=== PATIENT | female | born 1950 | race Caucasian/White ===

== ENCOUNTER 2016-05-15 10:47 | Emergency (ER) | payer BC ==
[~2016-05-15] VITALS: Ht 160 cm; Wt 50.6 kg
[~2016-05-15 10:47] MED LIST: ASCA500 PO; ASPI81TA28 PO; ATOR-26 PO; ATV/1 PO; LEVO112T4 PO; MIDRIN PO; PROP10TA7 PO; PYRI100T4 PO; RIZA10TA19 PO; SUMA100T16 PO; SUMA20SP
[2016-05-15 10:58] VITALS: TEMP 36.8; Ht 160 cm; Wt 50.6 kg
--- NOTE | 2016-05-15 11:31 | DIAGNOSTIC IMAGING REPORT ---
RIGHT WRIST 5 VIEWS CLINICAL HISTORY: Fall with right wrist injury. FINDINGS: 5 views of the right wrist are obtained. No prior studies are available for comparison at the time of dictation. The skeletal structures are osteopenic. There is an impacted and comminuted fracture of the distal radial metaphysis with intra-articular extension. There are posteriorly distracted fragments, with minimal apex volar angulation. Overlying soft tissue edema is noted. No additional fracture is seen. Mild degenerative narrowing is seen at the radiocarpal joint. IMPRESSION: There is an impacted and comminuted fracture of the distal right metaphysis as above with overlying soft tissue edema. Electronically signed by: Jose Khan M.D. 05/15/2016 11:29 AM Dictated Date/Time: 05/15/2016 11:28 AM
[2016-05-15] MEDS ORDERED: INSPMPNVLG (11:49)
[2016-05-15] MEDS ORDERED: HYDR-5688 PO (11:55)
--- NOTE | 2016-05-15 11:56 | EMERGENCY ROOM VISIT NOTE ---
ED Visit Note First contact with patient: 11:00 CHIEF COMPLAINT: Wrist injury HISTORY OF PRESENT ILLNESS: This 65-year-old female patient presents to the emergency department ambulatory complaining of pain in the right wrist after a fall which occurred this morning. The patient states that she slipped on ice and fell, landing on her back. She attempted to catch herself with her right wrist and reports pain in the right wrist at this time. The patient is able to move their wrist, but is very painful to do so. The patient states the pain is throbbing and 8/10. No laceration, no weakness. No numbness or tingling. The patient denies any other injury. The patient is able to move their fingers and elbow without difficulty. The patient has not had a previous fracture to this wrist. The patient has taken no medication for the pain. REVIEW OF SYSTEMS: A 6 system review of systems was performed with positives and pertinent negatives in the HPI. ALLERGIES: Cephalosporins, Bactrim MEDICATIONS: See med list PMH: Diabetes, hypertension SOCIAL HISTORY: The patient lives locally. Nonsmoker, occasional alcohol use. PHYSICAL EXAM: Vital Signs: Reviewed Nurse's notes, vital signs stable. GENERAL : This is a 65-year-old female, in no acute distress, but appears to be in pain , well-developed, nourished. NEURO: Alert and oriented to person place and time. Normal sensation to light and sharp touch. MUSCULOSKELETAL: There is no deformity of the right wrist. There is tenderness and edema over the dorsal aspect of the right wrist. There is no snuff box tenderness. Range of motion is slightly decreased due to patient discomfort. There is no tenderness of the elbow, hand or fingers. Production Administrative Assistant strength 5/5. Radial pulse 2+. SKIN: Normal and intact. The hand is warm and well perfused with capillary refill less than 2 seconds. RADIOGRAPHIC FINDINGS: RIGHT WRIST 5 VIEWS CLINICAL HISTORY: Fall with right wrist injury. FINDINGS: 5 views of the right wrist are obtained. No prior studies are available for comparison at the time of dictation. The skeletal structures are osteopenic. There is an impacted and comminuted fracture of the distal radial metaphysis with intra-articular extension. There are posteriorly distracted fragments, with minimal apex volar angulation. Overlying soft tissue edema is noted. No additional fracture is seen. Mild degenerative narrowing is seen at the radiocarpal joint. IMPRESSION: There is an impacted and comminuted fracture of the distal right metaphysis as above with overlying soft tissue edema. EMERGENCY DEPARTMENT COURSE: I examined the patient. An X-ray of the right wrist was reviewed by myself and radiology and showed the above fracture. An Ortho-Glass volar wrist splint was placed under my direction and the position was satisfactory. Neurovascular status rechecked and intact. The patient was given a prescription for Winkelman. The [place] prescription drug monitoring program was queried and no red flags were identified. She was given information for orthopedic follow-up. She verbalized understanding of my assessment and treatment plan. The patient was discharged home in good condition. DIAGNOSIS: Right distal radius fracture Problem List Medical Problems: (1) Bronchitis Status: Resolved (2) Diabetes Status: Chronic (3) Hypertension Status: Chronic Current/Historical Medications Scheduled Aspirin (Aspirin Ec), 81 MG PO DAILY Atorvastatin (Lipitor), 80 MG PO HS Insulin Aspart (novoLOG INSULIN PUMP ), 30 UNITS N/A DAILY Levothyroxine Sodium (Levothyroxine Sodium), 1 TAB PO DAILY Lorazepam (Ativan), 1 MG PO HS Propranolol Hcl (Inderal), 10 MG PO TID Pyridoxine (Vitamin B6), 100 MG PO DAILY Scheduled PRN Hydrocodone/Acetaminophen 5MG/325MG (Winkelman 5MG/325MG), 1-2 TABLET PO Q4H PRN for Pain Rizatriptan Benzoate (Maxalt-Senior Engineer), 10 MG PO DIRECTED PRN for Migraine Sumatriptan Succinate (Imitrex), 100 MG PO DIRECTED PRN for Migraine [Midrin], 1 TAB PO Q4H PRN for Headache Allergies Coded Allergies: Sulfamethoxazole w/Trimethoprim (Verified Allergy, Severe, "ALMOST ", 08/06/15) Cefaclor (Verified Allergy, Unknown, UNKNOWN, 08/06/15) Cephalexin (Verified Allergy, Unknown, UNKNOWN, 08/06/15) Cephalosporins (Verified Allergy, Unknown, ALLERGY TO CEFTIN & CECLOR, 08/05) Vital Signs Date Time Temp Pulse Resp B/P Pulse Ox O2 Delivery O2 Flow Rate FiO2 05/15/16 12:03 76 14 118/72 100 05/15/16 10:58 36.8 85 18 121/74 95 Room Air Departure Information Impression Primary Impression: Fracture of right distal radius Dispostion Home / Self-Care Condition GOOD Prescriptions Hydrocodone/Acetaminophen 5MG/325MG (Winkelman 5MG/325MG) Tab 1-2 TABLET PO Q4H Y for Pain, #20 TAB For Initial Treatment Prov: Bess Paul PA-C 05/15/16 Referrals Shad Moya M.D. (PCP) Richy Mendez M.D. Patient Instructions My [facility] Additional Instructions You have been treated in the Emergency Department for Wrist Pain. You have been prescribed Winkelman to be used for pain control. This is a narcotic medication. You cannot drive or consume alcohol while on this medicine. This medicine should only be used for pain that cannot be controlled with over-the- counter pain medicines. For pain control, you can use the following [id number]-ufphaib medicines (if >12 yo): - Regular strength (325mg/tab) Tylenol (acetaminophen) 2 tabs every 4-6 hours as needed. Do not exceed 12 tablets in a 24 hour period. Avoid taking more than 4 grams (4000 mg) of Tylenol per day. This includes any other sources of acetaminophen you may take on a regular basis. - Regular strength (200 mg/tab) Advil (ibuprofen) 1-2 tabs every 4-6 hours as needed. Do not exceed a dose of 3200 mg per day. If this is a recent injury (<24 hrs), ice can be applied to the area of pain for the first 3 days to help decrease pain and inflammation. You have been provided the number for an Orthopaedic Surgeon. You should call this number as soon as possible to establish a follow-up visit from today's Emergency Department visit. Keep the brace in place until evaluated by Orthopedics. Return to the Emergency Department if your current symptoms worsen despite treatment course outlined above, or if you develop any of the following symptoms : intractable pain despite aforementioned treatment course or new onset of numbness or tingling of the fingers. Problem Qualifiers Primary Impression: Fracture of right distal radius Encounter type: initial encounter Fracture type: closed Fracture morphology : unspecified fracture morphology Qualified Codes: S52.501A - Unspecified fracture of the lower end of right radius, initial encounter for closed fracture
[2016-05-15 12:03] VITALS: BP 118/72; PULSE 76; O2SAT 100
== END 2016-05-15 12:04 | disposition home or self-care (01) ==
LOC: C.EDB 10:48 → C.EDD 12:04
DX: S52.501A Unspecified fracture of the lower end of right radius, initial encounter for closed fracture (principal); W00.0XXA Fall on same level due to ice and snow, initial encounter; I10 Essential (primary) hypertension; E11.9 Type 2 diabetes mellitus without complications

== ENCOUNTER → 2016-05-24 | Outpatient (CLI) | payer BC ==
[~2016-05-24] MED LIST changes: -ASCA500 PO; +HYDR-5688 PO; +INSPMPNVLG; -SUMA20SP
== END | disposition home or self-care (01) ==
LOC: C.CPL 09:56
DX: Z01.810 Encounter for preprocedural cardiovascular examination (principal)

== ENCOUNTER → 2016-07-07 | Outpatient (CLI) | payer BC ==
--- NOTE | 2016-07-07 11:51 | DIAGNOSTIC IMAGING REPORT ---
RIGHT KNEE 1 OR 2 VIEWS ROUTINE, KNEES, AP STANDING, LEFT KNEE 1 OR 2 VIEWS ROUTINE CLINICAL HISTORY: OSTEOARTHRITIS OF BOTH KNEES,E55.9,R89.4 Right COMPARISON STUDY: None. FINDINGS: No fracture or dislocation within the right or left knee. Cartilage spaces are maintained for age. Soft tissues are unremarkable. No knee effusions. IMPRESSION: No significant abnormality within the bilateral knees. Electronically signed by: Adin Felipe M.D. 07/07/2016 11:50 AM Dictated Date/Time: 07/07/2016 11:47 AM
[2016-07-08 13:52] LABS: MICROSOMAL AB 804 IU/ML (<9)
== END | disposition home or self-care (01) ==
LOC: C.RAD 10:38
PROVIDERS: ATTEND Internal Medicine
DX: R89.4 Abnormal immunological findings in specimens from other organs, systems and tissues (principal); E55.9 Vitamin D deficiency, unspecified; M17.0 Bilateral primary osteoarthritis of knee

== ENCOUNTER → 2016-07-12 | Outpatient (CLI) | payer BC | END | disposition home or self-care (01) | LOC: C.MAMM 13:09 | PROVIDERS: ATTEND Internal Medicine | DX: E55.9 Vitamin D deficiency, unspecified (principal); Z78.9 Other specified health status; M81.0 Age-related osteoporosis without current pathological fracture ==

== ENCOUNTER → 2016-11-29 | Outpatient (CLI) | payer BC, OTHER ==
[~2016-11-29] MED LIST changes: -HYDR-5688 PO
--- NOTE | 2016-11-29 13:49 | MAMMOGRAPHY REPORT ---
BILATERAL DIGITAL SCREENING MAMMOGRAM WITH CAD: 11/29/2016 CLINICAL HISTORY: Routine screening examination. TECHNIQUE: Bilateral CC and MLO views were obtained. Current study was also evaluated with a Compute r Aided Detection (CAD) system. COMPARISON: Comparison is made to exams dated: 11/27/2015 mammogram, 02/18/2012 mammogram, 09/10/2010 m ammogram - [facility], 12/08/2006, and 09/23/2004 mammogram - [facility]. BREAST COMPOSITION: The tissue of both breasts is extremely dense, which lowers the sensitivity of m ammography. FINDINGS: The parenchymal pattern is unchanged. No developing mass, architectural distortion or clus ter of suspicious microcalcifications is seen in either breast. IMPRESSION: ACR BI-RADS CATEGORY 2: BENIGN There is no mammographic evidence of malignancy. A 1 year screening mammogram is recommended. The pa tient will receive written notification of the results. Approximately 10% of breast cancers are not detected with mammography. A negative mammographic report should not delay biopsy if a clinically suggestive mass is present. Eunice Rizvi M.D. ay/:11/29/2016 13:38:12 Wallet Assembler: Cathy CHAUHAN(R)(Jonah), [facility] letter sent: Normal 1/2 BI-RADS Code: ACR BI-RADS Category 2: Benign
== END | disposition home or self-care (01) ==
LOC: C.MAMM 09:19
PROVIDERS: ATTEND Internal Medicine
DX: Z12.31 Encounter for screening mammogram for malignant neoplasm of breast (principal)

== ENCOUNTER → 2016-12-25 | Outpatient (CLI) | payer BC ==
[2016-12-25 11:17] LABS: BASO % 0.3 %; BASO ABS # 0.02 K/uL (0-0.2); COMPLETE YES; EOS % 3.7 %; HEMATOCRIT 42.5 % (37-47); IG% 0.2 %; LYMPH % 28.1 %; LYMPH ABS # 1.74 K/uL (1.2-3.4); MEAN CELL VOLUME 93.8 fL (80-100); MEAN CORPUSCULAR HEMOGLOBIN 30.5 pg (25-34); MEAN CORPUSCULAR HGB CONC 32.5 g/dl (32-36); MEAN PLATELET VOLUME 10.3 fL (7.4-10.4); MONO % 7.1 %; NEUT % 60.6 %; PLATELET COUNT 311 K/uL (130-400); RED BLOOD COUNT 4.53 M/uL (4.2-5.4)
[2016-12-25 11:30] LABS: ESTIMATED AVERAGE GLUCOSE 266 mg/dl; HA1C FLAG Normal (Normal)
[2016-12-25 11:37] LABS: ALT/SGPT 35 U/L (12-78); BLOOD UREA NITROGEN 14 mg/dl (7-18); BUN/CREATININE RATIO 17.3 (10-20); CALCIUM 9.3 mg/dl (8.5-10.1); CARBON DIOXIDE 30 mmol/L (21-32); CHLORIDE 101 mmol/L (98-107); CHOLESTEROL 218 mg/dl (0-200); CREATININE 0.79 mg/dl (0.60-1.20); GLUCOSE 261 mg/dl (70-99); SODIUM 138 mmol/L (136-145)
[2016-12-25 11:41] LABS: ALB/GLOB RATIO 0.8 (0.9-2); ALKALINE PHOSPHATASE 119 U/L (45-117); AST/SGOT 32 U/L (15-37); CHOLESTEROL/HDL RATIO 2.2; HDL CHOLESTEROL 101 mg/dl; TRIGLYCERIDES 71 mg/dl (0-150); VERY LOW DENSITY LIPOPROT CALC 14 mg/dl
== END | disposition home or self-care (01) ==
LOC: C.LAB 09:58
PROVIDERS: ATTEND Internal Medicine Endocrinology, Diabetes & Metabolism
DX: E03.9 Hypothyroidism, unspecified (principal); I10 Essential (primary) hypertension; E78.5 Hyperlipidemia, unspecified; E06.3 Autoimmune thyroiditis; E55.9 Vitamin D deficiency, unspecified; E10.9 Type 1 diabetes mellitus without complications

== ENCOUNTER → 2017-04-01 | Outpatient (CLI) | payer BC ==
[2017-04-01 16:42] LABS: BLOOD UREA NITROGEN 16 mg/dl (7-18); CALCIUM 8.8 mg/dl (8.5-10.1); CARBON DIOXIDE 30 mmol/L (21-32); CREATININE 0.86 mg/dl (0.60-1.20); GLUCOSE 235 mg/dl (70-99); POTASSIUM 3.9 mmol/L (3.5-5.1); SODIUM 137 mmol/L (136-145)
== END | disposition home or self-care (01) ==
LOC: C.LAB 14:51
PROVIDERS: ATTEND Internal Medicine
DX: M81.0 Age-related osteoporosis without current pathological fracture (principal)

== ENCOUNTER → 2017-04-18 | Outpatient (CLI) | payer BC ==
[2017-04-18 13:38] LABS: HEMOGLOBIN A1C 11.1 % (4.5-5.6)
== END | disposition home or self-care (01) ==
LOC: C.LAB 12:28
PROVIDERS: ATTEND Internal Medicine Endocrinology, Diabetes & Metabolism
DX: E03.9 Hypothyroidism, unspecified (principal); I10 Essential (primary) hypertension; E78.5 Hyperlipidemia, unspecified; E06.3 Autoimmune thyroiditis; E55.9 Vitamin D deficiency, unspecified; E10.65 Type 1 diabetes mellitus with hyperglycemia

== ENCOUNTER → 2017-05-03 | Outpatient (CLI) | payer BC | END | disposition home or self-care (01) | LOC: C.PAPS 11:32 | PROVIDERS: ATTEND Obstetrics & Gynecology | DX: Z01.419 Encounter for gynecological examination (general) (routine) without abnormal findings (principal) ==

== ENCOUNTER → 2017-08-09 | Outpatient (CLI) | payer BC ==
[2017-08-09 13:58] LABS: HEMOGLOBIN A1C 10.5 % (4.5-5.6)
== END | disposition home or self-care (01) ==
LOC: C.LAB 12:36
PROVIDERS: ATTEND Nurse Practitioner Adult Health
DX: E03.9 Hypothyroidism, unspecified (principal); I10 Essential (primary) hypertension; E78.5 Hyperlipidemia, unspecified; E55.9 Vitamin D deficiency, unspecified; E10.65 Type 1 diabetes mellitus with hyperglycemia; Z79.4 Long term (current) use of insulin

== ENCOUNTER 2024-07-12 09:13 | Inpatient (IN) ==
[2024-07-12] MEDS ORDERED: DEXTROSE 50% 50 ML SYRINGE IV PRN (09:34)
[2024-07-12] MEDS ORDERED: GLUCOSE 10 TAB/TUBE PO PRN (09:34)
[2024-07-12] MEDS ORDERED: GLUCOSE 40% GEL 15 GM TUBE PO PRN (09:34)
[2024-07-12] MEDS ORDERED: CARBOHYDRATES FOR HYPOGLYCEMIA PO PRN (09:34)
[2024-07-12] MEDS ORDERED: GLUCAGON FOR INJ 1 MG VIAL SQ PRN (09:34)
[2024-07-12] MEDS: SODIUM CHLORIDE 0.9% 1,000 ML IV ONE ×3 (09:40→12:30)
--- NOTE | 2024-07-12 09:40 | Emergency Department Note ---
Impression & Plan AMS (altered mental status), Acute dehydration, Elevated lactic acid level, Elevated troponin, DKA (diabetic ketoacidosis), Acute hypernatremia, Hypothermia ED Provider Note Provider: Juan Manuel Joaquin MD CHIEF COMPLAINT: Altered found on floor HISTORY OF PRESENT ILLNESS: Patient is a 74-year-old female history of type 1 diabetes, hypertension, hypothyroidism presenting here today via ambulance from home. Evidently is been having GI symptoms over the past 5 to 7 days. Son talked to her last night around 7 PM. Found this morning by son on the floor in her bathroom. Unclear how she got there how long she was down for. Altered not talking or following commands or answering questions. EMS was called and noted her blood sugar to be undetectably high. She is intermittently moving but again not interactive. No vomiting or bleeding reported by them at the scene. Patient is also no provide additional history. Son reports he has been ill over the last week or so and she told him she thought she might have norovirus. Evidently ran out of insulin yesterday and he went to the pharmacy to get her new insulin but it was pens not the insulin for her problems. Her blood sugar has been reading high for a while by his report. He states she looked somewhat weak and may be dehydrated last night but refused multiple encouragement to come to the ER. Found her on the floor this morning naked with a heat lamp on in the room. Talk to her/texted to around 10 PM last night. PAST MEDICAL HISTORY: As noted above MEDICATIONS: Reviewed home medications SOCIAL HISTORY: Lives by herself PHYSICAL EXAM: GENERAL: Does open eyes to loud verbal stimuli but does not follow commands. Nonverbal. Intermittently fidgeting moving extremities. Head: normocephalic and atraumatic EYES: No injection, discharge or icterus. PERRL NECK: Trachea midline. ENT: Mucous membranes noncyanotic with little bit of dried brown on them without blood and dry LUNGS: Airway patent. No retractions. Breath sounds clear but tachypneic HEART: Regular rate and rhythm. No chest wall tenderness ABDOMEN: Soft and non-tender, without guarding or rebound. SKIN: Acyanotic, warm, dry, without rashes or ulcerations EXTREMITIES: Without obvious tenderness or deformities a little bit of redness at the base of the left toe. No large wounds or lacerations noted. No significant contusions or swelling or compartment tenderness appreciated. NEUROLOGICAL: Moving all extremities withdrawing to pain. EKG: Difficult to get an EKG due to the patient's movement and continuous removal of leads. Do not want to sedate the patient related to her underlying acidosis. CONTINUOUS CARDIAC MONITORING: was ordered and showed a heart rate of 60s to 100s normal sinus rhythm/sinus tachycardia GCS 15. Patient's laboratory studies and imaging reviewed. Differential includes Infection, dehydration, metabolic abnormality, hypo/hyperglycemia, electrolyte disturbance, anemia, hypoxia, cardiac sources, intracerebral event/neurologic, traumatic, as well as other pathologies. IMPRESSION/MEDICAL DECISION MAKING: Patient noted be hypothermic and altered upon arrival with a high glucose. Concern type I diabetic for DKA. [id number] testing confirms this. Evidence of JASMINE. IV fluid bolus ordered as well as insulin drip. Cultures obtained as well as laboratory studies VBG and Buenrostro. Adolfo verduzcoer for warming as she is hypothermic. It is unclear exactly how she had on the floor is altered will obtain a CT of the head as well as CT of the cervical finding chest abdomen pelvis Noncon given her acute renal dysfunction. Will look for any traumatic injury or other infectious etiology. Lactate elevated at 4. Leukocytosis of 23 with a hemoglobin 10.9. Glucose returns 1175. Sodium 133 and given the severe glucose elevation question hypernatremia. Again receiving IV fluids. Troponin mildly elevated 49 likely more demand and CK mildly elevated. Again difficulty obtaining EKG due to the patient's intermittent movement and pulling off leads but doubt ACS/STEMI. Repeat troponin is flat. She is again receiving IV fluids. UA without findings of infection. JASMINE/dehydration noted with elevated creatinine. CT scans per radiology without significant traumatic finding. A little bit of esophageal inflammation noted. Given a IV dose of PPI. Procalcitonin is elevated 3.9 discussed with pharmacy given her allergy profile empirically cover with ertapenem for broad-spectrum coverage at this point. Blood cultures are pending. Continued warming with the bear hugger for hypothermia. VBG pH of 7.0. Insulin drip has been ordered. Sodium 132 but correcting for the sodium should be in the 150s. Total of 4 L of IV fluid ordered for hydration. Son is updated at bedside. Discussed with the hospitalist for further care here. ICU aware of patient. DIAGNOSIS: DKA/HHS, altered mental status, elevated lactate, hyponatremia, hypothermia DISPOSITION: Hospitalist will evaluate Luan updated at bedside. Critical Care I have personally spent 46 minutes of critical care time in the direct management of this patient. This includes bedside care, interpretation of diagnostic studies, and testing, discussion with consultants, patient, and family members, and other required patient management activities. These 46 minutes is in excess of all separately billable procedures. 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, with long-term current use of insulin Medical History Generalized anxiety disorder with panic attacks Seasonal allergies uses symbicort rarely Osteoarthritis Migraine Hypertension Surgical History Hx of right cataract extraction Hx of bilateral cataract extraction History of open reduction and internal fixation (ORIF) procedure right wrist---with a carpal tunnel repair at same time---hardware in place History of open reduction and internal fixation (ORIF) procedure left wrist--hardware in place History of bronchoscopy NELLIE lung infection History of bilateral tubal ligation History of tooth extraction History of wisdom tooth extraction History of tonsillectomy and adenoidectomy Family History Grandfather (Maternal) Family hx of colon cancer Colorectal cancer Grandmother (Maternal) Myocardial infarction, Onset Age: 50 lived until 99 years old. Mother Myocardial infarction Coded during angioplasty, CABG x3. COPD (chronic obstructive pulmonary disease) Other No family history of adverse response to anesthesia Denies family history of Ovarian cancer Prostate cancer Diabetes Breast cancer Lung cancer Stroke Social History Smoking Status: Unknown if ever smoked Second Hand Exposure: Yes (PARENTS SMOKED); Do You Dip or Chew Tobacco: No; Hx Alcohol Use: Yes Alcohol type: wine and hard liquor Alcohol type Comment: 1 glass with dinner Alcohol Intake Frequency: 4 or More x per/Week Alcohol Intake Frequency Comment: 1 glass of wine each night Hx Substance Use: No Preferred Language: Monegasque Communication Ability: Effective Visual Impairment: Limited Hearing Ability: Normal Assessment Technician Required: No Beliefs That Will Affect Care: None marital status: / Current Living Situation: Alone current occupational status: retired 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 How many Children do You have: 6 Feels Safe at Home: Yes Childhood Exposure to Second-Hand Smoke: Yes Diet: DASH, diabetic and low salt caffeine: Yes Dental Care, Regularly: Yes Physical Activity Frequency: 3-4 Times per Week Seatbelt Use: always Sunscreen Use: Yes Assistive Devices: Glasses Allergies Allergies Allergy/AdvReac Type Severity Reaction Status Date / Time Bactrim Allergy Severe "ALMOST Verified 08/06/15 11:18 " sulfamethoxazole Allergy Severe "ALMOST Verified 05/23/24 13:33 " trimethoprim Allergy Severe "ALMOST Verified 05/23/24 13:33 " cefaclor Allergy Mild Rash Verified 05/23/24 13:33 cefuroxime [From Ceftin] Allergy Mild Rash Verified 05/23/24 13:33 cephalexin Allergy Mild Rash Verified 05/23/24 13:33 Cephalosporins Allergy Mild ALLERGY TO Verified 05/23/24 13:33 CEFTIN & CECLOR lisinopril AdvReac Mild Nausea Verified 05/23/24 13:33 Home Meds Home Medications Medication Instructions Recorded Confirmed aspirin 81 mg tablet,delayed 81 mg PO UD 11/24/18 07/12/24 release ibuprofen 200 mg tablet (Motrin IB) 400 mg PO BID PRN Pain 11/24/18 07/12/24 rizatriptan 10 mg tablet 10 mg PO UD PRN Migraine Headache 11/24/18 07/12/24 blood sugar diagnostic (FreeStyle #10 ea 09/05/20 05/23/24 Lite Strips) cholecalciferol (vitamin D3) 25 75 mcg PO DAILY 01/06/23 07/12/24 mcg (1,000 unit) capsule cbd caps 1 tab PO DAILY PRN Other 02/18/23 07/12/24 levocetirizine 5 mg tablet (Xyzal) 2.5 mg PO DAILY PRN Other 02/18/23 07/12/24 denosumab 60 mg/mL subcutaneous 60 mg subcut UD 04/13/24 07/12/24 syringe (Prolia) levothyroxine 100 mcg tablet 100 mcg PO DAILY 04/30/24 07/12/24 atorvastatin 80 mg tablet 80 mg PO UD 07/12/24 07/12/24 ezetimibe 10 mg tablet 10 mg PO UD 07/12/24 07/12/24 insulin aspart U-100 100 unit/mL 70 unit continuous subcutaneous 07/12/24 07/12/24 subcutaneous solution (Novolog infusion UD U-100 Insulin aspart) losartan 25 mg tablet 12.5 mg PO UD 07/12/24 07/12/24 mupirocin 2 % topical ointment 1 applic topical UD 07/12/24 07/12/24 sertraline 25 mg tablet 25 mg PO UD 07/12/24 07/12/24 Previous Rx's Medication Instructions Recorded insulin pump cartridge,automated #1 ea 05/27/23 dose,BT with controller subcutaneous (Omnipod 5 G6 Intro Kit (Gen 5) subcutaneous cartridge with controller) buspirone 10 mg tablet 5 - 10 mg (0.5 - 1 x 10 mg) PO BID 08/24/23 PRN anxiety #60 tabs Lantus Solostar U-100 Insulin 100 14 unit (0.14 mL) subcut DAILY #15 12/19/23 unit/mL (3 mL) subcutaneous pen mL (insulin glargine) pen needle, diabetic 32 gauge x #400 ea 12/19/23" (BD Kitty 2nd Gen Pen Needle) acetone (urine) test (Ketostix #25 ea 12/26/23 strips) glucagon (human recombinant) 1 mg 1 mg .Route Q20M PRN hypoglycemia 12/26/23 solution for injection #1 ea blood-glucose sensor (Dexcom G7 #3 ea 04/03/24 Sensor device) insulin aspart U-100 100 unit/mL 15 unit (0.15 mL) subcut DAILY #15 05/22/24 (3 mL) subcutaneous pen (Novolog mL FlexPen U-100 Insulin aspart) hydralazine 10 mg tablet 10 mg PO PRN #60 tabs 05/25/24 lorazepam 1 mg tablet 1 mg PO DAILY PRN panic attack(s) 06/28/24 #30 tabs Omnipod 5 G6-G7 Pods (Gen 5) #10 ea 06/29/24 (insulin pump cart,auto,BT,G6/7) Results & Data (ED) Vital Signs Vital Signs - 24 hr 07/12/24 09:04 07/12/24 09:04 07/12/24 09:04 Temperature 31.1 C L 31.1 C L Temperature Source Rectal Rectal Pulse Rate 76 Pulse Rate [Apical] Pulse Rhythm [Apical] Pulse Strength [Apical] Respiratory Rate 32 H Respiratory Effort / Characteristics Pursed Lip Respiratory Depth Deep Respiratory Pattern Blood Pressure 75/55 L Blood Pressure [Right Arm] Blood Pressure Mean 61 Blood Pressure Mean [Right Arm] Blood Pressure Position [Right Arm] Pulse Oximetry 90 Oxygen Delivery Method Nasal Cannula Nasal Cannula Oxygen Flow Rate 5 4 Sepsis Recent Fever Within 48 Hours No Sepsis New/Unexplained Change in Mental Status N/A Sepsis Action Taken by Nursing Physician Notified 07/12/24 09:23 07/12/24 09:39 07/12/24 10:34 Temperature 31.3 C L 31.7 C L Temperature Source Buenrostro Cath ( Temp Sensing) Buenrostro Cath ( Temp Sensing) Pulse Rate 79 Pulse Rate [Apical] 104 H 76 Pulse Rhythm [Apical] Pulse Strength [Apical] Respiratory Rate 24 25 H Respiratory Effort / Characteristics Pursed Lip Respiratory Depth Respiratory Pattern Blood Pressure Blood Pressure [Right Arm] 127/77 93/65 L Blood Pressure Mean Blood Pressure Mean [Right Arm] 93 74 Blood Pressure Position [Right Arm] Pulse Oximetry 97 Oxygen Delivery Method Nasal Cannula Nasal Cannula Oxygen Flow Rate 4 5 Sepsis Recent Fever Within 48 Hours Sepsis New/Unexplained Change in Mental Status Sepsis Action Taken by Nursing 07/12/24 11:48 Temperature Temperature Source Pulse Rate Pulse Rate [Apical] 83 Pulse Rhythm [Apical] Regular Pulse Strength [Apical] Normal Respiratory Rate 21 Respiratory Effort / Characteristics Non-Labored Spontaneous Respiratory Depth Normal Respiratory Pattern Regular Blood Pressure Blood Pressure [Right Arm] 113/68 Blood Pressure Mean Blood Pressure Mean [Right Arm] 83 Blood Pressure Position [Right Arm] Lying Pulse Oximetry 93 Oxygen Delivery Method Nasal Cannula Oxygen Flow Rate 5 Sepsis Recent Fever Within 48 Hours Sepsis New/Unexplained Change in Mental Status Sepsis Action Taken by Nursing Laboratory Data 07/12/24 09:25 07/12/24 11:08 Lab Results 04/10/25 04/10/25 04/10/25 Range/Units 09:25 09:32 10:22 WBC 23.08 H (4.8-10.8) K/ul RBC 3.55 L (4.20-5.40) M/uL Hgb 10.5 L (12.0-16.0) g/dl POC Hgb 11.9 L (12.0-16.0) g/dl Hct 33.5 L (37.0-47.0) % POC Hct 35 L (37-47) % MCV 94.4 (80.0-100.0) fL MCH 29.6 (25.0-34.0) pg MCHC 31.3 L (32.0-36.0) g/dL RDW Std Deviation 42.1 (36.4-46.3) fL RDW Coeff of Xavi 12.2 (11.5-14.5) % Plt Count 446 H (130-400) K/uL MPV 10.3 (9.4-12.4) fL Immature Gran % (Auto) 4.5 % Neut % (Auto) 77.7 % Lymph % (Auto) 13.0 % [place] % (Auto) 4.4 % Eos % (Auto) 0.2 % Baso % (Auto) 0.2 % Neut # (Auto) 17.94 H (1.40-6.50) K/uL Lymph # (Auto) 3.01 (1.20-3.40) K/uL [place] # (Auto) 1.01 H (0.11-0.59) K/uL Eos # (Auto) 0.04 (0.00-0.50) K/uL Baso # (Auto) 0.05 (0.00-0.20) K/uL Immature Gran # (Auto) 1.03 H (0.01-0.20) K/uL PT 15.0 H (9.0-12.0) Seconds INR 1.4 H (0.9-1.1) VBG pH (7.36-7.41) VBG pCO2 (38-50) mmHg VBG pO2 mmHg VBG HCO3 mmol/L VBG O2 Saturation % VBG Base Excess mEq/L POC Sodium 132 L (135-144) mmol/L Sodium 133 L (136-145) mmol/L POC Potassium 5.1 H (3.3-5.0) mmol/L Potassium 5.3 H (3.5-5.1) mmol/L POC Chloride 99 L (101-112) mmol/L Chloride 90 L (98-107) mmol/L Carbon Dioxide 10 L (21-32) mmol/L POC Total CO2 11 L (24-31) mmol/L Anion Gap 33 H (3-11) POC Anion Gap 28.0 H (16-25) mmol/L POC BUN 44 H (7-18) mg/dl BUN 56 H (6-23) mg/dl Creatinine 2.27 H (0.6-1.2) mg/dl POC Creatinine 2.1 H (0.6-1.3) mg/dl Est Cr Clr Drug Dosing 18.0 ml/min eGFR 22.10 BUN/Creatinine Ratio 24.7 H (10-20) Glucose 1175 H* (70-99(Fasting)) mg/dl POC Glucose (70-99) mg/dl POC Glucose (other) > 700 H* (70-99) mg/dl Lactate 4.0 H* (0.4-2.0) mmol/L Calcium 8.4 L (8.6-10.3) mg/dl POC Ioniz Calcium [place]che 1.07 L (1.12-1.32) mmol/l Phosphorus 8.6 H (2.5-4.9) mg/dl Magnesium 2.4 (1.7-2.4) mg/dl Total Bilirubin 1.1 H (0.2-1.0) mg/dl AST 28 (13-39) U/L ALT 13 (7-52) U/L Alkaline Phosphatase 75 (34-104) U/L Total Creatine Kinase 401 H (26-192) U/L Troponin I High Sens 49.3 H (0-14) pg/ml Total Protein 6.6 (6.0-8.3) gm/dl Albumin 3.4 (3.4-5.0) gm/dl Globulin 3.2 (2.5-4.0) gm/dl Albumin/Globulin Ratio 1.1 (0.9-2) Procalcitonin 3.91 H (0-0.5) ng/ml TSH 4.144 (0.300-4.500) uIu/ml Urine Color Yellow Urine Appearance Clear (Clear) Urine pH 5.0 (4.5-7.5) Ur Specific [place] 1.025 (1.000-1.030) Urine Protein Trace H (Negative) Urine Glucose (UA) 3+ H (Negative) Urine Ketones 2+ H (Negative) Urine Blood 2+ H (Negative) Urine Nitrite Negative (Negative) Urine Bilirubin Negative (Negative) Urine Urobilinogen Negative (Negative) Ur Leukocyte Esterase Negative (Negative) Urine WBC (Auto) 0-5 (0-5) /hpf Urine RBC (Auto) 0-2 (0-2) /hpf U Hyaline Cast (Auto) 0-2 (0-2) /lpf U Epithel Cells (Auto) 0-2 (0-2) /hpf Urine Bacteria (Auto) None Seen (None Seen) Urine Mucus Present A (None Prsent) 07/12/24 07/12/24 07/12/24 Range/Units 11:01 11:08 12:06 WBC (4.8-10.8) K/ul RBC (4.20-5.40) M/uL Hgb (12.0-16.0) g/dl POC Hgb (12.0-16.0) g/dl Hct (37.0-47.0) % POC Hct (37-47) % MCV (80.0-100.0) fL MCH (25.0-34.0) pg MCHC (32.0-36.0) g/dL RDW Std Deviation (36.4-46.3) fL RDW Coeff of Xavi (11.5-14.5) % Plt Count (130-400) K/uL MPV (9.4-12.4) fL Immature Gran % (Auto) % Neut % (Auto) % Lymph % (Auto) % [place] % (Auto) % Eos % (Auto) % Baso % (Auto) % Neut # (Auto) (1.40-6.50) K/uL Lymph # (Auto) (1.20-3.40) K/uL [place] # (Auto) (0.11-0.59) K/uL Eos # (Auto) (0.00-0.50) K/uL Baso # (Auto) (0.00-0.20) K/uL Immature Gran # (Auto) (0.01-0.20) K/uL PT (9.0-12.0) Seconds INR (0.9-1.1) VBG pH 7.00 L (7.36-7.41) VBG pCO2 28 L (38-50) mmHg VBG pO2 35 mmHg VBG HCO3 7 mmol/L VBG O2 Saturation < 60.0 % VBG Base Excess -23.1 mEq/L POC Sodium (135-144) mmol/L Sodium (136-145) mmol/L POC Potassium (3.3-5.0) mmol/L Potassium (3.5-5.1) mmol/L POC Chloride (101-112) mmol/L Chloride (98-107) mmol/L Carbon Dioxide (21-32) mmol/L POC Total CO2 (24-31) mmol/L Anion Gap (3-11) POC Anion Gap (16-25) mmol/L POC BUN (7-18) mg/dl BUN (6-23) mg/dl Creatinine (0.6-1.2) mg/dl POC Creatinine (0.6-1.3) mg/dl Est Cr Clr Drug Dosing ml/min eGFR BUN/Creatinine Ratio (10-20) Glucose 1085 H* (70-99(Fasting)) mg/dl POC Glucose > 600 H* > 600 H* (70-99) mg/dl POC Glucose (other) (70-99) mg/dl Lactate (0.4-2.0) mmol/L Calcium (8.6-10.3) mg/dl POC Ioniz Calcium [place] (1.12-1.32) mmol/l Phosphorus (2.5-4.9) mg/dl Magnesium (1.7-2.4) mg/dl Total Bilirubin (0.2-1.0) mg/dl AST (13-39) U/L ALT (7-52) U/L Alkaline Phosphatase (34-104) U/L Total Creatine Kinase (26-192) U/L Troponin I High Sens 48.8 H (0-14) pg/ml Total Protein (6.0-8.3) gm/dl Albumin (3.4-5.0) gm/dl Globulin (2.5-4.0) gm/dl Albumin/Globulin Ratio (0.9-2) Procalcitonin (0-0.5) ng/ml TSH (0.300-4.500) uIu/ml Urine Color Urine Appearance (Clear) Urine pH (4.5-7.5) Ur Specific [place] (1.000-1.030) Urine Protein (Negative) Urine Glucose (UA) (Negative) Urine Ketones (Negative) Urine Blood (Negative) Urine Nitrite (Negative) Urine Bilirubin (Negative) Urine Urobilinogen (Negative) Ur Leukocyte Esterase (Negative) Urine WBC (Auto) (0-5) /hpf Urine RBC (Auto) (0-2) /hpf U Hyaline Cast (Auto) (0-2) /lpf U Epithel Cells (Auto) (0-2) /hpf Urine Bacteria (Auto) (None Seen) Urine Mucus (None Prsent) Administered Medications Insulin Human Regular 250 (units/ Sodium Chloride) 250 mls @ 5 mls/hr IV .Q24H [facility]; Protocol Stop: 08/11/24 09:44 Last Titration: 07/12/24 12:10 Dose: 6 units/hr, 6 mls/hr Documented By: BHARGAVI Co-signed By: BRUNILDA Titration: 07/12/24 11:02 Dose: 5 units/hr, 5 mls/hr Documented By: ERIN Co-signed By: BHARGAVI Admin: 07/12/24 10:11 Dose: 5 units/hr, 5 mls/hr Documented By: ERIN Co-signed By: JUAN Sodium Chloride (Nss) 1,000 mls @ 999 mls/hr IV .Q1H1M ONE Stop: 07/12/24 11:57 Last Admin: 07/12/24 11:23 Dose: 999 mls/hr Documented By: BHARGAVI Insulin Aspart (Insulin Aspart Per Unit Charge) 0 units SC ACHS [facility] Stop: 08/11/24 11:29 Last Admin: 07/12/24 12:01 Dose: Not Given Documented By: BHARGAVI Co-signed By: BRUNILDA Discontinued Medications Sodium Chloride (Nss) 1,000 mls @ 999 mls/hr IV .Q1H1M ONE Stop: 07/12/24 10:19 Last Infusion: 07/12/24 11:20 Dose: Infused Documented By: Admin: 07/12/24 09:40 Dose: 999 mls/hr Documented By: ERIN Parenteral Electrolytes (Plasma-Lyte A Ph 7.4) 1,000 mls @ 999 mls/hr IV .Q1H1M ONE Stop: 07/12/24 10:34 Last Admin: 07/12/24 11:18 Dose: 999 mls/hr Documented By: BHARGAVI Ertapenem (Invanz 1000mg) 1,000 mg in 10 mls @ 2 mls/min IV NOW STA Stop: 07/12/24 10:09 Last Admin: 07/12/24 10:51 Dose: 2 mls/min Documented By: ERIN Pantoprazole Sodium 80 mg/ (Dextrose) 120 mls @ 480 mls/hr IV ONE STA Stop: 07/12/24 10:56 Last Infusion: 07/12/24 12:03 Dose: Infused Documented By: Admin: 07/12/24 11:45 Dose: 480 mls/hr Documented By: BHARGAVI Pantoprazole Sodium (Protonix) 40 mg in 10 mls @ 5 mls/min IV NOW ONE Stop: 07/12/24 11:18 Last Admin: 07/12/24 11:30 Dose: 5 mls/min Documented By: BHARGAVI Blanchard (Stat Iv Infusion Titration Per Protocol) 1 each N/A NOW STA Stop: 07/12/24 09:35 Last Admin: 07/12/24 10:19 Dose: Not Given Documented By: ERIN Blanchard (Dka Goal Range 150-250 Mg/Dl) 1 each N/A ONE ONE Stop: 07/12/24 09:35 Last Admin: 07/12/24 10:18 Dose: Not Given Documented By: ERIN Blanchard (Bsg Goal Range Change - Pending Order) 1 each N/A NOW ONE Stop: 07/12/24 11:01 Last Admin: 07/12/24 11:24 Dose: 1 each Documented By: BHARGAVI Imaging Data Radiologist's Impression: Cervical Spine CT 07/12/24 09:17 CT cervical spine wo con CT DOSE: 1944.79 mGy.cm CLINICAL HISTORY: on floor, ams. COMPARISON: None TECHNIQUE: Multiple axial CT images of the cervical spine were obtained without contrast. A dose lowering technique was utilized adhering to the principles of ALARA. FINDINGS: There is moderate diffuse degenerative disc disease. No fracture or subluxation. IMPRESSION: No cervical spine fracture seen. ACT 112: Negative or not required by law. The above report was generated using voice recognition software. It may contain grammatical, syntax or spelling errors. Electronically signed by: Bc Suarez M.D. 07/12/2024 10:20 AM Chest X-Ray 07/12/24 09:18 XR chest 1V portable CLINICAL HISTORY: ams, ?fall COMPARISON STUDY: 08/06/2015 FINDINGS: Single view supine portable chest is limited by motion degradation. There is no acute process identified. There is no definite airspace opacity or pleural effusion. There is no pneumothorax. The heart and pulmonary vascularity are unremarkable for technique. IMPRESSION: No acute process identified. ACT 112: Negative or not required by law. Electronically signed by: Debra Dutton M.D. 07/12/2024 9:[address] 07/12/24 09:18 CT SCAN OF THE BRAIN WITHOUT IV CONTRAST CLINICAL HISTORY: Altered mental status. Possible fall. COMPARISON STUDY: None. TECHNIQUE: Unenhanced axial CT scan of the brain was performed from the vertex to the skull base. A dose lowering technique was utilized adhering to the principles of ALARA. FINDINGS: Brain parenchyma: Mild motion artifact. No acute intracranial hemorrhage, midline shift or mass effect is present. Gomez-white matter differentiation is preserved. There are no extra-axial fluid collections. There are no findings to suggest acute dural sinus thrombosis or acute territorial infarct. Ventricles, sulci, cisterns: There is no hydrocephalus. The basal cisterns are patent. Calvarium: No calvarial fractures. Sinuses and mastoids: The visualized paranasal sinuses are clear. The mastoid air cells are well pneumatized. Orbits: The bony orbits are grossly intact. IMPRESSION: 1. No acute intracranial findings. 2. No calvarial fractures. ACT 112: Negative or not required by law. Electronically signed by: Ag Griffiths M.D. 07/12/2024 10:24 AM Abdomen/Pelvis CT 07/12/24 09:[address] WITHOUT CONTRAST CT DOSE: 1945 HISTORY: ams, on floor, DKA TECHNIQUE: Multiaxial CT images of the abdomen and pelvis were performed without contrast. A dose lowering technique was utilized adhering to the principles of ALARA. COMPARISON STUDY: None FINDINGS: ABDOMEN: There is motion artifact. Liver, gallbladder, spleen, pancreas, and adrenal glands have an unremarkable non-IV contrast appearance. There is a small nonobstructing calculus at the left kidney. There is no hydronephrosis bilaterally. No abdominal aortic aneurysm. There is mild distention of the stomach with gas and fluid and the distal esophagus is mildly distended with fluid. Pelvis: Uterus and adnexal regions are grossly unremarkable. Buenrostro catheter is present. Urinary bladder is nondistended. No bowel inflammation or obstruction seen. No free fluid, free air, or abscess. No enlarged adenopathy. Osseous structures: There is mild chronic-appearing height loss at the L1 vertebral body. No acute osseous finding seen. IMPRESSION: 1. No acute findings seen. 2. Mild distention of the stomach with gas and fluid and mild fluid distention of the distal esophagus. ACT 112: Negative or not required by law. The above report was generated using voice recognition software. It may contain grammatical, syntax or spelling errors. Electronically signed by: Bc Suarez M.D. 07/12/2024 10:[address] 07/12/24 09:33 CT chest diagnostic wo con CT DOSE: 1944.79mGy*cm CLINICAL HISTORY: Altered mental status; found on the floor TECHNIQUE: Multiaxial CT images of the chest were performed without contrast. Sagittal and coronal reconstructions were done. A dose lowering technique was utilized adhering to the principles of ALARA. COMPARISON STUDY: None FINDINGS: There is no definite chest wall injury identified. Spurious defect in the sternum is felt to be misregistration due to motion. There is patchy discoid atelectasis in both lung bases. There is no air space opacity suggestive of a pneumonia or contusion. There is no pneumothorax. The upper airway is unremarkable. There is mild prominence of the superior mediastinal lymph nodes and supraclavicular lymph nodes with no evidence of matting or necrosis. There is mild ectasia of the ascending aorta. There is no pericardial effusion. There is mild coronary artery calcification. There is a thickening of the freeman of the distal esophagus. The upper abdominal images are noncontributory. The thoracic spine shows no evidence of acute compression fracture or malalignment. IMPRESSION: No definite evidence of acute traumatic thoracic injury. Mild ectasia of the ascending aorta. Relative low attenuation of the lumen raises the possibility of anemia. Nonspecific and discoid atelectasis at the lung bases. Esophageal wall thickening. Consider correlation with esophagram Mild prominence of the superior mediastinal and supraclavicular lymph nodes are nonspecific. ACT 112: Negative or not required by law. Electronically signed by: Debra Dutton M.D. 07/12/2024 10:25 AM Discharge Plan Visit Data Chief Complaint: Hyperglycemia ED Provider: Juan Manuel Joaquin Discharge Problem: AMS (altered mental status), Acute dehydration, Elevated lactic acid level, Elevated troponin, DKA (diabetic ketoacidosis), Acute hypernatremia, Hypothermia Patient Disposition: Being Evaluated by Hospitalist Forms Stand Alone Forms: On License Of [facility] Prescriptions Prescriptions: No Action (DME) Omnipod 5 G6 Intro Kit (Gen 5) Cartridge See Rx Instructions .Route Qty: 1 0RF Rx Instructions: Use as directed with Omnipod (DME) Dexcom G7 Sensor Device See Rx Instructions .Route Qty: 3 11RF Rx Instructions: Change sensor every 10 days. insulin aspart U-100 [Novolog FlexPen U-100 Insulin] 100 unit/mL (3 mL) insulin pen 15 unit subcut DAILY Qty: 15 1RF Rx Instructions: Inject with meals in case of pump failure; TDD 15 units hydralazine 10 mg tablet 10 mg PO PRN Qty: 60 2RF Rx Instructions: Take 1 tablet for SBP >140 mmHg lorazepam 1 mg tablet 1 mg PO DAILY PRN (Reason: panic attack(s)) Qty: 30 0RF (DME) Omnipod 5 G6-G7 Pods (Gen 5) Cartridge See Rx Instructions .Route Qty: 10 5RF Rx Instructions: change pod Q3D (DME) FreeStyle Lite Strips Strip See Rx Instructions .ROUTE .MEDSUPPLY Qty: 10 Rx Instructions: As directed cbd caps capsule 1 tab PO DAILY PRN (Reason: Other) Rx Instructions: Unable to verify cholecalciferol (vitamin D3) 25 mcg (1,000 unit) capsule 75 mcg PO DAILY Rx Instructions: otc unable to verify levocetirizine [Xyzal] 5 mg tablet 2.5 mg PO DAILY PRN (Reason: Other) Rx Instructions: otc unable to verify (DME) pen needle, diabetic [BD Kitty 2nd Gen Pen Needle] 32 gauge x 5/32" needle See Rx Instructions miscellaneous .MEDSUPPLY Qty: 400 0RF Rx Instructions: To use with a new pen needle up to 4x a day insulin glargine [Lantus Solostar U-100 Insulin] 100 unit/mL (3 mL) insulin pen 14 unit subcut DAILY Qty: 15 1RF Rx Instructions: To be used for pump failure Prolia 60 mg/mL syringe 60 mg subcut UD Patient Comments: First injection in March 2024. Rx Instructions: last filled 03/02/24 180 day supply buspirone 10 mg tablet 5 - 10 mg PO BID PRN (Reason: anxiety) Qty: 60 1RF Rx Instructions: last filled 08/24/23 30 day supply levothyroxine 100 mcg tablet 100 mcg PO DAILY Rx Instructions: Take 1 tablet 6 days/week (DME) Ketostix Strip See Rx Instructions miscellaneous .MEDSUPPLY Qty: 25 5RF Rx Instructions: Check for sick days if blood sugars are greater than 250 for 4 hours glucagon (human recombinant) 1 mg recon soln 1 mg .Route Q20M PRN (Reason: hypoglycemia) Qty: 1 5RF Rx Instructions: To treat for a severe hypoglycemia. last filled 12/25/33 ibuprofen [Motrin IB] 200 mg Tablet 400 mg PO BID PRN (Reason: Pain) Rx Instructions: otc unable to verify rizatriptan 10 mg Tablet 10 mg PO UD PRN (Reason: Migraine Headache) Rx Instructions: No fill history unable to verify aspirin 81 mg Tablet,Delayed Release (Dr/Ec) 81 mg PO UD Hold Instructions: Epistaxis Rx Instructions: 81 mg po hs. otc unable to verify atorvastatin 80 mg tablet 80 mg PO UD Rx Instructions: 80 mg po hs. last filled 04/02/24 90 day supply insulin aspart U-100 [Novolog U-100 Insulin aspart] 100 unit/mL solution 70 unit continuous subcutaneous infusion UD Rx Instructions: USE IN INSULIN PUMP FOR A TOTAL DAILY DOSE OF 70 UNITS losartan 25 mg tablet 12.5 mg PO UD Rx Instructions: 12.5mg po daily. last filled 12/13/23 40 day supply sertraline 25 mg tablet 25 mg PO UD Rx Instructions: 25 mg po daily. No fill history unable to verify mupirocin 2 % ointment 1 applic topical UD Rx Instructions: 1 elsy topical bid. last filled 01/25/24 10 day supply ezetimibe 10 mg tablet 10 mg PO UD Rx Instructions: 10mg po hs. last filled 5/8/24 100 day supply Referrals Referrals: Berenice Balderas MD [Primary Care Provider] - Discharge Problem: AMS (altered mental status) Qualifiers: Altered mental status type: disorientation Qualified Code(s): R41.0 - Disorientation, unspecified
[2024-07-12 09:42] LABS: Basophils # (auto) 0.05 K/uL (0.00-0.20); Basophils % (auto) 0.2 %; Eosinophils # (auto) 0.04 K/uL (0.00-0.50); Eosinophils % (auto) 0.2 %; Immature Granulocytes # (auto) 1.03 K/uL (0.01-0.20); Immature Granulocytes % (auto) 4.5 %; Lymphocytes # (auto) 3.01 K/uL (1.20-3.40); Mean Platelet Volume 10.3 fL (9.4-12.4); Monocytes # (auto) 1.01 K/uL (0.11-0.59); Monocytes % (auto) 4.4 %; Neutrophils # (auto) 17.94 K/uL (1.40-6.50); Neutrophils % (auto) 77.7 %; Platelet Count 446 K/uL (130-400); White Blood Count 23.08 K/ul (4.8-10.8)
--- NOTE | 2024-07-12 10:01 | XRay Report ---
XR chest 1V portable CLINICAL HISTORY: ams, ?fall COMPARISON STUDY: 08/06/2015 FINDINGS: Single view supine portable chest is limited by motion degradation. There is no acute proce ss identified. There is no definite airspace opacity or pleural effusion. There is no pneumothorax. T he heart and pulmonary vascularity are unremarkable for technique. IMPRESSION: No acute process identified. ACT 112: Negative or not required by law. Electronically signed by: Debra Dutton M.D. 07/12/2024 9:58 AM
[2024-07-12 10:09] LABS: INR 1.4 (0.9-1.1)
[2024-07-12] MEDS: INSULIN REGULAR 250 UNITS in SODIUM CHLORIDE 0.9% 247.5 ML IV SCH (10:11)
[2024-07-12] MEDS: DKA GOAL RANGE 150-250 mg/dl ONE (10:18)
[2024-07-12] MEDS: STAT IV Infusion **Titration per Protocol STA (10:19)
[2024-07-12 10:21] LABS: Albumin Globulin Ratio 1.1 (0.9-2); Albumin Level 3.4 gm/dl (3.4-5.0); BUN Creatinine Ratio 24.7 (10-20); Bilirubin,Total 1.1 mg/dl (0.2-1.0); Calcium 8.4 mg/dl (8.6-10.3); Globulin 3.2 gm/dl (2.5-4.0); Magnesium 2.4 mg/dl (1.7-2.4); Potassium 5.3 mmol/L (3.5-5.1); Thyroid Stimulating Hormone 4.144 uIu/ml (0.300-4.500); Total Protein 6.6 gm/dl (6.0-8.3); Troponin I High Sensitivity 49.3 pg/ml (0-14)
--- NOTE | 2024-07-12 10:21 | CT Scan Report ---
CT cervical spine wo con CT DOSE: 1944.79 mGy.cm CLINICAL HISTORY: on floor, ams. COMPARISON: None TECHNIQUE: Multiple axial CT images of the cervical spine were obtained without contrast. A dose low ering technique was utilized adhering to the principles of ALARA. FINDINGS: There is moderate diffuse degenerative disc disease. No fracture or subluxation. IMPRESSION: No cervical spine fracture seen. ACT 112: Negative or not required by law. The above report was generated using voice recognition software. It may contain grammatical, syntax o r spelling errors. Electronically signed by: Bc Suarez M.D. 07/12/2024 10:20 AM
--- NOTE | 2024-07-12 10:25 | CT Scan Report ---
CT SCAN OF THE BRAIN WITHOUT IV CONTRAST CLINICAL HISTORY: Altered mental status. Possible fall. COMPARISON STUDY: None. TECHNIQUE: Unenhanced axial CT scan of the brain was performed from the vertex to the skull base. A dose lowering technique was utilized adhering to the principles of ALARA. FINDINGS: Brain parenchyma: Mild motion artifact. No acute intracranial hemorrhage, midline shift or mass effec t is present. Gomez-white matter differentiation is preserved. There are no extra-axial fluid collecti ons. There are no findings to suggest acute dural sinus thrombosis or acute territorial infarct. Ventricles, sulci, cisterns: There is no hydrocephalus. The basal cisterns are patent. Calvarium: No calvarial fractures. Sinuses and mastoids: The visualized paranasal sinuses are clear. The mastoid air cells are well pneu matized. Orbits: The bony orbits are grossly intact. IMPRESSION: 1. No acute intracranial findings. 2. No calvarial fractures. ACT 112: Negative or not required by law. Electronically signed by: Ag Griffiths M.D. 07/12/2024 10:24 AM
--- NOTE | 2024-07-12 10:25 | CT Scan Report ---
ABDOMEN AND PELVIS CT WITHOUT CONTRAST CT DOSE: 1944 HISTORY: ams, on floor, DKA TECHNIQUE: Multiaxial CT images of the abdomen and pelvis were performed without contrast. A dose lo wering technique was utilized adhering to the principles of ALARA. COMPARISON STUDY: None FINDINGS: ABDOMEN: There is motion artifact. Liver, gallbladder, spleen, pancreas, and adrenal glands have an u nremarkable non-IV contrast appearance. There is a small nonobstructing calculus at the left kidney. There is no hydronephrosis bilaterally. No abdominal aortic aneurysm. There is mild distention of the stomach with gas and fluid and the distal esophagus is mildly distended with fluid. Pelvis: Uterus and adnexal regions are grossly unremarkable. Buenrostro catheter is present. Urinary bladd er is nondistended. No bowel inflammation or obstruction seen. No free fluid, free air, or abscess. N o enlarged adenopathy. Osseous structures: There is mild chronic-appearing height loss at the L1 vertebral body. No acute os seous finding seen. IMPRESSION: 1. No acute findings seen. 2. Mild distention of the stomach with gas and fluid and mild fluid distention of the distal esophagu s. ACT 112: Negative or not required by law. The above report was generated using voice recognition software. It may contain grammatical, syntax o r spelling errors. Electronically signed by: Bc Suarez M.D. 07/12/2024 10:24 AM
--- NOTE | 2024-07-12 10:27 | CT Scan Report ---
CT chest diagnostic wo con CT DOSE: 1944.79mGy*cm CLINICAL HISTORY: Altered mental status; found on the floor TECHNIQUE: Multiaxial CT images of the chest were performed without contrast. Sagittal and coronal r econstructions were done. A dose lowering technique was utilized adhering to the principles of ALARA. COMPARISON STUDY: None FINDINGS: There is no definite chest wall injury identified. Spurious defect in the sternum is felt t o be misregistration due to motion. There is patchy discoid atelectasis in both lung bases. There is no air space opacity suggestive of a pneumonia or contusion. There is no pneumothorax. The upper airway is unremarkable. There is mild prominence of the superior mediastinal lymph nodes an d supraclavicular lymph nodes with no evidence of matting or necrosis. There is mild ectasia of the ascending aorta. There is no pericardial effusion. There is mild coronar y artery calcification. There is a thickening of the freeman of the distal esophagus. The upper abdominal images are noncontrib utory. The thoracic spine shows no evidence of acute compression fracture or malalignment. IMPRESSION: No definite evidence of acute traumatic thoracic injury. Mild ectasia of the ascending aorta. Relative low attenuation of the lumen raises the possibility of anemia. Nonspecific and discoid atelectasis at the lung bases. Esophageal wall thickening. Consider correlation with esophagram Mild prominence of the superior mediastinal and supraclavicular lymph nodes are nonspecific. ACT 112: Negative or not required by law. Electronically signed by: Debra Dutton M.D. 07/12/2024 10:25 AM
[2024-07-12 10:28] LABS: iSTAT Blood Urea Nitrogen 44 mg/dl (7-18); iSTAT Carbon Dioxide 11 mmol/L (24-31); iSTAT Chloride 99 mmol/L (101-112); iSTAT Creatinine 2.1 mg/dl (0.6-1.3); iSTAT Glucose > 700 mg/dl (70-99); iSTAT Hematocrit 35 % (37-47); iSTAT Hemoglobin 11.9 g/dl (12.0-16.0); iSTAT Ionized Calcium 1.07 mmol/l (1.12-1.32); iSTAT Potassium 5.1 mmol/L (3.3-5.0); iSTAT Sodium 132 mmol/L (135-144)
[2024-07-12 10:46] LABS: Phosphorus 8.6 mg/dl (2.5-4.9)
[2024-07-12] MEDS: ERTAPENEM 1000MG 1,000 MG/10 ML SYR IV STA (10:51)
[2024-07-12 10:54] LABS: Appearance Urine Clear (Clear); Bacteria Urine Automated None Seen (None Seen); Bilirubin Urine Negative (Negative); Blood Urine 2+ (Negative); Color Urine Yellow; Epithelial Cell Urine Auto 0-2 /hpf (0-2); Glucose Urine UA 3+ (Negative); Ketones Urine 2+ (Negative); Leukocyte Esterase Urine Negative (Negative); Mucus Urine Present (None Prsent); Nitrite Urine Negative (Negative); Protein Urine Trace (Negative); RBC Urine Automated 0-2 /hpf (0-2); Specific Gravity Urine 1.025 (1.000-1.030); Urobilinogen Urine Negative (Negative); WBC Urine Automated 0-5 /hpf (0-5)
[2024-07-12 10:55] LABS: Cast Urine Automated 0-2 /lpf (0-2)
[2024-07-12 10:56] LABS: Hematocrit (blood only) 33.5 % (37.0-47.0); Hemoglobin 10.5 g/dl (12.0-16.0); Mean Corpuscular Hemoglobin 29.6 pg (25.0-34.0); Mean Corpuscular Hgb Conc 31.3 g/dL (32.0-36.0); Mean Corpuscular Volume 94.4 fL (80.0-100.0); RDW Coefficient of Variation 12.2 % (11.5-14.5); RDW Standard Deviation 42.1 fL (36.4-46.3); Red Blood Count 3.55 M/uL (4.20-5.40)
[2024-07-12] MEDS: PLASMA-LYTE A 1,000 ML IV ONE (11:18)
--- NOTE | 2024-07-12 11:20 | History & Physical Report ---
Date of Service July 12, 2024 Assessment & Plan (1) DKA (diabetic ketoacidosis): (2) Uncontrolled type 1 diabetes mellitus with hyperglycemia: (3) Lactic acidosis: (4) Severe sepsis: (5) Fall: (6) Esophagitis: (7) Hypotension: (8) Acute metabolic encephalopathy: (9) Hypothermia: (10) Acute dehydration: (11) Hypothyroidism: (12) Hyperlipidemia: (13) Generalized anxiety disorder with panic attacks: (14) Migraine: (15) Orthostatic hypotension: (16) Elevated INR: Plan 74yo female with history of long-standing T1DM, poorly-controlled with most a1c's >10% in the record and [place] by [facility] - on insulin pump with CGM; hypothyroidism; anxiety; hyperlipidemia; and migraines who presents from home after her son found her on the floor in the bathroom this am. She was unresponsive when he found her. Upon ER presentation she was hypothermic, had evidence of severe DKA, was hypotensive, and was severely altered. #DKA - * suspect 2nd to noncompliance with insulin therapy; cannot rule out infectious process given her leukocytosis, elevated procal, etc. * has been given multiple saline boluses in the ER (3 liters) and will start NS at 150ml/hr thereafter * insulin infusion has been started in the ER and will continue per protocol * q1h BSGs with serum glucose levels as needed until able to follow with bedside glucometer * add KCL to IVF once potassium is <5 * serial BMPs, pH, mag, phos q4h until gap is closed * may need to switch to hypotonic fluid later today as her corrected Na is nearly 159 * pharmacy glycemic consult to help with transitioning from insulin drip to SC basal-bolus regimen (or her pump depending on how she is doing later in the stay) #uncontrolled, long-standing T1DM on insulin pump therapy - * a1c 10.6% * nearly all a1c's going back to 2017 have been >10% * follows with [facility] * will ask the hematology nurse educator to meet with her later in the stay * pharmacy glycemic consult as above #suspected severe sepsis - * meets severe sepsis criteria with elevated lactate level, JASMINE, altered MS, leukocytosis, hypothermia, etc. * blood cx's dispatched * given ertapenem IV for empiric coverage (multiple abx allergies) * no obvious source of infection, however, on mills-CTs #lactic acidosis - * serial lactates * fluid resuscitation as above * lactic acidosis 2nd to severely volume contacted state and/or severe sepsis #JASMINE - * 2nd to DKA * 2nd to volume contraction * possibly sepsis-related * IVF, serial BMPs * no evidence of obstruction on CT a/p #Esophagitis - * as seen on CT * start daily PPI IV * could have gastroparesis as well leading to the gastric/esophageal abnormalities as detected on the CTs #acute metabolic encephalopathy - * 2nd to DKA, lactic acidosis, etc * CT head negative * can't rule out altered MS from sepsis * mental status should improve with resolution of DKA & lactic acidosis and other metabolic derangements #hypothyroidism - * TSH 4.1 * resume PO synthroid when more awake/alert #elevated INR - * etiology uncertain * no h/o liver disease * could be vitamin K deficient * simply recheck INR in am #fall - * presumed 2nd to severe DKA +/- weakness from metabolic derangements +/- sepsis +/- hypotension, etc * echo 04/2024 was wnl * will ultimately need PT/OT evals #hypothermia - * cont warming blanket * should improve with fluid resuscitation and resolution of DKA/lactic acidosis/etc * IV abx to cover for sepsis #DVT proph - * heparin 5000 BID pt's son Juan Manuel updated several times during the admission process patient to be admitted to ICU and critical care team to be consulted --- appreciate their assistance History of Present Illness Chief Complaint: found on floor, altered mental status Primary Care Provider: Berenice Balderas MD 74yo female with history of long-standing T1DM, poorly-controlled with most a1c's >10% in the record and [place] [facility] - on insulin pump with CGM who presents from home after her son found her on the floor in her home this am. She was unresponsive when he found her. Her son Juan Manuel was at bedside during the visit and provided all historical information as the patient could not provide any history due to severely altered mental status. Per her son he saw her last night about 7pm at her home. He reports she was tired and a little groggy but able to carry a conversation. She told him her "sugars were high" but she did not report the specific glucose values. He encouraged her to seek medical attention in the ER last night but she declined such. About 10pm last night he called her on the phone and she was still mentating and talking normally at that time. Last night she did not have any specific complaints of infectious symptoms or pain in any location. This am he went to her home and found her on the bathroom floor essentially unresponsive. EMS was summoned and her BSG was too high to read on the glucometer. Records indicate she had a GI illness about 7-10 days ago. Her son is concerned that her insulin pump ran out of insulin but it is unclear when that occurred. When she presented to the hospital today the insulin pump was not on her. Upon ER presentation she has severely altered with hypothermia and low BP. Multiple saline boluses were given, warming blanket was applied, and labs were drawn showing severe anion-gap metabolic acidosis with evidence of DKA & lactic acidosis. Regular insulin infusion was started and was running at 5 units/hr during my assessment. Her son told me multiple times during the visit that he has been concerned that she is "not taking good care of herself" and has significant concerns about compliance with insulin therapy. Allergies Allergy/AdvReac Type Severity Reaction Status Date / Time Bactrim Allergy Severe "ALMOST Verified 08/06/15 11:18 " sulfamethoxazole Allergy Severe "ALMOST Verified 05/23/24 13:33 " trimethoprim Allergy Severe "ALMOST Verified 05/23/24 13:33 " cefaclor Allergy Mild Rash Verified 05/23/24 13:33 cefuroxime [From Ceftin] Allergy Mild Rash Verified 05/23/24 13:33 cephalexin Allergy Mild Rash Verified 05/23/24 13:33 Cephalosporins Allergy Mild ALLERGY TO Verified 05/23/24 13:33 CEFTIN & CECLOR lisinopril AdvReac Mild Nausea Verified 05/23/24 13:33 Home Medications Medication Instructions Recorded Confirmed Type aspirin 81 mg tablet,delayed 81 mg PO UD 11/24/18 07/12/24 History release ibuprofen 200 mg tablet (Motrin IB) 400 mg PO BID PRN Pain 11/24/18 07/12/24 History rizatriptan 10 mg tablet 10 mg PO UD PRN Migraine Headache 11/24/18 07/12/24 History blood sugar diagnostic (Susanneyle #10 ea 09/05/20 05/23/24 History Lite Strips) cholecalciferol (vitamin D3) 25 75 mcg PO DAILY 01/06/23 07/12/24 History mcg (1,000 unit) capsule cbd caps 1 tab PO DAILY PRN Other 02/18/23 07/12/24 History levocetirizine 5 mg tablet (Xyzal) 2.5 mg PO DAILY PRN Other 02/18/23 07/12/24 History insulin pump cartridge,automated #1 ea 05/27/23 05/23/24 Rx dose,BT with controller subcutaneous (Omnipod 5 G6 Intro Kit (Gen 5) subcutaneous cartridge with controller) buspirone 10 mg tablet 5 - 10 mg (0.5 - 1 x 10 mg) PO BID 08/24/23 07/12/24 Rx PRN anxiety #60 tabs Lantus Solostar U-100 Insulin 100 14 unit (0.14 mL) subcut DAILY #15 12/19/23 07/12/24 Rx unit/mL (3 mL) subcutaneous pen mL (insulin glargine) pen needle, diabetic 32 gauge x #400 ea 12/19/23 05/23/24 Rx 5/32" (BD Kitty 2nd Gen Pen Needle) acetone (urine) test (Ketostix #25 ea 12/26/23 05/23/24 Rx strips) glucagon (human recombinant) 1 mg 1 mg .Route Q20M PRN hypoglycemia 12/26/23 07/12/24 Rx solution for injection #1 ea blood-glucose sensor (Dexcom G7 #3 ea 04/03/24 05/23/24 Rx Sensor device) denosumab 60 mg/mL subcutaneous 60 mg subcut UD 04/13/24 07/12/24 History syringe (Prolia) levothyroxine 100 mcg tablet 100 mcg PO DAILY 04/30/24 07/12/24 History insulin aspart U-100 100 unit/mL 15 unit (0.15 mL) subcut DAILY #15 05/22/24 07/12/24 Rx (3 mL) subcutaneous pen (Novolog mL FlexPen U-100 Insulin aspart) hydralazine 10 mg tablet 10 mg PO PRN #60 tabs 05/25/24 07/12/24 Rx lorazepam 1 mg tablet 1 mg PO DAILY PRN panic attack(s) 06/28/24 07/12/24 Rx #30 tabs Omnipod 5 G6-G7 Pods (Gen 5) #10 ea 06/29/24 Rx (insulin pump cart,auto,BT,G6/7) atorvastatin 80 mg tablet 80 mg PO UD 07/12/24 07/12/24 History ezetimibe 10 mg tablet 10 mg PO UD 07/12/24 07/12/24 History insulin aspart U-100 100 unit/mL 70 unit continuous subcutaneous 07/12/24 07/12/24 History subcutaneous solution (Novolog infusion UD U-100 Insulin aspart) losartan 25 mg tablet 12.5 mg PO UD 07/12/24 07/12/24 History mupirocin 2 % topical ointment 1 applic topical UD 07/12/24 07/12/24 History sertraline 25 mg tablet 25 mg PO UD 07/12/24 07/12/24 History Past Med/Surg History Problem List Hyperkalemia Acute renal failure Rhabdomyolysis Anemia Hyperosmolar coma due to type 1 diabetes mellitus Elevated INR Esophagitis Fall Severe sepsis Acute metabolic encephalopathy Hypotension Lactic acidosis Hypothermia (Acute) Acute hypernatremia (Acute) DKA (diabetic ketoacidosis) (Acute) Elevated troponin (Acute) Elevated lactic acid level (Acute) Acute dehydration (Acute) AMS (altered mental status) (Acute) Dizziness Insomnia Diabetic macular edema Uncontrolled type 1 diabetes mellitus with retinopathy, with long-term current use of insulin Medical History Uncontrolled type 1 diabetes mellitus with hyperglycemia Orthostatic hypotension Lichen sclerosus et atrophicus of the vulva Osteoporosis Vitamin D deficiency Diabetic retinopathy Hypothyroidism Hyperlipidemia Hypertension Generalized anxiety disorder with panic attacks Seasonal allergies uses symbicort rarely Osteoarthritis Migraine Hypertension Surgical History Hx of right cataract extraction Hx of bilateral cataract extraction History of open reduction and internal fixation (ORIF) procedure right wrist---with a carpal tunnel repair at same time---hardware in place History of open reduction and internal fixation (ORIF) procedure left wrist--hardware in place History of bronchoscopy NELLIE lung infection History of bilateral tubal ligation History of tooth extraction History of wisdom tooth extraction History of tonsillectomy and adenoidectomy Family History Grandfather (Maternal) Family hx of colon cancer Colorectal cancer Grandmother (Maternal) Myocardial infarction, Onset Age: 50 lived until 99 years old. Mother Myocardial infarction Coded during angioplasty, CABG x3. COPD (chronic obstructive pulmonary disease) Other No family history of adverse response to anesthesia Denies family history of Ovarian cancer Prostate cancer Diabetes Breast cancer Lung cancer Stroke Social History Smoking Status: Never smoker Second Hand Exposure: No; Do You Dip or Chew Tobacco: No; Tobacco Cessation Education Requested by Patient: No Hx Alcohol Use: Yes Alcohol type: wine Alcohol type Comment: 1 glass with dinner Alcohol Intake Frequency: 4 or More x per/Week Alcohol Intake Frequency Comment: 1 glass of wine each night Hx Substance Use: No Preferred Language: Turkmen Communication Ability: Effective Visual Impairment: Limited Hearing Ability: Normal Camp Assistant Required: No Beliefs That Will Affect Care: None marital status: / Current Living Situation: Alone current occupational status: retired 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 How many Children do You have: 6 Other Information That Helps Us Care for You: No Feels Safe at Home: Yes Safety Concerns: Feels Safe At This Time Childhood Exposure to Second-Hand Smoke: Yes Diet: DASH, diabetic and low salt caffeine: Yes Dental Care, Regularly: Yes Physical Activity Frequency: 3-4 Times per Week Seatbelt Use: always Sunscreen Use: Yes Assistive Devices: None Review of Systems Review of Systems: Unobtainable due to cognitive status and Unobtainable due to reduced consciousness Physical Exam Physical Exam: gen - looks very ill, leaning to her left on the bed, tachypneic, uncomfortable, altered/lethargic eyes - PERRL, anicteric sclera mouth - severely dry MM, no obvious thrush ears - R TM difficult to see; L ear not examined neck - no JVD heart - RRR, s1 s2 , no murmur lungs - CTA b/l but tachypneic, no retractions abd - soft, no obvious tenderness, BS+, no HSM, no mass, ND ext - cool to touch, pulses 1+ b/l feet, cap refill prolonged (3 seconds); no peripheral edema skin - no rash; bruise present R shoulder and R lateral hip musculo - no obvious deformity of any limb; moving all 4 limbs neuro - no obvious facial droop, symmetric movements of arms/legs Results & Data Results & Data Vital Signs (Past 12 Hours) Vital Signs Temp Pulse Pulse Resp BP BP Pulse Ox 07/12/24 10:34 31.7 C L 76 25 H 93/65 L 97 07/12/24 09:39 31.3 C L 104 H 24 127/77 07/12/24 09:23 79 07/12/24 09:04 31.1 C L 07/12/24 09:04 07/12/24 09:04 31.1 C L 76 32 H 75/55 L 90 O2 Del Method O2 Flow Rate 07/12/24 10:34 Nasal Cannula 5 07/12/24 09:39 Nasal Cannula 4 07/12/24 09:23 07/12/24 09:04 07/12/24 09:04 Nasal Cannula 4 07/12/24 09:04 Nasal Cannula 5 Laboratory Results Laboratory Results - last 24 hr 07/12/24 07/12/24 07/12/24 09:25 09:32 10:22 WBC 23.08 H RBC 3.55 L Hgb 10.5 L POC Hgb 11.9 L Hct 33.5 L POC Hct 35 L MCV 94.4 MCH 29.6 MCHC 31.3 L RDW Std Deviation 42.1 RDW Coeff of Xavi 12.2 Plt Count 446 H MPV 10.3 Immature Gran % (Auto) 4.5 Neut % (Auto) 77.7 Lymph % (Auto) 13.0 Cache % (Auto) 4.4 Eos % (Auto) 0.2 Baso % (Auto) 0.2 Neut # (Auto) 17.94 H Lymph # (Auto) 3.01 Cache # (Auto) 1.01 H Eos # (Auto) 0.04 Baso # (Auto) 0.05 Immature Gran # (Auto) 1.03 H PT 15.0 H INR 1.4 H VBG pH VBG pCO2 VBG pO2 VBG HCO3 VBG O2 Saturation VBG Base Excess POC Sodium 132 L Sodium 133 L POC Potassium 5.1 H Potassium 5.3 H POC Chloride 99 L Chloride 90 L Carbon Dioxide 10 L POC Total CO2 11 L Anion Gap 33 H POC Anion Gap 28.0 H POC BUN 44 H BUN 56 H Creatinine 2.27 H POC Creatinine 2.1 H Est Cr Clr Drug Dosing 18.0 eGFR 22.10 BUN/Creatinine Ratio 24.7 H Glucose 1175 H* POC Glucose POC Glucose (other) > 700 H* Estimat Average Glucose Pending Hemoglobin A1c Pending Lactate 4.0 H* Calcium 8.4 L POC Ioniz Calcium Uche 1.07 L Phosphorus 8.6 H Magnesium 2.4 Total Bilirubin 1.1 H AST 28 ALT 13 Alkaline Phosphatase 75 Total Creatine Kinase 401 H Troponin I High Sens 49.3 H Total Protein 6.6 Albumin 3.4 Globulin 3.2 Albumin/Globulin Ratio 1.1 Procalcitonin 3.91 H TSH 4.144 Urine Color Yellow Urine Appearance Clear Urine pH 5.0 Ur Specific [place] 1.025 Urine Protein Trace H Urine Glucose (UA) 3+ H Urine Ketones 2+ H Urine Blood 2+ H Urine Nitrite Negative Urine Bilirubin Negative Urine Urobilinogen Negative Ur Leukocyte Esterase Negative Urine WBC (Auto) 0-5 Urine RBC (Auto) 0-2 U Hyaline Cast (Auto) 0-2 U Epithel Cells (Auto) 0-2 Urine Bacteria (Auto) None Seen Urine Mucus Present A SARS-CoV-2 (PCR) Influenza Type A (PCR) Influenza Type B (PCR) RSV (RT-PCR) 07/12/24 07/12/24 07/12/24 11:01 11:08 11:49 WBC RBC Hgb POC Hgb Hct POC Hct MCV MCH MCHC RDW Std Deviation RDW Coeff of Xavi Plt Count MPV Immature Gran % (Auto) Neut % (Auto) Lymph % (Auto) Cache % (Auto) Eos % (Auto) Baso % (Auto) Neut # (Auto) Lymph # (Auto) Cache # (Auto) Eos # (Auto) Baso # (Auto) Immature Gran # (Auto) PT INR VBG pH 7.00 L VBG pCO2 28 L VBG pO2 35 VBG HCO3 7 VBG O2 Saturation < 60.0 VBG Base Excess -23.1 POC Sodium Sodium POC Potassium Potassium POC Chloride Chloride Carbon Dioxide POC Total CO2 Anion Gap POC Anion Gap POC BUN BUN Creatinine POC Creatinine Est Cr Clr Drug Dosing eGFR BUN/Creatinine Ratio Glucose 1085 H* POC Glucose > 600 H* POC Glucose (other) Estimat Average Glucose Hemoglobin A1c Lactate Calcium POC Ioniz Calcium Uche Phosphorus Magnesium Total Bilirubin AST ALT Alkaline Phosphatase Total Creatine Kinase Troponin I High Sens 48.8 H Total Protein Albumin Globulin Albumin/Globulin Ratio Procalcitonin TSH Urine Color Urine Appearance Urine pH Ur Specific [place] Urine Protein Urine Glucose (UA) Urine Ketones Urine Blood Urine Nitrite Urine Bilirubin Urine Urobilinogen Ur Leukocyte Esterase Urine WBC (Auto) Urine RBC (Auto) U Hyaline Cast (Auto) U Epithel Cells (Auto) Urine Bacteria (Auto) Urine Mucus SARS-CoV-2 (PCR) Pending Influenza Type A (PCR) Pending Influenza Type B (PCR) Pending RSV (RT-PCR) Pending 07/12/24 12:06 WBC RBC Hgb POC Hgb Hct POC Hct MCV MCH MCHC RDW Std Deviation RDW Coeff of Xavi Plt Count MPV Immature Gran % (Auto) Neut % (Auto) Lymph % (Auto) Cache % (Auto) Eos % (Auto) Baso % (Auto) Neut # (Auto) Lymph # (Auto) Cache # (Auto) Eos # (Auto) Baso # (Auto) Immature Gran # (Auto) PT INR VBG pH VBG pCO2 VBG pO2 VBG HCO3 VBG O2 Saturation VBG Base Excess POC Sodium Sodium POC Potassium Potassium POC Chloride Chloride Carbon Dioxide POC Total CO2 Anion Gap POC Anion Gap POC BUN BUN Creatinine POC Creatinine Est Cr Clr Drug Dosing eGFR BUN/Creatinine Ratio Glucose POC Glucose > 600 H* POC Glucose (other) Estimat Average Glucose Hemoglobin A1c Lactate Calcium POC Ioniz Calcium Uche Phosphorus Magnesium Total Bilirubin AST ALT Alkaline Phosphatase Total Creatine Kinase Troponin I High Sens Total Protein Albumin Globulin Albumin/Globulin Ratio Procalcitonin TSH Urine Color Urine Appearance Urine pH Ur Specific [place] Urine Protein Urine Glucose (UA) Urine Ketones Urine Blood Urine Nitrite Urine Bilirubin Urine Urobilinogen Ur Leukocyte Esterase Urine WBC (Auto) Urine RBC (Auto) U Hyaline Cast (Auto) U Epithel Cells (Auto) Urine Bacteria (Auto) Urine Mucus SARS-CoV-2 (PCR) Influenza Type A (PCR) Influenza Type B (PCR) RSV (RT-PCR) Diagnostic Findings Cervical Spine CT 07/12/24 09:17 CT cervical spine wo con CT DOSE: 1944.79 mGy.cm CLINICAL HISTORY: on floor, ams. COMPARISON: None TECHNIQUE: Multiple axial CT images of the cervical spine were obtained without contrast. A dose lowering technique was utilized adhering to the principles of ALARA. FINDINGS: There is moderate diffuse degenerative disc disease. No fracture or subluxation. IMPRESSION: No cervical spine fracture seen. ACT 112: Negative or not required by law. The above report was generated using voice recognition software. It may contain grammatical, syntax or spelling errors. Electronically signed by: Bc Suarez M.D. 07/12/2024 10:20 AM Chest X-Ray 07/12/24 09:18 XR chest 1V portable CLINICAL HISTORY: ams, ?fall COMPARISON STUDY: 08/06/2015 FINDINGS: Single view supine portable chest is limited by motion degradation. There is no acute process identified. There is no definite airspace opacity or pleural effusion. There is no pneumothorax. The heart and pulmonary vascularity are unremarkable for technique. IMPRESSION: No acute process identified. ACT 112: Negative or not required by law. Electronically signed by: Debra Dutton M.D. 07/12/2024 9:[address] 07/12/24 09:18 CT SCAN OF THE BRAIN WITHOUT IV CONTRAST CLINICAL HISTORY: Altered mental status. Possible fall. COMPARISON STUDY: None. TECHNIQUE: Unenhanced axial CT scan of the brain was performed from the vertex to the skull base. A dose lowering technique was utilized adhering to the principles of ALARA. FINDINGS: Brain parenchyma: Mild motion artifact. No acute intracranial hemorrhage, midline shift or mass effect is present. Gomez-white matter differentiation is preserved. There are no extra-axial fluid collections. There are no findings to suggest acute dural sinus thrombosis or acute territorial infarct. Ventricles, sulci, cisterns: There is no hydrocephalus. The basal cisterns are patent. Calvarium: No calvarial fractures. Sinuses and mastoids: The visualized paranasal sinuses are clear. The mastoid air cells are well pneumatized. Orbits: The bony orbits are grossly intact. IMPRESSION: 1. No acute intracranial findings. 2. No calvarial fractures. ACT 112: Negative or not required by law. Electronically signed by: Ag Griffiths M.D. 07/12/2024 10:24 AM Abdomen/Pelvis CT 07/12/24 09:[address] WITHOUT CONTRAST CT DOSE: 1945 HISTORY: ams, on floor, DKA TECHNIQUE: Multiaxial CT images of the abdomen and pelvis were performed without contrast. A dose lowering technique was utilized adhering to the principles of ALARA. COMPARISON STUDY: None FINDINGS: ABDOMEN: There is motion artifact. Liver, gallbladder, spleen, pancreas, and adrenal glands have an unremarkable non-IV contrast appearance. There is a small nonobstructing calculus at the left kidney. There is no hydronephrosis bilaterally. No abdominal aortic aneurysm. There is mild distention of the stomach with gas and fluid and the distal esophagus is mildly distended with fluid. Pelvis: Uterus and adnexal regions are grossly unremarkable. Buenrostro catheter is present. Urinary bladder is nondistended. No bowel inflammation or obstruction seen. No free fluid, free air, or abscess. No enlarged adenopathy. Osseous structures: There is mild chronic-appearing height loss at the L1 vertebral body. No acute osseous finding seen. IMPRESSION: 1. No acute findings seen. 2. Mild distention of the stomach with gas and fluid and mild fluid distention of the distal esophagus. ACT 112: Negative or not required by law. The above report was generated using voice recognition software. It may contain grammatical, syntax or spelling errors. Electronically signed by: Bc Suarez M.D. 07/12/2024 10:[address] 07/12/24 09:33 CT chest diagnostic wo con CT DOSE: 1944.79mGy*cm CLINICAL HISTORY: Altered mental status; found on the floor TECHNIQUE: Multiaxial CT images of the chest were performed without contrast. Sagittal and coronal reconstructions were done. A dose lowering technique was utilized adhering to the principles of ALARA. COMPARISON STUDY: None FINDINGS: There is no definite chest wall injury identified. Spurious defect in the sternum is felt to be misregistration due to motion. There is patchy discoid atelectasis in both lung bases. There is no air space opacity suggestive of a pneumonia or contusion. There is no pneumothorax. The upper airway is unremarkable. There is mild prominence of the superior mediastinal lymph nodes and supraclavicular lymph nodes with no evidence of matting or necrosis. There is mild ectasia of the ascending aorta. There is no pericardial effusion. There is mild coronary artery calcification. There is a thickening of the freeman of the distal esophagus. The upper abdominal images are noncontributory. The thoracic spine shows no evidence of acute compression fracture or malalignment. IMPRESSION: No definite evidence of acute traumatic thoracic injury. Mild ectasia of the ascending aorta. Relative low attenuation of the lumen raises the possibility of anemia. Nonspecific and discoid atelectasis at the lung bases. Esophageal wall thickening. Consider correlation with esophagram Mild prominence of the superior mediastinal and supraclavicular lymph nodes are nonspecific. ACT 112: Negative or not required by law. Electronically signed by: Debra Dutton M.D. 07/12/2024 10:25 AM Code Status & VTE Plan Code Status full code per son PG Care Time/CCT Total # of Minutes Spent Total Time Spent with Patient: Total time spent is greater than 50% in coordination of care (as documented) at patient's floor/unit and/or counseling patient: Coding Level of Care Code 30288 INT INP/OBS CARE 3/75MIN Diagnoses DKA (diabetic ketoacidosis) E11.10 Uncontrolled type 1 diabetes mellitus with hyperglycemia E10.65 Lactic acidosis E87.20 Severe sepsis A41.9; R65.20 Fall W19.XXXA Esophagitis K20.90 Hypotension I95.9 Acute metabolic encephalopathy G93.41 Hypothermia T68.XXXA Acute dehydration E86.0 Hypothyroidism E03.9 Hyperlipidemia E78.5 Generalized anxiety disorder with panic attacks F41.1; F41.0 Migraine G43.909 Orthostatic hypotension I95.1 Elevated INR R79.1
[2024-07-12 11:29] LABS: Base Excess VBG -23.1 mEq/L; HCO3 VBG 7 mmol/L; Oxygen Saturation VBG < 60.0 %; PCO2 VBG 28 mmHg (38-50); PO2 VBG 35 mmHg
[2024-07-12] MEDS: PANTOprazole 40 MG/10 ML SYR IV ONE (11:30)
[2024-07-12] MEDS: PANTOprazole 80 MG in DEXTROSE 5% 100 ML IV STA (11:45)
[2024-07-12 11:54] LABS: Troponin I High Sensitivity 48.8 pg/ml (0-14)
[2024-07-12] MEDS: INSULIN ASPART PER UNIT CHARGE SC SCH ×2 (12:01→16:54)
[2024-07-12 12:35] LABS: Influenza A virus by PCR Negative (Neg); Influenza B virus by PCR Negative (Neg); RSV by PCR Negative (Neg); SARS CoV2 RNA(COVID-19) Ceph NEGATIVE (Negative)
[2024-07-12 12:42] LABS: Estimated Average Glucose 258 mg/dl; Hemoglobin A1C 10.6 % (4.5-5.6)
[2024-07-12] MEDS ORDERED: STAT IV Infusion **Titration per Protocol STA (13:57)
[2024-07-12] MEDS ORDERED: INSULIN REGULAR 250 UNITS in SODIUM CHLORIDE 0.9% 247.5 ML IV SCH (13:57)
[2024-07-12] MEDS ORDERED: DKA GOAL RANGE 150-250 mg/dl ONE (13:57)
[2024-07-12] MEDS ORDERED: ACETAMINOPHEN 1,000 MG/100 ML VIAL IV PRN (13:57)
[2024-07-12] MEDS ORDERED: PHARMACY GLYCEMIC MGMT CONSULT PRN (13:57)
[2024-07-12 14:23] LABS: BUN Creatinine Ratio 25.7 (10-20); Calcium 7.3 mg/dl (8.6-10.3); Creatinine Clr Calc Pharmacy 22.3 ml/min; Phosphorus 4.8 mg/dl (2.5-4.9)
--- NOTE | 2024-07-12 14:38 | Critical Care Consultation ---
Date of Consultation July 12, 2024 Assessment & Plan (1) DKA (diabetic ketoacidosis): (2) Hyperosmolar coma due to type 1 diabetes mellitus: (3) Anemia: (4) Acute metabolic encephalopathy: (5) Lactic acidosis: (6) Rhabdomyolysis: (7) Acute renal failure: (8) Hyperkalemia: Plan Impression: 74-year-old female with diabetes admitted with severe DKA/HH K with associated lactic acidosis, hyperkalemia, and acute renal failure as well as leukocytosis and mild rhabdomyolysis. Recommendations: 1. Neurologic: Metabolic encephalopathy. Suspect this will improve over time with correction of her underlying metabolic issues. The patient reports using benzodiazepines at home on a chronic basis. Will need to follow and consider judicious use of benzodiazepines to prevent withdrawal if needed. Holding medications such as sertraline and rizatriptan for now 2. Cardiovascular: Lactic acidosis likely secondary to hypovolemic hypoperfusion. She has received 5 L of crystalloid. Lactate is trending down. Tachycardia has resolved and the patient is normotensive currently. She has a history of hypertension managed with hydralazine in the outpatient setting. This will be held for now. Will also hold losartan. 3. Pulmonary: No current issues. Anticipate will be able to wean oxygen relatively quickly. 4. Endocrine: Severe DKA. The patient is completing her fifth liter of IV fluid currently. Will follow and if she remains tachycardic or with borderline blood pressures will administer additional crystalloid. Insulin drip has been initiated. Will continue until gap closes. Will transition fluids to potassium containing fluid once potassium drops below 4. Will provide glucose and IV fluids once blood sugar drops below 250 until were able to get insulin off and transition to sliding scale insulin. Appreciate pharmacy assistance. Continue Synthroid. 5. Renal: Acute renal insufficiency likely secondary to ATN/prerenal state. Will follow electrolytes closely per DKA protocol. 6. ID: The patient received ertapenem in the emergency room however I do not see a clear source of infection. Procalcitonin and leukocytosis may be secondary to severe stress responses. Discontinue antibiotics and follow clinically at this point in time. 7. Heme-onc: Leukocytosis likely reactive. Anemia of unclear etiology. She was not anemic on labs that were performed only a week ago so suspect some component of dilution. No evidence of active ongoing bleeding and no indication for transfusion currently. 8. GI: N.p.o. for now. She can have noncaloric clears while on the insulin drip if needed. Once insulin drip is transition to subcutaneous, can advance diet as tolerated. She reports diarrheal illness but has not made any stool since arriving to the hospital. If stool output becomes an issue, would have a low threshold for testing for norovirus as well as other potential enteric pathogens. Protonix PPI Patient is critically ill at this point in time with significant possibility of clinical decline. A total of of 42 minutes in critical care time was spent in evaluation management coordination of care for this patient. 2 sons were updated at bedside History of Present Illness Attending Physician: Davy Lewis MD History of Present Illness Asked by hospitalist to assist in evaluation management of this patient admitted with HH case/DKA. History is obtained from discussion with the ER staff as well as review of the electronic medical record. The patient is a 74-year-old female with a history of diabetes who was found altered at home. She has had some gastrointestinal issues for the last 5 to 7 days. EMS was called evaluate the patient and found to have a glucose too high to assess on their glucometer. She was brought to the emergency room. Per ER staff report, the patient reportedly ran out of her insulin at home. In the emergency room she received crystalloid infusion and was initiated on an insulin drip. Lactate was elevated. She had a reactive leukocytosis. Procalcitonin was elevated and she received ertapenem empirically. She was mildly hypothermic and acidotic. Reportedly there is a history of medication noncompliance at home. Allergies Allergy/AdvReac Type Severity Reaction Status Date / Time Bactrim Allergy Severe "ALMOST Verified 08/06/15 11:18 " sulfamethoxazole Allergy Severe "ALMOST Verified 05/23/24 13:33 " trimethoprim Allergy Severe "ALMOST Verified 05/23/24 13:33 " cefaclor Allergy Mild Rash Verified 05/23/24 13:33 cefuroxime [From Ceftin] Allergy Mild Rash Verified 05/23/24 13:33 cephalexin Allergy Mild Rash Verified 05/23/24 13:33 Cephalosporins Allergy Mild ALLERGY TO Verified 05/23/24 13:33 CEFTIN & CECLOR lisinopril AdvReac Mild Nausea Verified 05/23/24 13:33 Home Medications Medication Instructions Recorded Confirmed Type aspirin 81 mg tablet,delayed 81 mg PO UD 11/24/18 07/12/24 History release ibuprofen 200 mg tablet (Motrin IB) 400 mg PO BID PRN Pain 11/24/18 07/12/24 History rizatriptan 10 mg tablet 10 mg PO UD PRN Migraine Headache 11/24/18 07/12/24 History blood sugar diagnostic (FreeStyle #10 ea 09/05/20 05/23/24 History Lite Strips) cholecalciferol (vitamin D3) 25 75 mcg PO DAILY 01/06/23 07/12/24 History mcg (1,000 unit) capsule cbd caps 1 tab PO DAILY PRN Other 02/18/23 07/12/24 History levocetirizine 5 mg tablet (Xyzal) 2.5 mg PO DAILY PRN Other 02/18/23 07/12/24 History insulin pump cartridge,automated #1 ea 05/27/23 05/23/24 Rx dose,BT with controller subcutaneous (Omnipod 5 G6 Intro Kit (Gen 5) subcutaneous cartridge with controller) buspirone 10 mg tablet 5 - 10 mg (0.5 - 1 x 10 mg) PO BID 08/24/23 07/12/24 Rx PRN anxiety #60 tabs Lantus Solostar U-100 Insulin 100 14 unit (0.14 mL) subcut DAILY #15 12/19/23 07/12/24 Rx unit/mL (3 mL) subcutaneous pen mL (insulin glargine) pen needle, diabetic 32 gauge x #400 ea 12/19/23 05/23/24 Rx 5/32" (BD Kitty 2nd Gen Pen Needle) acetone (urine) test (Ketostix #25 ea 12/26/23 05/23/24 Rx strips) glucagon (human recombinant) 1 mg 1 mg .Route Q20M PRN hypoglycemia 12/26/23 07/12/24 Rx solution for injection #1 ea blood-glucose sensor (Dexcom G7 #3 ea 04/03/24 05/23/24 Rx Sensor device) denosumab 60 mg/mL subcutaneous 60 mg subcut UD 04/13/24 07/12/24 History syringe (Prolia) levothyroxine 100 mcg tablet 100 mcg PO DAILY 04/30/24 07/12/24 History insulin aspart U-100 100 unit/mL 15 unit (0.15 mL) subcut DAILY #15 05/22/24 07/12/24 Rx (3 mL) subcutaneous pen (Novolog mL FlexPen U-100 Insulin aspart) hydralazine 10 mg tablet 10 mg PO PRN #60 tabs 05/25/24 07/12/24 Rx lorazepam 1 mg tablet 1 mg PO DAILY PRN panic attack(s) 06/28/24 07/12/24 Rx #30 tabs Omnipod 5 G6-G7 Pods (Gen 5) #10 ea 06/29/24 Rx (insulin pump cart,auto,BT,G6/7) atorvastatin 80 mg tablet 80 mg PO UD 07/12/24 07/12/24 History ezetimibe 10 mg tablet 10 mg PO UD 07/12/24 07/12/24 History insulin aspart U-100 100 unit/mL 70 unit continuous subcutaneous 07/12/24 07/12/24 History subcutaneous solution (Novolog infusion UD U-100 Insulin aspart) losartan 25 mg tablet 12.5 mg PO UD 07/12/24 07/12/24 History mupirocin 2 % topical ointment 1 applic topical UD 07/12/24 07/12/24 History sertraline 25 mg tablet 25 mg PO UD 07/12/24 07/12/24 History Patient History Medical History (Updated 07/12/24 @ 14:59 by Sivakumar Marinelli MD) Uncontrolled type 1 diabetes mellitus with hyperglycemia Orthostatic hypotension Lichen sclerosus et atrophicus of the vulva Osteoporosis Vitamin D deficiency Diabetic retinopathy Hypothyroidism Hyperlipidemia Hypertension Generalized anxiety disorder with panic attacks Seasonal allergies uses symbicort rarely Osteoarthritis Migraine Hypertension Surgical History Hx of right cataract extraction Hx of bilateral cataract extraction History of open reduction and internal fixation (ORIF) procedure right wrist---with a carpal tunnel repair at same time---hardware in place History of open reduction and internal fixation (ORIF) procedure left wrist--hardware in place History of bronchoscopy NELLIE lung infection History of bilateral tubal ligation History of tooth extraction History of wisdom tooth extraction History of tonsillectomy and adenoidectomy Family History Grandfather (Maternal) Family hx of colon cancer Colorectal cancer Grandmother (Maternal) Myocardial infarction, Onset Age: 50 lived until 99 years old. Mother Myocardial infarction Coded during angioplasty, CABG x3. COPD (chronic obstructive pulmonary disease) Other No family history of adverse response to anesthesia Denies family history of Ovarian cancer Prostate cancer Diabetes Breast cancer Lung cancer Stroke Social History Smoking Status: Never smoker Second Hand Exposure: No; Do You Dip or Chew Tobacco: No; Tobacco Cessation Education Requested by Patient: No Hx Alcohol Use: Yes Alcohol type: wine Alcohol type Comment: 1 glass with dinner Alcohol Intake Frequency: 4 or More x per/Week Alcohol Intake Frequency Comment: 1 glass of wine each night Hx Substance Use: No Preferred Language: Italian Communication Ability: Effective Visual Impairment: Limited Hearing Ability: Normal Second Miller Required: No Beliefs That Will Affect Care: None marital status: / Current Living Situation: Alone current occupational status: retired 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 How many Children do You have: 6 Other Information That Helps Us Care for You: No Feels Safe at Home: Yes Safety Concerns: Feels Safe At This Time Childhood Exposure to Second-Hand Smoke: Yes Diet: DASH, diabetic and low salt caffeine: Yes Dental Care, Regularly: Yes Physical Activity Frequency: 3-4 Times per Week Seatbelt Use: always Sunscreen Use: Yes Assistive Devices: None Review of Systems Review of Systems: Unobtainable due to reduced consciousness Physical Exam Constitutional: + ill appearing, + thin and + disheveled Neck: trachea midline, no thyromegaly Respiratory: normal respiratory effort, lungs clear to auscultation Cardiovascular: RRR, no murmur, no edema Gastrointestinal (Abdomen): normal bowel sounds, soft, nontender, no hepatosplenomegaly Musculoskeletal: Extremities: extremities normal to inspection Skin: no rashes, warm and dry Neurologic: Altered Lymphatic: no cervical lymphadenopathy Results & Data Results & Data Vital Signs (Past 12 Hours) Vital Signs Temp Pulse Pulse Resp BP BP Pulse Ox 07/12/24 14:10 33.5 C L 84 16 119/57 L 100 07/12/24 13:00 33.0 C L 85 22 133/73 100 07/12/24 12:28 83 23 106/68 92 07/12/24 11:48 83 21 113/68 93 07/12/24 10:34 31.7 C L 76 25 H 93/65 L 97 07/12/24 09:39 31.3 C L 104 H 24 127/77 07/12/24 09:23 79 07/12/24 09:04 31.1 C L 07/12/24 09:04 07/12/24 09:04 31.1 C L 76 32 H 75/55 L 90 O2 Del Method O2 Flow Rate 07/12/24 14:10 Nasal Cannula 2 07/12/24 13:00 Nasal Cannula 4 07/12/24 12:28 Nasal Cannula 5 07/12/24 11:48 Nasal Cannula 5 07/12/24 10:34 Nasal Cannula 5 07/12/24 09:39 Nasal Cannula 4 07/12/24 09:23 07/12/24 09:04 07/12/24 09:04 Nasal Cannula 4 07/12/24 09:04 Nasal Cannula 5 Critical Care Results & Data Vital Signs (Past 12 Hours) Vital Signs Temp Pulse Pulse Resp BP BP Pulse Ox 07/12/24 14:10 33.5 C L 84 16 119/57 L 100 07/12/24 13:00 33.0 C L 85 22 133/73 100 07/12/24 12:28 83 23 106/68 92 07/12/24 11:48 83 21 113/68 93 07/12/24 10:34 31.7 C L 76 25 H 93/65 L 97 07/12/24 09:39 31.3 C L 104 H 24 127/77 07/12/24 09:23 79 07/12/24 09:04 31.1 C L 07/12/24 09:04 07/12/24 09:04 31.1 C L 76 32 H 75/55 L 90 O2 Del Method O2 Flow Rate 07/12/24 14:10 Nasal Cannula 2 07/12/24 13:00 Nasal Cannula 4 07/12/24 12:28 Nasal Cannula 5 07/12/24 11:48 Nasal Cannula 5 07/12/24 10:34 Nasal Cannula 5 07/12/24 09:39 Nasal Cannula 4 07/12/24 09:23 07/12/24 09:04 07/12/24 09:04 Nasal Cannula 4 07/12/24 09:04 Nasal Cannula 5 Lab & Micro Results (Past 24 Hours) RBC 3.55 M/uL (4.20-5.40) L 07/12/24 WBC 23.08 K/ul (4.8-10.8) H 07/12/24 Hgb 10.5 g/dl (12.0-16.0) L 07/12/24 Hct 33.5 % (37.0-47.0) L 07/12/24 MCV 94.4 fL (80.0-100.0) 07/12/24 MCH 29.6 pg (25.0-34.0) 07/12/24 MCHC 31.3 g/dL (32.0-36.0) L 07/12/24 RDW Standard Deviation 42.1 fL (36.4-46.3) 07/12/24 RDW Coefficient of Variation 12.2 % (11.5-14.5) 07/12/24 Plt Count 446 K/uL (130-400) H 07/12/24 MPV 10.3 fL (9.4-12.4) 07/12/24 Neutrophils (%) (Auto) 77.7 % 07/12/24 Lymphocytes (%) (Auto) 13.0 % 07/12/24 Monocytes # (Auto) 1.01 K/uL (0.11-0.59) H 07/12/24 Eosinophils # (Auto) 0.04 K/uL (0.00-0.50) 07/12/24 Immature Granulocyte % (Auto) 4.5 % 07/12/24 Neutrophils # (Auto) 17.94 K/uL (1.40-6.50) H 07/12/24 Lymphocytes # (Auto) 3.01 K/uL (1.20-3.40) 07/12/24 Monocytes # (Auto) 1.01 K/uL (0.11-0.59) H 07/12/24 Eosinophils # (Auto) 0.04 K/uL (0.00-0.50) 07/12/24 Basophils # (Auto) 0.05 K/uL (0.00-0.20) 07/12/24 Immature Granulocyte # (Auto) 1.03 K/uL (0.01-0.20) H 07/12 Na 141 mmol/L (136-145) 07/12/24 K 4.0 mmol/L (3.5-5.1) 07/12/24 Cl 103 mmol/L (98-107) 07/12/24 CO2 10 mmol/L (21-32) L 07/12/24 Anion Gap 28 (3-11) H 07/12/24 BUN 47 mg/dl (6-23) H 07/12/24 Creatinine 1.83 mg/dl (0.6-1.2) H 07/12/24 BUN/Creatinine Ratio 25.7 (10-20) H 07/12/24 Glu 770 mg/dl (70-99(Fasting)) H* 07/12/24 Ca 7.3 mg/dl (8.6-10.3) L 07/12/24 Phosphorus Level 4.8 mg/dl (2.5-4.9) 07/12/24 Total Bilirubin 1.1 mg/dl (0.2-1.0) H 07/12/24 AST 28 U/L (13-39) 07/12/24 ALT 13 U/L (7-52) 07/12/24 Alkaline Phosphatase 75 U/L (34-104) 07/12/24 TP 6.6 gm/dl (6.0-8.3) 07/12/24 Albumin 3.4 gm/dl (3.4-5.0) 07/12/24 Globulin 3.2 gm/dl (2.5-4.0) 07/12/24 Albumin/Globulin Ratio 1.1 (0.9-2) 07/12/24 Mg 2.0 mg/dl (1.7-2.4) 07/12/24 13:14 Calcium Level 7.3 mg/dl (8.6-10.3) L 07/12/24 13:14 Prothromb Time International Ratio 1.4 (0.9-1.1) H 07/12/24 09 :25 Venous Blood pH 7.09 (7.36-7.41) L 07/12/24 14:33 Venous Blood Partial Pressure CO2 28 mmHg (38-50) L 07/12/24 11 :08 Venous Blood Partial Pressure O2 35 mmHg 07/12/24 11:08 Venous Blood HCO3 7 mmol/L 07/12/24 11:08 Venous Blood Base Excess -23.1 mEq/L 07/12/24 11:08 Venous Blood Oxygen Saturation < 60.0 % 07/12/24 11:08 Diagnostic Findings (Past 24 Hours) Cervical Spine CT 07/12/24 09:17 CT cervical spine wo con CT DOSE: 1944.79 mGy.cm CLINICAL HISTORY: on floor, ams. COMPARISON: None TECHNIQUE: Multiple axial CT images of the cervical spine were obtained without contrast. A dose lowering technique was utilized adhering to the principles of ALARA. FINDINGS: There is moderate diffuse degenerative disc disease. No fracture or subluxation. IMPRESSION: No cervical spine fracture seen. ACT 112: Negative or not required by law. The above report was generated using voice recognition software. It may contain grammatical, syntax or spelling errors. Electronically signed by: Bc Suarez M.D. 07/12/2024 10:20 AM Chest X-Ray 07/12/24 09:18 XR chest 1V portable CLINICAL HISTORY: ams, ?fall COMPARISON STUDY: 08/06/2015 FINDINGS: Single view supine portable chest is limited by motion degradation. There is no acute process identified. There is no definite airspace opacity or pleural effusion. There is no pneumothorax. The heart and pulmonary vascularity are unremarkable for technique. IMPRESSION: No acute process identified. ACT 112: Negative or not required by law. Electronically signed by: Debra Dutton M.D. 07/12/2024 9:[address] 07/12/24 09:18 CT SCAN OF THE BRAIN WITHOUT IV CONTRAST CLINICAL HISTORY: Altered mental status. Possible fall. COMPARISON STUDY: None. TECHNIQUE: Unenhanced axial CT scan of the brain was performed from the vertex to the skull base. A dose lowering technique was utilized adhering to the principles of ALARA. FINDINGS: Brain parenchyma: Mild motion artifact. No acute intracranial hemorrhage, midline shift or mass effect is present. Gomez-white matter differentiation is preserved. There are no extra-axial fluid collections. There are no findings to suggest acute dural sinus thrombosis or acute territorial infarct. Ventricles, sulci, cisterns: There is no hydrocephalus. The basal cisterns are patent. Calvarium: No calvarial fractures. Sinuses and mastoids: The visualized paranasal sinuses are clear. The mastoid air cells are well pneumatized. Orbits: The bony orbits are grossly intact. IMPRESSION: 1. No acute intracranial findings. 2. No calvarial fractures. ACT 112: Negative or not required by law. Electronically signed by: Ag Griffiths M.D. 07/12/2024 10:24 AM Abdomen/Pelvis CT 07/12/24 09:[address] WITHOUT CONTRAST CT DOSE: 1945 HISTORY: ams, on floor, DKA TECHNIQUE: Multiaxial CT images of the abdomen and pelvis were performed without contrast. A dose lowering technique was utilized adhering to the principles of ALARA. COMPARISON STUDY: None FINDINGS: ABDOMEN: There is motion artifact. Liver, gallbladder, spleen, pancreas, and adrenal glands have an unremarkable non-IV contrast appearance. There is a small nonobstructing calculus at the left kidney. There is no hydronephrosis bilaterally. No abdominal aortic aneurysm. There is mild distention of the stomach with gas and fluid and the distal esophagus is mildly distended with fluid. Pelvis: Uterus and adnexal regions are grossly unremarkable. Buenrostro catheter is present. Urinary bladder is nondistended. No bowel inflammation or obstruction seen. No free fluid, free air, or abscess. No enlarged adenopathy. Osseous structures: There is mild chronic-appearing height loss at the L1 vertebral body. No acute osseous finding seen. IMPRESSION: 1. No acute findings seen. 2. Mild distention of the stomach with gas and fluid and mild fluid distention of the distal esophagus. ACT 112: Negative or not required by law. The above report was generated using voice recognition software. It may contain grammatical, syntax or spelling errors. Electronically signed by: Bc Suarez M.D. 07/12/2024 10:[address] 07/12/24 09:33 CT chest diagnostic wo con CT DOSE: 1944.79mGy*cm CLINICAL HISTORY: Altered mental status; found on the floor TECHNIQUE: Multiaxial CT images of the chest were performed without contrast. Sagittal and coronal reconstructions were done. A dose lowering technique was utilized adhering to the principles of ALARA. COMPARISON STUDY: None FINDINGS: There is no definite chest wall injury identified. Spurious defect in the sternum is felt to be misregistration due to motion. There is patchy discoid atelectasis in both lung bases. There is no air space opacity suggestive of a pneumonia or contusion. There is no pneumothorax. The upper airway is unremarkable. There is mild prominence of the superior mediastinal lymph nodes and supraclavicular lymph nodes with no evidence of matting or necrosis. There is mild ectasia of the ascending aorta. There is no pericardial effusion. There is mild coronary artery calcification. There is a thickening of the freeman of the distal esophagus. The upper abdominal images are noncontributory. The thoracic spine shows no evidence of acute compression fracture or malalignment. IMPRESSION: No definite evidence of acute traumatic thoracic injury. Mild ectasia of the ascending aorta. Relative low attenuation of the lumen raises the possibility of anemia. Nonspecific and discoid atelectasis at the lung bases. Esophageal wall thickening. Consider correlation with esophagram Mild prominence of the superior mediastinal and supraclavicular lymph nodes are nonspecific. ACT 112: Negative or not required by law. Electronically signed by: Debra Dutton M.D. 07/12/2024 10:25 AM I & O Totals 24 Hours 07/11/24 07/12/24 07/13/24 06:59 06:59 06:59 Intake Total 4129.917 / 4129.917 Output Total 1000 / 1000 Balance 3129.917 / 3129.917 Cumulative 07/12/24 09:04 thru 07/12/24 14:10 Intake Total 4129.917 Output Total 1000 Balance 3129.917 RT Ventilator Mngmt (Last Documented) Ventilator Ordered Settings Respiratory Rate 16 07/12/24 14:10 Ventilator - PT Measurements Respiratory Rate 16 Coding Level of Care Code 26011 CRITICAL CARE 1ST 30-74M Diagnoses DKA (diabetic ketoacidosis) E11.10 Hyperosmolar coma due to type 1 diabetes mellitus E10.69; E10.65; E87.0 Anemia D64.9 Acute metabolic encephalopathy G93.41 Lactic acidosis E87.20 Rhabdomyolysis M62.82 Acute renal failure N17.9 Hyperkalemia E87.5
--- NOTE | 2024-07-12 15:06 | Pharmacy Report ---
Pharmacy Glycemic Short Note 2 - Date of Service July 12, 2024 - Glycemic Short BSG Results (Last 24 hours): 07/12/24 07/12/24 07/12/24 09:25 09:32 11:01 Glucose 1175 H* POC Glucose > 600 H* POC Glucose (other) > 700 H* 07/12/24 07/12/24 07/12/24 11:08 12:06 13:13 Glucose 1085 H* POC Glucose > 600 H* > 600 H* POC Glucose (other) 07/12/24 07/12/24 07/12/24 13:14 13:14 14:03 Glucose 770 H* Cancelled POC Glucose > 600 H* POC Glucose (other) OUTPATIENT ANTIDIABETIC REGIMEN: * Novolog insulin pump (27 units/day) * CF: 45mg/dl/unit * CR: 10gm/unit HbA1C: 10.6% ASSESSMENT: * Pt is a 74 YOF with a history of type 1 DM on insulin pump therapy at home that presents in DKA/HHS. Family concerned that pump ran out of insulin. Pharmacy consulted to assist with inpatient glycemic management. * BSGs [id number]/dL since arrival. Initial AG-33, bicarb-10, pH-7. * Initiated on an insulin infusion per DKA protocol ~ 1000 today. Continue infusion per protocol (goal BSG 250-350mg/dL) until BSG within goal, AG <12, bicarb >/=15 and pH>7.3 and mentating appropriately. Novolog ACHS with home carb coverage parameters only while insulin drip running (currently NPO). PLAN FOR INPATIENT GLYCEMIC CONTROL: * Hold outpatient oral diabetes medications * Basal insulin * insulin infusion per DKA protocol * Bolus insulin * NovoLog per scale ACHS or Q6hrs while NPO * Goal Range: Low 250 mg/dL - High 350 mg/dL * Correction Factor: - mg/dL/unit * Nutritional / Prandial insulin per carb ratio of 1 unit per 10 grams CHO consumed
[2024-07-12 15:09] LABS: Calcium 7.3 mg/dl (8.6-10.3); Magnesium 1.9 mg/dl (1.7-2.4); Potassium 3.8 mmol/L (3.5-5.1)
[2024-07-12] MEDS ORDERED: PENDING D5 1/2NS+20mEq KCL IVF SCH (15:15)
[2024-07-12 15:36] LABS: BUN Creatinine Ratio 27.3 (10-20); Creatinine Clr Calc Pharmacy 22.3 ml/min; Phosphorus 3.3 mg/dl (2.5-4.9)
[2024-07-12] MEDS: NSS + 20MEQ KCL 20 MEQ/1,000 ML BAG IV SCH (16:53)
[2024-07-12 18:36] LABS: BUN Creatinine Ratio 26.3 (10-20); Calcium 7.5 mg/dl (8.6-10.3); Creatinine Clr Calc Pharmacy 24.4 ml/min; Magnesium 1.8 mg/dl (1.7-2.4); Phosphorus 1.8 mg/dl (2.5-4.9); Potassium 3.6 mmol/L (3.5-5.1)
[2024-07-12] MEDS: SODIUM CHLORIDE 0.9% 1,000 ML IV SCH (19:14)
[2024-07-12] MEDS: HEPARIN SOD 5,000 UNIT/0.5 ML VIAL SQ SCH (20:55)
[2024-07-12] MEDS: D5W AND 1/2NSS + 20MEQ KCL 20 MEQ/1,000 ML BAG IV SCH (22:23)
[2024-07-12] MEDS ORDERED: POTASSIUM PHOS 3 MMOL/1 ML INFUSION IV STA (22:40)
[2024-07-12 23:18] LABS: BUN Creatinine Ratio 27.3 (10-20); Calcium 7.3 mg/dl (8.6-10.3); Creatinine Clr Calc Pharmacy 26.5 ml/min; Potassium 4.1 mmol/L (3.5-5.1)
[2024-07-12 23:29] LABS: Magnesium 1.7 mg/dl (1.7-2.4); Phosphorus 1.4 mg/dl (2.5-4.9)
[2024-07-12] MEDS: POTASSIUM PHOSPHATE 15 MMOL in SODIUM CHLORIDE 0.9% 250 ML IV ONE (23:39)
[2024-07-13] MEDS: MAGNESIUM SULFATE / D5W 1 GM/100 ML BAG IV SCH (00:20)
[2024-07-13 02:42] LABS: Calcium 7.3 mg/dl (8.6-10.3); Magnesium 1.9 mg/dl (1.7-2.4); Potassium 4.3 mmol/L (3.5-5.1)
[2024-07-13 02:48] LABS: BUN Creatinine Ratio 25.9 (10-20); Creatinine Clr Calc Pharmacy 27.8 ml/min; Phosphorus 2.1 mg/dl (2.5-4.9)
[2024-07-13 02:59] LABS: INR 1.2 (0.9-1.1); Prothrombin Time 12.5 Seconds (9.0-12.0)
[2024-07-13] MEDS: DEXTROSE 50% 50 ML SYRINGE IV ONE (05:56)
[2024-07-13 06:39] LABS: BUN Creatinine Ratio 27.3 (10-20); Calcium 7.2 mg/dl (8.6-10.3); Creatinine Clr Calc Pharmacy 31.9 ml/min; Magnesium 2.1 mg/dl (1.7-2.4); Phosphorus 1.8 mg/dl (2.5-4.9); Potassium 4.4 mmol/L (3.5-5.1)
[2024-07-13 07:03] LABS: White Blood Count 11.94 K/ul (4.8-10.8)
[2024-07-13 07:04] LABS: Mean Platelet Volume 9.7 fL (9.4-12.4); Platelet Count 321 K/uL (130-400)
[2024-07-13] MEDS: LANTUS PER UNIT CHARGE SC ONE (07:18)
[2024-07-13] MEDS: LEVOTHYROXINE SODIUM 100 MCG TABLET PO SCH (07:20)
[2024-07-13] MEDS: PANTOprazole 40 MG/10 ML SYR IV SCH (07:20)
[2024-07-13 07:25] LABS: Hematocrit (blood only) 29.2 % (37.0-47.0); Hemoglobin 9.9 g/dl (12.0-16.0); Mean Corpuscular Hemoglobin 29.9 pg (25.0-34.0); Mean Corpuscular Hgb Conc 33.9 g/dL (32.0-36.0); Mean Corpuscular Volume 88.2 fL (80.0-100.0); RDW Coefficient of Variation 12.7 % (11.5-14.5); RDW Standard Deviation 40.9 fL (36.4-46.3); Red Blood Count 3.31 M/uL (4.20-5.40)
[2024-07-13 07:26] LABS: Basophils # (auto) 0.01 K/uL (0.00-0.20); Basophils % (auto) 0.1 %; Eosinophils # (auto) 0.01 K/uL (0.00-0.50); Eosinophils % (auto) 0.1 %; Immature Granulocytes # (auto) 0.13 K/uL (0.01-0.20); Immature Granulocytes % (auto) 1.1 %; Lymphocytes # (auto) 1.16 K/uL (1.20-3.40); Lymphocytes % (auto) 9.7 %; Monocytes # (auto) 1.01 K/uL (0.11-0.59); Monocytes % (auto) 8.5 %; Neutrophils # (auto) 9.62 K/uL (1.40-6.50); Neutrophils % (auto) 80.5 %
--- NOTE | 2024-07-13 07:36 | Critical Care Progress Note ---
Date of Service July 13, 2024 Assessment & Plan (1) DKA (diabetic ketoacidosis): (2) Hyperosmolar coma due to type 1 diabetes mellitus: (3) Anemia: (4) Acute metabolic encephalopathy: (5) Lactic acidosis: (6) Rhabdomyolysis: (7) Acute renal failure: (8) Hyperkalemia: Plan Impression: 74-year-old female with diabetes admitted with severe DKA/HH K with associated lactic acidosis, hyperkalemia, and acute renal failure as well as leukocytosis and mild rhabdomyolysis. 24-hour events: Admitted to the ICU. Continued fluid resuscitation and insulin supplementation. Much improved this morning Recommendations: 1. Neurologic: Metabolic encephalopathy. Now resolved. Can judiciously restart outpatient rizatriptan and SSRI 2. Cardiovascular: L acidosis resolved. As blood pressure increases, may consider restarting her hypertensive regimen. 3. Pulmonary: No current issues. Oxygen as tolerated. Advair and ambulatory 4. Endocrine: Severe DKA. Secondary to medication noncompliance. Transition to subcu insulin. Will cover with carb counting and sliding scale discontinue insulin drip. 5. Renal: Acute renal insufficiency likely secondary to ATN/prerenal state. Improving. She is mildly hyponatremic which should correct as we liberalize her free water intake. Acid-base status improving. Will supplement with oral calcium phosphate, with repeat labs to be checked in the morning. 6. ID: white blood cell count decreasing. Suspect this acute episode resulted in stress leukocytosis. No indication for antimicrobials currently 7. Heme-onc: Leukocytosis likely reactive. Anemia of unclear etiology. She was not anemic on labs that were performed only a week ago so suspect some component of dilution. No evidence of bleeding. Continue to follow clinically 8. GI: Restart diet. No need for ongoing PPI. Patient's critical care issues have resolved. She can transfer to the floor. Critical care services will sign off. Feel free to contact us with questions or concerns Admission and Anticipated Discharge Date Admission Date: July 12, 2024 Subjective Patient seen and examined. EMR reviewed. The patient is much better this morning. She sitting up awake alert and conversant able to answer questions appropriately. Has been hemodynamically stable. Glucoses decreased and gap is closed. She been initiated on subcu insulin and her insulin drip is currently off. She is pending initiation of a diet. She has no other complaints this morning Review of Systems Review of Systems: All systems reviewed & are unremarkable except as noted in Subjective Physical Exam Constitutional: + thin Neck: trachea midline, no thyromegaly Respiratory: normal respiratory effort, lungs clear to auscultation Cardiovascular: RRR, no murmur, no edema Gastrointestinal (Abdomen): normal bowel sounds, soft, nontender, no hepatosplenomegaly Musculoskeletal: Extremities: extremities normal to inspection Skin: no rashes, warm and dry Lymphatic: no cervical lymphadenopathy Results & Data Results & Data Vital Signs (Past 12 Hours) Vital Signs Temp Pulse Resp BP Pulse Ox O2 Del Method 07/13/24 06:42 36.6 C 95 H 33 H 95 07/13/24 06:39 36.7 C 92 H 28 H 91 07/13/24 06:24 36.6 C 90 25 H 99 07/13/24 06:15 36.5 C 91 H 26 H 94 07/13/24 06:03 36.5 C 96 H 26 H 90 07/13/24 06:00 121/67 07/13/24 06:00 121/67 07/13/24 05:54 36.4 C L 95 H 25 H 100 07/13/24 05:51 36.5 C 96 H 30 H 96 07/13/24 05:42 36.7 C 96 H 25 H 95 07/13/24 05:21 36.7 C 96 H 32 H 100 07/13/24 05:00 36.7 C 94 H 35 H 100 07/13/24 05:00 118/62 07/13/24 05:00 118/62 07/13/24 05:00 118/62 07/13/24 04:54 36.7 C 95 H 33 H 97 07/13/24 04:33 36.7 C 96 H 27 H 99 07/13/24 04:21 36.7 C 94 H 23 98 07/13/24 04:06 36.7 C 94 H 26 H 96 07/13/24 03:51 36.5 C 93 H 26 H 89 L 07/13/24 03:39 36.5 C 92 H 24 91 07/13/24 03:21 36.6 C 93 H 25 H 90 07/13/24 03:15 36.7 C 93 H 25 H 89 L 07/13/24 03:00 119/60 07/13/24 02:57 36.7 C 94 H 26 H 94 07/13/24 02:54 36.7 C 92 H 25 H 98 07/13/24 02:21 36.8 C 95 H 33 H 88 L 07/13/24 02:03 36.8 C 97 H 26 H 87 L 07/13/24 02:00 112/59 L 07/13/24 02:00 112/59 L 07/13/24 02:00 112/59 L 07/13/24 01:57 36.7 C 94 H 30 H 91 07/13/24 01:42 36.8 C 95 H 28 H 89 L 07/13/24 01:21 36.8 C 100 H 24 89 L 07/13/24 01:18 36.8 C 100 H 24 95 07/13/24 01:00 115/75 07/13/24 01:00 115/75 07/13/24 00:42 36.8 C 99 H 28 H 93 07/13/24 00:33 36.8 C 96 H 33 H 91 07/13/24 00:30 111/53 L 07/13/24 00:21 36.8 C 96 H 34 H 98 07/13/24 00:12 36.8 C 98 H 27 H 98 07/13/24 00:00 36.7 C 96 H 31 H 98 07/13/24 00:00 103/55 L 07/13/24 00:00 103/55 L 07/12/24 23:51 36.7 C 97 H 27 H 98 07/12/24 23:30 121/62 07/12/24 23:30 121/62 07/12/24 23:30 121/62 07/12/24 23:30 36.6 C 99 H 35 H 98 07/12/24 23:06 36.5 C 96 H 25 H 99 07/12/24 22:48 36.4 C L 97 H 28 H 98 07/12/24 22:39 36.4 C L 97 H 34 H 98 07/12/24 22:30 136/66 07/12/24 22:30 136/66 07/12/24 22:30 136/66 07/12/24 22:24 36.3 C L 99 H 26 H 100 07/12/24 22:00 36.1 C L 93 H 31 H 98 04/10/25 21:48 36.0 C L 98 H 31 H 100 07/12/24 21:33 36.0 C L 93 H 33 H 100 07/12/24 21:30 125/69 07/12/24 21:30 125/69 07/12/24 21:30 125/69 07/12/24 21:24 35.8 C L 92 H 24 96 07/12/24 21:21 35.8 C L 101 H 23 97 07/12/24 21:00 35.7 C L 99 H 30 H 100 07/12/24 21:00 144/86 H 07/12/24 21:00 144/86 H 07/12/24 21:00 144/86 H 07/12/24 20:30 139/65 07/12/24 20:30 139/65 07/12/24 20:03 35.3 C L 90 29 H 100 07/12/24 20:00 139/70 07/12/24 20:00 139/70 07/12/24 20:00 139/70 07/12/24 20:00 35.3 C L 90 29 H 100 07/12/24 19:54 35.3 C L 88 23 100 07/12/24 19:45 Nasal Cannula Critical Care Results & Data Vital Signs (Past 12 Hours) Vital Signs Temp Pulse Resp BP Pulse Ox O2 Del Method 07/13/24 06:42 36.6 C 95 H 33 H 95 07/13/24 06:39 36.7 C 92 H 28 H 91 07/13/24 06:24 36.6 C 90 25 H 99 07/13/24 06:15 36.5 C 91 H 26 H 94 07/13/24 06:03 36.5 C 96 H 26 H 90 07/13/24 06:00 121/67 07/13/24 06:00 121/67 07/13/24 05:54 36.4 C L 95 H 25 H 100 07/13/24 05:51 36.5 C 96 H 30 H 96 07/13/24 05:42 36.7 C 96 H 25 H 95 07/13/24 05:21 36.7 C 96 H 32 H 100 07/13/24 05:00 36.7 C 94 H 35 H 100 07/13/24 05:00 118/62 04/11/25 05:00 118/62 07/13/24 05:00 118/62 07/13/24 04:54 36.7 C 95 H 33 H 97 07/13/24 04:33 36.7 C 96 H 27 H 99 07/13/24 04:21 36.7 C 94 H 23 98 07/13/24 04:06 36.7 C 94 H 26 H 96 07/13/24 03:51 36.5 C 93 H 26 H 89 L 07/13/24 03:39 36.5 C 92 H 24 91 07/13/24 03:21 36.6 C 93 H 25 H 90 07/13/24 03:15 36.7 C 93 H 25 H 89 L 07/13/24 03:00 119/60 07/13/24 02:57 36.7 C 94 H 26 H 94 07/13/24 02:54 36.7 C 92 H 25 H 98 07/13/24 02:21 36.8 C 95 H 33 H 88 L 07/13/24 02:03 36.8 C 97 H 26 H 87 L 07/13/24 02:00 112/59 L 07/13/24 02:00 112/59 L 07/13/24 02:00 112/59 L 07/13/24 01:57 36.7 C 94 H 30 H 91 07/13/24 01:42 36.8 C 95 H 28 H 89 L 07/13/24 01:21 36.8 C 100 H 24 89 L 07/13/24 01:18 36.8 C 100 H 24 95 07/13/24 01:00 115/75 07/13/24 01:00 115/75 07/13/24 00:42 36.8 C 99 H 28 H 93 07/13/24 00:33 36.8 C 96 H 33 H 91 07/13/24 00:30 111/53 L 07/13/24 00:21 36.8 C 96 H 34 H 98 07/13/24 00:12 36.8 C 98 H 27 H 98 07/13/24 00:00 36.7 C 96 H 31 H 98 07/13/24 00:00 103/55 L 07/13/24 00:00 103/55 L 07/12/24 23:51 36.7 C 97 H 27 H 98 07/12/24 23:30 121/62 07/12/24 23:30 121/62 07/12/24 23:30 121/62 07/12/24 23:30 36.6 C 99 H 35 H 98 07/12/24 23:06 36.5 C 96 H 25 H 99 07/12/24 22:48 36.4 C L 97 H 28 H 98 07/12/24 22:39 36.4 C L 97 H 34 H 98 07/12/24 22:30 136/66 07/12/24 22:30 136/66 07/12/24 22:30 136/66 07/12/24 22:24 36.3 C L 99 H 26 H 100 07/12/24 22:00 36.1 C L 93 H 31 H 98 07/12/24 21:48 36.0 C L 98 H 31 H 100 07/12/24 21:33 36.0 C L 93 H 33 H 100 07/12/24 21:30 125/69 07/12/24 21:30 125/69 07/12/24 21:30 125/69 07/12/24 21:24 35.8 C L 92 H 24 96 07/12/24 21:21 35.8 C L 101 H 23 97 07/12/24 21:00 35.7 C L 99 H 30 H 100 07/12/24 21:00 144/86 H 07/12/24 21:00 144/86 H 07/12/24 21:00 144/86 H 07/12/24 20:30 139/65 07/12/24 20:30 139/65 07/12/24 20:03 35.3 C L 90 29 H 100 07/12/24 20:00 139/70 07/12/24 20:00 139/70 07/12/24 20:00 139/70 07/12/24 20:00 35.3 C L 90 29 H 100 07/12/24 19:54 35.3 C L 88 23 100 07/12/24 19:45 Nasal Cannula Lab & Micro Results (Past 24 Hours) RBC 3.31 M/uL (4.20-5.40) L 07/13/24 WBC 11.94 K/ul (4.8-10.8) H 07/13/24 Hgb 9.9 g/dl (12.0-16.0) L 07/13/24 Hct 29.2 % (37.0-47.0) L 07/13/24 MCV 88.2 fL (80.0-100.0) 07/13/24 MCH 29.9 pg (25.0-34.0) 07/13/24 MCHC 33.9 g/dL (32.0-36.0) 07/13/24 RDW Standard Deviation 40.9 fL (36.4-46.3) 07/13/24 RDW Coefficient of Variation 12.7 % (11.5-14.5) 07/13/24 Plt Count 321 K/uL (130-400) 07/13/24 MPV 9.7 fL (9.4-12.4) 07/13/24 Neutrophils (%) (Auto) 80.5 % 07/13/24 Lymphocytes (%) (Auto) 9.7 % 07/13/24 Monocytes # (Auto) 1.01 K/uL (0.11-0.59) H 07/13/24 Eosinophils # (Auto) 0.01 K/uL (0.00-0.50) 07/13/24 Immature Granulocyte % (Auto) 1.1 % 07/13/24 Neutrophils # (Auto) 9.62 K/uL (1.40-6.50) H 07/13/24 Lymphocytes # (Auto) 1.16 K/uL (1.20-3.40) L 07/13/24 Monocytes # (Auto) 1.01 K/uL (0.11-0.59) H 07/13/24 Eosinophils # (Auto) 0.01 K/uL (0.00-0.50) 07/13/24 Basophils # (Auto) 0.01 K/uL (0.00-0.20) 07/13/24 Immature Granulocyte # (Auto) 0.13 K/uL (0.01-0.20) 5 Na 147 mmol/L (136-145) H 07/13/24 K 4.4 mmol/L (3.5-5.1) 07/13/24 Cl 118 mmol/L (98-107) H 07/13/24 CO2 24 mmol/L (21-32) 07/13/24 Anion Gap 5 (3-11) 07/13/24 BUN 35 mg/dl (6-23) H 07/13/24 Creatinine 1.28 mg/dl (0.6-1.2) H 07/13/24 BUN/Creatinine Ratio 27.3 (10-20) H 07/13/24 Glu 171 mg/dl (70-99(Fasting)) H 07/13/24 Ca 7.2 mg/dl (8.6-10.3) L 07/13/24 Phosphorus Level 1.8 mg/dl (2.5-4.9) L 07/13/24 Total Bilirubin 1.1 mg/dl (0.2-1.0) H 07/12/24 AST 28 U/L (13-39) 07/12/24 ALT 13 U/L (7-52) 07/12/24 Alkaline Phosphatase 75 U/L (34-104) 07/12/24 TP 6.6 gm/dl (6.0-8.3) 07/12/24 Albumin 3.4 gm/dl (3.4-5.0) 07/12/24 Globulin 3.2 gm/dl (2.5-4.0) 07/12/24 Albumin/Globulin Ratio 1.1 (0.9-2) 07/12/24 Mg 2.1 mg/dl (1.7-2.4) 07/13/24 05:46 Calcium Level 7.2 mg/dl (8.6-10.3) L 07/13/24 05:46 Prothromb Time International Ratio 1.2 (0.9-1.1) H 07/13/24 02 :13 Venous Blood pH 7.32 (7.36-7.41) L 07/13/24 06:25 Venous Blood Partial Pressure CO2 28 mmHg (38-50) L 07/12/24 11 :08 Venous Blood Partial Pressure O2 35 mmHg 07/12/24 11:08 Venous Blood HCO3 7 mmol/L 07/12/24 11:08 Venous Blood Base Excess -23.1 mEq/L 07/12/24 11:08 Venous Blood Oxygen Saturation < 60.0 % 07/12/24 11:08 Diagnostic Findings (Past 24 Hours) Cervical Spine CT 07/12/24 09:17 CT cervical spine wo con CT DOSE: 1944.79 mGy.cm CLINICAL HISTORY: on floor, ams. COMPARISON: None TECHNIQUE: Multiple axial CT images of the cervical spine were obtained without contrast. A dose lowering technique was utilized adhering to the principles of ALARA. FINDINGS: There is moderate diffuse degenerative disc disease. No fracture or subluxation. IMPRESSION: No cervical spine fracture seen. ACT 112: Negative or not required by law. The above report was generated using voice recognition software. It may contain grammatical, syntax or spelling errors. Electronically signed by: Bc Suarez M.D. 07/12/2024 10:20 AM Chest X-Ray 07/12/24 09:18 XR chest 1V portable CLINICAL HISTORY: ams, ?fall COMPARISON STUDY: 08/06/2015 FINDINGS: Single view supine portable chest is limited by motion degradation. There is no acute process identified. There is no definite airspace opacity or pleural effusion. There is no pneumothorax. The heart and pulmonary vascularity are unremarkable for technique. IMPRESSION: No acute process identified. ACT 112: Negative or not required by law. Electronically signed by: Debra Dutton M.D. 07/12/2024 9:[address] 07/12/24 09:18 CT SCAN OF THE BRAIN WITHOUT IV CONTRAST CLINICAL HISTORY: Altered mental status. Possible fall. COMPARISON STUDY: None. TECHNIQUE: Unenhanced axial CT scan of the brain was performed from the vertex to the skull base. A dose lowering technique was utilized adhering to the principles of ALARA. FINDINGS: Brain parenchyma: Mild motion artifact. No acute intracranial hemorrhage, midline shift or mass effect is present. Gomez-white matter differentiation is preserved. There are no extra-axial fluid collections. There are no findings to suggest acute dural sinus thrombosis or acute territorial infarct. Ventricles, sulci, cisterns: There is no hydrocephalus. The basal cisterns are patent. Calvarium: No calvarial fractures. Sinuses and mastoids: The visualized paranasal sinuses are clear. The mastoid air cells are well pneumatized. Orbits: The bony orbits are grossly intact. IMPRESSION: 1. No acute intracranial findings. 2. No calvarial fractures. ACT 112: Negative or not required by law. Electronically signed by: Ag Griffiths M.D. 07/12/2024 10:24 AM Abdomen/Pelvis CT 07/12/24 09:[address] WITHOUT CONTRAST CT DOSE: 1945 HISTORY: ams, on floor, DKA TECHNIQUE: Multiaxial CT images of the abdomen and pelvis were performed without contrast. A dose lowering technique was utilized adhering to the principles of ALARA. COMPARISON STUDY: None FINDINGS: ABDOMEN: There is motion artifact. Liver, gallbladder, spleen, pancreas, and adrenal glands have an unremarkable non-IV contrast appearance. There is a small nonobstructing calculus at the left kidney. There is no hydronephrosis bilaterally. No abdominal aortic aneurysm. There is mild distention of the stomach with gas and fluid and the distal esophagus is mildly distended with fluid. Pelvis: Uterus and adnexal regions are grossly unremarkable. Buenrostro catheter is present. Urinary bladder is nondistended. No bowel inflammation or obstruction seen. No free fluid, free air, or abscess. No enlarged adenopathy. Osseous structures: There is mild chronic-appearing height loss at the L1 vertebral body. No acute osseous finding seen. IMPRESSION: 1. No acute findings seen. 2. Mild distention of the stomach with gas and fluid and mild fluid distention of the distal esophagus. ACT 112: Negative or not required by law. The above report was generated using voice recognition software. It may contain grammatical, syntax or spelling errors. Electronically signed by: Bc Suarez M.D. 07/12/2024 10:[address] 07/12/24 09:33 CT chest diagnostic wo con CT DOSE: 1944.79mGy*cm CLINICAL HISTORY: Altered mental status; found on the floor TECHNIQUE: Multiaxial CT images of the chest were performed without contrast. Sagittal and coronal reconstructions were done. A dose lowering technique was utilized adhering to the principles of ALARA. COMPARISON STUDY: None FINDINGS: There is no definite chest wall injury identified. Spurious defect in the sternum is felt to be misregistration due to motion. There is patchy discoid atelectasis in both lung bases. There is no air space opacity suggestive of a pneumonia or contusion. There is no pneumothorax. The upper airway is unremarkable. There is mild prominence of the superior mediastinal lymph nodes and supraclavicular lymph nodes with no evidence of matting or necrosis. There is mild ectasia of the ascending aorta. There is no pericardial effusion. There is mild coronary artery calcification. There is a thickening of the freeman of the distal esophagus. The upper abdominal images are noncontributory. The thoracic spine shows no evidence of acute compression fracture or malalignment. IMPRESSION: No definite evidence of acute traumatic thoracic injury. Mild ectasia of the ascending aorta. Relative low attenuation of the lumen raises the possibility of anemia. Nonspecific and discoid atelectasis at the lung bases. Esophageal wall thickening. Consider correlation with esophagram Mild prominence of the superior mediastinal and supraclavicular lymph nodes are nonspecific. ACT 112: Negative or not required by law. Electronically signed by: Debra Dutton M.D. 07/12/2024 10:25 AM I & O Totals 24 Hours 07/12/24 07/13/24 07/14/24 06:59 06:59 06:59 Intake Total 6698.594 / 6698.594 2.017 / 2.017 Output Total 2084 / 2084 Balance 4613.594 / 4613.594 2.017 / 2.017 Cumulative 07/12/24 09:04 thru 07/13/24 07:08 Intake Total 6700.611 Output Total 2084 Balance 4615.611 RT Ventilator Mngmt (Last Documented) Ventilator Ordered Settings Respiratory Rate 33 07/13/24 06:42 Ventilator - PT Measurements Respiratory Rate 33 Coding Level of Care Code 29180 SUB INP/OBS CARE 3/50MIN Diagnoses DKA (diabetic ketoacidosis) E11.10 Hyperosmolar coma due to type 1 diabetes mellitus E10.69; E10.65; E87.0 Anemia D64.9 Acute metabolic encephalopathy G93.41 Lactic acidosis E87.20 Rhabdomyolysis M62.82 Acute renal failure N17.9 Hyperkalemia E87.5
[2024-07-13] MEDS ORDERED: LORazepam 1 MG TAB PO PRN (08:26)
[2024-07-13] MEDS ORDERED: busPIRone 5 MG TAB PO PRN (08:26)
[2024-07-13] MEDS: CALCIUM 600MG + VIT D 400 IU TAB PO SCH (09:16)
[2024-07-13] MEDS: SERTRALINE HCL 50 MG TABLET PO SCH (09:16)
[2024-07-13] MEDS: SODIUM CHLORIDE 0.45 % 1,000 ML IV SCH (09:17)
[2024-07-13] MEDS: ASPIRIN 81 MG ECTAB PO SCH (09:17)
[2024-07-13] MEDS: POT PHOSPHATE MONOBASIC W/ SOD TAB PO SCH (09:18)
[2024-07-13] MEDS: ERTAPENEM 1000MG 1,000 MG/10 ML SYR IV SCH (10:34)
--- NOTE | 2024-07-13 12:19 | Pharmacy Report ---
Pharmacy Glycemic Short Note 2 - Date of Service July 13, 2024 - Glycemic Short BSG Results (Last 24 hours): 07/12/24 07/12/24 07/12/24 13:13 13:14 13:14 Glucose 770 H* Cancelled POC Glucose > 600 H* 07/12/24 07/12/24 07/12/24 14:03 14:33 16:41 Glucose 679 H* POC Glucose > 600 H* 566 H* 07/12/24 07/12/24 07/12/24 16:42 17:50 18:01 Glucose 481 H* POC Glucose 550 H* 445 H* 07/12/24 07/12/24 07/12/24 19:08 19:10 20:04 Glucose POC Glucose > 600 H* 434 H* 484 H* 07/12/24 07/12/24 07/12/24 20:57 21:59 22:27 Glucose 272 H POC Glucose 413 H* 291 H 07/12/24 07/12/24 07/12/24 22:56 23:21 23:23 Glucose POC Glucose 505 H* > 600 H* 327 H* 07/12/24 07/12/24 07/13/24 23:28 23:30 00:11 Glucose POC Glucose 588 H* 279 H 245 H 07/13/24 07/13/24 07/13/24 00:13 00:57 02:00 Glucose 265 H POC Glucose 281 H > 600 H* 07/13/24 07/13/24 07/13/24 02:10 02:13 02:15 Glucose 227 H POC Glucose 204 H 238 H 07/13/24 07/13/24 07/13/24 03:01 03:59 05:01 Glucose POC Glucose 241 H 240 H 200 H 07/13/24 07/13/24 07/13/24 05:46 05:49 06:11 Glucose 171 H POC Glucose 166 H 344 H* 07/13/24 07/13/24 06:59 10:40 Glucose POC Glucose 209 H 260 H OUTPATIENT ANTIDIABETIC REGIMEN: * Novolog insulin pump (27 units/day) * CF: 45mg/dl/unit * CR: 10gm/unit HbA1C: 10.6% ASSESSMENT: 07/13: * BSGs within goal range this AM. Insulin drip ran through the night and discontinued this morning (AG 5, bicarb-24). * Dextrose containing IVF discontinued per provider, diet ordered. * Lantus 14 units (~80% home pump basal) SQ X 1 dose this AM (overlapped briefly with drip prior to pause per calc). Novolog ACHS 45/10 per pump settings. Will add overnight checks tonight. 07/12: * Pt is a 74 YOF with a history of type 1 DM on insulin pump therapy at home that presents in DKA/HHS. Family concerned that pump ran out of insulin. Pharmacy consulted to assist with inpatient glycemic management. * BSGs [id number]/dL since arrival. Initial AG-33, bicarb-10, pH-7. * Initiated on an insulin infusion per DKA protocol ~ 1000 today. Continue infusion per protocol (goal BSG 250-350mg/dL) until BSG within goal, AG <12, bicarb >/=15 and pH>7.3 and mentating appropriately. Novolog ACHS with home carb coverage parameters only while insulin drip running (currently NPO). PLAN FOR INPATIENT GLYCEMIC CONTROL: * Hold outpatient oral diabetes medications * Basal insulin * Lantus 14 units SQ qAM * Bolus insulin * NovoLog per scale ACHS or Q6hrs while NPO * Goal Range: Low 110 mg/dL - High 140 mg/dL * Correction Factor: 45 mg/dL/unit * Nutritional / Prandial insulin per carb ratio of 1 unit per 10 grams CHO consumed
--- NOTE | 2024-07-13 13:16 | Hospitalist Progress Note ---
Date of Service July 13, 2024 Assessment & Plan (1) DKA (diabetic ketoacidosis): (2) Uncontrolled type 1 diabetes mellitus with hyperglycemia: (3) Lactic acidosis: (4) Severe sepsis: (5) Fall: (6) Esophagitis: (7) Hypotension: (8) Acute metabolic encephalopathy: (9) Hypothermia: (10) Acute dehydration: (11) Hypothyroidism: (12) Hyperlipidemia: (13) Generalized anxiety disorder with panic attacks: (14) Migraine: (15) Orthostatic hypotension: (16) Elevated INR: Plan 74yo female with history of long-standing T1DM, poorly-controlled with most a1c's >10% in the record and followed by [facility] - on insulin pump with CGM; hypothyroidism; anxiety; hyperlipidemia; migraines; vertigo - who presents from home after her son found her on the floor in the bathroom. She was unresponsive when he found her. Upon ER presentation she was hypothermic, had evidence of severe DKA, was hypotensive, and was severely altered. #DKA - * suspect 2nd to noncompliance with insulin therapy (pump ran out of insulin for at least 1-2 days, then she switched to SC injections, but unclear how much she was using); pneumonia may have contributed to DKA; lack of sleep, other major stressors probably also played a role * s/p insulin infusion and copious IV hydration since admission with closure of gap, correction of electrolyte deficiencies, etc. * insulin drip is off; transitioned to basal-bolus SC insulin * pharmacy glycemic consult much appreciated * family to bring pump & pump supplies to the hospital * perinatal educator consulted * will send [place] correspondence to Nikki Padilla NP, her DM provider #uncontrolled, long-standing T1DM on insulin pump therapy - * a1c 10.6% * nearly all a1c's going back to 2017 have been >10% * follows with [facility] * nurse educator consult as above * pharmacy glycemic consult as above * DKA resolved; back to SC injections #suspected severe sepsis - * met severe sepsis criteria with elevated lactate level, JASMINE, altered MS, leukocytosis, hypothermia, etc. * source - pneumonia as detected on today's cxr * blood cx's remain negative * resp BioFire was negative * s/p ertapenem IV for empiric coverage (multiple abx allergies) but by report has tolerated augmentin in the past * will change ertapenem to Unasyn IV #lactic acidosis - * lactic acidosis 2nd to severely volume contacted state and/or severe sepsis - resolved #JASMINE - * 2nd to DKA * 2nd to volume contraction * sepsis-related * resolving * peak Cr 2.2; now 1.2; baseline <1 * no evidence of obstruction on CT a/p * BMP am #Esophagitis - * as seen on CT * cont daily PPI; change to PO * add carafate qid * could have gastroparesis as well leading to the gastric/esophageal abnormalities as detected on the CTs but she denies chronic nausea and/or emesis #acute metabolic encephalopathy - * 2nd to DKA, lactic acidosis, sepsis, etc --> improving, but not back to baseline * CT head negative * consider MRI brain in light of migraines, vertigo, unwitnessed fall, etc. #hypothyroidism - * TSH 4.1 * resumes PO synthroid #elevated INR - * etiology uncertain * no h/o liver disease * could be vitamin K deficient * INR 1.4 at admission; INR 1.2 today * repeat in 48 hours to ensure back to normal #fall - * presumed 2nd to severe DKA +/- weakness from metabolic derangements +/- sepsis +/- hypotension, etc * echo 04/2024 was wnl * needs PT/OT * head CT neg * consider MRI brain #hypothermia - * resolved with warming blanket, Rx of DKA, etc. #vertigo - acute on chronic * start meclizine 12.5mg BID * sounds like chronic BPV * consider MRI brain * I cannot find any old ENT or neuro visits for this issue #b/l pneumonia - * as seen on today's cxr * may have precipitated her DKA * either aspiration pneumonia vs CAP * doubt gram negative etiology; MRSA swab neg * resp bioFire neg * change ertapenem to IV unasyn then ultimately augmentin * plan 7 days in total of IV/PO therapy * incentive arianna/flutter #hypophosphatemia - * agree with Kphos 1 tab QID with repeat level in 48 hours #DVT proph - * heparin 5000 BID #anxiety - * cont sertraline, consider dose increase * cont buspar prn * cont ativan prn * consult psych liason at request of family #hypernatremia - * 04/05 NS x 1 liter then saline lock * bmp am appreciate ICU assistance can downgrade to PCU multiple children updated at bedside today also updated Juan Manuel Quiñonez, son, via [place] correspondence highly complex care coordination - correspondence with endocrinology, ICU, nursing addressing multiple new issues correspondence with pharmacy updating family multiple times total time about 80 minutes today on all care activities Admission and Anticipated Discharge Date Admission Date: July 12, 2024 Subjective patient more awake/alert this am however, she has hoarse voice (new per family) and it is hard to communicate with her she is mildly confused still, at times having a hard time answering basic questions apparently prior to admission had been having issues with vertigo per family & patient this is a chronic problem dating back many years they specifically state she went to vestibular therapy for it in the past episodes are 1-2 min long head movements precipitate such she & her family are not sure about past brain MRI, ENT/neuro consults/evals, etc no tinnitus no hearing loss she admits that her insulin pump was off at least 1-2 days prior to admission she then switched to SC injections while the pump was off the family also mention the recent GI illness she had been dealing with prior to her DKA she typically does not have chronic GERD or chronic nausea Review of Systems Review of Systems: gen - weak, tired, poor appetite cv - no chest pain pulm - no dyspnea GI - no N/V vomiting Physical Exam Physical Exam: gen - more awake, alert but still fatigued, still a little confused eyes - PERRL, no obvious nystagmus mouth - no thrush, MM more moist voice - hoarse neck - mild JVD present heart - RRR, s1 s2 , no murmur lungs - b/l basilar rales, no wheeze, no increased work of breathing abd - soft, mildly tender over expected location of the stomach, ND, BS+, no HSM ext - pulses 1-2+ b/l feet, no peripheral edema neuro - no obvious facial droop Results & Data Results & Data Vital Signs (Past 12 Hours) Vital Signs Temp Pulse Resp BP Pulse Ox O2 Del Method O2 Flow Rate 07/13/24 12:00 85 24 07/13/24 11:36 97 H 26 H 07/13/24 11:00 127/68 07/13/24 11:00 86 24 100 07/13/24 10:30 146/73 H 07/13/24 10:30 90 27 H 97 07/13/24 10:25 126/73 07/13/24 10:18 95 H 26 H 97 07/13/24 10:04 128/76 07/13/24 10:03 97 H 22 95 07/13/24 09:39 87 28 H 95 07/13/24 09:00 85 26 H 98 07/13/24 08:33 88 26 H 100 07/13/24 08:09 86 26 H 99 07/13/24 08:00 87 07/13/24 07:33 36.8 C 91 H 18 100 07/13/24 07:30 Nasal Cannula 2 07/13/24 07:00 36.6 C 92 H 18 93 07/13/24 07:00 123/61 07/13/24 07:00 36.7 C 07/13/24 06:42 36.6 C 95 H 33 H 95 07/13/24 06:39 36.7 C 92 H 28 H 91 07/13/24 06:24 36.6 C 90 25 H 99 07/13/24 06:15 36.5 C 91 H 26 H 94 07/13/24 06:03 36.5 C 96 H 26 H 90 07/13/24 06:00 121/67 07/13/24 06:00 121/67 07/13/24 05:54 36.4 C L 95 H 25 H 100 07/13/24 05:51 36.5 C 96 H 30 H 96 07/13/24 05:42 36.7 C 96 H 25 H 95 07/13/24 05:21 36.7 C 96 H 32 H 100 07/13/24 05:00 36.7 C 94 H 35 H 100 07/13/24 05:00 118/62 07/13/24 05:00 118/62 07/13/24 05:00 118/62 07/13/24 04:54 36.7 C 95 H 33 H 97 07/13/24 04:33 36.7 C 96 H 27 H 99 07/13/24 04:21 36.7 C 94 H 23 98 07/13/24 04:06 36.7 C 94 H 26 H 96 07/13/24 03:51 36.5 C 93 H 26 H 89 L 07/13/24 03:39 36.5 C 92 H 24 91 07/13/24 03:21 36.6 C 93 H 25 H 90 07/13/24 03:15 36.7 C 93 H 25 H 89 L 07/13/24 03:00 119/60 07/13/24 02:57 36.7 C 94 H 26 H 94 07/13/24 02:54 36.7 C 92 H 25 H 98 07/13/24 02:21 36.8 C 95 H 33 H 88 L 07/13/24 02:03 36.8 C 97 H 26 H 87 L 07/13/24 02:00 112/59 L 07/13/24 02:00 112/59 L 07/13/24 02:00 112/59 L 07/13/24 01:57 36.7 C 94 H 30 H 91 07/13/24 01:42 36.8 C 95 H 28 H 89 L 07/13/24 01:21 36.8 C 100 H 24 89 L 07/13/24 01:18 36.8 C 100 H 24 95 Laboratory Results Laboratory Results - last 24 hr 07/13/24 07/13/24 07/13/24 05:01 05:46 05:49 WBC RBC Hgb Hct MCV MCH MCHC RDW Std Deviation RDW Coeff of Xavi Plt Count MPV Immature Gran % (Auto) Neut % (Auto) Lymph % (Auto) Kimble % (Auto) Eos % (Auto) Baso % (Auto) Neut # (Auto) Lymph # (Auto) Kimble # (Auto) Eos # (Auto) Baso # (Auto) Immature Gran # (Auto) VBG pH Sodium 147 H Potassium 4.4 Chloride 118 H Carbon Dioxide 24 Anion Gap 5 BUN 35 H Creatinine 1.28 H Est Cr Clr Drug Dosing 31.9 eGFR 43.96 BUN/Creatinine Ratio 27.3 H Glucose 171 H POC Glucose 200 H 166 H Calcium 7.2 L Phosphorus 1.8 L Magnesium 2.1 07/13/24 07/13/24 07/13/24 06:11 06:25 06:59 WBC 11.94 H D RBC 3.31 L Hgb 9.9 L Hct 29.2 L MCV 88.2 D MCH 29.9 MCHC 33.9 RDW Std Deviation 40.9 RDW Coeff of Xavi 12.7 Plt Count 321 MPV 9.7 Immature Gran % (Auto) 1.1 Neut % (Auto) 80.5 Lymph % (Auto) 9.7 Kimble % (Auto) 8.5 Eos % (Auto) 0.1 Baso % (Auto) 0.1 Neut # (Auto) 9.62 H Lymph # (Auto) 1.16 L Kimble # (Auto) 1.01 H Eos # (Auto) 0.01 Baso # (Auto) 0.01 Immature Gran # (Auto) 0.13 VBG pH 7.32 L Sodium Potassium Chloride Carbon Dioxide Anion Gap BUN Creatinine Est Cr Clr Drug Dosing eGFR BUN/Creatinine Ratio Glucose POC Glucose 344 H* 209 H Calcium Phosphorus Magnesium 07/13/24 07/13/24 07/13/24 10:40 15:44 20:18 WBC RBC Hgb Hct MCV MCH MCHC RDW Std Deviation RDW Coeff of Xavi Plt Count MPV Immature Gran % (Auto) Neut % (Auto) Lymph % (Auto) Kimble % (Auto) Eos % (Auto) Baso % (Auto) Neut # (Auto) Lymph # (Auto) Kimble # (Auto) Eos # (Auto) Baso # (Auto) Immature Gran # (Auto) VBG pH Sodium Potassium Chloride Carbon Dioxide Anion Gap BUN Creatinine Est Cr Clr Drug Dosing eGFR BUN/Creatinine Ratio Glucose POC Glucose 260 H 203 H 194 H Calcium Phosphorus Magnesium Diagnostic Findings Microbiology 07/12/24 09:46 Blood Aerobic Blood Culture - Preliminary No growth in Aerobic bottle after 24 hours. 07/12/24 09:46 Blood Anaerobic Blood Culture - Preliminary No growth in Anaerobic bottle after 24 hours. 07/12/24 09:25 Blood Aerobic Blood Culture - Preliminary No growth in Aerobic bottle after 24 hours. 07/12/24 09:25 Blood Anaerobic Blood Culture - Preliminary No growth in Anaerobic bottle after 24 hours. PG Care Time/CCT Total # of Minutes Spent Total Time Spent with Patient: Total time spent is greater than 50% in coordination of care (as documented) at patient's floor/unit and/or counseling patient: Prolonged Care Time Prolonged Care Time: Yes Total Prolonged Care Time: 80 Coding Level of Care Code 87423 SUB INP/OBS CARE 3/50MIN (25 - SIGNIFICANT, SEPARATELY IDENTIFIABLE ) Diagnoses DKA (diabetic ketoacidosis) E11.10 Uncontrolled type 1 diabetes mellitus with hyperglycemia E10.65 Lactic acidosis E87.20 Severe sepsis A41.9; R65.20 Fall W19.XXXA Esophagitis K20.90 Hypotension I95.9 Acute metabolic encephalopathy G93.41 Hypothermia T68.XXXA Acute dehydration E86.0 Hypothyroidism E03.9 Hyperlipidemia E78.5 Generalized anxiety disorder with panic attacks F41.1; F41.0 Migraine G43.909 Orthostatic hypotension I95.1 Elevated INR R79.1 Additional Codes Prolonged Care Time - Prolonged Care Time: Yes ([id number])
--- NOTE | 2024-07-13 13:46 | XRay Report ---
XR chest 1V portable CLINICAL HISTORY: recent DKA; mild basilar crackles COMPARISON STUDY: 07/12/2024 FINDINGS: Stable mild cardiomegaly without pulmonary vascular congestion. There is increased patchy c onsolidation in the lung bases with obscuration of the diaphragm. No pneumothorax. IMPRESSION: Increased lung base pneumonia. ACT 112: Negative or not required by law. Electronically signed by: Bc Suarez M.D. 07/13/2024 1:45 PM
[2024-07-13] MEDS: MECLIZINE 12.5 MG TAB PO SCH (15:41)
[2024-07-13] MEDS: SUCRALFATE 1 GM/10 ML UDC PO SCH (16:40)
[2024-07-13] MEDS: ATORVASTATIN 40 MG TAB PO SCH (20:23)
[2024-07-13] MEDS: INSULIN ASPART PER UNIT CHARGE SC SCH (23:40)
[2024-07-14 05:00] LABS: Basophils # (auto) 0.01 K/uL (0.00-0.20); Basophils % (auto) 0.1 %; Eosinophils # (auto) 0.01 K/uL (0.00-0.50); Eosinophils % (auto) 0.1 %; Hematocrit (blood only) 27.4 % (37.0-47.0); Hemoglobin 9.3 g/dl (12.0-16.0); Immature Granulocytes # (auto) 0.05 K/uL (0.01-0.20); Immature Granulocytes % (auto) 0.6 %; Lymphocytes # (auto) 1.43 K/uL (1.20-3.40); Lymphocytes % (auto) 17.9 %; Mean Corpuscular Hemoglobin 29.7 pg (25.0-34.0); Mean Corpuscular Hgb Conc 33.9 g/dL (32.0-36.0); Mean Corpuscular Volume 87.5 fL (80.0-100.0); Mean Platelet Volume 9.7 fL (9.4-12.4); Monocytes # (auto) 0.36 K/uL (0.11-0.59); Monocytes % (auto) 4.5 %; Neutrophils # (auto) 6.14 K/uL (1.40-6.50); Neutrophils % (auto) 76.8 %; Platelet Count 296 K/uL (130-400); RDW Coefficient of Variation 13.2 % (11.5-14.5); RDW Standard Deviation 41.9 fL (36.4-46.3); Red Blood Count 3.13 M/uL (4.20-5.40)
[2024-07-14] MEDS: AMPICILLIN/SULBACTAM SOD 3,000 MG/100 ML BAG IV SCH (07:47)
[2024-07-14] MEDS: LANTUS PER UNIT CHARGE SC SCH (08:18)
[2024-07-14] MEDS: PANTOprazole 40 MG TAB PO SCH (10:11)
--- NOTE | 2024-07-14 11:08 | Hospitalist Progress Note ---
Date of Service July 14, 2024 Assessment & Plan (1) DKA (diabetic ketoacidosis): (2) Uncontrolled type 1 diabetes mellitus with hyperglycemia: (3) Lactic acidosis: (4) Severe sepsis: (5) Fall: (6) Esophagitis: (7) Hypotension: (8) Acute metabolic encephalopathy: (9) Hypothermia: (10) Acute dehydration: (11) Hypothyroidism: (12) Hyperlipidemia: (13) Generalized anxiety disorder with panic attacks: (14) Migraine: (15) Orthostatic hypotension: (16) Elevated INR: (17) Hypocalcemia: Plan 74yo female with history of long-standing T1DM, poorly-controlled with most a1c's >10% in the record and followed by [facility] End[facility]/DM clinic - on insulin pump; hypothyroidism; anxiety; hyperlipidemia; migraines; vertigo - who presents from home after her son found her on the floor in the bathroom. She was unresponsive when he found her. Upon ER presentation she was hypothermic, had evidence of severe DKA, was hypotensive, and was severely altered. #DKA - * suspect 2nd to noncompliance with insulin therapy (pump ran out of insulin for at least 1-2 days, then she switched to SC injections, but unclear how much she was using); pneumonia may have contributed to DKA; lack of sleep, other major stressors probably also played a role * s/p insulin infusion and copious IV hydration since admission with closure of gap, correction of electrolyte deficiencies, etc. * insulin drip off 4/11 AM; transitioned to basal-bolus SC insulin at that time * pharmacy glycemic consult much appreciated * family to bring pump & pump supplies to the hospital * inclusion special educator consulted * sent [place] correspondence to Nikki Padilla NP, her DM provider; Ms Padilla did correspond back, advises to transition to pump at time of discharge if at all possible; will need f/u with DM clinic within a week of discharge * had hypoglycemia overnight - consider lowering lantus dose by 10-20%; although she did receive 2 units of novolog at HS last night which could have contributed as well; consider stopping HS novolog correction #uncontrolled, long-standing T1DM on insulin pump therapy - * a1c 10.6% * nearly all a1c's going back to 2017 have been >10% * follows with [facility] Endo/DM clinic * unit educator consult as above * pharmacy glycemic consult * DKA resolved; back to SC injections #suspected severe sepsis - * met severe sepsis criteria with elevated lactate level, JASMINE, altered MS, leukocytosis, hypothermia, etc. * source - pneumonia as detected on cxr 07/13/24 * blood cx's remain negative * resp BioFire was negative * s/p ertapenem IV for empiric coverage (multiple abx allergies) but by report has tolerated augmentin in the past * changed ertapenem to Unasyn IV on 07/13/24; plan 7 days in total of IV/PO abx #lactic acidosis - * lactic acidosis 2nd to severely volume contacted state and/or severe sepsis - resolved #JASMINE - * 2nd to DKA * 2nd to volume contraction * sepsis-related * resolved * peak Cr 2.2; now 0.9; baseline <1 * no evidence of obstruction on CT a/p * BMP am once again #Esophagitis - * as seen on CT * cont daily PPI * carafate qid for 7-10 days * could have gastroparesis as well leading to the gastric/esophageal abnormalities as detected on the CTs but she denies chronic nausea and/or emesis #acute metabolic encephalopathy - * 2nd to DKA, lactic acidosis, sepsis, etc --> improving * more oriented today * CT head negative * consider MRI brain in light of migraines, vertigo, unwitnessed fall, etc. #hypothyroidism - * TSH 4.1 * cont synthroid #elevated INR - * etiology uncertain * no h/o liver disease * could be vitamin K deficient * INR 1.4 at admission; INR 1.2 thereafter * repeat INR in am * if still high then give short course of vit K by mouth #fall - * presumed 2nd to severe DKA +/- weakness from metabolic derangements +/- sepsis +/- hypotension, etc * echo 04/2024 was wnl * PT/OT * head CT neg * consider MRI brain #hypothermia - * resolved with warming blanket, Rx of DKA, etc. #vertigo - acute on chronic * cont meclizine 12.5mg BID * sounds like chronic BPV * consider MRI brain * I cannot find any old ENT or neuro visits for this issue #b/l pneumonia - * basilar pneumonia on 07/13/24 cxr * may have precipitated her DKA * either aspiration pneumonia vs CAP * doubt gram negative etiology; MRSA swab neg * resp bioFire neg * changed ertapenem to IV unasyn then ultimately augmentin * plan 7 days in total of IV/PO therapy * incentive arianna/flutter #hypophosphatemia - * agree with Kphos 1 tab QID with repeat level tomorrow #DVT proph - * heparin 5000 BID #anxiety - * cont sertraline, consider dose increase * cont buspar prn * cont ativan prn * consult psych liason at request of family #hypernatremia - * essentially resolved; level 146 today #hypocalcemia - * check albumin level in am * calcium gluconate 1gm x 1 * repeat BMP w/ calcium in am #?pulmonary edema - * lasix trial - 20mg po x 1 * reassess tomorrow updated Juan Manuel Quiñonez, son, via [place] correspondence once again today Admission and Anticipated Discharge Date Admission Date: July 12, 2024 Subjective tele overnight wnl patient again more awake/alert today oriented x 3 she c/o cough only mild sputum denies dyspnea still not much appetite denies abd pain today no vomiting she stated to me "I want to go home" and asked "when can I go home?" denies vertigo today Review of Systems Review of Systems: gen - remains weak cv - no chest pain pulm - no dyspnea at rest; during the visit O2 was off and she was satting about 88% in RA GI - no n/v Physical Exam Physical Exam: gen - more awake, more alert, oriented x 3 today mouth - no thrush, MMM voice - hoarseness remains neck - mild JVD present, about 1/[address] up neck heart - RRR, s1 s2 , no murmur lungs - b/l basilar rales, no wheeze, no increased work of breathing abd - soft, NT, ND, BS+, no HSM ext - pulses 2+ b/l feet, no peripheral edema psych - restricted affect Results & Data Results & Data Vital Signs (Past 12 Hours) Vital Signs Temp Pulse Pulse Resp BP BP Pulse Ox 07/14/24 09:56 93 07/14/24 08:00 07/14/24 08:00 36.8 C 92 H 24 163/77 H 90 07/14/24 05:51 91 H 23 07/14/24 05:45 91 H 23 07/14/24 05:21 89 22 04/12/25 05:12 89 21 07/14/24 05:00 90 23 07/14/24 04:54 90 18 07/14/24 04:49 132/59 L 07/14/24 04:42 96 H 21 07/14/24 04:30 89 24 07/14/24 04:27 85 23 07/14/24 04:15 88 23 07/14/24 03:54 88 22 07/14/24 03:42 83 22 07/14/24 03:36 87 21 07/14/24 03:28 93 07/14/24 03:12 85 23 07/14/24 02:33 85 26 H 07/14/24 02:03 85 22 07/14/24 01:57 86 23 07/14/24 01:49 36.7 C 07/14/24 01:30 86 24 07/14/24 01:21 90 22 07/14/24 01:12 87 24 07/14/24 01:03 86 23 07/14/24 00:09 95 H 23 07/13/24 23:57 90 28 H 07/13/24 23:45 102 H 29 H 07/13/24 23:35 122/61 07/13/24 23:35 122/61 07/13/24 23:35 122/61 07/13/24 23:27 94 H 28 H 07/13/24 23:21 93 H 27 H 07/13/24 23:15 93 H 24 O2 Del Method O2 Flow Rate 07/14/24 09:56 Nasal Cannula 2 07/14/24 08:00 Nasal Cannula 2 07/14/24 08:00 Room Air 07/14/24 05:51 07/14/24 05:45 07/14/24 05:21 07/14/24 05:12 07/14/24 05:00 07/14/24 04:54 07/14/24 04:49 07/14/24 04:42 07/14/24 04:30 07/14/24 04:27 07/14/24 04:15 07/14/24 03:54 07/14/24 03:42 07/14/24 03:36 07/14/24 03:28 Room Air 07/14/24 03:12 07/14/24 02:33 07/14/24 02:03 07/14/24 01:57 07/14/24 01:49 07/14/24 01:30 07/14/24 01:21 07/14/24 01:12 07/14/24 01:03 07/14/24 00:09 07/13/24 23:57 07/13/24 23:45 07/13/24 23:35 07/13/24 23:35 07/13/24 23:35 07/13/24 23:27 07/13/24 23:21 07/13/24 23:15 Laboratory Results Laboratory Results - last 24 hr 07/14/24 07/14/24 07/14/24 04:40 07:22 11:27 Sodium 146 H Potassium 4.1 Chloride 117 H Carbon Dioxide 21 Anion Gap 8 BUN 22 Creatinine 0.90 D Est Cr Clr Drug Dosing 45.4 eGFR 67.08 BUN/Creatinine Ratio 24.4 H Glucose 62 L POC Glucose 118 H 148 H Calcium 6.8 L PG Care Time/CCT Total # of Minutes Spent Total Time Spent with Patient: Total time spent is greater than 50% in coordination of care (as documented) at patient's floor/unit and/or counseling patient: Coding Level of Care Code 20611 SUB INP/OBS CARE 3/50MIN Diagnoses DKA (diabetic ketoacidosis) E11.10 Uncontrolled type 1 diabetes mellitus with hyperglycemia E10.65 Lactic acidosis E87.20 Severe sepsis A41.9; R65.20 Fall W19.XXXA Esophagitis K20.90 Hypotension I95.9 Acute metabolic encephalopathy G93.41 Hypothermia T68.XXXA Acute dehydration E86.0 Hypothyroidism E03.9 Hyperlipidemia E78.5 Generalized anxiety disorder with panic attacks F41.1; F41.0 Migraine G43.909 Orthostatic hypotension I95.1 Elevated INR R79.1 Hypocalcemia E83.51
[2024-07-14] MEDS: FUROSEMIDE 20 MG TAB PO ONE (11:36)
[2024-07-14 11:58] LABS: BUN Creatinine Ratio 24.4 (10-20); Calcium 6.8 mg/dl (8.6-10.3); Creatinine Clr Calc Pharmacy 45.4 ml/min; Potassium 4.1 mmol/L (3.5-5.1)
[2024-07-14] MEDS: guaiFENesin SUGAR FREE 100 MG/5 ML UDC PO SCH (14:05)
[2024-07-14] MEDS: CALCIUM GLUCONATE 1,000 MG/60 ML BAG IV STA (18:30)
[2024-07-15] MEDS: CARBOHYDRATES FOR HYPOGLYCEMIA PO PRN (00:30)
[2024-07-15] MEDS ORDERED: GLUCOSE 40% GEL 15 GM TUBE PO PRN (06:15)
[2024-07-15] MEDS ORDERED: GLUCOSE 10 TAB/TUBE PO PRN (06:15)
[2024-07-15] MEDS ORDERED: DEXTROSE 50% 50 ML SYRINGE IV PRN (06:15)
[2024-07-15] MEDS ORDERED: GLUCAGON FOR INJ 1 MG VIAL SQ PRN (06:15)
[2024-07-15 06:40] LABS: Albumin Level 2.6 gm/dl (3.4-5.0); BUN Creatinine Ratio 17.9 (10-20); Calcium 7.7 mg/dl (8.6-10.3); Creatinine Clr Calc Pharmacy 46.8 ml/min; Phosphorus 1.7 mg/dl (2.5-4.9); Potassium 4.5 mmol/L (3.5-5.1)
[2024-07-15 08:20] LABS: INR 1.1 (0.9-1.1); Prothrombin Time 11.6 Seconds (9.0-12.0)
[2024-07-15] MEDS: FOLIC ACID 1 MG TAB PO SCH (08:44)
[2024-07-15] MEDS: LANTUS PER UNIT CHARGE SC SCH (09:00)
[2024-07-15] MEDS: FUROSEMIDE 20 MG TAB PO ONE (09:46)
[2024-07-15] MEDS: POT PHOSPHATE MONOBASIC W/ SOD TAB PO SCH (09:46)
--- NOTE | 2024-07-15 14:05 | Pharmacy Report ---
Pharmacy Glycemic Short Note 2 - Date of Service July 15, 2024 - Glycemic Short BSG Results (Last 24 hours): 07/14/24 07/14/24 07/15/24 15:50 20:17 00:26 Glucose POC Glucose 145 H 101 H 63 L* 07/15/24 07/15/24 07/15/24 00:28 00:47 01:08 Glucose POC Glucose 59 L* 72 118 H 07/15/24 07/15/24 07/15/24 05:41 06:17 08:14 Glucose 212 H POC Glucose 225 H 208 H 07/15/24 12:05 Glucose POC Glucose 143 H OUTPATIENT ANTIDIABETIC REGIMEN: * Novolog insulin pump (27 units/day) * CF: 45mg/dl/unit * CR: 10gm/unit HbA1C: 10.6% ASSESSMENT: 07/14 * Tiera received 19 units of SC insulin yesterday (14 units basal, 5 units bolus) * Patient has experienced overnight hypoglycemia x 2 days. Lantus dose decreased ~20%. * Her post prandial BSGs trend down later in the day. Will slightly loosen Novolog parameters. If further hypoglycemia despite dose reduction may consider elimination of HS Novolog. 07/13: * BSGs within goal range this AM. Insulin drip ran through the night and discontinued this morning (AG 5, bicarb-24). * Dextrose containing IVF discontinued per provider, diet ordered. * Lantus 14 units (~80% home pump basal) SQ X 1 dose this AM (overlapped briefly with drip prior to pause per calc). Novolog ACHS 45/10 per pump settings. Will add overnight checks tonight. 07/12: * Pt is a 74 YOF with a history of type 1 DM on insulin pump therapy at home th at presents in DKA/HHS. Family concerned that pump ran out of insulin. Pharmacy consulted to assist with inpatient glycemic management. * BSGs [id number]/dL since arrival. Initial AG-33, bicarb-10, pH-7. * Initiated on an insulin infusion per DKA protocol ~ 1000 today. Continue infusion per protocol (goal BSG 250-350mg/dL) until BSG within goal, AG <12, bicarb >/=15 and pH>7.3 and mentating appropriately. Novolog ACHS with home carb coverage parameters only while insulin drip running (currently NPO). PLAN FOR INPATIENT GLYCEMIC CONTROL: * Hold outpatient oral diabetes medications * Basal insulin * Lantus 11 units SQ qAM * Bolus insulin * NovoLog per scale ACHS or Q6hrs while NPO * Goal Range: Low 110 mg/dL - High 140 mg/dL * Correction Factor: 50 mg/dL/unit * Nutritional / Prandial insulin per carb ratio of 1 unit per 11 grams CHO consumed
[2024-07-15] MEDS ORDERED: INSULIN ASPART PER UNIT CHARGE SC SCH (16:30)
--- NOTE | 2024-07-15 17:27 | Magnetic Resonance Report ---
EXAM: MR brain wo con CLINICAL HISTORY: Altered MS, recent DKA, recent fall TECHNIQUE: MRI of the brain was performed without contrast with multiplanar sequences obtained. COMPARISON: 07/12/2024 CT. FINDINGS: Brain Parenchyma: Mild involutional age-related brain changes in the form of deep sulci and mildly dilated ventricles. No evidence of acute infarction or hemorrhage. Normal delgado-white matter differentiation. No mass lesions or focal cortical abnormalities were identified. No evidence of hydrocephalus or ventriculomegaly. Posterior Fossa: The cerebellum and brainstem appear normal without evidence of mass lesions or signal abnormalities. Cranial Nerves: Normal course and appearance of cranial nerves identified. Vessels: No evidence of vascular malformations or aneurysms. Intracranial arteries and veins appear normal without evidence of stenosis or occlusion. Orbits and Skull Base: Orbits and skull base structures are normal without evidence of abnormalities. IMPRESSION: 1. No acute intracranial abnormality was identified. 2. Mild involutional age-related brain changes. Stable. Electronically signed by Ned Wu 07-15-2024 5:27 PM
--- NOTE | 2024-07-15 19:37 | Hospitalist Progress Note ---
Date of Service July 15, 2024 Assessment & Plan (1) DKA (diabetic ketoacidosis): (2) Uncontrolled type 1 diabetes mellitus with hyperglycemia: (3) Lactic acidosis: (4) Severe sepsis: (5) Fall: (6) Esophagitis: (7) Hypotension: (8) Acute metabolic encephalopathy: (9) Hypothermia: (10) Acute dehydration: (11) Hypothyroidism: (12) Hyperlipidemia: (13) Generalized anxiety disorder with panic attacks: (14) Migraine: (15) Orthostatic hypotension: (16) Elevated INR: (17) Hypocalcemia: Plan 74yo female with history of long-standing T1DM, poorly-controlled with most a1c's >10% in the record and [place] [facility] [place] - on insulin pump; hypothyroidism; anxiety; hyperlipidemia; migraines; vertigo - who presents from home after her son found her on the floor in the bathroom. She was unresponsive when he found her. Upon ER presentation she was hypothermic, had evidence of severe DKA, was hypotensive, and was severely altered. #DKA - * suspect 2nd to noncompliance with insulin therapy (pump ran out of insulin for at least 1-2 days, then she switched to SC injections, but unclear how much she was using or how often); pneumonia may have contributed to DKA; lack of sleep, other major stressors probably also played a role * s/p insulin infusion and copious IV hydration at admission with closure of gap, correction of electrolyte deficiencies, etc; required ICU level of care x 48 hours * insulin drip off 4/11 AM; transitioned to basal-bolus SC insulin at that time * pharmacy glycemic consult much appreciated * family brought pump & pump supplies to the hospital * healthcare educator consulted * sent Home correspondence to Nikki Padilla NP, her DM provider; Ms Valerie did correspond back, advises to transition to pump prior to discharge if at all possible; will need f/u with DM clinic within a week of discharge * had hypoglycemia 2 nights in a row; lower lantus dose by ~20% to 11 units qam; consider stopping HS novolog correction * I did correspond with pharmacy today re: the lower lantus dose #uncontrolled, long-standing T1DM on insulin pump therapy - * a1c 10.6% * nearly all a1c's going back to 2017 have been >10% * follows with [facility] Endo/DM clinic * agricultural extension educator consult as above * pharmacy glycemic consult * DKA resolved; back to SC injections #suspected severe sepsis - * met severe sepsis criteria with elevated lactate level, JASMINE, altered MS, leukocytosis, hypothermia, etc. * source - pneumonia as detected on cxr 07/13/24 * blood cx's negative * resp BioFire was negative * s/p ertapenem IV for empiric coverage (multiple abx allergies) but by report has tolerated augmentin in the past * changed ertapenem to Unasyn IV on 07/13/24; plan 7 days in total of IV/PO abx; today is Day #4 of abx #lactic acidosis - * lactic acidosis 2nd to severely volume contacted state and/or severe sepsis - resolved #JASMINE - * 2nd to DKA * 2nd to volume contraction * sepsis-related * resolved * peak Cr 2.2; now 0.9; baseline <1 * no evidence of obstruction on CT a/p * BMP am once again #Esophagitis - * as seen on CT * cont daily PPI * carafate qid for 7-10 days * could have gastroparesis as well leading to the gastric/esophageal abnormalities as detected on the CTs but she denies chronic nausea and/or emesis #acute metabolic encephalopathy - * 2nd to DKA, lactic acidosis, sepsis, etc --> improving * but family expresses concern about ongoing altered MS; between this and vertigo will obtain MRI brain - r/o subacute CVA * CT head negative #hypothyroidism - * TSH 4.1 * cont synthroid #elevated INR - * etiology uncertain but INR today wnl * INR 1.4 at admission * perhaps had mild vit K def #fall - * presumed 2nd to severe DKA +/- weakness from metabolic derangements +/- sepsis +/- hypotension, etc * echo 04/2024 was wnl * PT/OT * head CT neg * obtain MRI brain - r/o subacute CVA #hypothermia - * resolved with warming blanket, Rx of DKA, etc. #vertigo - acute on chronic * cont meclizine 12.5mg BID * sounds like chronic BPV * I cannot find any old ENT or neuro visits for this issue #b/l pneumonia - * basilar pneumonia on 07/13/24 cxr * may have precipitated her DKA * either aspiration pneumonia vs CAP * doubt gram negative etiology; MRSA swab neg * resp bioFire neg * changed ertapenem to IV unasyn then ultimately augmentin * plan 7 days in total of IV/PO therapy; day #4 of Rx today * incentive arianna/flutter #hypophosphatemia - * Kphos 1 tab QID #DVT proph - * heparin 5000 BID #anxiety - * cont sertraline 25mg daily (it was thought she was on such at home but actually was not so this is a new start) * cont buspar prn * cont ativan prn * consulted psych liaison #hypernatremia - * resolved #hypocalcemia - * albumin is low; when correcting for such her calcium is about normal (low- normal) * repeat BMP w/ calcium in am #?pulmonary edema - * lasix trial - 20mg po x 1 yesterday; give again today (20mg po x 1) * reassess tomorrow updated numerous children at bedside today will need rehab post-d/c Admission and Anticipated Discharge Date Admission Date: July 12, 2024 Subjective tele wnl overnight patient resting comfortably in the chair during my rounds denied any real complaints other than being tired minimal cough no real sputum admits that since her dog disappeared 4 weeks ago "things have been tough" denies pain in any location she again reiterates she "wants to go home" met with pt and her children at bedside later in the day at least 5 children were present issues discussed - hospital course, pursuing MRI brain, need for rehab post-d/c, ultimate transition back to insulin pump, depression/anxiety, poor appetite, etc. Review of Systems Review of Systems: gen - weak, fatigue HENT - hoarse voice improved CV - no cp pulm - no dyspnea GI - no N/V neuro - dizziness/vertigo improved psych - anxious, depressed Physical Exam Physical Exam: gen - awake/alert; depressed with flat affect; voice improved; tired-appearing; more oriented mouth - no thrush, MMM eyes - EOMI, no nystagmus voice - hoarseness improved neck - minimal JVD today at 90 degrees upright heart - RRR, s1 s2 , no murmur lungs - minimal b/l basilar rales, no wheeze, no increased work of breathing abd - soft, NT, ND, BS+, no HSM ext - pulses 2+ b/l feet, no peripheral edema psych - restricted/flat affect Results & Data Results & Data Vital Signs (Past 12 Hours) Vital Signs Temp Pulse Resp BP Pulse Ox O2 Del Method O2 Flow Rate 07/15/24 19:19 37 C 86 18 100/62 91 Room Air 07/15/24 19:15 Room Air 07/15/24 17:05 36.8 C 83 17 108/67 92 Room Air 07/15/24 12:25 Nasal Cannula 1 07/15/24 11:45 37.0 C 86 17 92/57 L 97 Nasal Cannula 1 07/15/24 08:23 36.6 C 94 H 18 111/66 92 Nasal Cannula 2 07/15/24 08:00 Nasal Cannula 1 Laboratory Results Laboratory Results - last 24 hr 07/14/24 07/15/24 07/15/24 20:17 00:26 00:28 PT INR Sodium Potassium Chloride Carbon Dioxide Anion Gap BUN Creatinine Est Cr Clr Drug Dosing eGFR BUN/Creatinine Ratio Glucose POC Glucose 101 H 63 L* 59 L* Calcium Phosphorus Iron TIBC Transferrin Transferrin % Sat Ferritin Albumin 07/15/24 07/15/24 07/15/24 00:47 01:08 05:41 PT INR Sodium 141 Potassium 4.5 Chloride 107 Carbon Dioxide 32 Anion Gap 2 L BUN 17 Creatinine 0.95 Est Cr Clr Drug Dosing 46.8 eGFR 62.87 BUN/Creatinine Ratio 17.9 Glucose 212 H POC Glucose 72 118 H Calcium 7.7 L Phosphorus 1.7 L Iron 36 TIBC 186 L Transferrin 133 L Transferrin % Sat 19 Ferritin 817.0 H Albumin 2.6 L 07/15/24 07/15/24 07/15/24 06:17 07:19 08:14 PT 11.6 INR 1.1 Sodium Potassium Chloride Carbon Dioxide Anion Gap BUN Creatinine Est Cr Clr Drug Dosing eGFR BUN/Creatinine Ratio Glucose POC Glucose 225 H 208 H Calcium Phosphorus Iron TIBC Transferrin Transferrin % Sat Ferritin Albumin 07/15/24 07/15/24 12:05 16:59 PT INR Sodium Potassium Chloride Carbon Dioxide Anion Gap BUN Creatinine Est Cr Clr Drug Dosing eGFR BUN/Creatinine Ratio Glucose POC Glucose 143 H 125 H Calcium Phosphorus Iron TIBC Transferrin Transferrin % Sat Ferritin Albumin PG Care Time/CCT Total # of Minutes Spent Total Time Spent with Patient: Total time spent is greater than 50% in coordination of care (as documented) at patient's floor/unit and/or counseling patient: Coding Level of Care Code 95284 SUB INP/OBS CARE 3/50MIN Diagnoses DKA (diabetic ketoacidosis) E11.10 Uncontrolled type 1 diabetes mellitus with hyperglycemia E10.65 Lactic acidosis E87.20 Severe sepsis A41.9; R65.20 Fall W19.XXXA Esophagitis K20.90 Hypotension I95.9 Acute metabolic encephalopathy G93.41 Hypothermia T68.XXXA Acute dehydration E86.0 Hypothyroidism E03.9 Hyperlipidemia E78.5 Generalized anxiety disorder with panic attacks F41.1; F41.0 Migraine G43.909 Orthostatic hypotension I95.1 Elevated INR R79.1 Hypocalcemia E83.51
[2024-07-16 07:20] LABS: BUN Creatinine Ratio 15.3 (10-20); Calcium 7.3 mg/dl (8.6-10.3); Creatinine Clr Calc Pharmacy 45.4 ml/min; Magnesium 1.1 mg/dl (1.7-2.4); Potassium 3.6 mmol/L (3.5-5.1)
[2024-07-16] MEDS: AMOXICILLIN/CLAVULANATE 875 MG TAB PO SCH (09:15)
[2024-07-16] MEDS: LANTUS PER UNIT CHARGE SC SCH (09:17)
--- NOTE | 2024-07-16 10:07 | Pharmacy Report ---
Pharmacy Glycemic Short Note 2 - Date of Service July 16, 2024 - Glycemic Short BSG Results (Last 24 hours): 07/15/24 07/15/24 07/15/24 12:05 16:59 20:12 Glucose POC Glucose 143 H 125 H 64 L* 07/15/24 07/16/24 07/16/24 20:39 02:24 02:42 Glucose POC Glucose 81 52 L* 66 L* 07/16/24 07/16/24 07/16/24 03:00 05:34 07:49 Glucose 149 H POC Glucose 106 H 149 H OUTPATIENT ANTIDIABETIC REGIMEN: * Novolog insulin pump (27 units/day) * CF: 45mg/dl/unit * CR: 10gm/unit HbA1C: 10.6% ASSESSMENT: 07/16 * Tiera received 13 units of SC insulin yesterday (11 units basal, 2 units bolus) * Patient with hypoglycemia again last evening, decrease basal again by 25%. * Increase goal range to help prevent hypoglycemia, decrease PO intake. 07/14 * Tiera received 19 units of SC insulin yesterday (14 units basal, 5 units bolus) * Patient has experienced overnight hypoglycemia x 2 days. Lantus dose decreased ~20%. * Her post prandial BSGs trend down later in the day. Will slightly loosen Novolog parameters. If further hypoglycemia despite dose reduction may consider elimination of HS Novolog. 07/13: * BSGs within goal range this AM. Insulin drip ran through the night and discontinued this morning (AG 5, bicarb-24). * Dextrose containing IVF discontinued per provider, diet ordered. * Lantus 14 units (~80% home pump basal) SQ X 1 dose this AM (overlapped briefly with drip prior to pause per calc). Novolog ACHS 45/10 per pump settings. Will add overnight checks tonight. 07/12: * Pt is a 74 YOF with a history of type 1 DM on insulin pump therapy at home that presents in DKA/HHS. Family concerned that pump ran out of insulin. Pharmacy consulted to assist with inpatient glycemic management. * BSGs [id number]/dL since arrival. Initial AG-33, bicarb-10, pH-7. * Initiated on an insulin infusion per DKA protocol ~ 1000 today. Continue infusion per protocol (goal BSG 250-350mg/dL) until BSG within goal, AG <12, bicarb >/=15 and pH>7.3 and mentating appropriately. Novolog ACHS with home carb coverage parameters only while insulin drip running (currently NPO). PLAN FOR INPATIENT GLYCEMIC CONTROL: * Hold outpatient insulin pump * Basal insulin * Lantus 8 units SQ qAM * Bolus insulin * NovoLog per scale ACHS or Q6hrs while NPO * Goal Range: Low 120 mg/dL - High 150 mg/dL * Correction Factor: 50 mg/dL/unit * Nutritional / Prandial insulin per carb ratio of 1 unit per 11 grams CHO consumed
--- NOTE | 2024-07-16 10:09 | XRay Report ---
XR chest 1V portable CLINICAL HISTORY: pneumonia, fever COMPARISON STUDY: 07/13/2024 FINDINGS: Heart size and pulmonary vasculature are normal. There is stable hazy opacity in the lung b ases with obscuration of the diaphragm consistent with lung base consolidation and possible small ple ural effusions. No pneumothorax. IMPRESSION: Stable exam. ACT 112: Negative or not required by law. Electronically signed by: Bc Suarez M.D. 07/16/2024 10:07 AM
[2024-07-16 10:45] LABS: Influenza A virus by PCR Negative (Neg); Influenza B virus by PCR Negative (Neg); RSV by PCR Negative (Neg); SARS CoV2 RNA(COVID-19) Ceph NEGATIVE (Negative)
[2024-07-16] MEDS: MAGNESIUM SULFATE / D5W 1 GM/100 ML BAG IV SCH (12:41)
[2024-07-16 18:02] LABS: Appearance Urine Clear (Clear); Bilirubin Urine Negative (Negative); Blood Urine 1+ (Negative); Color Urine Yellow; Glucose Urine UA 2+ (Negative); Ketones Urine Negative (Negative); Leukocyte Esterase Urine Negative (Negative); Nitrite Urine Negative (Negative); Protein Urine 2+ (Negative); Specific Gravity Urine >= 1.030 (1.000-1.030); Urobilinogen Urine Negative (Negative); pH Urine 5.5 (4.5-7.5)
[2024-07-16 18:23] LABS: Epithelial Cell Urine >20 /hpf (0-2); Hyaline Casts Urine Present /lpf (None Presnt)
[2024-07-16 18:24] LABS: Granular Casts Urine P /lpf (None Prsent)
[2024-07-16 18:25] LABS: Bacteria Urine 4+ (None Seen); RBC Urine 0-2 /hpf (0-2)
--- NOTE | 2024-07-16 19:26 | Hospitalist Progress Note ---
Date of Service July 16, 2024 Assessment & Plan (1) DKA (diabetic ketoacidosis): (2) Uncontrolled type 1 diabetes mellitus with hyperglycemia: (3) Lactic acidosis: (4) Severe sepsis: (5) Fall: (6) Esophagitis: (7) Hypotension: (8) Acute metabolic encephalopathy: (9) Hypothermia: (10) Acute dehydration: (11) Hypothyroidism: (12) Hyperlipidemia: (13) Generalized anxiety disorder with panic attacks: (14) Migraine: (15) Orthostatic hypotension: (16) Elevated INR: (17) Hypocalcemia: (18) Hypomagnesemia: (19) Low grade fever: Plan 74yo female with history of long-standing T1DM, poorly-controlled with most a1c's >10% in the record and [place] [facility] [place] - on insulin pump; hypothyroidism; anxiety; hyperlipidemia; migraines; vertigo - who presents from home after her son found her on the floor in the bathroom. She was unresponsive when he found her. Upon ER presentation she was hypothermic, had evidence of severe DKA, was hypotensive, and was severely altered. Also with suspected severe sepsis at admission. #DKA - * suspect 2nd to noncompliance with insulin therapy (pump ran out of insulin for at least 1-2 days, then she switched to SC injections, but unclear how much she was using or how often); pneumonia may have contributed to DKA; lack of sleep, other major life stressors probably also played a role * s/p insulin infusion and copious IV hydration at admission with closure of gap, correction of electrolyte deficiencies, etc; required ICU level of care x 48 hours * insulin drip off 4/11 AM; transitioned to basal-bolus SC insulin at that time * pharmacy glycemic consult much appreciated * family brought pump & pump supplies to the hospital * school vocational educator consulted; Gabriels met with patient today; plan is to transition back to pump in the next 1-2 days * sent [place] correspondence to Nikki Padilla NP, her DM provider last week; Ms Padilla did correspond back; will need f/u with DM clinic within a week of discharge * overall glycemic control is quite adequate #uncontrolled, long-standing T1DM on insulin pump therapy - * a1c 10.6% * nearly all a1c's going back to 2017 have been >10% * [place] [facility] [place] * simulation educator consult as above * pharmacy glycemic consult as above * DKA resolved; back to SC injections * hopefully back to pump next 1-2 days * care d/w Emiliana Benoit from diabetes education #suspected severe sepsis - * met severe sepsis criteria with elevated lactate level, JASMINE, altered MS, leukocytosis, hypothermia, etc. * source - pneumonia as detected on cxr 07/13/24 * blood cx's negative * resp BioFire was negative * s/p ertapenem IV for empiric coverage (multiple abx allergies) but by report has tolerated augmentin in the past * changed ertapenem to Unasyn IV on 07/13/24; plan 7 days in total of IV/PO abx; today is Day #5 of abx * although patient cont to clinically improve she had low-grade temps this am * repeated cxr today - basilar infiltrates are clearing * repeat covid/flu/rsv - negative * u/a and urine cx obtained - u/a possibly suggestive of UTI * follow cx * if fevers persist consider going back to IV ertapenem #lactic acidosis - * lactic acidosis 2nd to severely volume contacted state and/or severe sepsis - resolved #JASMINE - * 2nd to DKA * 2nd to volume contraction * sepsis-related * resolved * peak Cr 2.2; now 0.9; baseline <1 * no evidence of obstruction on CT a/p * BMP am once again #Esophagitis - * as seen on CT * cont daily PPI * carafate qid for 7-10 days * could have gastroparesis as well leading to the gastric/esophageal abnormalities as detected on the CTs but she denies chronic nausea and/or emesis #acute metabolic encephalopathy - * 2nd to DKA, lactic acidosis, sepsis, etc --> improving * CT head neg * MRI brain neg for stroke/ICH/tumor/etc * depression likely feeding into this as well #hypothyroidism - * TSH 4.1 * cont synthroid #elevated INR - * etiology uncertain but INR went from 1.4 to normal without intervention * perhaps had mild vit K def?? #fall - * presumed 2nd to severe DKA +/- weakness from metabolic derangements +/- sepsis +/- hypotension, etc * echo 04/2024 was wnl * PT/OT * head CT neg * MRI brain negative for subacute CVA #hypothermia - * resolved with warming blanket, Rx of DKA, etc. #vertigo - acute on chronic * cont meclizine 12.5mg BID * sounds like chronic BPV * I cannot find any old ENT or neuro visits for this issue * send to ENT post-d/c for w/u * MRI brain neg #b/l pneumonia - * basilar pneumonia on 07/13/24 cxr * may have precipitated her DKA * either aspiration pneumonia vs CAP * doubt gram negative etiology; MRSA swab neg * resp bioFire neg * changed ertapenem to IV unasyn then ultimately augmentin * plan 7 days in total of IV/PO therapy; day #5 of Rx today * incentive arianna/flutter * cxr today - clearing basilar infiltrates #hypophosphatemia - * Kphos 1 tab QID * repeat level 2-3 days #DVT proph - * heparin 5000 BID #anxiety - * cont sertraline 25mg daily (it was thought she was on such at home but actually was not so this is a new start) * cont buspar prn * cont ativan prn * consulted psych liaison #hypernatremia - * resolved #hypocalcemia - * albumin is low; when correcting for such her calcium is about normal (low- normal) #?pulmonary edema - * lasix x 2 doses given * defer on lasix today -- mag too low * consider a dose tomorrow if mag is better #low-grade fever - UTI?? see above #hypomagnesemia - replace 3 grams mag sulfate; repeat mag level AM updated numerous children at bedside 07/15 sent [place] correspondence to her son, Juan Manuel, with update today 07/16 will need rehab post-d/c - [facility] referral made Admission and Anticipated Discharge Date Admission Date: July 12, 2024 Subjective tele wnl overnight patient resting in bed comfortably during the visit cough has improved denies any dyspnea or CISNEROS she asks to sit in the chair she overall feels better than previous during rounds her orientation today was excellent - knew the name of our hospital, day of the week, month, year, and upcoming holiday () she was quite talkative today - talking about her family, stressors in her life, losing her dog, etc. denied any specific complaints for me did have low-grade temp this am Review of Systems Review of Systems: gen - fatigue, but no rigors cv - no cp, no orthopnea pulm - no dyspnea GI - no n/v; had formed brown stool this am neuro - dizziness/vertigo - controlled Physical Exam Physical Exam: gen - awake/alert - best she has looked since hospital admission; still flat affect however; hoarseness improved again mouth - no thrush, MMM eyes - EOMI, no nystagmus voice - hoarseness improved neck - no obvious JVD today heart - RRR, s1 s2 , no murmur lungs - b/l rales about 1/[address] up back; fine sounding; no wheeze, no increased work of breathing; mildly decreased BS bases abd - soft, NT, ND, BS+, no HSM ext - pulses 2+ b/l feet, no peripheral edema psych - restricted affect, a/o x 3 skin - no rash Results & Data Results & Data Vital Signs (Past 12 Hours) Vital Signs Temp Pulse Pulse Resp BP Pulse Ox O2 Del Method 07/16/24 16:10 37.0 C 77 20 111/57 L 90 Room Air 07/16/24 11:10 37.8 C H 89 20 121/10 L 92 Nasal Cannula 07/16/24 07:36 37.9 C H 84 20 122/73 90 Nasal Cannula O2 Flow Rate 07/16/24 16:10 07/16/24 11:10 2 07/16/24 07:36 2 Laboratory Results Laboratory Results - last 24 hr 07/15/24 07/15/24 07/16/24 20:12 20:39 02:24 Sodium Potassium Chloride Carbon Dioxide Anion Gap BUN Creatinine Est Cr Clr Drug Dosing eGFR BUN/Creatinine Ratio Glucose POC Glucose 64 L* 81 52 L* Calcium Magnesium Urine Color Urine Appearance Urine pH Ur Specific Jewell Urine Protein Urine Glucose (UA) Urine Ketones Urine Blood Urine Nitrite Urine Bilirubin Urine Urobilinogen Ur Leukocyte Esterase Urine RBC Urine WBC Ur Epithelial Cells Urine Bacteria Hyaline Casts Granular Casts SARS-CoV-2 (PCR) Influenza Type A (PCR) Influenza Type B (PCR) RSV (RT-PCR) 07/16/24 07/16/24 07/16/24 02:42 03:00 05:34 Sodium 141 Potassium 3.6 Chloride 104 Carbon Dioxide 32 Anion Gap 5 BUN 15 Creatinine 0.98 Est Cr Clr Drug Dosing 45.4 eGFR 60.57 BUN/Creatinine Ratio 15.3 Glucose 149 H POC Glucose 66 L* 106 H Calcium 7.3 L Magnesium 1.1 L Urine Color Urine Appearance Urine pH Ur Specific Jewell Urine Protein Urine Glucose (UA) Urine Ketones Urine Blood Urine Nitrite Urine Bilirubin Urine Urobilinogen Ur Leukocyte Esterase Urine RBC Urine WBC Ur Epithelial Cells Urine Bacteria Hyaline Casts Granular Casts SARS-CoV-2 (PCR) Influenza Type A (PCR) Influenza Type B (PCR) RSV (RT-PCR) 07/16/24 07/16/24 07/16/24 07:49 09:25 11:49 Sodium Potassium Chloride Carbon Dioxide Anion Gap BUN Creatinine Est Cr Clr Drug Dosing eGFR BUN/Creatinine Ratio Glucose POC Glucose 149 H 198 H Calcium Magnesium Urine Color Urine Appearance Urine pH Ur Specific Jewell Urine Protein Urine Glucose (UA) Urine Ketones Urine Blood Urine Nitrite Urine Bilirubin Urine Urobilinogen Ur Leukocyte Esterase Urine RBC Urine WBC Ur Epithelial Cells Urine Bacteria Hyaline Casts Granular Casts SARS-CoV-2 (PCR) NEGATIVE Influenza Type A (PCR) Negative Influenza Type B (PCR) Negative RSV (RT-PCR) Negative 07/16/24 07/16/24 17:04 17:35 Sodium Potassium Chloride Carbon Dioxide Anion Gap BUN Creatinine Est Cr Clr Drug Dosing eGFR BUN/Creatinine Ratio Glucose POC Glucose 237 H Calcium Magnesium Urine Color Yellow Urine Appearance Clear Urine pH 5.5 Ur Specific Jewell >= 1.030 Urine Protein 2+ H Urine Glucose (UA) 2+ H Urine Ketones Negative Urine Blood 1+ H Urine Nitrite Negative Urine Bilirubin Negative Urine Urobilinogen Negative Ur Leukocyte Esterase Negative Urine RBC 0-2 Urine WBC 6-10 H Ur Epithelial Cells >20 H Urine Bacteria 4+ H Hyaline Casts Present A Granular Casts P SARS-CoV-2 (PCR) Influenza Type A (PCR) Influenza Type B (PCR) RSV (RT-PCR) PG Care Time/CCT Total # of Minutes Spent Total Time Spent with Patient: Total time spent is greater than 50% in coordination of care (as documented) at patient's floor/unit and/or counseling patient: Coding Level of Care Code 15236 SUB INP/OBS CARE 3/50MIN Diagnoses DKA (diabetic ketoacidosis) E11.10 Uncontrolled type 1 diabetes mellitus with hyperglycemia E10.65 Lactic acidosis E87.20 Severe sepsis A41.9; R65.20 Fall W19.XXXA Esophagitis K20.90 Hypotension I95.9 Acute metabolic encephalopathy G93.41 Hypothermia T68.XXXA Acute dehydration E86.0 Hypothyroidism E03.9 Hyperlipidemia E78.5 Generalized anxiety disorder with panic attacks F41.1; F41.0 Migraine G43.909 Orthostatic hypotension I95.1 Elevated INR R79.1 Hypocalcemia E83.51 Hypomagnesemia E83.42 Low grade fever R50.9
[2024-07-17 06:53] LABS: Calcium 6.8 mg/dl (8.6-10.3); Magnesium 1.7 mg/dl (1.7-2.4); Potassium 3.2 mmol/L (3.5-5.1)
[2024-07-17 06:58] LABS: Hematocrit (blood only) 28.8 % (37.0-47.0); Hemoglobin 9.6 g/dl (12.0-16.0); Mean Corpuscular Hemoglobin 29.6 pg (25.0-34.0); Mean Corpuscular Hgb Conc 33.3 g/dL (32.0-36.0); Mean Corpuscular Volume 88.9 fL (80.0-100.0); Mean Platelet Volume 10.6 fL (9.4-12.4); Platelet Count 146 K/uL (130-400); RDW Coefficient of Variation 13.5 % (11.5-14.5); RDW Standard Deviation 44.3 fL (36.4-46.3); Red Blood Count 3.24 M/uL (4.20-5.40); White Blood Count 4.19 K/ul (4.8-10.8)
[2024-07-17 07:26] LABS: ALC (manual) 1.59 K/uL (1.2-3.4); ANC (manual) 2.43 K/uL (1.4-6.5); Eosinophils # (manual) 0.04 K/uL (0-0.50); Eosinophils % (manual) 1 %; Lymphocytes # (manual) 0.92 K/uL (1.2-3.4); Lymphocytes % (manual) 22 %; Monocytes # (manual) 0.13 K/uL (0.11-0.59); Monocytes % (manual) 3 %; Neutrophils # (manual) 2.43 K/uL (1.40-6.50); Neutrophils % (manual) 58 %; Polychromasia 1+; Reactive Lymphocytes # (manual) 0.67 K/uL; Reactive Lymphocytes % (manual) 16 %
[2024-07-17] MEDS: Continuous Glucose Monitor SCH (08:30)
[2024-07-17] MEDS: POTASSIUM CHLORIDE CRTAB 20 MEQ TABCR PO SCH (09:24)
[2024-07-17] MEDS: INSULIN ASPART PER UNIT CHARGE ONE (09:27)
--- NOTE | 2024-07-17 10:27 | Pharmacy Report ---
Pharmacy Glycemic Short Note 2 - Date of Service July 17, 2024 - Glycemic Short BSG Results (Last 24 hours): 07/16/24 07/16/24 07/16/24 11:49 17:04 20:20 Glucose POC Glucose 198 H 237 H 142 H 07/17/24 07/17/24 05:51 07:55 Glucose 87 POC Glucose 107 H OUTPATIENT ANTIDIABETIC REGIMEN: * Novolog insulin pump (27 units/day) * CF: 45mg/dl/unit * CR: 10gm/unit HbA1C: 10.6% ASSESSMENT: 07/17 * Patient transitioning to home insulin pump today, hold Lantus and start pump after breakfast (breakfast covered w/ SQ NovoLog) * Pharmacy glycemic consult signing off per protocol * Feel free to re-consult if patient requires SQ insulin in the future, thank you. 07/16 * Tiera received 13 units of SC insulin yesterday (11 units basal, 2 units bolus) * Patient with hypoglycemia again last evening, decrease basal again by 25%. * Increase goal range to help prevent hypoglycemia, decrease PO intake. 07/14 * Tiera received 19 units of SC insulin yesterday (14 units basal, 5 units bolus) * Patient has experienced overnight hypoglycemia x 2 days. Lantus dose decreased ~20%. * Her post prandial BSGs trend down later in the day. Will slightly loosen Novolog parameters. If further hypoglycemia despite dose reduction may consider elimination of HS Novolog. 07/13: * BSGs within goal range this AM. Insulin drip ran through the night and discontinued this morning (AG 5, bicarb-24). * Dextrose containing IVF discontinued per provider, diet ordered. * Lantus 14 units (~80% home pump basal) SQ X 1 dose this AM (overlapped briefly with drip prior to pause per calc). Novolog ACHS 45/10 per pump settings. Will add overnight checks tonight. 07/12: * Pt is a 74 YOF with a history of type 1 DM on insulin pump therapy at home that presents in DKA/HHS. Family concerned that pump ran out of insulin. Pharmacy consulted to assist with inpatient glycemic management. * BSGs [id number]/dL since arrival. Initial AG-33, bicarb-10, pH-7. * Initiated on an insulin infusion per DKA protocol ~ 1000 today. Continue infusion per protocol (goal BSG 250-350mg/dL) until BSG within goal, AG <12, bicarb >/=15 and pH>7.3 and mentating appropriately. Novolog ACHS with home carb coverage parameters only while insulin drip running (currently NPO). PLAN FOR INPATIENT GLYCEMIC CONTROL: * Resume outpatient insulin pump * DC Lantus and NovoLog SQ
[2024-07-17] MEDS: CALCIUM GLUCONATE 1,000 MG/60 ML BAG IV SCH (10:30)
[2024-07-17] MEDS: INSULIN ASPART 100 UNITS/ML VIAL SC PRN (11:18)
[2024-07-17] MEDS: INSULIN, Rapid-Acting PUMP SC SCH (11:57)
[2024-07-17] MEDS: MAGNESIUM SULFATE / D5W 1 GM/100 ML BAG IV ONE (12:05)
--- NOTE | 2024-07-17 13:19 | Hospitalist Progress Note ---
Date of Service July 17, 2024 Assessment & Plan (1) DKA (diabetic ketoacidosis): (2) Uncontrolled type 1 diabetes mellitus with hyperglycemia: (3) Lactic acidosis: (4) Severe sepsis: (5) Fall: (6) Esophagitis: (7) Hypotension: (8) Acute metabolic encephalopathy: (9) Hypothermia: (10) Acute dehydration: (11) Hypothyroidism: (12) Hyperlipidemia: (13) Generalized anxiety disorder with panic attacks: (14) Migraine: (15) Orthostatic hypotension: (16) Elevated INR: (17) Hypocalcemia: (18) Hypomagnesemia: (19) Low grade fever: (20) Hypokalemia: Plan 74yo female with history of long-standing T1DM, poorly-controlled with most a1c's >10% in the record and followed by [facility] [place]DM [place] - on insulin pump; hypothyroidism; anxiety; hyperlipidemia; migraines; vertigo - who presents from home after her son found her on the floor in the bathroom. She was unresponsive when he found her. Upon ER presentation she was hypothermic, had evidence of severe DKA, was hypotensive, and was severely altered. Also with suspected severe sepsis at admission. #DKA - * 2nd to noncompliance with insulin therapy (pump ran out of insulin for at least 1-2 days prior to admission, then she switched to SC injections, but unclear how much she was using or how often) * pneumonia likely contributed to DKA * sleep deprivation, other major life stressors probably also played a role * she drinks wine nightly - uncertain how much - but if drinking heavily this would contribute * s/p insulin infusion and copious IV hydration at admission with closure of gap, correction of electrolyte deficiencies, etc; required ICU level of care x 48 hours * insulin drip off 411 AM; transitioned to basal-bolus SC insulin at that time * pharmacy glycemic consult much appreciated * family brought pump & pump supplies to the hospital * certified diabetes educator consulted; Ms Benoit working with patient frequently * transitioning back to pump today, 07/17 * sent [place] correspondence to Nikki Padilla NP, her DM provider last week; Ms Padilla did correspond back; will need f/u with DM clinic within a week of discharge * overall glycemic control has been satisfactory since resolution of DKA #uncontrolled, long-standing T1DM on insulin pump therapy - * Hba1c 10.6% * nearly all a1c's going back to 2017 have been >10% * follows with [facility] [place]DM clinic - Nikki Valerie [place] * ems educator consult as above * pharmacy glycemic consult as above * DKA resolved as above * back to insulin pump today * care d/w Emiliana Benoit from diabetes education #severe sepsis - * met severe sepsis criteria with elevated lactate level, JASMINE, altered MS, leukocytosis, hypothermia, etc. * source - pneumonia as detected on cxr 07/13/24 * blood cx's negative * resp BioFire was negative * s/p ertapenem IV for empiric coverage (multiple abx allergies) but by report tolerated Augmentin in the past * changed ertapenem to Unasyn IV on 07/13/24, then transitioned to PO Augmentin on 07/16 * day #6 of IV/PO antibiotics today * although patient cont to clinically improve she had low-grade temps all day on 07/16 * repeat CXR 07/16 - basilar infiltrates are clearing * repeat covid/flu/rsv on 07/16 - negative * u/a and urine cx obtained - culture negative * if fevers persist consider going back to IV ertapenem * in light of fevers yesterday plan 10 days of antibiotics rather than typical 7 day course #b/l pneumonia - * basilar pneumonia on 07/13/24 cxr; repeat cxr 07/16 with clearing infiltrates * may have precipitated her DKA * either aspiration pneumonia vs CAP * doubt gram negative etiology; MRSA swab neg * resp bioFire neg * changed ertapenem to IV unasyn then augmentin * plan 10 days in total of IV/PO therapy; day #6 of Rx today (see above under sepsis) * incentive arianna/flutter * wean NC O2 as tolerated #lactic acidosis - * lactic acidosis 2nd to severely volume contacted state and/or severe sepsis - resolved #JASMINE - * 2nd to DKA * 2nd to volume contraction * sepsis-related * resolved * peak Cr 2.2; now 0.8; baseline <1 * no evidence of obstruction on CT a/p * BMP am once again #Esophagitis - * as seen on CT * cont daily PPI - will need prescription at discharge * carafate qid for 7-10 days * could have gastroparesis as well leading to the gastric/esophageal abnormalities as detected on the CTs but she denies chronic nausea and/or emesis * would send to GI post-d/c; may need EGD #acute metabolic encephalopathy - * 2nd to DKA, lactic acidosis, sepsis, etc --> improving day to day * more oriented, more engaging - but still having periods of cognitive difficulties (was having issues today with her Dexcom and her phone, difficulties calculating carb coverage, etc) * CT head neg * MRI brain neg for stroke/ICH/tumor/etc * depression could be feeding into this as well * B12 level 470 * in light of daily wine consumption check B1 level tomorrow then start empiric thiamine supplementation #hypothyroidism - * TSH 4.1 * cont synthroid #elevated INR - * resolved * etiology uncertain but INR went from 1.4 to normal without intervention #fall - * presumed 2nd to severe DKA +/- weakness from metabolic derangements +/- sepsis +/- hypotension / orthostatic hypotension, etc * echo 04/2024 was wnl * PT/OT * head CT neg * MRI brain negative for subacute CVA * fortunately no major injuries from her fall(s) * check B1 level * B12 level was wnl #hypothermia - * present on admission * resolved with warming blanket, Rx of DKA, etc. #"vertigo" - acute on chronic * several days ago patient described her chronic "vertigo" as a spinning * has had the issue for many years but it has been worse in the last few months * today she said she was having "vertigo" that lasted 15 minutes which would be unusual for inner ear based vertigo * shortly after this I asked nursing to check orthostatic BPs; she dropped 25+ points from laying to standing, with standing BP in the 60s! * make meclizine 12.5mg BID PRN * family reports seeing ENT or neuro in the past for dizziness but I cannot find any record of such * MRI brain neg #orthostatic hypotension - * gave 500cc NS bolus for her +orthos today * check daily orthostatic BPs * if it persists despite appropriate hydration consider adding midodrine or florinef * consider compression stockings * consider checking cortisol level * ultimately the orthostatic hypotension could be autonomic insufficiency from diabetic neuropathy #hypophosphatemia - * Kphos 1 tab QID * repeat level AM tomorrow #DVT proph - * heparin 5000 BID #anxiety - * cont sertraline 25mg daily (it was thought she was on such at home but actually was not --- so this is a new start) * cont buspar prn * cont ativan prn * consulted psych liaison #hypernatremia - * resolved #hypocalcemia - * albumin is low; even when correcting for such her calcium is still low * calcium gluconate 2gm x 1 today * repeat BMP/calcium/mag in am * recheck albumin AM * 25 OH Vit D level was 49 earlier this month #?pulmonary edema - * lasix x 2 doses given earlier in admission * no further lasix in light of orthostatic hypotension, electrolyte abnormalities, etc. #hypomagnesemia - * replaced, resolved * repeat mag level AM for stability #daily etoh use - * uncertain amount, but her son thinks it is likely 1 glass/night * check B1 level in am * then empiric B1 supplementation once level has been sent * no signs of etoh withdrawal updated numerous children at bedside 07/15 sent [place] correspondence to her son, Juan Manuel, with update 07/16 updated her son Juan Manuel by phone 07/17 will need rehab post-d/c - [facility] referral made Admission and Anticipated Discharge Date Admission Date: July 12, 2024 Subjective tele overnight wnl during rounds this am patient was sitting in chair she reported feeling "dizzy" for about 15 minutes after she got up from the bed to chair I had staff check orthostatics and they were indeed positive with standing systolic BP in the 60s she continues to feel tired/weak but she thinks she is improving did eat better this am for breakfast denied pain in any location Emiliana Benoit met with patient again today to begin the process of transitioning back to her pump I asked patient if she felt comfortable getting back to the pump and she responded yes Review of Systems Review of Systems: gen - no fevers or chills cv - no chest pain pulm - mild cough only; no dyspnea; no CISNEROS; remains on 1 L NC o2 GI - no N/V or pain Physical Exam Physical Exam: gen - awake/alert, sitting in chair, comfortable; doesn't look as tired today mouth - no thrush, MMM voice - hoarseness again improved neck - no obvious JVD heart - RRR, s1 s2 , no murmur lungs - b/l rales about 1/[address] up back, slightly improved today; no increased work of breathing; mildly decreased BS bases; no wheezing abd - soft, NT, ND, BS+, no HSM ext - pulses 2+ b/l feet, no peripheral edema psych - restricted affect, a/o x 3 skin - no rash Results & Data Results & Data Vital Signs (Past 12 Hours) Vital Signs Temp Pulse Pulse Resp BP Pulse Ox O2 Del Method 07/17/24 12:10 37.1 C 79 19 109/67 91 Room Air 07/17/24 07:56 37.5 C 86 18 108/54 L 90 Nasal Cannula 07/17/24 02:38 37.1 C 88 17 98/55 L 92 Nasal Cannula O2 Flow Rate 07/17/24 12:10 07/17/24 07:56 1 07/17/24 02:38 Laboratory Results Laboratory Results - last 24 hr 07/16/24 07/16/24 07/16/24 17:04 17:35 20:20 WBC RBC Hgb Hct MCV MCH MCHC RDW Std Deviation RDW Coeff of Xavi Plt Count MPV Neutrophils % (Manual) Lymphocytes % (Manual) Reactive Lymphs % (Man) Monocytes % (Manual) Eosinophils % (Manual) Neutrophils # (Manual) Total Absolute Neuts Lymphocytes # (Manual) Reactive Lymphs # Total Abs Lymphocytes Monocytes # (Manual) Eosinophils # (Manual) Polychromasia Sodium Potassium Chloride Carbon Dioxide Anion Gap BUN Creatinine Est Cr Clr Drug Dosing eGFR BUN/Creatinine Ratio Glucose POC Glucose 237 H 142 H Calcium Magnesium Urine Color Yellow Urine Appearance Clear Urine pH 5.5 Ur Specific [place] >= 1.030 Urine Protein 2+ H Urine Glucose (UA) 2+ H Urine Ketones Negative Urine Blood 1+ H Urine Nitrite Negative Urine Bilirubin Negative Urine Urobilinogen Negative Ur Leukocyte Esterase Negative Urine RBC 0-2 Urine WBC 6-10 H Ur Epithelial Cells >20 H Urine Bacteria 4+ H Hyaline Casts Present A 07/17/24 07/17/24 07/17/24 05:51 07:55 12:02 WBC 4.19 L RBC 3.24 L Hgb 9.6 L Hct 28.8 L MCV 88.9 MCH 29.6 MCHC 33.3 RDW Std Deviation 44.3 RDW Coeff of Xavi 13.5 Plt Count 146 MPV 10.6 Neutrophils % (Manual) 58 Lymphocytes % (Manual) 22 Reactive Lymphs % (Man) 16 Monocytes % (Manual) 3 Eosinophils % (Manual) 1 Neutrophils # (Manual) 2.43 Total Absolute Neuts 2.43 Lymphocytes # (Manual) 0.92 L Reactive Lymphs # 0.67 Total Abs Lymphocytes 1.59 Monocytes # (Manual) 0.13 Eosinophils # (Manual) 0.04 Polychromasia 1+ Sodium 139 Potassium 3.2 L Chloride 101 Carbon Dioxide 33 H Anion Gap 5 BUN 12 Creatinine 0.80 Est Cr Clr Drug Dosing 51.0 eGFR 77.27 BUN/Creatinine Ratio 15.0 Glucose 87 POC Glucose 107 H 148 H Calcium 6.8 L Magnesium 1.7 Urine Color Urine Appearance Urine pH Ur Specific [place] Urine Protein Urine Glucose (UA) Urine Ketones Urine Blood Urine Nitrite Urine Bilirubin Urine Urobilinogen Ur Leukocyte Esterase Urine RBC Urine WBC Ur Epithelial Cells Urine Bacteria Hyaline Casts Granular Casts PG Care Time/CCT Total # of Minutes Spent Total Time Spent with Patient: Total time spent is greater than 50% in coordination of care (as documented) at patient's floor/unit and/or counseling patient: Coding Level of Care Code 95373 SUB INP/OBS CARE 3/50MIN Diagnoses DKA (diabetic ketoacidosis) E11.10 Uncontrolled type 1 diabetes mellitus with hyperglycemia E10.65 Lactic acidosis E87.20 Severe sepsis A41.9; R65.20 Fall W19.XXXA Esophagitis K20.90 Hypotension I95.9 Acute metabolic encephalopathy G93.41 Hypothermia T68.XXXA Acute dehydration E86.0 Hypothyroidism E03.9 Hyperlipidemia E78.5 Generalized anxiety disorder with panic attacks F41.1; F41.0 Migraine G43.909 Orthostatic hypotension I95.1 Elevated INR R79.1 Hypocalcemia E83.51 Hypomagnesemia E83.42 Low grade fever R50.9 Hypokalemia E87.6
[2024-07-17] MEDS: SODIUM CHLORIDE 0.9% 500 ML IV ONE (16:28)
[2024-07-18 06:45] LABS: Hematocrit (blood only) 30.2 % (37.0-47.0); Hemoglobin 9.8 g/dl (12.0-16.0); Mean Corpuscular Hemoglobin 29.5 pg (25.0-34.0); Mean Corpuscular Hgb Conc 32.5 g/dL (32.0-36.0); Mean Platelet Volume 10.4 fL (9.4-12.4); Platelet Count 165 K/uL (130-400); RDW Coefficient of Variation 13.2 % (11.5-14.5); Red Blood Count 3.32 M/uL (4.20-5.40); White Blood Count 4.06 K/ul (4.8-10.8)
[2024-07-18 07:25] LABS: Albumin Level 2.4 gm/dl (3.4-5.0); Potassium 3.8 mmol/L (3.5-5.1)
[2024-07-18 07:31] LABS: BUN Creatinine Ratio 13.8 (10-20); Phosphorus 2.4 mg/dl (2.5-4.9)
[2024-07-18] MEDS: MECLIZINE 12.5 MG TAB PO PRN (08:23)
[2024-07-18] MEDS ORDERED: THIAMINE HCL 100 MG TAB PO SCH (09:00)
[2024-07-18] MEDS: THIAMINE HCL 100 MG in SYRINGE 9 ML IV SCH (09:37)
--- NOTE | 2024-07-18 14:35 | Hospitalist Progress Note ---
Date of Service July 18, 2024 Assessment & Plan (1) DKA (diabetic ketoacidosis): Plan: pharmacy to evaluate the patient, she's on insulin pump either related to non-compliance versus underlying infection (2) Uncontrolled type 1 diabetes mellitus with hyperglycemia: Plan: check glucose every 6 hours (3) Lactic acidosis: (4) Severe sepsis: Plan: she's been having diarrhea; plan for check for C. difficile toxin and stool PCR abdominal soft to touch; monitor for hypotension and recheck her lactate level (5) Fall: Plan: likely need STR, declined by [facility], but case management working on [place] (6) Esophagitis: (7) Hypotension: (8) Acute metabolic encephalopathy: (9) Hypothermia: (10) Acute dehydration: (11) Hypothyroidism: (12) Hyperlipidemia: (13) Generalized anxiety disorder with panic attacks: (14) Migraine: (15) Orthostatic hypotension: (16) Elevated INR: (17) Hypocalcemia: (18) Hypomagnesemia: (19) Low grade fever: (20) Hypokalemia: Plan 74yo female with history of long-standing T1DM on insulin pump , poorly- controlled with most a1c's >10% in the record and followed by [facility] Endo/DM clinic - hypothyroidism; anxiety; hyperlipidemia; migraines; vertigo - who presents from home after her son found her on the floor in the bathroom. She was unresponsive when he found her. per the patient, she was having diarrhea and abdominal pain, found to has low BP, DKA and hypothermia. treating for pneumonia and ruling out C. difficile overall plan today f/u on echo given her question of volume overload send for C. difficile toxin given her diarrhea 3-4 times today;vancomycin repeat lactic acidosis level. IV fluid 500cc NS in addition, avoid sedatives. her dc is more than 48 hours away and case management evaluating for [place] f/u on cortisol level, appreciate pharmacy about managing her insulin pump in addition. monitor for magnesium, phosphate and potassium dc more than 24 hours away given unstable BOP #DKA - * 2nd to noncompliance with insulin therapy (pump ran out of insulin for at least 1-2 days prior to admission, then she switched to SC injections, but unclear how much she was using or how often) * pneumonia likely contributed to DKA * s/p insulin infusion and copious IV hydration at admission with closure of gap, correction of electrolyte deficiencies, etc; required ICU level of care x 48 hours * insulin drip off 07/13 AM; transitioned to basal-bolus SC insulin at that time * pharmacy glycemic consult much appreciated * family brought pump & pump supplies to the hospital * life skills educator consulted; Ms Benoit working with patient frequently * transitioning back to pump today, 07/17 * sent [place] correspondence to Nikki Padilla NP, her DM provider last week; Ms Padilla did correspond back; will need f/u with DM clinic within a week of discharge * overall glycemic control has been satisfactory since resolution of DKA hypotension, c/w with IV fluid, check cortisol level #uncontrolled, long-standing T1DM on insulin pump therapy - * Hba1c 10.6% * nearly all a1c's going back to 2016 have been >10% * follows with [facility] Endo/DM clinic - Nikki HAYNES * rn diabetes educator consult as above * pharmacy glycemic consult as above * DKA resolved as above * back to insulin pump today * care d/w Emiliana Benoit from diabetes education #severe sepsis - lactae acidosis, JASMINE, Ams, hypothermia f/u stool PCR and stool toxin level. she's on augmentin and will add vancomycin till her C. difficile level return if her C. difficile is positive, she's need 14 days courses from 07/19/2024 * blood cx's negative * resp BioFire was negative * s/p ertapenem IV for empiric coverage (multiple abx allergies) but by report tolerated Augmentin in the past * changed ertapenem to Unasyn IV on 07/13/24, then transitioned to PO Augmentin on 07/16 * * #b/l pneumonia -s/p IV ertapnenem, unasybn and augmentin mucinex. respiratory culture negative #lactic acidosis - * lactic acidosis 2nd to severely volume contacted state and/or severe sepsis - resolved #JASMINE - related to DKA and volume loss, creatinine stable at 0.8 * 2 #Esophagitis - * cont daily PPI - will need prescription at discharge * carafate qid for 7-10 days * could have gastroparesis as well leading to the gastric/esophageal abnormalities as detected on the CTs but she denies chronic nausea and/or emesis * would send to GI post-d/c; may need EGD #acute metabolic encephalopathy - * 2nd to DKA, and sepsis * she is AAOx3 but still subjectively feel off. * more oriented, more engaging - but still having periods of cognitive difficulties (was having issues today with her Dexcom and her phone, difficulties calculating carb coverage, etc) * CT head neg * MRI brain neg f * depression could be feeding into this as well * B12 level 470 * in light of daily wine consumption check B1 level tomorrow then start empiric thiamine supplementation #hypothyroidism - * TSH 4.1 * cont synthroid #elevated INR - * resolved * etiology uncertain but INR went from 1.4 to normal without intervention #fall - * presumed 2nd to severe DKA +/- weakness from metabolic derangements +/- sepsis +/- hypotension / orthostatic hypotension, etc * echo 04/2024 was wnl * PT/OT * head CT neg * MRI brain negative for subacute CVA * fortunately no major injuries from her fall(s) * check B1 level * B12 level was wnl #"vertigo" - acute on chronic * several days ago patient described her chronic "vertigo" as a spinning * has had the issue for many years but it has been worse in the last few months * today she said she was having "vertigo" that lasted 15 minutes which would be unusual for inner ear based vertigo * shortly after this I asked nursing to check orthostatic BPs; she dropped 25+ points from laying to standing, with standing BP in the 60s! * make meclizine 12.5mg BID PRN * family reports seeing ENT or neuro in the past for dizziness but I cannot find any record of such * MRI brain neg #orthostatic hypotension - * gave 500cc NS bolus for her +orthos today * check daily orthostatic BPs * if it persists despite appropriate hydration consider adding midodrine or florinef * consider compression stockings * consider checking cortisol level * ultimately the orthostatic hypotension could be autonomic insufficiency from diabetic neuropathy #hypophosphatemia - * Kphos 1 tab QID * repeat level AM tomorrow #DVT proph - * heparin 5000 BID #anxiety - * cont sertraline 25mg daily (it was thought she was on such at home but actually was not --- so this is a new start) * cont buspar prn * cont ativan prn * consulted psych liaison #hypernatremia - * resolved #hypocalcemia - * albumin is low; even when correcting for such her calcium is still low * calcium gluconate 2gm x 1 today * repeat BMP/calcium/mag in am * recheck albumin AM * 25 [place] Vit D level was 49 earlier this month #?pulmonary edema - * lasix x 2 doses given earlier in admission * no further lasix in light of orthostatic hypotension, electrolyte abnormalities, etc. #hypomagnesemia - * replaced, resolved * repeat mag level AM for stability #daily etoh use - * uncertain amount, but her son thinks it is likely 1 glass/night * check B1 level in am * then empiric B1 supplementation once level has been sent * no signs of etoh withdrawal will need rehab post-d/c - [facility] referral made; insurance declined [facility] and case management evaluating for [place] Admission and Anticipated Discharge Date Admission Date: July 12, 2024 Subjective She still have hypotension, diarrhea We sent for stool C. difficile, will begin empiric vancomycin and then de- escalate Her discharge is still at least 48-hour away She still have confusion Her insurance declined referral to [facility], case management working on [place] her son works in our hospital she still has confusion, but AAox3 and able to speak in short sentence Review of Systems Review of Systems: Constitutional: No Weight Change, No Fever, No Chills, No Night Sweats, No Fatigue, No Malaise Cardiovascular: No Chest Pain, No SOB, No PND, No Dyspnea on Exertion pulmonary: denied coughing spell; denied sputum production Gastrointestinal: + for diarrhea; + for waterry stool; + for abdominal pain; denied blood infectious: denied recent travel; no outside food Musculoskeletal: No Arthralgias, No Myalgias, Neuro: confusion; no numbness; no tingling Physical Exam Physical Exam: VITALS: Reviewed. WEIGHT/BMI reviewed. GEN: ill appearing; frail -Head: NC/AT; CV: RRR, no m/r/g. LUNGS: CTAB, no w/r/c. ABD: Soft, NT/ND, NBS, no masses or organomegaly. : no CVA tenderness Results & Data Results & Data Vital Signs (Past 12 Hours) Vital Signs Temp Pulse Pulse Pulse Resp BP BP 07/18/24 11:28 36.7 C 82 19 93/57 L 07/18/24 08:12 37.3 C 93 H 19 111/60 07/18/24 08:00 85 07/18/24 07:00 85 07/18/24 02:33 37.0 C 78 18 101/55 L Pulse Ox O2 Del Method O2 Flow Rate 07/18/24 11:28 90 Nasal Cannula 2 07/18/24 08:12 90 Nasal Cannula 2 07/18/24 08:00 07/18/24 07:00 07/18/24 02:33 93 Nasal Cannula 2 Laboratory Results Abnormal Lab Results 07/17/24 07/18/24 07/18/24 16:54 06:07 08:01 WBC 4.06 L RBC 3.32 L Hgb 9.8 L Hct 30.2 L MCV 91.0 MCH 29.5 MCHC 32.5 RDW Std Deviation 44.0 RDW Coeff of Xavi 13.2 Plt Count 165 MPV 10.4 Sodium 140 Potassium 3.8 Chloride 103 Carbon Dioxide 34 H Anion Gap 3 BUN 11 Creatinine 0.80 Est Cr Clr Drug Dosing 51.0 eGFR 77.27 BUN/Creatinine Ratio 13.8 Glucose 105 H POC Glucose 204 H 94 Calcium 7.0 L Phosphorus 2.4 L Albumin 2.4 L 07/18/24 09:44 WBC RBC Hgb Hct MCV MCH MCHC RDW Std Deviation RDW Coeff of Xavi Plt Count MPV Sodium Potassium Chloride Carbon Dioxide Anion Gap BUN Creatinine Est Cr Clr Drug Dosing eGFR BUN/Creatinine Ratio Glucose POC Glucose 132 H Calcium Phosphorus Albumin Diagnostic Findings CT abdomen pelvis (07/12/2024) IMPRESSION: 1. No acute findings seen. 2. Mild distention of the stomach with gas and fluid and mild fluid distention of the distal esophagus. ACT 112: Negative or not required by law. The above report was generated using voice recognition software. It may contain grammatical, syntax or spelling errors. PG Care Time/CCT Total # of Minutes Spent Total Time Spent with Patient: Total time spent is greater than 50% in coordination of care (as documented) at patient's floor/unit and/or counseling patient: Coding Level of Care Code 95296 SUB INP/OBS CARE 2/35MIN Diagnoses DKA (diabetic ketoacidosis) E11.10 Uncontrolled type 1 diabetes mellitus with hyperglycemia E10.65 Lactic acidosis E87.20 Severe sepsis A41.9; R65.20 Fall W19.XXXA Esophagitis K20.90 Hypotension I95.9 Acute metabolic encephalopathy G93.41 Hypothermia T68.XXXA Acute dehydration E86.0 Hypothyroidism E03.9 Hyperlipidemia E78.5 Generalized anxiety disorder with panic attacks F41.1; F41.0 Migraine G43.909 Orthostatic hypotension I95.1 Elevated INR R79.1 Hypocalcemia E83.51 Hypomagnesemia E83.42 Low grade fever R50.9 Hypokalemia E87.6
[2024-07-18] MEDS: LACTATED RINGER'S 250 ML IV ONE (15:20)
[2024-07-18] MEDS: VANCOMYCIN HCL 250 MG/5 ML SOLN PO SCH (15:57)
[2024-07-18] MEDS: CHERRY SYRUP 5 ML UDP PO SCH (15:58)
[2024-07-18] MEDS ORDERED: Nursing to Pharmacy Communication SCH (17:45)
[2024-07-19 07:09] LABS: Calcium 6.5 mg/dl (8.6-10.3); Potassium 3.3 mmol/L (3.5-5.1)
[2024-07-19 07:15] LABS: BUN Creatinine Ratio 11.7 (10-20); Creatinine Clr Calc Pharmacy 57.5 ml/min
[2024-07-19] MEDS ORDERED: LACTATED RINGER S IV ONE (14:10)
[2024-07-19] MEDS ORDERED: [UNRECOGNIZED DRUG - OTHER] IV ONE (14:10)
--- NOTE | 2024-07-19 14:33 | Hospitalist Progress Note ---
Date of Service July 19, 2024 Assessment & Plan (1) DKA (diabetic ketoacidosis): Plan: pharmacy to evaluate the patient, she's on insulin pump either related to non-compliance versus underlying infection (2) Uncontrolled type 1 diabetes mellitus with hyperglycemia: Plan: check glucose every 6 hours (3) Lactic acidosis: (4) Severe sepsis: Plan: she's been having diarrhea; plan for check for C. difficile toxin and stool PCR abdominal soft to touch; monitor for hypotension and recheck her lactate level (5) Fall: Plan: likely need STR, declined by [facility], but case management working on [place] (6) Esophagitis: (7) Hypotension: (8) Acute metabolic encephalopathy: (9) Hypothermia: (10) Acute dehydration: (11) Hypothyroidism: (12) Hyperlipidemia: (13) Generalized anxiety disorder with panic attacks: (14) Migraine: (15) Orthostatic hypotension: (16) Elevated INR: (17) Hypocalcemia: (18) Hypomagnesemia: (19) Low grade fever: (20) Hypokalemia: Plan 74yo female with history of long-standing T1DM on insulin pump , poorly- controlled with most a1c's >10% in the record and followed by [facility] [place]DM [place] - hypothyroidism; anxiety; hyperlipidemia; migraines; vertigo - who presents from home after her son found her on the floor in the bathroom. She was unresponsive when he found her. per the patient, she was having diarrhea and abdominal pain, found to has low BP, DKA and hypothermia. treating for pneumonia and ruling out C. difficile on , she' again has another episode of low BP in the 70s, and dizziness spell giving her ringer lactate 500cc bolus overall plan today she has another episode of orthostatic hypotension check RUQ to r/o cholecystitis. #DKA - * 2nd to noncompliance with insulin therapy (pump ran out of insulin for at least 1-2 days prior to admission, then she switched to SC injections, but unclear how much she was using or how often) * pneumonia likely contributed to DKA * s/p insulin infusion and copious IV hydration at admission with closure of gap, correction of electrolyte deficiencies, etc; required ICU level of care x 48 hours * insulin drip off 411 AM; transitioned to basal-bolus SC insulin at that time * pharmacy glycemic consult much appreciated * family brought pump & pump supplies to the hospital * prosthodontist/educator consulted; Ms Benoit working with patient frequently * transitioning back to pump today, 07/17 * sent [place] correspondence to Nikki Padilla NP, her DM provider last week; Valerie did correspond back; will need f/u with DM clinic within a week of discharge * overall glycemic control has been satisfactory since resolution of DKA hypotension has another episode on (07/19) giving her 500cc of ringer lactate #uncontrolled, long-standing T1DM on insulin pump therapy - * Hba1c 10.6% * follows with [facility] [place]DM clinic - Nikki HAYNES * senior health educator consult as above * pharmacy glycemic consult as above * DKA resolved as above * back to insulin pump today * care d/w Emilianaher Benoit from diabetes education #severe sepsis - lactic acidosis , JASMINE, Ams, hypothermia f/u stool PCR and stool toxin level. she's on augmentin and will add vancomycin till her C. difficile level return if her C. difficile is positive, she's need 14 days courses from 07/19/2024 * blood cx's negative * resp BioFire was negative * s/p ertapenem IV for empiric coverage (multiple abx allergies) but by report tolerated Augmentin in the past * changed ertapenem to Unasyn IV on 07/13/24, then transitioned to PO Augmentin on 07/16 * * #b/l pneumonia -s/p IV ertapnenem, unasybn and augmentin mucinex. respiratory culture negative #JASMINE - related to DKA and volume loss, creatinine stable at 0.8 * 2 #Esophagitis - * cont daily PPI - will need prescription at discharge * carafate qid for 7-10 days * could have gastroparesis as well leading to the gastric/esophageal abnormalities as detected on the CTs but she denies chronic nausea and/or emesis * would send to GI post-d/c; may need EGD #acute metabolic encephalopathy related to sepsis and DKA * she is AAOx3 but still subjectively feel off. * more oriented, more engaging - but still having periods of cognitive difficulties (was having issues today with her Dexcom and her phone, difficulties calculating carb coverage, etc) * CT head and brain MRI negative * depression could be feeding into this as well * B12 level 470 * in light of daily wine consumption check B1 level tomorrow then start empiric thiamine supplementation #hypothyroidism - * TSH 4.1 * cont synthroid #elevated INR - * resolved * etiology uncertain but INR went from 1.4 to normal without intervention #fall - * presumed 2nd to severe DKA +/- weakness from metabolic derangements +/- sepsis +/- hypotension / orthostatic hypotension, etc * echo 04/2024 was wnl * PT/OT * head CT neg * MRI brain negative for subacute CVA * fortunately no major injuries from her fall(s) * check B1 level * B12 level was wnl #"vertigo" - acute on chronic * several days ago patient described her chronic "vertigo" as a spinning * has had the issue for many years but it has been worse in the last few months * today she said she was having "vertigo" that lasted 15 minutes which would be unusual for inner ear based vertigo * shortly after this I asked nursing to check orthostatic BPs; she dropped 25+ points from laying to standing, with standing BP in the 60s! * make meclizine 12.5mg BID PRN * family reports seeing ENT or neuro in the past for dizziness but I cannot find any record of such * MRI brain neg #orthostatic hypotension - * gave 500cc NS bolus for her +orthos today * check daily orthostatic BPs * if it persists despite appropriate hydration consider adding midodrine or florinef * consider compression stockings * consider checking cortisol level * ultimately the orthostatic hypotension could be autonomic insufficiency from diabetic neuropathy #hypophosphatemia - * Kphos 1 tab QID * repeat level AM tomorrow #DVT proph - * heparin 5000 BID #anxiety - * cont sertraline 25mg daily (it was thought she was on such at home but actually was not --- so this is a new start) * cont buspar prn * cont ativan prn * consulted psych liaison #hypernatremia - * resolved #hypocalcemia - * albumin is low; even when correcting for such her calcium is still low * calcium gluconate 2gm x 1 today * repeat BMP/calcium/mag in am * recheck albumin AM * 25 OH Vit D level was 49 earlier this month #?pulmonary edema - * lasix x 2 doses given earlier in admission * no further lasix in light of orthostatic hypotension, electrolyte abnormalities, etc. #hypomagnesemia - * replaced, resolved * repeat mag level AM for stability #daily etoh use - * uncertain amount, but her son thinks it is likely 1 glass/night * check B1 level in am * then empiric B1 supplementation once level has been sent * no signs of etoh withdrawal will need rehab post-d/c - [facility] referral made; insurance declined [facility] and case management evaluating for [place] Admission and Anticipated Discharge Date Admission Date: July 12, 2024 Subjective Around 1 PM today her blood pressure dropped to 78 during physical therapy We can give her 500 cc of [place] lactate Will recheck her CBC and lactate level Will follow-up on her stool PCR On evaluation she denies chest pain no coughing spell denying dysuria Review of Systems Review of Systems: Constitutional: no fever; no chill Cardiovascular: No Chest Pain, No SOB, No PND, No Dyspnea on Exertion Gastrointestinal: no abdominal pain; no diarrhea Genitourinary: no dysuria; no hematuria; no flank pain Musculoskeletal: No Arthralgias, No Myalgias, No Joint Swelling, No Joint Stiffness, No Back Pain, No Neck Pain, No Injury History Skin: No Skin Lesions, No Pruritis, No Hair Changes, No Breast/Skin Changes, No Nipple Discharge Neuro: + for dizziness during PT session; + for confusion Physical Exam Physical Exam: VITALS: Reviewed. WEIGHT/BMI reviewed. GEN: frail; on oxygen -Head: NC/AT; -Eyes: PERRL, EOMI. No discharge or redn ess; CV: RRR, no m/r/g. LUNGS: CTAB, no w/r/c. ABD: Soft, NT/ND, NBS, : no CVA tenderness MSK: EXT: No clubbing, cyanosis, or edema. NEURO: AAOx3; following command; speaking in full sentece Results & Data Results & Data Vital Signs (Past 12 Hours) Vital Signs Temp Pulse Pulse Pulse Resp BP Pulse Ox 07/19/24 11:23 36.9 C 91 H 19 109/61 90 07/19/24 10:31 07/19/24 07:49 83 07/19/24 07:41 37.2 C 97 H 19 108/62 90 07/19/24 02:48 36.7 C 93 H 16 123/65 90 O2 Del Method O2 Flow Rate 07/19/24 11:23 Nasal Cannula 3 07/19/24 10:31 Nasal Cannula 3 07/19/24 07:49 07/19/24 07:41 Nasal Cannula 3 07/19/24 02:48 Nasal Cannula 3 Laboratory Results Abnormal lab results 07/19/24 07/19/24 07/19/24 Range/Units 05:16 07:59 11:57 Potassium 3.3 L (3.5-5.1) mmol/L Carbon Dioxide 33 H (21-32) mmol/L Glucose 130 H (70-99(Fasting)) mg/dl POC Glucose 137 H 161 H (70-99) mg/dl Calcium 6.5 L (8.6-10.3) mg/dl PG Care Time/CCT Total # of Minutes Spent Total Time Spent with Patient: Total time spent is greater than 50% in coordination of care (as documented) at patient's floor/unit and/or counseling patient: Coding Level of Care Code 91401 SUB INP/OBS CARE 3/50MIN Diagnoses DKA (diabetic ketoacidosis) E11.10 Uncontrolled type 1 diabetes mellitus with hyperglycemia E10.65 Lactic acidosis E87.20 Severe sepsis A41.9; R65.20 Fall W19.XXXA Esophagitis K20.90 Hypotension I95.9 Acute metabolic encephalopathy G93.41 Hypothermia T68.XXXA Acute dehydration E86.0 Hypothyroidism E03.9 Hyperlipidemia E78.5 Generalized anxiety disorder with panic attacks F41.1; F41.0 Migraine G43.909 Orthostatic hypotension I95.1 Elevated INR R79.1 Hypocalcemia E83.51 Hypomagnesemia E83.42 Low grade fever R50.9 Hypokalemia E87.6
[2024-07-19] MEDS: LACTATED RINGER'S 500 ML IV ONE (14:56)
--- NOTE | 2024-07-19 15:01 | XCELERA ---
[id number]
[2024-07-19] MEDS: MIDODRINE HCL 2.5 MG TAB PO SCH (15:14)
[2024-07-19] MEDS: POTASSIUM CHLORIDE 20 MEQ/15 ML UDC PO STA (17:16)
[2024-07-20 06:29] LABS: Hematocrit (blood only) 28.7 % (37.0-47.0); Hemoglobin 9.3 g/dl (12.0-16.0); Mean Corpuscular Hemoglobin 28.9 pg (25.0-34.0); Mean Corpuscular Hgb Conc 32.4 g/dL (32.0-36.0); Mean Corpuscular Volume 89.1 fL (80.0-100.0); Mean Platelet Volume 10.7 fL (9.4-12.4); Platelet Count 230 K/uL (130-400); RDW Coefficient of Variation 14.2 % (11.5-14.5); RDW Standard Deviation 46.2 fL (36.4-46.3); Red Blood Count 3.22 M/uL (4.20-5.40); White Blood Count 7.34 K/ul (4.8-10.8)
[2024-07-20 06:44] LABS: BUN Creatinine Ratio 11.1 (10-20); Calcium 6.7 mg/dl (8.6-10.3); Creatinine Clr Calc Pharmacy 63.3 ml/min; Potassium 3.7 mmol/L (3.5-5.1)
[2024-07-20] MEDS: POTASSIUM CHLORIDE 20 MEQ/15 ML UDC PO STA (09:18)
--- NOTE | 2024-07-20 09:48 | XRay Report ---
XR chest 1V portable CLINICAL HISTORY: assess for volume overload and PNA COMPARISON STUDY: 07/16/2024 FINDINGS: Stable cardiomegaly with pulmonary vascular congestion. There are increased small to modera te bilateral pleural effusions with lower lobe consolidation. No pneumothorax. IMPRESSION: CHF with increased pleural effusions and lower lung consolidation. ACT 112: Negative or not required by law. Electronically signed by: Bc Suarez M.D. 07/20/2024 9:46 AM
[2024-07-20] MEDS: PANCREAZE (LIPASE 10,500U) CAP PO SCH (12:35)
--- NOTE | 2024-07-20 15:29 | Hospitalist Progress Note ---
Date of Service July 20, 2024 Assessment & Plan (1) DKA (diabetic ketoacidosis): Plan: pharmacy to evaluate the patient, she's on insulin pump either related to non-compliance versus underlying infection (2) Uncontrolled type 1 diabetes mellitus with hyperglycemia: Plan: check glucose every 6 hours (3) Lactic acidosis: (4) Severe sepsis: Plan: she's been having diarrhea; plan for check for C. difficile toxin and stool PCR abdominal soft to touch; monitor for hypotension and recheck her lactate level (5) Fall: Plan: likely need STR, declined by [facility], but case management working on [place] (6) Esophagitis: (7) Hypotension: (8) Acute metabolic encephalopathy: (9) Hypothermia: (10) Acute dehydration: (11) Hypothyroidism: (12) Hyperlipidemia: (13) Generalized anxiety disorder with panic attacks: (14) Migraine: (15) Orthostatic hypotension: (16) Elevated INR: (17) Hypocalcemia: (18) Hypomagnesemia: (19) Low grade fever: (20) Hypokalemia: Plan 74yo female with history of long-standing T1DM on insulin pump , poorly- controlled with most a1c's >10% in the record and followed by [facility] Endo/DM clinic - hypothyroidism; anxiety; hyperlipidemia; migraines; vertigo - who presents from home after her son found her on the floor in the bathroom. She was unresponsive when he found her. per the patient, she was having diarrhea and abdominal pain, found to has low BP, DKA and hypothermia. treating for pneumonia and ruling out C. difficile on 07/19/, she' again has another episode of low BP in the 70s, and dizziness spell giving her ringer lactate 500cc bolus overall plan today dc barrier, still on 5 liter today and she's avoid IV fluid, hold diuretics given her orthostatic BP yesterday (drop 20-30 point) added midodrine for orthostatic hypotension upon dishcarge need to ensure she's has enough insulin filled for her insulin pump #DKA - trigger by non-compliance and a1c of 10.6 off insulin on 07/13 on sub-Q insulin she on insulin pump at home our diabetic education is working in the patient hypotension has another episode on (07/19) giving her 500cc of ringer lactate started midodrine #uncontrolled, long-standing T1DM on insulin pump therapy - she currently using insulin pump * Hba1c 10.6% * follows with [facility] Endo/DM clinic - Nikki Valerie [place] * perioperative educator consult as above * pharmacy glycemic consult as above #severe sepsis - lactic acidosis , JASMINE, Ams, hypothermia f/u stool PCR and stool toxin level. she's on augmentin and will add vancomycin till her C. difficile level return if her C. difficile is positive, she's need 14 days courses from 07/19/2024 * blood cx's negative * resp BioFire was negative * s/p ertapenem IV for empiric coverage (multiple abx allergies) but by report tolerated Augmentin in the past * changed ertapenem to Unasyn IV on 07/13/24, then transitioned to PO Augmentin on 07/16 * diarrhea, C. difficle negative; and norovirus RNA pending. #b/l pneumonia -s/p IV ertapnenem, unasybn and augmentin mucinex. #JASMINE - resolved creatinine at 0.70 * 2 #Esophagitis - * cont daily PPI - will need prescription at discharge * carafate qid for 7-10 days * could have gastroparesis as well leading to the gastric/esophageal abnormalities as detected on the CTs but she denies chronic nausea and/or emesis * would send to GI post-d/c; may need EGD #acute metabolic encephalopathy related to sepsis and DKA * she is AAOx3 but still subjectively feel off. * more oriented, more engaging - but still having periods of cognitive difficulties (was having issues today with her Dexcom and her phone, difficulties calculating carb coverage, etc) * CT head and brain MRI negative * depression could be feeding into this as well * B12 level 470 * in light of daily wine consumption check B1 level tomorrow then start empiric thiamine supplementation #hypothyroidism - * cont synthroid 100mcg #elevated INR - * resolved * etiology uncertain but INR went from 1.4 to normal without intervention #fall, orthostatic hypotension * presumed 2nd to severe DKA +/- weakness from metabolic derangements +/- sepsis +/- hypotension / orthostatic hypotension, etc * echo 04/2024 was wnl * PT/OT * head CT neg * MRI brain negative for subacute CVA * fortunately no major injuries from her fall(s) * check B1 level * B12 level was wnl #"vertigo" - acute on chronic * several days ago patient described her chronic "vertigo" as a spinning * has had the issue for many years but it has been worse in the last few months * today she said she was having "vertigo" that lasted 15 minutes which would be unusual for inner ear based vertigo * shortly after this I asked nursing to check orthostatic BPs; she dropped 25+ points from laying to standing, with standing BP in the 60s! * make meclizine 12.5mg BID PRN * family reports seeing ENT or neuro in the past for dizziness but I cannot find any record of such * MRI brain neg #orthostatic hypotension - * gave 500cc NS bolus for her +orthos today * check daily orthostatic BPs * if it persists despite appropriate hydration consider adding midodrine or florinef * consider compression stockings * consider checking cortisol level * ultimately the orthostatic hypotension could be autonomic insufficiency from diabetic neuropathy #hypophosphatemia - * Kphos 1 tab QID * repeat level AM tomorrow #DVT proph - * heparin 5000 BID #anxiety - * cont sertraline 25mg daily (it was thought she was on such at home but actually was not --- so this is a new start) * cont buspar prn * cont ativan prn * consulted psych liaison #hypernatremia - * resolved #hypocalcemia - * albumin is low; even when correcting for such her calcium is still low * calcium gluconate 2gm x 1 today * repeat BMP/calcium/mag in am * recheck albumin AM * 25 OH Vit D level was 49 earlier this month #?pulmonary edema - * lasix x 2 doses given earlier in admission * no further lasix in light of orthostatic hypotension, electrolyte abnormalities, etc. #hypomagnesemia - * replaced, resolved * repeat mag level AM for stability #daily etoh use - * uncertain amount, but her son thinks it is likely 1 glass/night * check B1 level in am * then empiric B1 supplementation once level has been sent * no signs of etoh withdrawal will need rehab post-d/c - [facility] referral made; insurance declined [facility] and case management evaluating for [facility] Admission and Anticipated Discharge Date Admission Date: July 12, 2024 Subjective She is still on 5 L today Will have another repeat chest x-ray and rule out for any drastic volume changes She was orthostatics yesterday and we added midodrine Her abdominal pain resolved, dizziness resolved No chest pain no shortness of breath Review of Systems Review of Systems: Constitutional: No Fever, No Chills, No Night Sweats, No Fatigue, No Malaise Cardiovascular: No Chest Pain, No SOB, no shortness of breath; no wheezing Gastrointestinal: ongoing diarrhea; abdominal pain resolved. Musculoskeletal: No Arthralgias, No Myalgias, No Joint Swelling, No Joint Stiffness, No Back Pain, No Neck Pain, No Injury History Skin: No Skin Lesions, No Pruritis, No Hair Changes, No Breast/Skin Changes, No Nipple Discharge Neuro: no dizziness; no headache; no weakness Physical Exam Physical Exam: VITALS: Reviewed. WEIGHT/BMI reviewed. GEN: Healthy appearing, well-developed, NAD. on 5 liter -Head: NC/AT; -Mouth and throat: MMM. Normal gums, muc martha, palate,. Good dentition. NECK: Supple, with no masses. CV: RRR, no m/r/g. LUNGS: CTAB, no w/r/c. decreased breath sound; no wheezing. no accessory muscle use ABD: Soft, NT/ND, NBS, no masses or organomegaly. MSK: No deformities, Normal gait. EXT: No clubbing, cyanosis, or edema. NEURO: AAox3 Results & Data Results & Data Vital Signs (Past 12 Hours) Vital Signs Temp Pulse Pulse Pulse Resp BP Pulse Ox 07/20/24 11:37 07/20/24 10:50 37.0 C 90 19 124/71 90 07/20/24 08:18 36.7 C 88 19 108/61 90 07/20/24 07:21 88 O2 Del Method O2 Flow Rate 07/20/24 11:37 Nasal Cannula 5 07/20/24 10:50 Nasal Cannula 6.0 07/20/24 08:18 Nasal Cannula 6.0 07/20/24 07:21 Laboratory Results Abnormal Lab Results 07/19/24 07/19/24 07/20/24 16:55 20:01 05:34 WBC 7.34 RBC 3.22 L Hgb 9.3 L Hct 28.7 L MCV 89.1 MCH 28.9 MCHC 32.4 RDW Std Deviation 46.2 RDW Coeff of Xavi 14.2 Plt Count 230 MPV 10.7 Sodium 140 Potassium 3.7 Chloride 104 Carbon Dioxide 32 Anion Gap 4 BUN 8 Creatinine 0.72 Est Cr Clr Drug Dosing 63.3 eGFR 87.68 BUN/Creatinine Ratio 11.1 Glucose 141 H POC Glucose 90 121 H Lactate Calcium 6.7 L 07/20/24 07/20/24 07/20/24 08:01 08:10 11:27 WBC RBC Hgb Hct MCV MCH MCHC RDW Std Deviation RDW Coeff of Xavi Plt Count MPV Sodium Potassium Chloride Carbon Dioxide Anion Gap BUN Creatinine Est Cr Clr Drug Dosing eGFR BUN/Creatinine Ratio Glucose POC Glucose 157 H 166 H Lactate 0.8 Calcium Diagnostic Findings Cervical Spine CT 07/12/24 09:17 CT cervical spine wo con CT DOSE: 1944.79 mGy.cm CLINICAL HISTORY: on floor, ams. COMPARISON: None TECHNIQUE: Multiple axial CT images of the cervical spine were obtained without contrast. A dose lowering technique was utilized adhering to the principles of ALARA. FINDINGS: There is moderate diffuse degenerative disc disease. No fracture or subluxation. IMPRESSION: No cervical spine fracture seen. ACT 112: Negative or not required by law. The above report was generated using voice recognition software. It may contain grammatical, syntax or spelling errors. Electronically signed by: Bc Suarez M.D. 07/12/2024 10:20 AM Chest X-Ray 07/12/24 09:18 XR chest 1V portable CLINICAL HISTORY: ams, ?fall COMPARISON STUDY: 08/06/2015 FINDINGS: Single view supine portable chest is limited by motion degradation. There is no acute process identified. There is no definite airspace opacity or pleural effusion. There is no pneumothorax. The heart and pulmonary vascularity are unremarkable for technique. IMPRESSION: No acute process identified. ACT 112: Negative or not required by law. Electronically signed by: Debra Dutton M.D. 07/12/2024 9:[address] 07/12/24 09:18 CT SCAN OF THE BRAIN WITHOUT IV CONTRAST CLINICAL HISTORY: Altered mental status. Possible fall. COMPARISON STUDY: None. TECHNIQUE: Unenhanced axial CT scan of the brain was performed from the vertex to the skull base. A dose lowering technique was utilized adhering to the principles of ALARA. FINDINGS: Brain parenchyma: Mild motion artifact. No acute intracranial hemorrhage, midline shift or mass effect is present. Gomez-white matter differentiation is preserved. There are no extra-axial fluid collections. There are no findings to suggest acute dural sinus thrombosis or acute territorial infarct. Ventricles, sulci, cisterns: There is no hydrocephalus. The basal cisterns are patent. Calvarium: No calvarial fractures. Sinuses and mastoids: The visualized paranasal sinuses are clear. The mastoid air cells are well pneumatized. Orbits: The bony orbits are grossly intact. IMPRESSION: 1. No acute intracranial findings. 2. No calvarial fractures. ACT 112: Negative or not required by law. Electronically signed by: Ag Griffiths M.D. 07/12/2024 10:24 AM Abdomen/Pelvis CT 07/12/24 09:[address] WITHOUT CONTRAST CT DOSE: 1945 HISTORY: ams, on floor, DKA TECHNIQUE: Multiaxial CT images of the abdomen and pelvis were performed without contrast. A dose lowering technique was utilized adhering to the principles of ALARA. COMPARISON STUDY: None FINDINGS: ABDOMEN: There is motion artifact. Liver, gallbladder, spleen, pancreas, and adrenal glands have an unremarkable non-IV contrast appearance. There is a small nonobstructing calculus at the left kidney. There is no hydronephrosis bilaterally. No abdominal aortic aneurysm. There is mild distention of the stomach with gas and fluid and the distal esophagus is mildly distended with fluid. Pelvis: Uterus and adnexal regions are grossly unremarkable. Buenrostro catheter is present. Urinary bladder is nondistended. No bowel inflammation or obstruction seen. No free fluid, free air, or abscess. No enlarged adenopathy. Osseous structures: There is mild chronic-appearing height loss at the L1 vertebral body. No acute osseous finding seen. IMPRESSION: 1. No acute findings seen. 2. Mild distention of the stomach with gas and fluid and mild fluid distention of the distal esophagus. ACT 112: Negative or not required by law. The above report was generated using voice recognition software. It may contain grammatical, syntax or spelling errors. Electronically signed by: Bc Suarez M.D. 07/12/2024 10:[address] 07/12/24 09:33 CT chest diagnostic wo con CT DOSE: 1944.79mGy*cm CLINICAL HISTORY: Altered mental status; found on the floor TECHNIQUE: Multiaxial CT images of the chest were performed without contrast. Sagittal and coronal reconstructions were done. A dose lowering technique was utilized adhering to the principles of ALARA. COMPARISON STUDY: None FINDINGS: There is no definite chest wall injury identified. Spurious defect in the sternum is felt to be misregistration due to motion. There is patchy discoid atelectasis in both lung bases. There is no air space opacity suggestive of a pneumonia or contusion. There is no pneumothorax. The upper airway is unremarkable. There is mild prominence of the superior mediastinal lymph nodes and supraclavicular lymph nodes with no evidence of matting or necrosis. There is mild ectasia of the ascending aorta. There is no pericardial effusion. There is mild coronary artery calcification. There is a thickening of the freeman of the distal esophagus. The upper abdominal images are noncontributory. The thoracic spine shows no evidence of acute compression fracture or malalignment. IMPRESSION: No definite evidence of acute traumatic thoracic injury. Mild ectasia of the ascending aorta. Relative low attenuation of the lumen raises the possibility of anemia. Nonspecific and discoid atelectasis at the lung bases. Esophageal wall thickening. Consider correlation with esophagram Mild prominence of the superior mediastinal and supraclavicular lymph nodes are nonspecific. ACT 112: Negative or not required by law. Electronically signed by: Debra Dutton M.D. 07/12/2024 10:25 AM Chest X-Ray 07/13/24 13:14 XR chest 1V portable CLINICAL HISTORY: recent DKA; mild basilar crackles COMPARISON STUDY: 07/12/2024 FINDINGS: Stable mild cardiomegaly without pulmonary vascular congestion. There is increased patchy consolidation in the lung bases with obscuration of the diaphragm. No pneumothorax. IMPRESSION: Increased lung base pneumonia. ACT 112: Negative or not required by law. Electronically signed by: Bc Suarez M.D. 07/13/2024 1:45 PM Brain MRI 07/15/24 14:57 EXAM: MR brain wo con CLINICAL HISTORY: Altered MS, recent DKA, recent fall TECHNIQUE: MRI of the brain was performed without contrast with multiplanar sequences obtained. COMPARISON: 07/12/2024 CT. FINDINGS: Brain Parenchyma: Mild involutional age-related brain changes in the form of deep sulci and mildly dilated ventricles. No evidence of acute infarction or hemorrhage. Normal gomez-white matter differentiation. No mass lesions or focal cortical abnormalities were identified. No evidence of hydrocephalus or ventriculomegaly. Posterior Fossa: The cerebellum and brainstem appear normal without evidence of mass lesions or signal abnormalities. Cranial Nerves: Normal course and appearance of cranial nerves identified. Vessels: No evidence of vascular malformations or aneurysms. Intracranial arteries and veins appear normal without evidence of stenosis or occlusion. Orbits and Skull Base: Orbits and skull base structures are normal without evidence of abnormalities. IMPRESSION: 1. No acute intracranial abnormality was identified. 2. Mild involutional age-related brain changes. Stable. Electronically signed by Ned Wu 07-15-2024 5:27 PM Chest X-Ray 07/16/24 08:46 XR chest 1V portable CLINICAL HISTORY: pneumonia, fever COMPARISON STUDY: 07/13/2024 FINDINGS: Heart size and pulmonary vasculature are normal. There is stable hazy opacity in the lung bases with obscuration of the diaphragm consistent with lung base consolidation and possible small pleural effusions. No pneumothorax. IMPRESSION: Stable exam. ACT 112: Negative or not required by law. Electronically signed by: Bc Suarez M.D. 07/16/2024 10:07 AM Chest X-Ray 07/20/24 08:16 XR chest 1V portable CLINICAL HISTORY: assess for volume overload and PNA COMPARISON STUDY: 07/16/2024 FINDINGS: Stable cardiomegaly with pulmonary vascular congestion. There are increased small to moderate bilateral pleural effusions with lower lobe consolidation. No pneumothorax. IMPRESSION: CHF with increased pleural effusions and lower lung consolidation. ACT 112: Negative or not required by law. Electronically signed by: Bc Suarez M.D. 07/20/2024 9:46 AM Medications Administered Current Inpatient Medications Lipase/Protease/Amylase (Pancreaze (Lipase 10,500u) Cap) 3 cap PO ACHS [facility] Stop: 08/19/24 11:29 Last Admin: 07/20/24 12:35 Dose: 3 cap Atorvastatin Calcium (Atorvastatin 40 Mg Tab) 80 mg PO HS [facility] Stop: 08/12/24 20:59 Last Admin: 07/19/24 20:15 Dose: 80 mg Buspirone HCl (Buspirone 5 Mg Tab) 5 mg PO BID PRN PRN Reason: anxiety Stop: 08/12/24 08:25 Calcium/Vitamin D (Calcium 600mg + Vit D 400 Iu Tab) 1 tab PO BID [facility] Stop: 08/12/24 08:59 Last Admin: 07/20/24 09:17 Dose: 1 tab Caicedo Syrup (Caicedo Syrup 5 Ml Udp) 5 ml PO Q6 [facility] Stop: 07/28/24 14:59 Last Admin: 07/20/24 12:36 Dose: 5 ml Dextrose (Dextrose 50% 50 Ml Syringe) 25 - 50 ml IV UD PRN; Protocol PRN Reason: Hypoglycemia Protocol Stop: 08/14/24 06:14 Folic Acid (Folic Acid 1 Mg Tab) 1 mg PO QAM [facility] Stop: 08/14/24 08:59 Last Admin: 07/20/24 09:16 Dose: 1 mg Glucagon (Glucagon For Inj 1 Mg Vial) 1 mg SQ UD PRN; Protocol PRN Reason: Hypoglycemia Protocol Stop: 08/14/24 06:14 Glucose (Glucose 40% Gel 15 Gm Tube) 15 - 30 gm PO UD PRN; Protocol PRN Reason: Hypoglycemia Protocol Stop: 08/14/24 06:14 Glucose (Glucose 10 Tab/Tube) 4 - 8 tab PO UD PRN; Protocol PRN Reason: Hypoglycemia Protocol Stop: 08/14/24 06:14 Guaifenesin (Guaifenesin Sugar Free 100 Mg/5 Ml Udc) 100 mg PO QID [facility] Stop: 08/13/24 12:59 Last Admin: 07/20/24 12:35 Dose: 100 mg Heparin Sodium (Porcine) (Heparin Sod 5,000 Unit/0.5 Ml Vial) 5,000 units SQ Q12 [facility] Stop: 08/11/24 20:59 Last Admin: 07/20/24 09:19 Dose: 5,000 units Thiamine HCl 100 mg/ Syringe 10 mls @ 2 mls/min IV QAM [facility] Stop: 08/17/24 08:59 Last Admin: 07/20/24 09:19 Dose: 2 mls/min Insulin Aspart (Insulin, Rapid-Acting Pump) 0 each SC ACHS [facility]E; Protocol Stop: 08/16/24 08:29 Last Admin: 07/20/24 12:29 Dose: 1.2 each Insulin Aspart (Insulin Aspart 100 Units/Ml Vial) 0 units SC PRN PRN PRN Reason: Insulin (Rapid-Acting) Pump Refill Stop: 08/16/24 08:15 Last Admin: 07/17/24 11:18 Dose: 1,000 units Levothyroxine Sodium (Levothyroxine Sodium 100 Mcg Tablet) 100 mcg PO [id number] [facility] Stop: 08/12/24 08:59 Last Admin: 07/20/24 09:16 Dose: 100 mcg Lorazepam (Lorazepam 1 Mg Tab) 1 mg PO DAILY PRN PRN Reason: panic attack(s) / anxiety Stop: 08/12/24 08:25 Meclizine HCl (Meclizine 12.5 Mg Tab) 12.5 mg PO BID PRN PRN Reason: Vertigo Stop: 08/12/24 13:14 Last Admin: 07/18/24 08:23 Dose: 12.5 mg Midodrine (Midodrine Hcl 2.5 Mg Tab) 2.5 mg PO TID@0800,1200,1700 [facility] Stop: 08/18/24 15:14 Last Admin: 07/20/24 12:36 Dose: 2.5 mg Miscellaneous (Carbohydrates For Hypoglycemia ) 15 - 30 gm PO UD PRN PRN Reason: Hypoglycemia Treatment Stop: 08/14/24 06:14 Last Admin: 07/15/24 00:30 Dose: 15 gm Miscellaneous (Continuous Glucose Monitor) 0 each N/A ACHS [facility] Stop: 08/16/24 08:29 Last Admin: 07/20/24 12:23 Dose: 1 each Pantoprazole Sodium (Pantoprazole 40 Mg Tab) 40 mg PO QAM [facility] Stop: 08/13/24 08:59 Last Admin: 07/20/24 09:16 Dose: 40 mg Potassium Phosphate (Pot Phosphate Monobasic W/ Sod Tab) 1 tab PO QID [facility] Stop: 08/14/24 09:14 Last Admin: 07/20/24 12:36 Dose: 1 tab Sertraline HCl (Sertraline Hcl 50 Mg Tablet) 25 mg PO DAILY [facility] Stop: 08/12/24 08:59 Last Admin: 07/20/24 09:17 Dose: 25 mg Sucralfate (Sucralfate 1 Gm/10 Ml Udc) 1 gm PO QID [facility] Stop: 08/12/24 16:59 Last Admin: 07/20/24 12:36 Dose: 1 gm PG Care Time/CCT Total # of Minutes Spent Total Time Spent with Patient: Total time spent is greater than 50% in coordination of care (as documented) at patient's floor/unit and/or counseling patient: Coding Level of Care Code 17566 SUB INP/OBS CARE 235MIN Diagnoses DKA (diabetic ketoacidosis) E11.10 Uncontrolled type 1 diabetes mellitus with hyperglycemia E10.65 Lactic acidosis E87.20 Severe sepsis A41.9; R65.20 Fall W19.XXXA Esophagitis K20.90 Hypotension I95.9 Acute metabolic encephalopathy G93.41 Hypothermia T68.XXXA Acute dehydration E86.0 Hypothyroidism E03.9 Hyperlipidemia E78.5 Generalized anxiety disorder with panic attacks F41.1; F41.0 Migraine G43.909 Orthostatic hypotension I95.1 Elevated INR R79.1 Hypocalcemia E83.51 Hypomagnesemia E83.42 Low grade fever R50.9 Hypokalemia E87.6
[2024-07-20] MEDS: BENZONATATE 100 MG CAPSULE PO PRN (21:30)
[2024-07-21 06:08] LABS: BUN Creatinine Ratio 9.5 (10-20); Calcium 6.8 mg/dl (8.6-10.3); Creatinine Clr Calc Pharmacy 61.3 ml/min; Potassium 3.6 mmol/L (3.5-5.1)
[2024-07-21] MEDS: CALCIUM GLUCONATE 10% 11,000 MG in SODIUM CHLORIDE 0.9% 890 ML IV SCH (10:08)
--- NOTE | 2024-07-21 14:14 | Hospitalist Progress Note ---
Date of Service July 21, 2024 Assessment & Plan (1) DKA (diabetic ketoacidosis): Plan: pharmacy to evaluate the patient, she's on insulin pump either related to non-compliance versus underlying infection (2) Uncontrolled type 1 diabetes mellitus with hyperglycemia: Plan: check glucose every 6 hours she's on insulin pump (3) Lactic acidosis: (4) Severe sepsis: Plan: her C. difficile toxin is negative ?? gastroenteritis versus PNA (5) Fall: Plan: likely need STR, declined by [facility], but case management working on [place] (6) Esophagitis: (7) Hypotension: (8) Acute metabolic encephalopathy: (9) Hypothermia: (10) Acute dehydration: (11) Hypothyroidism: (12) Hyperlipidemia: (13) Generalized anxiety disorder with panic attacks: (14) Migraine: (15) Orthostatic hypotension: (16) Elevated INR: (17) Hypocalcemia: (18) Hypomagnesemia: (19) Low grade fever: (20) Hypokalemia: Plan 74yo female with history of long-standing T1DM on insulin pump , poorly- controlled with most a1c's >10% in the record and followed by [facility] Endo/DM clinic - hypothyroidism; anxiety; hyperlipidemia; migraines; vertigo - who presents from home after her son found her on the floor in the bathroom. She was unresponsive when he found her. per the patient, she was having diarrhea and abdominal pain, found to has low BP, DKA and hypothermia. treating for pneumonia and ruling out C. difficile on , she' again has another episode of low BP in the 70s, and dizziness spell giving her ringer lactate 500cc bolus overall plan today still have diarrhea 3-4 times per day; still on oxygen 3-4 liter f/u on stool PCR. monitor for electrolyte hold on diuretics given her JASMINE started on midodrine for orthostatic hypotension and will need to continue that jail alcohol use disorder, multivitamin, thiamine and b complex dc coordination need to ensure she's has enough insulin for her insulin pump kyrie pump diarrhea, f/u on stool PCR, her C. difficile is negative #DKA - trigger by non-compliance and a1c of 10.6 off insulin on 07/13 on sub-Q insulin she on insulin pump at home our diabetic education is working in the patient hypotension has another episode on (07/19) giving her 500cc of ringer lactate started midodrine and responding well volume overload still on 3-4 liter oxygen #uncontrolled, long-standing T1DM on insulin pump therapy - she currently using insulin pump * Hba1c 10.6% * follows with [facility] Endo/DM clinic - Nikki Valerie [place] * inclusion special educator consult as above * pharmacy following #severe sepsis - lactic acidosis , JASMINE, Ams, hypothermia f/u stool PCR and stool toxin level. she's on augmentin * blood cx's negative * resp BioFire was negative * s/p ertapenem IV for empiric coverage (multiple abx allergies) but by report tolerated Augmentin in the past * changed ertapenem to Unasyn IV on 07/13/24, then transitioned to PO Augmentin on 07/16 * diarrhea, C. difficle negative; and norovirus RNA pending. #b/l pneumonia -s/p IV ertapnenem, unasybn and augmentin mucinex. #JASMINE - resolved creatinine at 0.70 * 2 #Esophagitis - * cont daily PPI - will need prescription at discharge * carafate qid for 7-10 days * could have gastroparesis as well leading to the gastric/esophageal abnormalities as detected on the CTs but she denies chronic nausea and/or emesis * would send to GI post-d/c; may need EGD #acute metabolic encephalopathy related to sepsis and DKA * she is AAOx3 but still subjectively feel off. * more oriented, more engaging - but still having periods of cognitive difficulties (was having issues today with her Dexcom and her phone, difficulties calculating carb coverage, etc) * CT head and brain MRI negative * depression could be feeding into this as well * B12 level 470 * in light of daily wine consumption check B1 level tomorrow then start empiric thiamine supplementation #hypothyroidism - cont synthroid 100mcg #elevated INR - * resolved * etiology uncertain but INR went from 1.4 to normal without intervention #fall, orthostatic hypotension * presumed 2nd to severe DKA +/- weakness from metabolic derangements +/- sepsis +/- hypotension / orthostatic hypotension, etc * echo 04/2024 was wnl * PT/OT * head CT neg * MRI brain negative for subacute CVA * fortunately no major injuries from her fall(s) * check B1 level * B12 level was wnl #"vertigo" - acute on chronic * several days ago patient described her chronic "vertigo" as a spinning * has had the issue for many years but it has been worse in the last few months * today she said she was having "vertigo" that lasted 15 minutes which would be unusual for inner ear based vertigo * shortly after this I asked nursing to check orthostatic BPs; she dropped 25+ points from laying to standing, with standing BP in the 60s! * make meclizine 12.5mg BID PRN * family reports seeing ENT or neuro in the past for dizziness but I cannot find any record of such * MRI brain neg #orthostatic hypotension - * gave 500cc NS bolus for her +orthos today * check daily orthostatic BPs * if it persists despite appropriate hydration consider adding midodrine or florinef * consider compression stockings * consider checking cortisol level * ultimately the orthostatic hypotension could be autonomic insufficiency from diabetic neuropathy #hypophosphatemia - * Kphos 1 tab QID * repeat level AM tomorrow #DVT proph - * heparin 5000 BID #anxiety - * cont sertraline 25mg daily (it was thought she was on such at home but actually was not --- so this is a new start) * cont buspar prn * cont ativan prn * consulted psych liaison #hypernatremia - * resolved #hypocalcemia - * albumin is low; even when correcting for such her calcium is still low * calcium gluconate 2gm x 1 today * repeat BMP/calcium/mag in am * recheck albumin AM * 25 OH Vit D level was 49 earlier this month #?pulmonary edema - * lasix x 2 doses given earlier in admission * no further lasix in light of orthostatic hypotension, electrolyte ab normalities, etc. #hypomagnesemia - * replaced, resolved * repeat mag level AM for stability #daily etoh use - * uncertain amount, but her son thinks it is likely 1 glass/night * check B1 level in am * then empiric B1 supplementation once level has been sent * no signs of etoh withdrawal will need rehab post-d/c - [facility] referral made; insurance declined [facility] and case management evaluating for [facility] Admission and Anticipated Discharge Date Admission Date: July 12, 2024 Subjective She is still on oxygen, she still have ongoing diarrhea 3-4 times a day Will repeat stool PCR No abdominal pain, no nausea no vomiting No chest pain Review of Systems Review of Systems: Constitutional: No Weight Change, No Fever, No Chills, No Night Sweats, No Fatigue, No Malaise Cardiovascular: No Chest Pain, No SOB, No PND, No Dyspnea on Exertion, No Orthopnea, No Claudication, No Edema, No Palpitations Respiratory: No Cough, No Sputum, No Wheezing, No Smoke Exposure, No Dyspnea Gastrointestinal: + for diarrhea; no nausea, no vomiting; no abdominal pain; no bloody stool Musculoskeletal: No Arthralgias, No Myalgias, No Joint Swelling, No Joint Stiffness, No Back Pain, No Neck Pain, No Injury History Neuro: no dizziness; no headache Endocrine: No Polyuria, No Polydipsia, No Temperature Intolerance Physical Exam Physical Exam: VITALS: Reviewed. WEIGHT/BMI reviewed. GEN: chronically ill appearing; non toxic appearing -Head: NC/AT; -Eyes: PERRL, EOMI. No discharge or redn ess; -Ears: External ears are normal. Normal TMs. -Nose: Normal nares. NECK: no JVD CV: RRR, no m/r/g. LUNGS: CTAB, no w/r/c. ABD: Soft, NT/ND, NBS, no masses or organomegaly. no ascites : no CVA tenderness SKIN: Warm, well perfused. No skin rashes or abnormal lesions. MSK: No deformities, Normal gait. EXT: No clubbing, cyanosis, or edema. NEURO: AAOx3 Results & Data Results & Data Vital Signs (Past 12 Hours) Vital Signs Temp Pulse Pulse Resp BP BP Pulse Ox 07/21/24 11:29 37.1 C 88 18 95/54 L 90 07/21/24 08:31 37.0 C 88 18 112/61 90 07/21/24 03:15 36.9 C 88 18 105/65 91 O2 Del Method O2 Flow Rate 07/21/24 11:29 Nasal Cannula 3 07/21/24 08:31 Nasal Cannula 7.0 07/21/24 03:15 Nasal Cannula 7 Laboratory Results Laboratory Results - last 72 hr 07/18/24 07/19/24 07/19/24 Unknown 05:16 07:59 WBC RBC Hgb Hct MCV MCH MCHC RDW Std Deviation RDW Coeff of Xavi Plt Count MPV Sodium 140 Potassium 3.3 L Chloride 104 Carbon Dioxide 33 H Anion Gap 3 BUN 9 Creatinine 0.77 Est Cr Clr Drug Dosing 57.5 eGFR 80.90 BUN/Creatinine Ratio 11.7 Glucose 130 H POC Glucose 137 H Lactate Calcium 6.5 L Ionized Calcium Stl C. diff Tox B Gene Negative Cdiff Gene 07/19/24 07/19/24 07/19/24 11:57 16:55 20:01 WBC RBC Hgb Hct MCV MCH MCHC RDW Std Deviation RDW Coeff of Xavi Plt Count MPV Sodium Potassium Chloride Carbon Dioxide Anion Gap BUN Creatinine Est Cr Clr Drug Dosing eGFR BUN/Creatinine Ratio Glucose POC Glucose 161 H 90 121 H Lactate Calcium Ionized Calcium Stl C. diff Tox B Gene 07/20/24 07/20/24 07/20/24 05:34 08:01 08:10 WBC 7.34 RBC 3.22 L Hgb 9.3 L Hct 28.7 L MCV 89.1 MCH 28.9 MCHC 32.4 RDW Std Deviation 46.2 RDW Coeff of Xavi 14.2 Plt Count 230 MPV 10.7 Sodium 140 Potassium 3.7 Chloride 104 Carbon Dioxide 32 Anion Gap 4 BUN 8 Creatinine 0.72 Est Cr Clr Drug Dosing 63.3 eGFR 87.68 BUN/Creatinine Ratio 11.1 Glucose 141 H POC Glucose 157 H Lactate 0.8 Calcium 6.7 L Ionized Calcium Stl C. diff Tox B Gene 07/20/24 07/20/24 07/20/24 11:27 16:22 16:39 WBC RBC Hgb Hct MCV MCH MCHC RDW Std Deviation RDW Coeff of Xavi Plt Count MPV Sodium Potassium Chloride Carbon Dioxide Anion Gap BUN Creatinine Est Cr Clr Drug Dosing eGFR BUN/Creatinine Ratio Glucose POC Glucose 166 H 167 H Lactate Calcium Ionized Calcium 0.97 L Stl C. diff Tox B Gene 07/20/24 07/21/24 07/21/24 20:06 05:07 08:10 WBC RBC Hgb Hct MCV MCH MCHC RDW Std Deviation RDW Coeff of Xavi Plt Count MPV Sodium 140 Potassium 3.6 Chloride 104 Carbon Dioxide 32 Anion Gap 4 BUN 7 Creatinine 0.74 Est Cr Clr Drug Dosing 61.3 eGFR 84.85 BUN/Creatinine Ratio 9.5 L Glucose 154 H POC Glucose 132 H 122 H Lactate Calcium 6.8 L Ionized Calcium 0.98 L Stl C. diff Tox B Gene 07/21/24 12:08 WBC RBC Hgb Hct MCV MCH MCHC RDW Std Deviation RDW Coeff of Xavi Plt Count MPV Sodium Potassium Chloride Carbon Dioxide Anion Gap BUN Creatinine Est Cr Clr Drug Dosing eGFR BUN/Creatinine Ratio Glucose POC Glucose 108 H Lactate Calcium Ionized Calcium Stl C. diff Tox B Gene Diagnostic Findings Cervical Spine CT 07/12/24 09:17 CT cervical spine wo con CT DOSE: 1944.79 mGy.cm CLINICAL HISTORY: on floor, ams. COMPARISON: None TECHNIQUE: Multiple axial CT images of the cervical spine were obtained without contrast. A dose lowering technique was utilized adhering to the principles of ALARA. FINDINGS: There is moderate diffuse degenerative disc disease. No fracture or subluxation. IMPRESSION: No cervical spine fracture seen. ACT 112: Negative or not required by law. The above report was generated using voice recognition software. It may contain grammatical, syntax or spelling errors. Electronically signed by: Bc Suarez M.D. 07/12/2024 10:20 AM Chest X-Ray 07/12/24 09:18 XR chest 1V portable CLINICAL HISTORY: ams, ?fall COMPARISON STUDY: 08/06/2015 FINDINGS: Single view supine portable chest is limited by motion degradation. There is no acute process identified. There is no definite airspace opacity or pleural effusion. There is no pneumothorax. The heart and pulmonary vascularity are unremarkable for technique. IMPRESSION: No acute process identified. ACT 112: Negative or not required by law. Electronically signed by: Debra Dutton M.D. 07/12/2024 9:[address] 07/12/24 09:18 CT SCAN OF THE BRAIN WITHOUT IV CONTRAST CLINICAL HISTORY: Altered mental status. Possible fall. COMPARISON STUDY: None. TECHNIQUE: Unenhanced axial CT scan of the brain was performed from the vertex to the skull base. A dose lowering technique was utilized adhering to the principles of ALARA. FINDINGS: Brain parenchyma: Mild motion artifact. No acute intracranial hemorrhage, midline shift or mass effect is present. Gomez-white matter differentiation is preserved. There are no extra-axial fluid collections. There are no findings to suggest acute dural sinus thrombosis or acute territorial infarct. Ventricles, sulci, cisterns: There is no hydrocephalus. The basal cisterns are patent. Calvarium: No calvarial fractures. Sinuses and mastoids: The visualized paranasal sinuses are clear. The mastoid air cells are well pneumatized. Orbits: The bony orbits are grossly intact. IMPRESSION: 1. No acute intracranial findings. 2. No calvarial fractures. ACT 112: Negative or not required by law. Electronically signed by: Ag Griffiths M.D. 07/12/2024 10:24 AM Abdomen/Pelvis CT 07/12/24 09:[address] WITHOUT CONTRAST CT DOSE: 1945 HISTORY: ams, on floor, DKA TECHNIQUE: Multiaxial CT images of the abdomen and pelvis were performed without contrast. A dose lowering technique was utilized adhering to the principles of ALARA. COMPARISON STUDY: None FINDINGS: ABDOMEN: There is motion artifact. Liver, gallbladder, spleen, pancreas, and adrenal glands have an unremarkable non-IV contrast appearance. There is a small nonobstructing calculus at the left kidney. There is no hydronephrosis bilaterally. No abdominal aortic aneurysm. There is mild distention of the stomach with gas and fluid and the distal esophagus is mildly distended with fluid. Pelvis: Uterus and adnexal regions are grossly unremarkable. Buenrostro catheter is present. Urinary bladder is nondistended. No bowel inflammation or obstruction seen. No free fluid, free air, or abscess. No enlarged adenopathy. Osseous structures: There is mild chronic-appearing height loss at the L1 vertebral body. No acute osseous finding seen. IMPRESSION: 1. No acute findings seen. 2. Mild distention of the stomach with gas and fluid and mild fluid distention of the distal esophagus. ACT 112: Negative or not required by law. The above report was generated using voice recognition software. It may contain grammatical, syntax or spelling errors. Electronically signed by: Bc Suarez M.D. 07/12/2024 10:[address] 07/12/24 09:33 CT chest diagnostic wo con CT DOSE: 1944.79mGy*cm CLINICAL HISTORY: Altered mental status; found on the floor TECHNIQUE: Multiaxial CT images of the chest were performed without contrast. Sagittal and coronal reconstructions were done. A dose lowering technique was utilized adhering to the principles of ALARA. COMPARISON STUDY: None FINDINGS: There is no definite chest wall injury identified. Spurious defect in the sternum is felt to be misregistration due to motion. There is patchy discoid atelectasis in both lung bases. There is no air space opacity suggestive of a pneumonia or contusion. There is no pneumothorax. The upper airway is unremarkable. There is mild prominence of the superior mediastinal lymph nodes and supraclavicular lymph nodes with no evidence of matting or necrosis. There is mild ectasia of the ascending aorta. There is no pericardial effusion. There is mild coronary artery calcification. There is a thickening of the freeman of the distal esophagus. The upper abdominal images are noncontributory. The thoracic spine shows no evidence of acute compression fracture or malalignment. IMPRESSION: No definite evidence of acute traumatic thoracic injury. Mild ectasia of the ascending aorta. Relative low attenuation of the lumen raises the possibility of anemia. Nonspecific and discoid atelectasis at the lung bases. Esophageal wall thickening. Consider correlation with esophagram Mild prominence of the superior mediastinal and supraclavicular lymph nodes are nonspecific. ACT 112: Negative or not required by law. Electronically signed by: Debra Dutton M.D. 07/12/2024 10:25 AM Chest X-Ray 07/13/24 13:14 XR chest 1V portable CLINICAL HISTORY: recent DKA; mild basilar crackles COMPARISON STUDY: 07/12/2024 FINDINGS: Stable mild cardiomegaly without pulmonary vascular congestion. There is increased patchy consolidation in the lung bases with obscuration of the diaphragm. No pneumothorax. IMPRESSION: Increased lung base pneumonia. ACT 112: Negative or not required by law. Electronically signed by: Bc Suarez M.D. 07/13/2024 1:45 PM Brain MRI 07/15/24 14:57 EXAM: MR brain wo con CLINICAL HISTORY: Altered MS, recent DKA, recent fall TECHNIQUE: MRI of the brain was performed without contrast with multiplanar sequences obtained. COMPARISON: 07/12/2024 CT. FINDINGS: Brain Parenchyma: Mild involutional age-related brain changes in the form of deep sulci and mildly dilated ventricles. No evidence of acute infarction or hemorrhage. Normal gomez-white matter differentiation. No mass lesions or focal cortical abnormalities were identified. No evidence of hydrocephalus or ventriculomegaly. Posterior Fossa: The cerebellum and brainstem appear normal without evidence of mass lesions or signal abnormalities. Cranial Nerves: Normal course and appearance of cranial nerves identified. Vessels: No evidence of vascular malformations or aneurysms. Intracranial arteries and veins appear normal without evidence of stenosis or occlusion. Orbits and Skull Base: Orbits and skull base structures are normal without evidence of abnormalities. IMPRESSION: 1. No acute intracranial abnormality was identified. 2. Mild involutional age-related brain changes. Stable. Electronically signed by Ned Wu 07-15-2024 5:27 PM Chest X-Ray 07/16/24 08:46 XR chest 1V portable CLINICAL HISTORY: pneumonia, fever COMPARISON STUDY: 07/13/2024 FINDINGS: Heart size and pulmonary vasculature are normal. There is stable hazy opacity in the lung bases with obscuration of the diaphragm consistent with lung base consolidation and possible small pleural effusions. No pneumothorax. IMPRESSION: Stable exam. ACT 112: Negative or not required by law. Electronically signed by: Bc Suarez M.D. 07/16/2024 10:07 AM Chest X-Ray 07/20/24 08:16 XR chest 1V portable CLINICAL HISTORY: assess for volume overload and PNA COMPARISON STUDY: 07/16/2024 FINDINGS: Stable cardiomegaly with pulmonary vascular congestion. There are increased small to moderate bilateral pleural effusions with lower lobe consolidation. No pneumothorax. IMPRESSION: CHF with increased pleural effusions and lower lung consolidation. ACT 112: Negative or not required by law. Electronically signed by: Bc Suarez M.D. 07/20/2024 9:46 AM Medications Administered Current Inpatient Medications Lipase/Protease/Amylase (Pancreaze (Lipase 10,500u) Cap) 3 cap PO ACHS [facility] Stop: 08/19/24 11:29 Last Admin: 07/21/24 12:51 Dose: 3 cap Atorvastatin Calcium (Atorvastatin 40 Mg Tab) 80 mg PO HS [facility]E Stop: 08/12/24 20:59 Last Admin: 07/20/24 20:30 Dose: 80 mg Benzonatate (Benzonatate 100 Mg Capsule) 100 mg PO TID PRN PRN Reason: Cough Stop: 08/19/24 20:29 Last Admin: 07/20/24 21:30 Dose: 100 mg Buspirone HCl (Buspirone 5 Mg Tab) 5 mg PO BID PRN PRN Reason: anxiety Stop: 08/12/24 08:25 Calcium/Vitamin D (Calcium 600mg + Vit D 400 Iu Tab) 1 tab PO BID [facility] Stop: 08/12/24 08:59 Last Admin: 07/21/24 08:52 Dose: 1 tab Dextrose (Dextrose 50% 50 Ml Syringe) 25 - 50 ml IV UD PRN; Protocol PRN Reason: Hypoglycemia Protocol Stop: 08/14/24 06:14 Folic Acid (Folic Acid 1 Mg Tab) 1 mg PO QAM [facility] Stop: 08/14/24 08:59 Last Admin: 07/21/24 08:51 Dose: 1 mg Glucagon (Glucagon For Inj 1 Mg Vial) 1 mg SQ UD PRN; Protocol PRN Reason: Hypoglycemia Protocol Stop: 08/14/24 06:14 Glucose (Glucose 40% Gel 15 Gm Tube) 15 - 30 gm PO UD PRN; Protocol PRN Reason: Hypoglycemia Protocol Stop: 08/14/24 06:14 Glucose (Glucose 10 Tab/Tube) 4 - 8 tab PO UD PRN; Protocol PRN Reason: Hypoglycemia Protocol Stop: 08/14/24 06:14 Guaifenesin (Guaifenesin Sugar Free 100 Mg/5 Ml Udc) 100 mg PO QID [facility] Stop: 08/13/24 12:59 Last Admin: 07/21/24 12:51 Dose: 100 mg Heparin Sodium (Porcine) (Heparin Sod 5,000 Unit/0.5 Ml Vial) 5,000 units SQ Q12 [facility] Stop: 08/11/24 20:59 Last Admin: 07/21/24 08:57 Dose: 5,000 units Thiamine HCl 100 mg/ Syringe 10 mls @ 2 mls/min IV QAM [facility] Stop: 08/17/24 08:59 Last Admin: 07/21/24 08:50 Dose: 2 mls/min Calcium Gluconate 11,000 mg/ (Sodium Chloride) 1,000 mls @ 50 mls/hr IV .Q20H [facility] Stop: 07/22/24 04:59 Last Admin: 07/21/24 10:08 Dose: 50 mls/hr Insulin Aspart (Insulin, Rapid-Acting Pump) 0 each SC ACHS [facility]; Protocol Stop: 08/16/24 08:29 Last Admin: 07/21/24 12:49 Dose: 2.5 each Insulin Aspart (Insulin Aspart 100 Units/Ml Vial) 0 units SC PRN PRN PRN Reason: Insulin (Rapid-Acting) Pump Refill Stop: 08/16/24 08:15 Last Admin: 07/17/24 11:18 Dose: 1,000 units Levothyroxine Sodium (Levothyroxine Sodium 100 Mcg Tablet) 100 mcg PO [id number]@0900 [facility] Stop: 08/12/24 08:59 Last Admin: 07/21/24 08:52 Dose: 100 mcg Lorazepam (Lorazepam 1 Mg Tab) 1 mg PO DAILY PRN PRN Reason: panic attack(s) / anxiety Stop: 08/12/24 08:25 Meclizine HCl (Meclizine 12.5 Mg Tab) 12.5 mg PO BID PRN PRN Reason: Vertigo Stop: 08/12/24 13:14 Last Admin: 07/18/24 08:23 Dose: 12.5 mg Midodrine (Midodrine Hcl 2.5 Mg Tab) 2.5 mg PO TID@0800,1200,1700 [facility] Stop: 08/18/24 15:14 Last Admin: 07/21/24 12:51 Dose: 2.5 mg Miscellaneous (Carbohydrates For Hypoglycemia ) 15 - 30 gm PO UD PRN PRN Reason: Hypoglycemia Treatment Stop: 08/14/24 06:14 Last Admin: 07/15/24 00:30 Dose: 15 gm Miscellaneous (Continuous Glucose Monitor) 0 each N/A ACHS [facility] Stop: 08/16/24 08:29 Last Admin: 07/21/24 12:48 Dose: 1 each Pantoprazole Sodium (Pantoprazole 40 Mg Tab) 40 mg PO QAM [facility] Stop: 08/13/24 08:59 Last Admin: 07/21/24 08:51 Dose: 40 mg Potassium Phosphate (Pot Phosphate Monobasic W/ Sod Tab) 1 tab PO QID [facility] Stop: 08/14/24 09:14 Last Admin: 07/21/24 12:52 Dose: 1 tab Sertraline HCl (Sertraline Hcl 50 Mg Tablet) 25 mg PO DAILY [facility] Stop: 08/12/24 08:59 Last Admin: 07/21/24 08:51 Dose: 25 mg Sucralfate (Sucralfate 1 Gm/10 Ml Udc) 1 gm PO QID [facility] Stop: 08/12/24 16:59 Last Admin: 07/21/24 12:51 Dose: 1 gm Vitamin D (Cholecalciferol 25 Mcg (1000 Units) Tab) 50 mcg PO QAM [facility] Stop: 08/21/24 08:59 PG Care Time/CCT Total # of Minutes Spent Total Time Spent with Patient: Total time spent is greater than 50% in coordination of care (as documented) at patient's floor/unit and/or counseling patient: Coding Level of Care Code 02846 SUB INP/OBS CARE 235MIN Diagnoses DKA (diabetic ketoacidosis) E11.10 Uncontrolled type 1 diabetes mellitus with hyperglycemia E10.65 Lactic acidosis E87.20 Severe sepsis A41.9; R65.20 Fall W19.XXXA Esophagitis K20.90 Hypotension I95.9 Acute metabolic encephalopathy G93.41 Hypothermia T68.XXXA Acute dehydration E86.0 Hypothyroidism E03.9 Hyperlipidemia E78.5 Generalized anxiety disorder with panic attacks F41.1; F41.0 Migraine G43.909 Orthostatic hypotension I95.1 Elevated INR R79.1 Hypocalcemia E83.51 Hypomagnesemia E83.42 Low grade fever R50.9 Hypokalemia E87.6 Time Spent (min) 35
[2024-07-22 06:35] LABS: Hematocrit (blood only) 29.8 % (37.0-47.0); Hemoglobin 9.7 g/dl (12.0-16.0); Mean Corpuscular Hgb Conc 32.6 g/dL (32.0-36.0); Mean Platelet Volume 10.3 fL (9.4-12.4); Platelet Count 322 K/uL (130-400); RDW Coefficient of Variation 14.3 % (11.5-14.5); RDW Standard Deviation 45.8 fL (36.4-46.3); Red Blood Count 3.35 M/uL (4.20-5.40); White Blood Count 8.04 K/ul (4.8-10.8)
[2024-07-22 06:47] LABS: BUN Creatinine Ratio 8.5 (10-20); Calcium 9.3 mg/dl (8.6-10.3); Potassium 3.7 mmol/L (3.5-5.1)
[2024-07-22] MEDS: CHOLECALCIFEROL 25 MCG (1000 UNITS) TAB PO SCH (08:26)
--- NOTE | 2024-07-22 12:59 | Hospitalist Progress Note ---
Date of Service July 22, 2024 Assessment & Plan (1) DKA (diabetic ketoacidosis): Plan: pharmacy to evaluate the patient, she's on insulin pump either related to non-compliance versus underlying infection (2) Uncontrolled type 1 diabetes mellitus with hyperglycemia: Plan: check glucose every 6 hours she's on insulin pump (3) Lactic acidosis: (4) Severe sepsis: Plan: her C. difficile toxin is negative ?? gastroenteritis versus PNA (5) Fall: Plan: likely need STR, declined by [facility], but case management working on [place] (6) Esophagitis: (7) Hypotension: (8) Acute metabolic encephalopathy: (9) Hypothermia: (10) Acute dehydration: (11) Hypothyroidism: (12) Hyperlipidemia: (13) Generalized anxiety disorder with panic attacks: (14) Migraine: (15) Orthostatic hypotension: (16) Elevated INR: (17) Hypocalcemia: (18) Hypomagnesemia: (19) Low grade fever: (20) Hypokalemia: Plan 74yo female with history of long-standing T1DM on insulin pump , poorly- controlled with most a1c's >10% in the record and followed by [facility] [facility] - hypothyroidism; anxiety; hyperlipidemia; migraines; vertigo - who presents from home after her son found her on the floor in the bathroom. She was unresponsive when he found her. per the patient, she was having diarrhea and abdominal pain, found to has low BP, DKA and hypothermia. treating for pneumonia and ruling out C. difficile on 07/19/, she' again has another episode of low BP in the 70s, and dizziness spell giving her ringer lactate 500cc bolus overall plan today ongoing dizziness and diarrhea and orthostatic positive repeat stool PCR, plan for CT abdomen and pelvis with oral and IV contrast can increased her midodrine dosage. add creon empirically for pancreatic insufficiency stool ova and parasites discharge more than 48 hours away son, Juan Manuel, updated over the phone diarrhea, f/u on stool PCR, her C. difficile is negative #DKA - trigger by non-compliance and a1c of 10.6 off insulin on 07/13 on sub-Q insulin she on insulin pump at home our diabetic education is working in the patient hypotension has another episode on (07/19) giving her 500cc of ringer lactate started midodrine 2.5 TID can increased midodrine to 5 TID on day of physical therapy volume overload-still on supplemental oxygen #uncontrolled, long-standing T1DM on insulin pump therapy - she currently using insulin pump * Hba1c 10.6% * follows with [facility] [facility] - Nikki Valerie [place] * special educator consult as above * pharmacy following #severe sepsis - lactic acidosis , JASMINE, Ams, hypothermia f/u stool PCR and stool toxin level. she's on augmentin * blood cx's negative * resp BioFire was negative * s/p ertapenem IV for empiric coverage (multiple abx allergies) but by report tolerated Augmentin in the past * changed ertapenem to Unasyn IV on 07/13/24, then transitioned to PO Augmentin o n 07/16 * diarrhea, C. difficle negative; and norovirus RNA pending. #b/l pneumonia -s/p IV ertapnenem, unasybn and augmentin mucinex. #JASMINE - resolved creatinine at 0.70 * 2 #Esophagitis - * cont daily PPI - will need prescription at discharge * carafate qid for 7-10 days * could have gastroparesis as well leading to the gastric/esophageal abnormalities as detected on the CTs but she denies chronic nausea and/or emesis * would send to GI post-d/c; may need EGD #acute metabolic encephalopathy related to sepsis and DKA improving per family member, following command, speaking in full sentence, thiamine * more oriented, more engaging - but still having periods of cognitive difficulties (was having issues today with her Dexcom and her phone, difficulties calculating carb coverage, etc) * CT head and brain MRI negative * depression could be feeding into this as well * B12 level 470 * in light of daily wine consumption check B1 level tomorrow then start empiric thiamine supplementation #hypothyroidism - cont synthroid 100mcg #elevated INR - * resolved * etiology uncertain but INR went from 1.4 to normal without intervention #fall, orthostatic hypotension * presumed 2nd to severe DKA +/- weakness from metabolic derangements +/- sepsis +/- hypotension / orthostatic hypotension, etc * echo 04/2024 was wnl * PT/OT * head CT neg * MRI brain negative for subacute CVA * fortunately no major injuries from her fall(s) * check B1 level * B12 level was wnl #"vertigo" - acute on chronic * several days ago patient described her chronic "vertigo" as a spinning * has had the issue for many years but it has been worse in the last few months * today she said she was having "vertigo" that lasted 15 minutes which would be unusual for inner ear based vertigo * shortly after this I asked nursing to check orthostatic BPs; she dropped 25+ points from laying to standing, with standing BP in the 60s! * make meclizine 12.5mg BID PRN * family reports seeing ENT or neuro in the past for dizziness but I cannot find any record of such * MRI brain neg #orthostatic hypotension - * gave 500cc NS bolus for her +orthos today * check daily orthostatic BPs * if it persists despite appropriate hydration consider adding midodrine or florinef * consider compression stockings * consider checking cortisol level * ultimately the orthostatic hypotension could be autonomic insufficiency from diabetic neuropathy #hypophosphatemia - * Kphos 1 tab QID * repeat level AM tomorrow #DVT proph - * heparin 5000 BID #anxiety - * cont sertraline 25mg daily (it was thought she was on such at home but actually was not --- so this is a new start) * cont buspar prn * cont ativan prn * consulted psych liaison #hypocalcemia - * albumin is low; even when correcting for such her calcium is still low * calcium gluconate 2gm x 1 today * repeat BMP/calcium/mag in am * recheck albumin AM * 25 OH Vit D level was 49 earlier this month #?pulmonary edema - * lasix x 2 doses given earlier in admission * no further lasix in light of orthostatic hypotension, electrolyte abnormalities, etc. #hypomagnesemia - * replaced, resolved * repeat mag level AM for stability #daily etoh use - * uncertain amount, but her son thinks it is likely 1 glass/night * check B1 level in am * then empiric B1 supplementation once level has been sent * no signs of etoh withdrawal will need rehab post-d/c - [facility] referral made; insurance declined [facility] and case management evaluating for [facility] Admission and Anticipated Discharge Date Admission Date: July 12, 2024 Subjective She still have diarrhea, still have dizziness with standing Still orthostatic positive will plan on repeat CT abdomen with p.o. and IV contrast Will recheck her cortisol level tomorrow Might need increase midodrine dosage during physical therapy session Review of Systems Review of Systems: Constitutional: No Weight Change, No Fever, No Chills, Cardiovascular: No Chest Pain, No SOB, No PND, No Dyspnea on Exertion, No Orthopnea, No Claudication, No Edema, No Palpitations Respiratory: No Cough, No Sputum, No Wheezing No Dyspnea Gastrointestinal: + for diarrhea; no abdominal pain, no nausea, no vomiting; no hematochezia ; no dysuria Musculoskeletal: No Arthralgias, No Myalgias, No Joint Swelling, No Joint Stiffness, No Back Pain, No Neck Pain, No Injury History S Neuro: + for dizziness and weakness Heme/Lymph: No Bruising, No Bleeding, No Transfusions History, No Lymphadenopathy Endocrine: No Polyuria, No Polydipsia, No Temperature Intolerance Physical Exam Physical Exam: VITALS: Reviewed. WEIGHT/BMI reviewed. GEN: chroncially ill appearing; pale -Head: NC/AT; -Eyes: PERRL, EOMI. No discharge or redn ess; NECK: Supple, with no masses. CV: RRR, no m/r/g. LUNGS: CTAB, no w/r/c. still on 2 liter oxygen ABD: Soft, NT/ND, NBS, no masses or organomegaly. hyperactive bowel sound; no ascites SKIN: Warm, well perfused. No skin rashes or abnormal lesions. MSK: No deformities, Normal gait. EXT: No clubbing, cyanosis, or edema. Neuro: AAox3 Results & Data Results & Data Vital Signs (Past 12 Hours) Vital Signs Temp Pulse Pulse Pulse Resp BP Pulse Ox 07/22/24 11:47 36.9 C 93 H 17 168/78 H 07/22/24 08:21 07/22/24 08:00 36.7 C 90 19 147/69 H 91 07/22/24 07:43 86 07/22/24 03:22 36.7 C 78 18 128/76 92 07/22/24 03:07 36.7 C 78 20 128/76 91 O2 Del Method O2 Flow Rate 07/22/24 11:47 Nasal Cannula 07/22/24 08:21 Nasal Cannula 3 07/22/24 08:00 Nasal Cannula 3.0 07/22/24 07:43 07/22/24 03:22 Nasal Cannula 3 07/22/24 03:07 Nasal Cannula 3 Laboratory Results Laboratory Results WBC 8.04 K/ul (4.8-10.8) 07/22/24 05:59 RBC 3.35 M/uL (4.20-5.40) L 07/22/24 05:59 Hgb 9.7 g/dl (12.0-16.0) L 07/22/24 05:59 POC Hgb 11.9 g/dl (12.0-16.0) L 07/12/24 09:32 Hct 29.8 % (37.0-47.0) L 07/22/24 05:59 POC Hct 35 % (37-47) L 07/12/24 09:32 MCV 89.0 fL (80.0-100.0) 07/22/24 05:59 MCH 29.0 pg (25.0-34.0) 07/22/24 05:59 MCHC 32.6 g/dL (32.0-36.0) 07/22/24 05:59 RDW Std Deviation 45.8 fL (36.4-46.3) 07/22/24 05:59 RDW Coeff of Xavi 14.3 % (11.5-14.5) 07/22/24 05:59 Plt Count 322 K/uL (130-400) 07/22/24 05:59 MPV 10.3 fL (9.4-12.4) 07/22/24 05:59 Immature Gran % (Auto) 0.6 % 07/14/24 04:40 Neut % (Auto) 76.8 % 07/14/24 04:40 Lymph % (Auto) 17.9 % 07/14/24 04:40 [place] % (Auto) 4.5 % 07/14/24 04:40 Eos % (Auto) 0.1 % 07/14/24 04:40 Baso % (Auto) 0.1 % 07/14/24 04:40 Neut # (Auto) 6.14 K/uL (1.40-6.50) 07/14/24 04:40 Lymph # (Auto) 1.43 K/uL (1.20-3.40) 07/14/24 04:40 [place] # (Auto) 0.36 K/uL (0.11-0.59) 07/14/24 04:40 Eos # (Auto) 0.01 K/uL (0.00-0.50) 07/14/24 04:40 Baso # (Auto) 0.01 K/uL (0.00-0.20) 07/14/24 04:40 Immature Gran # (Auto) 0.05 K/uL (0.01-0.20) 07/14/24 04:40 Neutrophils % (Manual) 58 % 07/17/24 05:51 Lymphocytes % (Manual) 22 % 07/17/24 05:51 Reactive Lymphs % (Man) 16 % 07/17/24 05:51 Monocytes % (Manual) 3 % 07/17/24 05:51 Eosinophils % (Manual) 1 % 07/17/24 05:51 Neutrophils # (Manual) 2.43 K/uL (1.40-6.50) 07/17/24 05:51 Total Absolute Neuts 2.43 K/uL (1.4-6.5) 07/17/24 05:51 Lymphocytes # (Manual) 0.92 K/uL (1.2-3.4) L 07/17/24 05:51 Reactive Lymphs # 0.67 K/uL 07/17/24 05:51 Total Abs Lymphocytes 1.59 K/uL (1.2-3.4) 07/17/24 05:51 Monocytes # (Manual) 0.13 K/uL (0.11-0.59) 07/17/24 05:51 Eosinophils # (Manual) 0.04 K/uL (0-0.50) 07/17/24 05:51 Polychromasia 1+ 07/17/24 05:51 PT 11.6 Seconds (9.0-12.0) 07/15/24 07:19 INR 1.1 (0.9-1.1) 07/15/24 07:19 VBG pH 7.32 (7.36-7.41) L 07/13/24 06:25 VBG pCO2 28 mmHg (38-50) L 07/12/24 11:08 VBG pO2 35 mmHg 07/12/24 11:08 VBG HCO3 7 mmol/L 07/12/24 11:08 VBG O2 Saturation < 60.0 % 07/12/24 11:08 VBG Base Excess -23.1 mEq/L 07/12/24 11:08 POC Sodium 132 mmol/L (135-144) L 07/12/24 09:32 Sodium 138 mmol/L (136-145) 07/22/24 05:59 POC Potassium 5.1 mmol/L (3.3-5.0) H 07/12/24 09:32 Potassium 3.7 mmol/L (3.5-5.1) 07/22/24 05:59 POC Chloride 99 mmol/L (101-112) L 07/12/24 09:32 Chloride 102 mmol/L (98-107) 07/22/24 05:59 Carbon Dioxide 32 mmol/L (21-32) 07/22/24 05:59 POC Total CO2 11 mmol/L (24-31) L 07/12/24 09:32 Anion Gap 4 (3-11) 07/22/24 05:59 POC Anion Gap 28.0 mmol/L (16-25) H 07/12/24 09:32 POC BUN 44 mg/dl (7-18) H 07/12/24 09:32 BUN 6 mg/dl (6-23) 07/22/24 05:59 Creatinine 0.71 mg/dl (0.6-1.2) 07/22/24 05:59 POC Creatinine 2.1 mg/dl (0.6-1.3) H 07/12/24 09:32 Est Cr Clr Drug Dosing 64.0 ml/min 07/22/24 05:59 eGFR 89.17 07/22/24 05:59 BUN/Creatinine Ratio 8.5 (10-20) L 07/22/24 05:59 Glucose 145 mg/dl (70-99(Fasting)) H 07/22/24 05:59 POC Glucose 146 mg/dl (70-99) H 07/22/24 08:03 POC Glucose (other) > 700 mg/dl (70-99) H* 07/12/24 09:32 Estimat Average Glucose 258 mg/dl 07/12/24 09:25 Hemoglobin A1c 10.6 % (4.5-5.6) H 07/12/24 09:25 Lactate 0.8 mmol/L (0.4-2.0) 07/20/24 08:01 Calcium 9.3 mg/dl (8.6-10.3) D 07/22/24 05:59 POC Ioniz Calcium [place] 1.07 mmol/l (1.12-1.32) L 07/12/24 09:32 Ionized Calcium 0.98 mmol/L (1.12-1.32) L 07/21/24 05:07 Phosphorus 2.4 mg/dl (2.5-4.9) L 07/18/24 06:07 Magnesium 1.7 mg/dl (1.7-2.4) 07/17/24 05:51 Iron 36 mcg/dl (35-150) 07/15/24 05:41 TIBC 186 mcg/dl (250-450) L 07/15/24 05:41 Transferrin 133 mg/dl (200-360) L 07/15/24 05:41 Transferrin % Sat 19 % (15-50) 07/15/24 05:41 Ferritin 817.0 ng/ml (8-388) H 07/15/24 05:41 Total Bilirubin 1.1 mg/dl (0.2-1.0) H 07/12/24 09:25 AST 28 U/L (13-39) 07/12/24 09:25 ALT 13 U/L (7-52) 07/12/24 09:25 Alkaline Phosphatase 75 U/L (34-104) 07/12/24 09:25 Ammonia 35.0 umol/L (18-72) 07/12/24 13:14 Total Creatine Kinase 401 U/L (26-192) H 07/12/24 09:25 Troponin I High Sens 48.8 pg/ml (0-14) H 07/12/24 11:08 Total Protein 6.6 gm/dl (6.0-8.3) 07/12/24 09:25 Albumin 2.4 gm/dl (3.4-5.0) L 07/18/24 06:07 Globulin 3.2 gm/dl (2.5-4.0) 07/12/24 09:25 Albumin/Globulin Ratio 1.1 (0.9-2) 07/12/24 09:25 Vitamin B12 470 pg/ml (180-914) 07/14/24 04:40 Folate 7.00 ng/ml (>5.38) 07/14/24 04:40 Procalcitonin 3.91 ng/ml (0-0.5) H 07/12/24 09:25 TSH 4.144 uIu/ml (0.300-4.500) 07/12/24 09:25 Urine Color Yellow 07/16/24 17:35 Urine Appearance Clear (Clear) 07/16/24 17:35 Urine pH 5.5 (4.5-7.5) 07/16/24 17:35 Ur Specific [place] >= 1.030 (1.000-1.030) 07/16/24 17:35 Urine Protein 2+ (Negative) H 07/16/24 17:35 Urine Glucose (UA) 2+ (Negative) H 07/16/24 17:35 Urine Ketones Negative (Negative) 07/16/24: Urine Blood 1+ (Negative) H 07/16/24:35 Urine Nitrite Negative (Negative) 07/16/24 17:35 Urine Bilirubin Negative (Negative) 07/16/24 17:35 Urine Urobilinogen Negative (Negative) 07/16/24:35 Ur Leukocyte Esterase Negative (Negative) 07/16/24 17:35 Urine WBC (Auto) 0-5 /hpf (0-5) 07/12/24 10:22 Urine RBC (Auto) 0-2 /hpf (0-2) 07/12/24 10:22 U Hyaline Cast (Auto) 0-2 /lpf (0-2) 07/12/24 10:22 U Epithel Cells (Auto) 0-2 /hpf (0-2) 07/12/24 10:22 Urine Bacteria (Auto) None Seen (None Seen) 07/12/24 10:22 Urine RBC 0-2 /hpf (0-2) 07/16/24 17:35 Urine WBC 6-10 /hpf (0-5) H 07/16/24 17:35 Ur Epithelial Cells >20 /hpf (0-2) H 07/16/24 17:35 Urine Bacteria 4+ (None Seen) H 07/16/24 17:35 Hyaline Casts Present /lpf (None Presnt) A 07/16/24 17:35 Granular Casts P /lpf (None Prsent) 07/16/24 17:35 Urine Mucus Present (None Prsent) A 07/12/24 10:22 Nasal Screen MRSA (PCR) Negative (Negative) 07/12/24 Unknown Stl C. diff Tox B Gene Negative Cdiff Gene (Neg) 07/18/24 Unknown SARS-CoV-2 (PCR) NEGATIVE (Negative) 07/16/24 09:25 Influenza Type A (PCR) Negative (Neg) 07/16/24 09:25 Influenza Type B (PCR) Negative (Neg) 07/16/24 09:25 Norovirus RNA (PCR) NOT DETECTED 07/18/24 Unknown RSV (RT-PCR) Negative (Neg) 07/16/24 09:[address] 07/12/24 09:17 CT cervical spine wo con CT DOSE: 1944.79 mGy.cm CLINICAL HISTORY: on floor, ams. COMPARISON: None TECHNIQUE: Multiple axial CT images of the cervical spine were obtained without contrast. A dose lowering technique was utilized adhering to the principles of ALARA. FINDINGS: There is moderate diffuse degenerative disc disease. No fracture or subluxation. IMPRESSION: No cervical spine fracture seen. ACT 112: Negative or not required by law. The above report was generated using voice recognition software. It may contain grammatical, syntax or spelling errors. Electronically signed by: Bc Suarez M.D. 07/12/2024 10:[address] 07/12/24 09:18 CT SCAN OF THE BRAIN WITHOUT IV CONTRAST CLINICAL HISTORY: Altered mental status. Possible fall. COMPARISON STUDY: None. TECHNIQUE: Unenhanced axial CT scan of the brain was performed from the vertex to the skull base. A dose lowering technique was utilized adhering to the principles of ALARA. FINDINGS: Brain parenchyma: Mild motion artifact. No acute intracranial hemorrhage, midline shift or mass effect is present. Gomez-white matter differentiation is preserved. There are no extra-axial fluid collections. There are no findings to suggest acute dural sinus thrombosis or acute territorial infarct. Ventricles, sulci, cisterns: There is no hydrocephalus. The basal cisterns are patent. Calvarium: No calvarial fractures. Sinuses and mastoids: The visualized paranasal sinuses are clear. The mastoid air cells are well pneumatized. Orbits: The bony orbits are grossly intact. IMPRESSION: 1. No acute intracranial findings. 2. No calvarial fractures. ACT 112: Negative or not required by law. Electronically signed by: Ag Griffiths M.D. 07/12/2024 10:24 AM Abdomen/Pelvis CT 07/12/24 09:[address] WITHOUT CONTRAST CT DOSE: 1945 HISTORY: ams, on floor, DKA TECHNIQUE: Multiaxial CT images of the abdomen and pelvis were performed without contrast. A dose lowering technique was utilized adhering to the principles of ALARA. COMPARISON STUDY: None FINDINGS: ABDOMEN: There is motion artifact. Liver, gallbladder, spleen, pancreas, and adrenal glands have an unremarkable non-IV contrast appearance. There is a small nonobstructing calculus at the left kidney. There is no hydronephrosis bilaterally. No abdominal aortic aneurysm. There is mild distention of the stomach with gas and fluid and the distal esophagus is mildly distended with fluid. Pelvis: Uterus and adnexal regions are grossly unremarkable. Buenrostro catheter is present. Urinary bladder is nondistended. No bowel inflammation or obstruction seen. No free fluid, free air, or abscess. No enlarged adenopathy. Osseous structures: There is mild chronic-appearing height loss at the L1 vertebral body. No acute osseous finding seen. IMPRESSION: 1. No acute findings seen. 2. Mild distention of the stomach with gas and fluid and mild fluid distention of the distal esophagus. ACT 112: Negative or not required by law. The above report was generated using voice recognition software. It may contain grammatical, syntax or spelling errors. Electronically signed by: Bc Suarez M.D. 07/12/2024 10:[address] 07/12/24 09:33 CT chest diagnostic wo con CT DOSE: 1944.79mGy*cm CLINICAL HISTORY: Altered mental status; found on the floor TECHNIQUE: Multiaxial CT images of the chest were performed without contrast. Sagittal and coronal reconstructions were done. A dose lowering technique was utilized adhering to the principles of ALARA. COMPARISON STUDY: None FINDINGS: There is no definite chest wall injury identified. Spurious defect in the sternum is felt to be misregistration due to motion. There is patchy discoid atelectasis in both lung bases. There is no air space o pacity suggestive of a pneumonia or contusion. There is no pneumothorax. The upper airway is unremarkable. There is mild prominence of the superior mediastinal lymph nodes and supraclavicular lymph nodes with no evidence of matting or necrosis. There is mild ectasia of the ascending aorta. There is no pericardial effusion. There is mild coronary artery calcification. There is a thickening of the freeman of the distal esophagus. The upper abdominal images are noncontributory. The thoracic spine shows no evidence of acute compression fracture or malalignment. IMPRESSION: No definite evidence of acute traumatic thoracic injury. Mild ectasia of the ascending aorta. Relative low attenuation of the lumen raises the possibility of anemia. Nonspecific and discoid atelectasis at the lung bases. Esophageal wall thickening. Consider correlation with esophagram Mild prominence of the superior mediastinal and supraclavicular lymph nodes are nonspecific. ACT 112: Negative or not required by law. Electronically signed by: Debra Dutton M.D. 07/12/2024 10:25 AM Brain MRI 07/15/24 14:57 EXAM: MR brain wo con CLINICAL HISTORY: Altered MS, recent DKA, recent fall TECHNIQUE: MRI of the brain was performed without contrast with multiplanar sequences obtained. COMPARISON: 07/12/2024 CT. FINDINGS: Brain Parenchyma: Mild involutional age-related brain changes in the form of deep sulci and mildly dilated ventricles. No evidence of acute infarction or hemorrhage. Normal gomez-white matter differentiation. No mass lesions or focal cortical abnormalities were identified. No evidence of hydrocephalus or ventriculomegaly. Posterior Fossa: The cerebellum and brainstem appear normal without evidence of mass lesions or signal abnormalities. Cranial Nerves: Normal course and appearance of cranial nerves identified. Vessels: No evidence of vascular malformations or aneurysms. Intracranial arteries and veins appear normal without evidence of stenosis or occlusion. Orbits and Skull Base: Orbits and skull base structures are normal without evidence of abnormalities. IMPRESSION: 1. No acute intracranial abnormality was identified. 2. Mild involutional age-related brain changes. Stable. Electronically signed by Ned Wu 07-15-2024 5:27 PM Chest X-Ray 07/20/24 08:16 XR chest 1V portable CLINICAL HISTORY: assess for volume overload and PNA COMPARISON STUDY: 07/16/2024 FINDINGS: Stable cardiomegaly with pulmonary vascular congestion. There are increased small to moderate bilateral pleural effusions with lower lobe consolidation. No pneumothorax. IMPRESSION: CHF with increased pleural effusions and lower lung consolidation. ACT 112: Negative or not required by law. Electronically signed by: Bc Suarez M.D. 07/20/2024 9:46 AM Medications Administered Current Inpatient Medications Lipase/Protease/Amylase (Pancreaze (Lipase 10,500u) Cap) 3 cap PO ACHS [facility] Stop: 08/19/24 11:29 Last Admin: 07/22/24 12:07 Dose: 3 cap Atorvastatin Calcium (Atorvastatin 40 Mg Tab) 80 mg PO HS [facility]E Stop: 08/12/24 20:59 Last Admin: 07/21/24 20:32 Dose: 80 mg Benzonatate (Benzonatate 100 Mg Capsule) 100 mg PO TID PRN PRN Reason: Cough Stop: 08/19/24 20:29 Last Admin: 07/21/24 20:31 Dose: 100 mg Buspirone HCl (Buspirone 5 Mg Tab) 5 mg PO BID PRN PRN Reason: anxiety Stop: 08/12/24 08:25 Calcium/Vitamin D (Calcium 600mg + Vit D 400 Iu Tab) 1 tab PO BID [facility]E Stop: 08/12/24 08:59 Last Admin: 07/22/24 08:25 Dose: 1 tab Dextrose (Dextrose 50% 50 Ml Syringe) 25 - 50 ml IV UD PRN; Protocol PRN Reason: Hypoglycemia Protocol Stop: 08/14/24 06:14 Folic Acid (Folic Acid 1 Mg Tab) 1 mg PO QAM [facility] Stop: 08/14/24 08:59 Last Admin: 07/22/24 08:25 Dose: 1 mg Glucagon (Glucagon For Inj 1 Mg Vial) 1 mg SQ UD PRN; Protocol PRN Reason: Hypoglycemia Protocol Stop: 08/14/24 06:14 Glucose (Glucose 40% Gel 15 Gm Tube) 15 - 30 gm PO UD PRN; Protocol PRN Reason: Hypoglycemia Protocol Stop: 08/14/24 06:14 Glucose (Glucose 10 Tab/Tube) 4 - 8 tab PO UD PRN; Protocol PRN Reason: Hypoglycemia Protocol Stop: 08/14/24 06:14 Guaifenesin (Guaifenesin Sugar Free 100 Mg/5 Ml Udc) 100 mg PO QID [facility]E Stop: 08/13/24 12:59 Last Admin: 07/22/24 12:07 Dose: 100 mg Heparin Sodium (Porcine) (Heparin Sod 5,000 Unit/0.5 Ml Vial) 5,000 units SQ Q12 [facility] Stop: 08/11/24 20:59 Last Admin: 07/22/24 08:26 Dose: 5,000 units Thiamine HCl 100 mg/ Syringe 10 mls @ 2 mls/min IV QAM [facility] Stop: 08/17/24 08:59 Last Admin: 07/22/24 08:23 Dose: 2 mls/min Insulin Aspart (Insulin, Rapid-Acting Pump) 0 each SC [facility]; Protocol Stop: 08/16/24 08:29 Last Admin: 07/22/24 12:43 Dose: 4.65 each Insulin Aspart (Insulin Aspart 100 Units/Ml Vial) 0 units SC PRN PRN PRN Reason: Insulin (Rapid-Acting) Pump Refill Stop: 08/16/24 08:15 Last Admin: 07/17/24 11:18 Dose: 1,000 units Levothyroxine Sodium (Levothyroxine Sodium 100 Mcg Tablet) 100 mcg PO [id number]@0900 [facility] Stop: 08/12/24 08:59 Last Admin: 07/22/24 08:24 Dose: 100 mcg Lorazepam (Lorazepam 1 Mg Tab) 1 mg PO DAILY PRN PRN Reason: panic attack(s) / anxiety Stop: 08/12/24 08:25 Meclizine HCl (Meclizine 12.5 Mg Tab) 12.5 mg PO BID PRN PRN Reason: Vertigo Stop: 08/12/24 13:14 Last Admin: 07/18/24 08:23 Dose: 12.5 mg Midodrine (Midodrine Hcl 2.5 Mg Tab) 2.5 mg PO TID@0800,1200,1700 [facility] Stop: 08/18/24 15:14 Last Admin: 07/22/24 12:13 Dose: Not Given Miscellaneous (Carbohydrates For Hypoglycemia ) 15 - 30 gm PO UD PRN PRN Reason: Hypoglycemia Treatment Stop: 08/14/24 06:14 Last Admin: 07/15/24 00:30 Dose: 15 gm Miscellaneous (Continuous Glucose Monitor) 0 each N/A ACHS [facility] Stop: 08/16/24 08:29 Last Admin: 07/22/24 12:07 Dose: 1 each Pantoprazole Sodium (Pantoprazole 40 Mg Tab) 40 mg PO QAM [facility] Stop: 08/13/24 08:59 Last Admin: 07/22/24 08:24 Dose: 40 mg Potassium Phosphate (Pot Phosphate Monobasic W/ Sod Tab) 1 tab PO QID [facility] Stop: 08/14/24 09:14 Last Admin: 07/22/24 12:41 Dose: 1 tab Sertraline HCl (Sertraline Hcl 50 Mg Tablet) 25 mg PO DAILY [facility] [place] Stop: 08/12/24 08:59 Last Admin: 07/22/24 08:25 Dose: 25 mg Sucralfate (Sucralfate 1 Gm/10 Ml Udc) 1 gm PO QID [facility] [place] Stop: 08/12/24 16:59 Last Admin: 07/22/24 12:07 Dose: 1 gm Vitamin D (Cholecalciferol 25 Mcg (1000 Units) Tab) 50 mcg PO QAM [facility] Stop: 08/21/24 08:59 Last Admin: 07/22/24 08:26 Dose: 50 mcg PG Care Time/CCT Total # of Minutes Spent Total Time Spent with Patient: Total time spent is greater than 50% in coordination of care (as documented) at patient's floor/unit and/or counseling patient: Coding Level of Care Code 12099 SUB INP/OBS CARE 2/35MIN Diagnoses DKA (diabetic ketoacidosis) E11.10 Uncontrolled type 1 diabetes mellitus with hyperglycemia E10.65 Lactic acidosis E87.20 Severe sepsis A41.9; R65.20 Fall W19.XXXA Esophagitis K20.90 Hypotension I95.9 Acute metabolic encephalopathy G93.41 Hypothermia T68.XXXA Acute dehydration E86.0 Hypothyroidism E03.9 Hyperlipidemia E78.5 Generalized anxiety disorder with panic attacks F41.1; F41.0 Migraine G43.909 Orthostatic hypotension I95.1 Elevated INR R79.1 Hypocalcemia E83.51 Hypomagnesemia E83.42 Low grade fever R50.9 Hypokalemia E87.6
[2024-07-22] MEDS: OPTIRAY 320 100ml IV ONE (16:51)
--- NOTE | 2024-07-22 18:15 | CT Scan Report ---
EXAM: CT abd pelvis oral and IV con CLINICAL HISTORY: diarrhea, r/o colitis, stones, prostatitis TECHNIQUE: CT of the abdomen and pelvis was performed with contrast, with the following protocol: axial images, and reconstructed coronal and sagittal images. One of the following dose reduction techniques was utilized for this exam: Automated exposure control, adjustment of the mA and/or kV according to patient size, and use of iterative reconstruction. COMPARISON: Comparison is made with the Ct dated 07/12/2024 FINDINGS: Abdomen: Liver: Normal in size, shape, and density. A tiny calcific focus is seen at its dome, measuring about 3 mm. No focal lesions, cysts, or masses were identified. Hepatic vasculature and biliary ducts are unremarkable. Gallbladder and Biliary System: The gallbladder is inadequately distended The common bile duct is normal in caliber without dilation. Pancreas: The pancreatic head, body, and tail are visualized and appear normal in size and density. No pancreatic masses or calcifications were noted. The pancreatic duct is not dilated. Spleen: Normal in size, shape, and density. No splenic lesions or masses were identified. Appendix: Cannot be traced yet, no right iliac fossa inflammatory changes. Kidneys and Adrenal Glands: Both kidneys are normal in size, shape, and position. Cortical thickness is within normal limits. No hydronephrosis. left lower calyceal stone measuring about 3 mm and of mean CT density 700 HU Adrenal glands are unremarkable with no evidence of masses or hyperplasia. Pelvis: Urinary Bladder: Normal in contour and wall thickness. No intraluminal lesions identified. Uterus: Normal in size and contour, showing a mildly thickened endometrium measuring about 6 mm. No masses or abnormal thickening. Ovaries: Not well visualized, but no gross abnormalities noted. Peritoneal and Retroperitoneal Structures: Small aort-caval lymph nodes are seen; the largest measures about 7.5 mm at its short axis. Newly developed mild pelvic collection with a tendency to be localized at the doglus pouch Bowel: The visualized bowel loops are normal in caliber and appearance. No evidence of bowel obstruction or wall thickening. Bones and Soft Tissues: Pelvic bones and soft tissues are unremarkable. No fractures or abnormal masses were identified. L1 upper end plate schmorl nodule lower chest cuts: newly developed bilateral moderate effusion and minimal pericardial effusion diffuse subcutaneous soft tissue edema IMPRESSION: 1. Newly developed mild pelvic collection localized at the doglus pouch. 2. Lower chest cuts: newly developed bilateral large pleural effusions and minimal pericardial effusion. 3. Left lower-clayceal non-obstructing stone. (unchanged). 4. Mildly thickened endometrium (can not be compared). 5. Newly developed mild diffuse subcutaneous soft tissue edema. Electronically signed by Ned Wu 07-22-2024 6:15 PM
--- NOTE | 2024-07-22 18:19 | CT Scan Report ---
EXAM: CT chest diagnostic wo con CLINICAL HISTORY: dizziness, r/o empyema, pneumonia TECHNIQUE: Contiguous axial CT images of the chest were acquired without intravenous contrast administration. Coronal and sagittal reconstructions were obtained. One of the following dose reduction techniques was utilized for this exam: Automated exposure control, adjustment of the mA and/or kV according to patient size, and use of iterative reconstruction. COMPARISON: 07/12/2024 FINDINGS: Lungs: newly developed bilateral moderate pleural effusion more on the left side associated with relaxation collapse of almost the lower lung lobes bilaterally, with sparing the superior segment bilaterally and the anterior segment on the right newly developed minimal pericardial effusion. No pulmonary nodules or masses are identified. No evidence of interstitial lung disease or emphysema. Mediastinum: The mediastinum is normal in size and contour. No mediastinal mass or abnormal lymphadenopathy. mild cardiomegaly mild dilated ascending aorta measuring about 3.3 cm. Hilar Structures: The hilar structures appear normal without enlargement or abnormality. Trachea and Main Bronchi: The trachea and main bronchi are patent without evidence of obstruction or abnormality. Chest Wall: The chest wall is unremarkable, and there is no evidence of soft tissue or bony abnormalities. Bones: Visualized osseous structures are normal, with no evidence of fracture or lytic/sclerotic lesions. IMPRESSION: 1. Newly developed bilateral moderate pleural effusion more on the left side associated with consolidation and atelectasis of almost the lower lung lobes bilaterally, with sparing the superior segment bilaterally and the anterior segment on the right. 2. Newly developed minimal pericardial effusion. 3. Mild cardiomegaly.(unchanged) Electronically signed by Ned Wu 07-22-2024 6:19 PM
[2024-07-23 07:52] LABS: Hematocrit (blood only) 30.2 % (37.0-47.0); Hemoglobin 9.9 g/dl (12.0-16.0); Mean Corpuscular Hemoglobin 29.2 pg (25.0-34.0); Mean Corpuscular Hgb Conc 32.8 g/dL (32.0-36.0); Mean Corpuscular Volume 89.1 fL (80.0-100.0); Mean Platelet Volume 9.8 fL (9.4-12.4); Platelet Count 349 K/uL (130-400); RDW Coefficient of Variation 14.3 % (11.5-14.5); RDW Standard Deviation 46.6 fL (36.4-46.3); Red Blood Count 3.39 M/uL (4.20-5.40); White Blood Count 6.62 K/ul (4.8-10.8)
[2024-07-23 08:09] LABS: BUN Creatinine Ratio 5.6 (10-20); Calcium 7.8 mg/dl (8.6-10.3); Creatinine Clr Calc Pharmacy 63.1 ml/min; Potassium 3.4 mmol/L (3.5-5.1)
[2024-07-23] MEDS: FLUDROCORTISONE ACETATE 0.1 MG TAB PO SCH (08:24)
--- NOTE | 2024-07-23 11:58 | Fluoroscopy Report ---
FL video swallow CLINICAL HISTORY: 74 years-old Female with r/o aspiration. Dysphagia with possible aspiration TECHNIQUE: Video fluoroscopic evaluation of swallowing was performed in the AP and lateral projection s by the speech pathology staff. The patient is fed varying consistencies of barium. FLUOROSCOPY TIME: 59 seconds. 1779 images were obtained. 4.29. mGy COMPARISON STUDY: Chest CT 07/22/2024 FINDINGS: There is normal hyoid excursion and epiglottic deflection. No significant penetration or as piration identified. Swallowing function is within normal limits. IMPRESSION: 1. No aspiration identified. 2. Please see the speech pathologist report for detailed findings and recommendations. ACT 112: Negative or not required by law. Electronically signed by: Remy Carrera M.D. 07/23/2024 11:57 AM
--- NOTE | 2024-07-23 13:50 | Gastrointestinal Consultation ---
<Statement entered by Davy Muñoz MD - 07/23/24 16:37> I have reviewed the history, physical exam, lab and imaging findings as dictated by the mid-level provider, made any necessary modifications, and agree with the stated assessment and recommendations. A total of 55 minutes was spent in the chart/data review, direct observation, decision making and discussion of this case with the mid level provider, patient/family and other providers. Date of Consultation July 23, 2024 Assessment & Plan (1) Diarrhea: Improved. Now with formed stools. Likely diarrhea has been multifactorial - related to acute illness, meds/antibiotics/altered shyam, perhaps other factors (diabetic enteropathy) - as it is fairly new and now perhaps resolving Appears that O&P testing, fecal calprotectin, & fecal elastase was ordered by primary team. C diff has been negative. CT without overt lower GI abnormalities. Dr. Muñoz and I evaluated bedside--would try increasing fiber intake. Ensure a stool culture for E coli/Salmonella/Shigella/Campylobacter was performed. If diarrhea persists, could consider colonoscopy when she is medically stable from a pulm standpoint, but at present discussed conservative management with patient and son. History of Present Illness Reason for Consultation: diarrhea Attending Physician: Sangeeta Reeder DO History of Present Illness Patient is a 74 yo female hospitalized with DKA, sepsis, possible pneumonia, and concern for diarrhea x 6 weeks. At the time of our visit, the patient acknowledges that the stool has been forming, as has the hospitalist. Patient last had a colonoscopy in 2021 without acute concerns. No associated lower abdominal cramping. No GI bleeding. C diff negative. It appears pancreatic elastase was ordered along with stool calprotectin and O&P tests. CT abdomen/pelvis indicates: IMPRESSION: 1. Newly developed mild pelvic collection localized at the Mj pouch. 2. Lower chest cuts: newly developed bilateral large pleural effusions and minimal pericardial effusion. 3. Left lower-clayceal non-obstructing stone. (unchanged). 4. Mildly thickened endometrium (can not be compared). 5. Newly developed mild diffuse subcutaneous soft tissue edema. Allergies Allergy/AdvReac Type Severity Reaction Status Date / Time Bactrim Allergy Severe "ALMOST Verified 08/06/15 11:18 " sulfamethoxazole Allergy Severe "ALMOST Verified 05/23/24 13:33 " trimethoprim Allergy Severe "ALMOST Verified 05/23/24 13:33 " cefaclor Allergy Mild Rash Verified 05/23/24 13:33 cefuroxime [From Ceftin] Allergy Mild Rash Verified 05/23/24 13:33 cephalexin Allergy Mild Rash Verified 05/23/24 13:33 Cephalosporins Allergy Mild ALLERGY TO Verified 05/23/24 13:33 CEFTIN & CECLOR lisinopril AdvReac Mild Nausea Verified 05/23/24 13:33 Home Medications Medication Instructions Recorded Confirmed Type ibuprofen 200 mg tablet (Motrin IB) 400 mg PO BID PRN Pain 11/24/18 07/12/24 History rizatriptan 10 mg tablet 10 mg PO UD PRN Migraine Headache 11/24/18 07/12/24 History blood sugar diagnostic (FreeStyle #10 ea 09/05/20 05/23/24 History Lite Strips) cholecalciferol (vitamin D3) 25 75 mcg PO DAILY 01/06/23 07/12/24 History mcg (1,000 unit) capsule cbd caps 1 tab PO DAILY PRN Other 02/18/23 07/12/24 History levocetirizine 5 mg tablet (Xyzal) 2.5 mg PO DAILY PRN Other 02/18/23 07/12/24 History insulin pump cartridge,automated #1 ea 05/27/23 05/23/24 Rx dose,BT with controller subcutaneous (Omnipod 5 G6 Intro Kit (Gen 5) subcutaneous cartridge with controller) buspirone 10 mg tablet 5 - 10 mg (0.5 - 1 x 10 mg) PO BID 08/24/23 07/12/24 Rx PRN anxiety #60 tabs pen needle, diabetic 32 gauge x #400 ea 12/19/23 05/23/24 Rx 5/32" (BD Kitty 2nd Gen Pen Needle) acetone (urine) test (Ketostix #25 ea 12/26/23 05/23/24 Rx strips) glucagon (human recombinant) 1 mg 1 mg .Route Q20M PRN hypoglycemia 12/26/23 07/12/24 Rx solution for injection #1 ea blood-glucose sensor (Dexcom G7 #3 ea 04/03/24 05/23/24 Rx Sensor device) denosumab 60 mg/mL subcutaneous 60 mg subcut UD 04/13/24 07/12/24 History syringe (Prolia) levothyroxine 100 mcg tablet 100 mcg PO DAILY 04/30/24 07/12/24 History insulin aspart U-100 100 unit/mL 15 unit (0.15 mL) subcut DAILY #15 05/22/24 07/12/24 Rx (3 mL) subcutaneous pen (Novolog mL FlexPen U-100 Insulin aspart) hydralazine 10 mg tablet 10 mg PO PRN #60 tabs 05/25/24 07/12/24 Rx lorazepam 1 mg tablet 1 mg PO DAILY PRN panic attack(s) 06/28/24 07/12/24 Rx #30 tabs Omnipod 5 G6-G7 Pods (Gen 5) #10 ea 06/29/24 Rx (insulin pump cart,auto,BT,G6/7) atorvastatin 80 mg tablet 80 mg PO UD 07/12/24 07/12/24 History ezetimibe 10 mg tablet 10 mg PO UD 07/12/24 07/12/24 History insulin aspart U-100 100 unit/mL 70 unit continuous subcutaneous 07/12/24 07/12/24 History subcutaneous solution (Novolog infusion UD U-100 Insulin aspart) losartan 25 mg tablet 12.5 mg PO UD 07/12/24 07/12/24 History mupirocin 2 % topical ointment 1 applic topical UD 07/12/24 07/12/24 History sertraline 25 mg tablet 25 mg PO UD 07/12/24 07/12/24 History Lantus Solostar U-100 Insulin 100 14 unit (0.14 mL) subcut DAILY #15 07/19/24 Rx unit/mL (3 mL) subcutaneous pen mL (insulin glargine) Patient History Medical History Uncontrolled type 1 diabetes mellitus with hyperglycemia Orthostatic hypotension Lichen sclerosus et atrophicus of the vulva Osteoporosis Vitamin D deficiency Diabetic retinopathy Hypothyroidism Hyperlipidemia Hypertension Generalized anxiety disorder with panic attacks Seasonal allergies uses symbicort rarely Osteoarthritis Migraine Hypertension Surgical History Hx of right cataract extraction Hx of bilateral cataract extraction History of open reduction and internal fixation (ORIF) procedure right wrist---with a carpal tunnel repair at same time---hardware in place History of open reduction and internal fixation (ORIF) procedure left wrist--hardware in place History of bronchoscopy NELLIE lung infection History of bilateral tubal ligation History of tooth extraction History of wisdom tooth extraction History of tonsillectomy and adenoidectomy Family History Grandfather (Maternal) Family hx of colon cancer Colorectal cancer Grandmother (Maternal) Myocardial infarction, Onset Age: 50 lived until 99 years old. Mother Myocardial infarction Coded during angioplasty, CABG x3. COPD (chronic obstructive pulmonary disease) Other No family history of adverse response to anesthesia Denies family history of Ovarian cancer Prostate cancer Diabetes Breast cancer Lung cancer Stroke Social History Smoking Status: Never smoker Second Hand Exposure: No; Do You Dip or Chew Tobacco: No; Tobacco Cessation Education Requested by Patient: No Hx Alcohol Use: Yes Alcohol type: wine Alcohol type Comment: 1 glass with dinner Alcohol Intake Frequency: 4 or More x per/Week Alcohol Intake Frequency Comment: 1 glass of wine each night Hx Substance Use: No Preferred Language: Haitian Communication Ability: Impaired Visual Impairment: Limited Hearing Ability: Normal Tuberculosis Specialist Required: No Beliefs That Will Affect Care: None marital status: / Current Living Situation: Alone current occupational status: 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 How many Children do You have: 6 Other Information That Helps Us Care for You: No Feels Safe at Home: Yes Safety Concerns: Feels Safe At This Time Childhood Exposure to Second-Hand Smoke: Yes Diet: DASH, diabetic and low salt caffeine: Yes Dental Care, Regularly: Yes Physical Activity Frequency: 3-4 Times per Week Seatbelt Use: always Sunscreen Use: Yes Assistive Devices: None Review of Systems Constitutional: no fever and no chills Respiratory: + dyspnea on exertion Cardiovascular: + chest pain Gastrointestinal: + diarrhea/loose stools; no abdominal pa in and no blood in stools Physical Exam Gastrointestinal (Abdomen): normal bowel sounds, soft, nontender, no hepatosplenomegaly Results & Data Vital Signs (Past 12 Hours) Vital Signs Temp Pulse Resp BP Pulse Ox O2 Del Method O2 Flow Rate 07/23/24 12:18 36.7 C 73 20 98/55 L 91 Nasal Cannula 6 07/23/24 08:31 36.7 C 79 22 129/62 90 Nasal Cannula 6 07/23/24 04:01 36.7 C 81 18 131/68 90 Nasal Cannula 5.0 PG Care Time/CCT Total # of Minutes Spent Total Time Spent with Patient: Total time spent is greater than 50% in coordination of care (as documented) at patient's floor/unit and/or counseling patient: Coding Level of Care Code 18844 INT INP/OBS CARE 3/75MIN Diagnoses Diarrhea R19.7
--- NOTE | 2024-07-23 14:30 | Hospitalist Progress Note ---
Date of Service July 23, 2024 Assessment & Plan (1) DKA (diabetic ketoacidosis): Plan: pharmacy to evaluate the patient, she's on insulin pump either related to non-compliance versus underlying infection (2) Uncontrolled type 1 diabetes mellitus with hyperglycemia: Plan: check glucose every 6 hours she's on insulin pump (3) Lactic acidosis: (4) Severe sepsis: Plan: her C. difficile toxin is negative ?? gastroenteritis versus PNA (5) Fall: Plan: likely need STR, declined by [facility], but case management working on [place] (6) Esophagitis: (7) Hypotension: (8) Acute metabolic encephalopathy: (9) Hypothermia: (10) Acute dehydration: (11) Hypothyroidism: (12) Hyperlipidemia: (13) Generalized anxiety disorder with panic attacks: (14) Migraine: (15) Orthostatic hypotension: (16) Elevated INR: (17) Hypocalcemia: (18) Hypomagnesemia: (19) Low grade fever: (20) Hypokalemia: Plan 74yo female with history of long-standing T1DM on insulin pump , poorly- controlled with most a1c's >10% in the record and followed by [facility] Endo/DM clinic - hypothyroidism; anxiety; hyperlipidemia; migraines; vertigo - who presents from home after her son found her on the floor in the bathroom. She was unresponsive when he found her. per the patient, she was having diarrhea and abdominal pain, found to has low BP, DKA and hypothermia. treating for pneumonia and ruling out C. difficile on , she' again has another episode of low BP in the 70s, and dizziness spell giving her ringer lactate 500cc bolus overall plan today ongoing dizziness and diarrhea and orthostatic positive, can begin compression stocking. increasing midodrine dosage repeat stool PCR, plan for CT abdomen and pelvis with oral and IV contrast can increased her midodrine dosage. add creon empirically for pancreatic insufficiency stool ova and parasites discharge more than 48 hours away son, Juan Manuel, updated over the phone diarrhea started 4-6 weeks ago improving holding her potassium tablet GI consulted, noted she's has colonoscpy within past one year b/l pleural effusion, pulmonary team consulted. need both diagnostic and therapeutics thoracentesis #DKA - trigger by non-compliance and a1c of 10.6 off insulin on 07/13 on sub-Q insulin she on insulin pump at home our diabetic education is working in the patient hypotension has another episode on (07/19) giving her 500cc of ringer lactate she's again has another orthostatic hypotension on 07/23/2024 started midodrine 2.5 TID can increased midodrine to 5 TID on day of physical therapy volume overload-still on supplemental oxygen hold diuretics. #uncontrolled, long-standing T1DM on insulin pump therapy - she currently using insulin pump * Hba1c 10.6% * follows with [facility] Endo/DM clinic - Nikki Valerie [place] * community health educator consult as above * pharmacy following #severe sepsis - lactic acidosis , JASMINE, Ams, hypothermia f/u stool PCR and stool toxin level. she's on augmentin * blood cx's negative * resp BioFire was negative * s/p ertapenem IV for empiric coverage (multiple abx allergies) but by report tolerated Augmentin in the past * changed ertapenem to Unasyn IV on 07/13/24, then transitioned to PO Augmentin on 07/16 * diarrhea, C. difficle negative; and norovirus RNA pending. #b/l pneumonia -s/p IV ertapnenem, unasybn and augmentin mucinex. #JASMINE - resolved creatinine at 0.70 * 2 #Esophagitis - * cont daily PPI - will need prescription at discharge * carafate qid for 7-10 days * could have gastroparesis as well leading to the gastric/esophageal abnormalities as detected on the CTs but she denies chronic nausea and/or emesis * would send to GI post-d/c; may need EGD #acute metabolic encephalopathy related to sepsis and DKA improving per family member, following command, speaking in full sentence, thiamine improved. * more oriented, more engaging - but still having periods of cognitive difficulties (was having issues today with her Dexcom and her phone, difficulties calculating carb coverage, etc) * CT head and brain MRI negative * depression could be feeding into this as well * B12 level 470 * in light of daily wine consumption check B1 level tomorrow then start empiric thiamine supplementation #hypothyroidism - cont synthroid 100mcg #fall, orthostatic hypotension placement to short term rehab CT negative #"vertigo" - acute on chronic * several days ago patient described her chronic "vertigo" as a spinning * has had the issue for many years but it has been worse in the last few months * today she said she was having "vertigo" that lasted 15 minutes which would be unusual for inner ear based vertigo * shortly after this I asked nursing to check orthostatic BPs; she dropped 25+ points from laying to standing, with standing BP in the 60s! * make meclizine 12.5mg BID PRN * family reports seeing ENT or neuro in the past for dizziness but I cannot find any record of such * MRI brain neg #hypophosphatemia - * Kphos 1 tab QID * repeat level AM tomorrow #DVT proph - * heparin 5000 BID #anxiety - * cont sertraline 25mg daily (it was thought she was on such at home but actually was not --- so this is a new start) * cont buspar prn * cont ativan prn * consulted psych liaison #hypocalcemia - * albumin is low; even when correcting for such her calcium is still low * calcium gluconate 2gm x 1 today * repeat BMP/calcium/mag in am * recheck albumin AM * 25 OH Vit D level was 49 earlier this month #?pulmonary edema - * lasix x 2 doses given earlier in admission * no further lasix in light of orthostatic hypotension, electrolyte abnormalities, etc. #hypomagnesemia - * replaced, resolved * repeat mag level AM for stability #daily etoh use - * uncertain amount, but her son thinks it is likely 1 glass/night * check B1 level in am * then empiric B1 supplementation once level has been sent * no signs of etoh withdrawal will need rehab post-d/c - [facility] referral made; insurance declined [facility] and case management evaluating for [facility] Admission and Anticipated Discharge Date Admission Date: July 12, [address] chest from pleural effusion CT abdomen found pelvic fluid around the Mj pouch She continued to have diarrhea, GI consulted will DC her potassium Will replace of hypokalemia with IV severe orthostatic her son from [place] updated Review of Systems Review of Systems: Constitutional: no fever; no chill ENT/Mouth: No Hearing Changes, No Ear Pain, No Nasal Congestion, No Sinus Pain, No Hoarseness, No sore throat, No Rhinorrhea, No Swallowing Difficulty Eyes: No Eye Pain, No Swelling, No Redness, No Foreign Body, No Discharge, No Vision Changes Cardiovascular: no chest pain, no palpitation lung: no shortness of breath Gastrointestinal: diarrhea for 6 weeks. abdominal pain resolved; no blood Genitourinary: No Dysmenorrhea, No DUB, No Dyspareunia, No Dysuria, No Urinary Frequency, No Hematuria, No Urinary Incontinence, No Urgency, No Flank Pain, No Urinary Flow Changes, No Hesitancy Skin: No Skin Lesions, No Pruritis, No Hair Changes, No Breast/Skin Changes, No Nipple Discharge Neuro: + for dizziness upon standing. no headache; confusion resolved Results & Data Results & Data Vital Signs (Past 12 Hours) Vital Signs Temp Pulse Resp BP Pulse Ox O2 Del Method O2 Flow Rate 07/23/24 12:18 36.7 C 73 20 98/55 L 91 Nasal Cannula 6 07/23/24 08:31 36.7 C 79 22 129/62 90 Nasal Cannula 6 07/23/24 04:01 36.7 C 81 18 131/68 90 Nasal Cannula 5.0 Laboratory Results 07/23/24 07/23/24 07/23/24 07:36 07:33 07:28 WBC 6.62 RBC 3.39 L Hgb 9.9 L Hct 30.2 L MCV 89.1 MCH 29.2 MCHC 32.8 RDW Std Deviation 46.6 H RDW Coeff of Xavi 14.3 Plt Count 349 MPV 9.8 Sodium 140 Potassium 3.4 L Chloride 101 Carbon Dioxide 35 H Anion Gap 4 BUN 4 L Creatinine 0.72 Est Cr Clr Drug Dosing 63.1 eGFR 87.68 BUN/Creatinine Ratio 5.6 L Glucose 150 H POC Glucose 175 H Calcium 7.8 L Cortisol AM Sample 16.18 07/22/24 21:04 WBC RBC Hgb Hct MCV MCH MCHC RDW Std Deviation RDW Coeff of Xavi Plt Count MPV Sodium Potassium Chloride Carbon Dioxide Anion Gap BUN Creatinine Est Cr Clr Drug Dosing eGFR BUN/Creatinine Ratio Glucose POC Glucose 103 H Calcium Cortisol AM Sample Medications Administered Current Inpatient Medications Lipase/Protease/Amylase (Pancreaze (Lipase 10,500u) Cap) 3 cap PO ACHS MAR[facility]E Stop: 08/19/24 11:29 Last Admin: 07/23/24 11:36 Dose: 3 cap Atorvastatin Calcium (Atorvastatin 40 Mg Tab) 80 mg PO HS MARILEE Stop: 08/12/24 20:59 Last Admin: 07/22/24 20:54 Dose: 80 mg Benzonatate (Benzonatate 100 Mg Capsule) 100 mg PO TID PRN PRN Reason: Cough Stop: 08/19/24 20:29 Last Admin: 07/23/24 08:23 Dose: 100 mg Buspirone HCl (Buspirone 5 Mg Tab) 5 mg PO BID PRN PRN Reason: anxiety Stop: 08/12/24 08:25 Calcium/Vitamin D (Calcium 600mg + Vit D 400 Iu Tab) 1 tab PO BID MAR[facility]E Stop: 08/12/24 08:59 Last Admin: 07/23/24 08:16 Dose: 1 tab Dextrose (Dextrose 50% 50 Ml Syringe) 25 - 50 ml IV UD PRN; Protocol PRN Reason: Hypoglycemia Protocol Stop: 08/14/24 06:14 Fludrocortisone Acetate (Fludrocortisone Acetate 0.1 Mg Tab) 0.1 mg PO BID [facility]E Stop: 08/22/24 08:59 Last Admin: 07/23/24 08:24 Dose: 0.1 mg Folic Acid (Folic Acid 1 Mg Tab) 1 mg PO QAM [facility] Stop: 08/14/24 08:59 Last Admin: 07/23/24 08:19 Dose: 1 mg Glucagon (Glucagon For Inj 1 Mg Vial) 1 mg SQ UD PRN; Protocol PRN Reason: Hypoglycemia Protocol Stop: 08/14/24 06:14 Glucose (Glucose 40% Gel 15 Gm Tube) 15 - 30 gm PO UD PRN; Protocol PRN Reason: Hypoglycemia Protocol Stop: 08/14/24 06:14 Glucose (Glucose 10 Tab/Tube) 4 - 8 tab PO UD PRN; Protocol PRN Reason: Hypoglycemia Protocol Stop: 08/14/24 06:14 Guaifenesin (Guaifenesin Sugar Free 100 Mg/5 Ml Udc) 100 mg PO QID [facility] Stop: 08/13/24 12:59 Last Admin: 07/23/24 08:23 Dose: 100 mg Heparin Sodium (Porcine) (Heparin Sod 5,000 Unit/0.5 Ml Vial) 5,000 units SQ Q12 [facility] Stop: 08/11/24 20:59 Last Admin: 07/23/24 08:23 Dose: 5,000 units Potassium Chloride (K Kalin / Wtr) 10 meq in 100 mls @ 100 mls/hr IV Q1H [facility] Stop: 07/23/24 16:29 Insulin Aspart (Insulin, Rapid-Acting Pump) 0 each SC ACHS [facility]; Protocol Stop: 08/16/24 08:29 Last Admin: 07/23/24 11:28 Dose: 1.2 each Insulin Aspart (Insulin Aspart 100 Units/Ml Vial) 0 units SC PRN PRN PRN Reason: Insulin (Rapid-Acting) Pump Refill Stop: 08/16/24 08:15 Last Admin: 07/17/24 11:18 Dose: 1,000 units Levothyroxine Sodium (Levothyroxine Sodium 100 Mcg Tablet) 100 mcg PO [id number] rSa@0900 [facility] Stop: 08/12/24 08:59 Last Admin: 07/23/24 08:19 Dose: 100 mcg Lorazepam (Lorazepam 1 Mg Tab) 1 mg PO DAILY PRN PRN Reason: panic attack(s) / anxiety Stop: 08/12/24 08:25 Meclizine HCl (Meclizine 12.5 Mg Tab) 12.5 mg PO BID PRN PRN Reason: Vertigo Stop: 08/12/24 13:14 Last Admin: 07/18/24 08:23 Dose: 12.5 mg Midodrine (Midodrine Hcl 2.5 Mg Tab) 2.5 mg PO TID@0800,1200,1700 [facility] Stop: 08/18/24 15:14 Last Admin: 07/23/24 11:37 Dose: 2.5 mg Miscellaneous (Carbohydrates For Hypoglycemia ) 15 - 30 gm PO UD PRN PRN Reason: Hypoglycemia Treatment Stop: 08/14/24 06:14 Last Admin: 07/15/24 00:30 Dose: 15 gm Miscellaneous (Continuous Glucose Monitor) 0 each N/A ACHS [facility] Stop: 08/16/24 08:29 Last Admin: 07/23/24 11:33 Dose: 1 each Pantoprazole Sodium (Pantoprazole 40 Mg Tab) 40 mg PO QAM [facility] Stop: 08/13/24 08:59 Last Admin: 07/23/24 08:15 Dose: 40 mg Sertraline HCl (Sertraline Hcl 50 Mg Tablet) 25 mg PO DAILY [facility] Stop: 08/12/24 08:59 Last Admin: 07/23/24 08:15 Dose: 25 mg Sucralfate (Sucralfate 1 Gm/10 Ml Udc) 1 gm PO QID [facility] Stop: 08/12/24 16:59 Last Admin: 07/23/24 11:36 Dose: 1 gm Thiamine HCl (Thiamine Hcl 100 Mg Tab) 100 mg PO DAILY [facility] Stop: 08/23/24 08:59 Vitamin D (Cholecalciferol 25 Mcg (1000 Units) Tab) 50 mcg PO QAM [facility] Stop: 08/21/24 08:59 Last Admin: 07/23/24 08:19 Dose: 50 mcg PG Care Time/CCT Total # of Minutes Spent Total Time Spent with Patient: Total time spent is greater than 50% in coordination of care (as documented) at patient's floor/unit and/or counseling patient: Coding Level of Care Code 79371 SUB INP/OBS CARE 04/28MIN Diagnoses DKA (diabetic ketoacidosis) E11.10 Uncontrolled type 1 diabetes mellitus with hyperglycemia E10.65 Lactic acidosis E87.20 Severe sepsis A41.9; R65.20 Fall W19.XXXA Esophagitis K20.90 Hypotension I95.9 Acute metabolic encephalopathy G93.41 Hypothermia T68.XXXA Acute dehydration E86.0 Hypothyroidism E03.9 Hyperlipidemia E78.5 Generalized anxiety disorder with panic attacks F41.1; F41.0 Migraine G43.909 Orthostatic hypotension I95.1 Elevated INR R79.1 Hypocalcemia E83.51 Hypomagnesemia E83.42 Low grade fever R50.9 Hypokalemia E87.6 Time Spent (min) 23
[2024-07-23] MEDS: POTASSIUM CHLORIDE / WTR 10 MEQ/100 ML PLCT IV SCH (16:40)
[2024-07-24] MEDS: FUROSEMIDE 40 MG/4 ML VIAL IV ONE (04:02)
--- NOTE | 2024-07-24 04:19 | Communication Note ---
Date of Service: July 24, 2024 Notified by nursing that patient's O2 saturation was dropping to 84 on 7L NC. Rest of vital signs wnl, no tachycardia. Physical exam lungs clear to auscult ation. POCUS at bedside performed- Many B lines on bilateral lungs, no pericardial effusion, normal left ventricular function. Chest Xray consistent with pulmonary edema IV 40 mg Lasix given Patient placed on CPAP Potassium replaced Will continue to monitor Broke Handler attestation (Dr Davy Tinoco): I personally saw and examined the patient. I independently reviewed the labs, imaging, problem list, medication list and was present for POCUS. I verified all nicholas points and agree with resident physician Dr Eliezer Wong MD with the following exceptions and/or additions: None
--- NOTE | 2024-07-24 04:30 | XRay Report ---
EXAM: XR chest 1V portable CLINICAL HISTORY: hypoxia TECHNIQUE: Radiograph of chest was acquired. COMPARISON: 07/20/2024 FINDINGS: sub optimal study due to under exposure. Bilateral mild to moderate pleural effusion - mild interval decrease. Mild interval increase in ill defined haziness in bilateral mid and lower zones - likely collapse/consolidation of bilateral lower zones There are prominent peripheral bronchovascular markings in bilateral lung box. Unfolding of aortic knuckle. Mild cardiomegaly - stable. Rest of the cardiomediastinal silhouette is within normal limits. No acute osseous abnormality. IMPRESSION: 1. Bilateral mild to moderate pleural effusion - mild interval decrease. 2. Mild interval increase in ill defined haziness in bilateral mid and lower zones - likely collapse/consolidation of bilateral lower zones 3. Prominent peripheral bronchovascular markings in bilateral lung box. 4. Mild cardiomegaly - stable. Electronically signed by Stewart Arenas 07-24-2024 04:30 AM
[2024-07-24] MEDS ORDERED: Nursing to Pharmacy Communication SCH (04:45)
[2024-07-24] MEDS: POTASSIUM CHLORIDE CRTAB 20 MEQ TABCR PO STA (05:31)
[2024-07-24 06:28] LABS: Hematocrit (blood only) 28.3 % (37.0-47.0); Hemoglobin 9.2 g/dl (12.0-16.0); Mean Corpuscular Hemoglobin 28.8 pg (25.0-34.0); Mean Corpuscular Hgb Conc 32.5 g/dL (32.0-36.0); Mean Corpuscular Volume 88.4 fL (80.0-100.0); Mean Platelet Volume 10.2 fL (9.4-12.4); Platelet Count 401 K/uL (130-400); RDW Coefficient of Variation 14.3 % (11.5-14.5); RDW Standard Deviation 46.2 fL (36.4-46.3); White Blood Count 6.04 K/ul (4.8-10.8)
[2024-07-24 06:35] LABS: BUN Creatinine Ratio 5.1 (10-20); Calcium 7.6 mg/dl (8.6-10.3); Potassium 2.8 mmol/L (3.5-5.1)
[2024-07-24] MEDS: POTASSIUM CHLORIDE CRTAB 20 MEQ TABCR PO ONE (08:09)
[2024-07-24] MEDS: THIAMINE HCL 100 MG TAB PO SCH (08:13)
[2024-07-24] MEDS: POTASSIUM CHLORIDE / WTR 10 MEQ/100 ML PLCT IV SCH ×2 (08:24→17:57)
--- NOTE | 2024-07-24 08:38 | XRay Report ---
EXAM: XR chest 1V portable CLINICAL HISTORY: Assess for stabiity of pulmonary edema TECHNIQUE: An X-ray image of the chest is obtained in AP projection. COMPARISON: 07/24/2024 02:42:00 SURGICAL RN Same date. FINDINGS: Pulmonary Parenchyma: Bilateral moderate pleural effusion was noted, almost unchanged. Interval demonstration of right and left CVL with tips in the distal SVC/right atrium. Stable bilateral lower lung zone haziness with GGO, which may be due to subsegmental lung collapse/consolidation or collapse. Heart and Mediastinum: Heart size is limited on this projection. No mediastinal widening or masses. No hilar or mediastinal lymphadenopathy. Bony Thorax: Bony thorax appears intact without fractures or deformities. Soft Tissues: Soft tissues overlying the chest wall are unremarkable. IMPRESSION: 1. Interval demonstration of right and left CVL with tips in the distal SVC/right atrium. 2. The rest of the findings are unchanged in comparison with 07/24/2024 02:42:00 SURGICAL RN. Electronically signed by Ned Wu 07-24-2024 08:38 AM
--- NOTE | 2024-07-24 09:32 | XRay Report ---
XR chest 1V not portable CLINICAL HISTORY: s/p left thora COMPARISON STUDY: 07/24/2024 FINDINGS: There is no pneumothorax. There is residual stranding opacity at the left lower lung, impro ruiz. Stable small right pleural effusion and consolidation at the right lung base. IMPRESSION: No pneumothorax seen. ACT 112: Negative or not required by law. Electronically signed by: Bc Suarez M.D. 07/24/2024 9:31 AM
[2024-07-24 10:14] LABS: Glucose Pleural Fluid 129 mg/dl; LDH Pleural Fluid 639 U/L; Total Protein Pleural Fluid < 3.0 gm/dl
--- NOTE | 2024-07-24 15:32 | Ultrasound Report ---
ULTRASOUND-GUIDED LEFT THORACENTESIS CLINICAL HISTORY: Left pleural effusion PROCEDURE: Procedure and risks were explained. Informed consent was obtained. A final timeout was com pleted. The left posterior thorax was prepped and draped in sterile fashion. 1% lidocaine was utilize d for skin anesthesia. Utilizing ultrasound guidance, a 5 Romanian safety centesis catheter was advanced into the left pleural effusion. Ultrasound images were obtained. A total of 875 mL of pleural fluid was removed and sent t o the lab. The catheter was removed and Band-Aid applied. The patient tolerated the procedure well. A chest x-ray will be obtained post procedure. Vital signs will be monitored on the floor. IMPRESSION: Ultrasound-guided left thoracentesis as above. Performed, dictated, and signed by Allen Ely PA-C; to be co-signed by Dr. Bc Suarez. Electronically signed by: Bc Suarez M.D. 07/24/2024 4:04 PM
[2024-07-24 16:22] LABS: Calcium 7.3 mg/dl (8.6-10.3); Magnesium 1.2 mg/dl (1.7-2.4); Potassium 3.3 mmol/L (3.5-5.1)
[2024-07-24 16:28] LABS: BUN Creatinine Ratio 6.2 (10-20); Creatinine Clr Calc Pharmacy 55.6 ml/min
[2024-07-24] MEDS ORDERED: MAG SULFATE 50% 1GM/2ML VIAL IV SCH (17:30)
[2024-07-24] MEDS: MAGNESIUM SULFATE / D5W 1 GM/100 ML BAG IV SCH (17:57)
--- NOTE | 2024-07-24 18:09 | Hospitalist Progress Note ---
Date of Service July 24, 2024 Assessment & Plan (1) DKA (diabetic ketoacidosis): Plan: pharmacy to evaluate the patient, she's on insulin pump either related to non-compliance versus underlying infection (2) Uncontrolled type 1 diabetes mellitus with hyperglycemia: Plan: check glucose every 6 hours she's on insulin pump (3) Lactic acidosis: (4) Severe sepsis: Plan: her C. difficile toxin is negative ?? gastroenteritis versus PNA (5) Fall: Plan: likely need STR, declined by [facility], but [facility] (6) Esophagitis: (7) Hypotension: (8) Acute metabolic encephalopathy: (9) Hypothermia: (10) Acute dehydration: (11) Hypothyroidism: (12) Hyperlipidemia: (13) Generalized anxiety disorder with panic attacks: (14) Migraine: (15) Orthostatic hypotension: (16) Elevated INR: (17) Hypocalcemia: (18) Hypomagnesemia: (19) Low grade fever: (20) Hypokalemia: Plan 74yo female with history of long-standing T1DM on insulin pump , poorly- controlled with most a1c's >10% in the record and followed by [facility] Endo/DM clinic - hypothyroidism; anxiety; hyperlipidemia; migraines; vertigo - who presents from home after her son found her on the floor in the bathroom. She was unresponsive when he found her. per the patient, she was having diarrhea and abdominal pain, found to has low BP, DKA and hypothermia. treating for pneumonia and ruling out C. difficile on , she' again has another episode of low BP in the 70s, and dizziness spell giving her ringer lactate 500cc bolus overall plan today worsening oxygen requirement overnight to 6 liter s/p thoracentesis by IR on 07/24 (left side) holding off additional diuretics given borderline hypotension ongoing orthostatic hypotension, family can bring in compression stocking from home c/w midodrine, fludrocortisone can begin compression stocking. increasing midodrine dosage diarrhea, avoiding oral potassium correcting her hypokalemia with IV supplement giving her IV magnesium toay discharge more than 48 hours away given hypoxic, volume overload acute hypoxic respiratory failure,b/l pleural effusion volume overload, hypotension need 6 liter overnight, s/p IV lasix she's has thoracentesis on the left side 07/24/2024 by IR she may neeed another thoracentesis of the right side orthostatic hypotension on midodrine, fludrocortisone hypokalemia, giving Kcl IV replacement, avoiding oral potassium given diarrhea side effect diarrhea started 4-6 weeks ago improving off oral potassium, b/l pleural effusion she has more fluid on the left side s/p left side thoracentesis on 07/24/2024 #DKA - trigger by non-compliance and a1c of 10.6 off insulin on 07/13 on sub-Q insulin she on insulin pump at home our diabetic education is working in the patient #uncontrolled, long-standing T1DM on insulin pump therapy - she currently using insulin pump * Hba1c 10.6% * follows with [facility] Endo/DM clinic - Nikki Valerie [place] * community health educator consult as above * pharmacy following #severe sepsis - lactic acidosis , JASMINE, Ams, hypothermia f/u stool PCR and stool toxin level. she's on augmentin * blood cx's negative * resp BioFire was negative * s/p ertapenem IV for empiric coverage (multiple abx allergies) but by report tolerated Augmentin in the past * changed ertapenem to Unasyn IV on 07/13/24, then transitioned to PO Augmentin on 07/16 * #b/l pneumonia -s/p IV ertapnenem, unasybn and augmentin mucinex. #JASMINE - resolved creatinine at 0.70 * 2 #Esophagitis - * cont daily PPI - will need prescription at discharge * carafate qid for 7-10 days * could have gastroparesis as well leading to the gastric/esophageal abnormalities as detected on the CTs but she denies chronic nausea and/or emesis * would send to GI post-d/c; may need EGD #acute metabolic encephalopathy related to sepsis and DKA improving per family member, following command, speaking in full sentence, thiamine improved. * CT head and brain MRI negative * depression could be feeding into this as well * B12 level 470 * in light of daily wine consumption check B1 level tomorrow then start empiric thiamine supplementation #hypothyroidism - cont synthroid 100mcg #fall, orthostatic hypotension placement to short term rehab CT negative #"vertigo" - acute on chronic * several days ago patient described her chronic "vertigo" as a spinning * has had the issue for many years but it has been worse in the last few months * today she said she was having "vertigo" that lasted 15 minutes which would be unusual for inner ear based vertigo * shortly after this I asked nursing to check orthostatic BPs; she dropped 25+ points from laying to standing, with standing BP in the 60s! * make meclizine 12.5mg BID PRN * family reports seeing ENT or neuro in the past for dizziness but I cannot find any record of such * MRI brain neg #hypophosphatemia - * Kphos 1 tab QID * repeat level AM tomorrow #DVT proph - * heparin 5000 BID #anxiety - * cont sertraline 25mg daily (it was thought she was on such at home but actually was not --- so this is a new start) * cont buspar prn * cont ativan prn * consulted psych liaison #hypocalcemia - * albumin is low; even when correcting for such her calcium is still low * calcium gluconate 2gm x 1 today * repeat BMP/calcium/mag in am * recheck albumin AM * 25 OH Vit D level was 49 earlier this month #daily etoh use - * uncertain amount, but her son thinks it is likely 1 glass/night * check B1 level in am * then empiric B1 supplementation once level has been sent * no signs of etoh withdrawal will need rehab post-d/c - [facility] referral made; insurance declined [facility] and [facility] Admission and Anticipated Discharge Date Admission Date: July 12, 2024 Subjective Overnight she have hypoxia status post IV Lasix She is status post thoracentesis of the left side Her diarrhea resolved after we stopped her p.o. potassium With switching to IV Her discharge is more than 48-hour away given her high oxygen status on 5 to 6 L And her ongoing orthostatic hypotension Review of Systems Review of Systems: Constitutional: No Weight Change, No Fever, No Chills, No Night Sweats, No Fatigue, No Malaise ENT/Mouth: No Hearing Changes, No Ear Pain, No Nasal Congestion, No Sinus Pain, No Hoarseness, No sore throat, No Rhinorrhea, No Swallowing Difficulty Eyes: No Eye Pain, No Swelling, No Redness, No Foreign Body, No Discharge, No Vision Changes Cardiovascular: + for shortness of breath; congestion; no chest pain; Gastrointestinal: diarrhea resolved; abdominal pain resolved Musculoskeletal: No Arthralgias, No Myalgias, No Joint Swelling, No Joint Stiffness, No Back Pain, No Neck Pain, No Injury History Skin: No Skin Lesions, No Pruritis, No Hair Changes, No Breast/Skin Changes, No Nipple Discharge Neuro: ongoing dizziness with standing Psych: No Anxiety/Panic, No Depression, No Insomnia, No Personality Changes, No Delusions, No Rumination, No SI/HI/AH/VH, No Social Issues, No Memory Changes, No Violence/Abuse Hx., No Eating Concerns Heme/Lymph: No Bruising, No Bleeding, No Transfusions History, No Lymphadenopathy Endocrine: No Polyuria, No Polydipsia, No Temperature Intolerance Physical Exam Physical Exam: VITALS: Reviewed. WEIGHT/BMI reviewed. GEN: frail; chronically ill appearing -Head: NC/AT; -Mouth and throat: MMM. Normal gums, muc martha, palate,. Good dentition. NECK: Supple, with no masses. CV: RRR, no m/r/g. LUNGS: on 5-6 liter oxygen; decrease breath sound; no wheezing ABD: Soft, NT/ND, NBS, no masses or organomegaly. non-tender to palpation : N/A MSK: No deformities, Normal gait. EXT: No clubbing, cyanosis, or edema. NEURO: AAOx3 Results & Data Results & Data Vital Signs (Past 12 Hours) Vital Signs Temp Pulse Pulse Resp BP Pulse Ox O2 Del Method 07/24/24 15:22 37 C 83 24 123/71 94 Nasal Cannula 07/24/24 15:10 83 07/24/24 12:21 High Flow Nasal Cannula 07/24/24 11:30 36.8 C 75 20 98/61 L 95 Nasal Cannula 07/24/24 09:30 73 07/24/24 07:43 36.8 C 79 21 122/68 95 Nasal Cannula O2 Flow Rate 07/24/24 15:22 10 07/24/24 15:10 07/24/24 12:21 10 07/24/24 11:30 10 07/24/24 09:30 07/24/24 07:43 10 Laboratory Results Abnormal lab results 07/24/24 07/24/24 07/24/24 Range/Units 05:42 07:51 15:46 RBC 3.20 L (4.20-5.40) M/uL Hgb 9.2 L (12.0-16.0) g/dl Hct 28.3 L (37.0-47.0) % Plt Count 401 H (130-400) K/uL Potassium 2.8 L 3.3 L (3.5-5.1) mmol/L Carbon Dioxide 37 H 37 H (21-32) mmol/L Anion Gap 2 L (3-11) BUN 4 L 5 L (6-23) mg/dl BUN/Creatinine Ratio 5.1 L 6.2 L (10-20) Glucose 165 H 160 H (70-99(Fasting)) mg/dl POC Glucose 178 H (70-99) mg/dl Calcium 7.6 L 7.3 L (8.6-10.3) mg/dl Magnesium 1.2 L (1.7-2.4) mg/dl Pleural pH (7.3-7.4) 07/24/24 Range/Units Unknown RBC (4.20-5.40) M/uL Hgb (12.0-16.0) g/dl Hct (37.0-47.0) % Plt Count (130-400) K/uL Potassium (3.5-5.1) mmol/L Carbon Dioxide (21-32) mmol/L Anion Gap (3-11) BUN (6-23) mg/dl BUN/Creatinine Ratio (10-20) Glucose (70-99(Fasting)) mg/dl POC Glucose (70-99) mg/dl Calcium (8.6-10.3) mg/dl Magnesium (1.7-2.4) mg/dl Pleural pH 7.49 H (7.3-7.4) Diagnostic Findings Chest CT 07/22/24 12:49 EXAM: CT chest diagnostic wo con CLINICAL HISTORY: dizziness, r/o empyema, pneumonia TECHNIQUE: Contiguous axial CT images of the chest were acquired without intravenous contrast administration. Coronal and sagittal reconstructions were obtained. One of the following dose reduction techniques was utilized for this exam: Automated exposure control, adjustment of the mA and/or kV according to patient size, and use of iterative reconstruction. COMPARISON: 07/12/2024 FINDINGS: Lungs: newly developed bilateral moderate pleural effusion more on the left side associated with relaxation collapse of almost the lower lung lobes bilaterally, with sparing the superior segment bilaterally and the anterior segment on the right newly developed minimal pericardial effusion. No pulmonary nodules or masses are identified. No evidence of interstitial lung disease or emphysema. Mediastinum: The mediastinum is normal in size and contour. No mediastinal mass or abnormal lymphadenopathy. mild cardiomegaly mild dilated ascending aorta measuring about 3.3 cm. Hilar Structures: The hilar structures appear normal without enlargement or abnormality. Trachea and Main Bronchi: The trachea and main bronchi are patent without evidence of obstruction or abnormality. Chest Wall: The chest wall is unremarkable, and there is no evidence of soft tissue or bony abnormalities. Bones: Visualized osseous structures are normal, with no evidence of fracture or lytic/sclerotic lesions. IMPRESSION: 1. Newly developed bilateral moderate pleural effusion more on the left side associated with consolidation and atelectasis of almost the lower lung lobes bilaterally, with sparing the superior segment bilaterally and the anterior segment on the right. 2. Newly developed minimal pericardial effusion. 3. Mild cardiomegaly.(unchanged) Electronically signed by Ned Wu 07-22-2024 6:19 PM Abdomen/Pelvis CT 07/22/24 12:50 EXAM: CT abd pelvis oral and IV con CLINICAL HISTORY: diarrhea, r/o colitis, stones, prostatitis TECHNIQUE: CT of the abdomen and pelvis was performed with contrast, with the following protocol: axial images, and reconstructed coronal and sagittal images. One of the following dose reduction techniques was utilized for this exam: Automated exposure control, adjustment of the mA and/or kV according to patient size, and use of iterative reconstruction. COMPARISON: Comparison is made with the Ct dated 07/12/2024 FINDINGS: Abdomen: Liver: Normal in size, shape, and density. A tiny calcific focus is seen at its dome, measuring about 3 mm. No focal lesions, cysts, or masses were identified. Hepatic vasculature and biliary ducts are unremarkable. Gallbladder and Biliary System: The gallbladder is inadequately distended The common bile duct is normal in caliber without dilation. Pancreas: The pancreatic head, body, and tail are visualized and appear normal in size and density. No pancreatic masses or calcifications were noted. The pancreatic duct is not dilated. Spleen: Normal in size, shape, and density. No splenic lesions or masses were identified. Appendix: Cannot be traced yet, no right iliac fossa inflammatory changes. Kidneys and Adrenal Glands: Both kidneys are normal in size, shape, and position. Cortical thickness is within normal limits. No hydronephrosis. left lower calyceal stone measuring about 3 mm and of mean CT density 700 HU Adrenal glands are unremarkable with no evidence of masses or hyperplasia. Pelvis: Urinary Bladder: Normal in contour and wall thickness. No intraluminal lesions identified. Uterus: Normal in size and contour, showing a mildly thickened endometrium measuring about 6 mm. No masses or abnormal thickening. Ovaries: Not well visualized, but no gross abnormalities noted. Peritoneal and Retroperitoneal Structures: Small aort-caval lymph nodes are seen; the largest measures about 7.5 mm at its short axis. Newly developed mild pelvic collection with a tendency to be localized at the doglus pouch Bowel: The visualized bowel loops are normal in caliber and appearance. No evidence of bowel obstruction or wall thickening. Bones and Soft Tissues: Pelvic bones and soft tissues are unremarkable. No fractures or abnormal masses were identified. L1 upper end plate schmorl nodule lower chest cuts: newly developed bilateral moderate effusion and minimal pericardial effusion diffuse subcutaneous soft tissue edema IMPRESSION: 1. Newly developed mild pelvic collection localized at the doglus pouch. 2. Lower chest cuts: newly developed bilateral large pleural effusions and minimal pericardial effusion. 3. Left lower-clayceal non-obstructing stone. (unchanged). 4. Mildly thickened endometrium (can not be compared). 5. Newly developed mild diffuse subcutaneous soft tissue edema. Electronically signed by Ned Wu 07-22-2024 6:15 PM Videofluoroscopic Swallow 07/23/24 10:30 FL video swallow CLINICAL HISTORY: 74 years-old Female with r/o aspiration. Dysphagia with possible aspiration TECHNIQUE: Video fluoroscopic evaluation of swallowing was performed in the AP and lateral projections by the speech pathology staff. The patient is fed varying consistencies of barium. FLUOROSCOPY TIME: 59 seconds. 1779 images were obtained. 4.29. mGy COMPARISON STUDY: Chest CT 07/22/2024 FINDINGS: There is normal hyoid excursion and epiglottic deflection. No significant penetration or aspiration identified. Swallowing function is within normal limits. IMPRESSION: 1. No aspiration identified. 2. Please see the speech pathologist report for detailed findings and recommendations. ACT 112: Negative or not required by law. Electronically signed by: Remy Carrera M.D. 07/23/2024 11:57 AM Chest X-Ray 07/24/24 03:38 EXAM: XR chest 1V portable CLINICAL HISTORY: hypoxia TECHNIQUE: Radiograph of chest was acquired. COMPARISON: 07/20/2024 FINDINGS: sub optimal study due to under exposure. Bilateral mild to moderate pleural effusion - mild interval decrease. Mild interval increase in ill defined haziness in bilateral mid and lower zones - likely collapse/consolidation of bilateral lower zones There are prominent peripheral bronchovascular markings in bilateral lung box. Unfolding of aortic knuckle. Mild cardiomegaly - stable. Rest of the cardiomediastinal silhouette is within normal limits. No acute osseous abnormality. IMPRESSION: 1. Bilateral mild to moderate pleural effusion - mild interval decrease. 2. Mild interval increase in ill defined haziness in bilateral mid and lower zones - likely collapse/consolidation of bilateral lower zones 3. Prominent peripheral bronchovascular markings in bilateral lung box. 4. Mild cardiomegaly - stable. Electronically signed by Stewart Arenas 07-24-2024 04:30 AM Chest X-Ray 07/24/24 07:15 EXAM: XR chest 1V portable CLINICAL HISTORY: Assess for stabiity of pulmonary edema TECHNIQUE: An X-ray image of the chest is obtained in AP projection. COMPARISON: 07/24/2024 02:42:00 [employer] DOUGH ROLLER Same date. FINDINGS: Pulmonary Parenchyma: Bilateral moderate pleural effusion was noted, almost unchanged. Interval demonstration of right and left CVL with tips in the distal SVC/right atrium. Stable bilateral lower lung zone haziness with GGO, which may be due to subsegmental lung collapse/consolidation or collapse. Heart and Mediastinum: Heart size is limited on this projection. No mediastinal widening or masses. No hilar or mediastinal lymphadenopathy. Bony Thorax: Bony thorax appears intact without fractures or deformities. Soft Tissues: Soft tissues overlying the chest wall are unremarkable. IMPRESSION: 1. Interval demonstration of right and left CVL with tips in the distal SVC/right atrium. 2. The rest of the findings are unchanged in comparison with 07/24/2024 02:42:00 [employer] D[employer]. Electronically signed by Ned Wu 07-24-2024 08:38 AM Chest X-Ray 07/24/24 09:13 XR chest 1V not portable CLINICAL HISTORY: s/p left thora COMPARISON STUDY: 07/24/2024 FINDINGS: There is no pneumothorax. There is residual stranding opacity at the left lower lung, improved. Stable small right pleural effusion and consolidation at the right lung base. IMPRESSION: No pneumothorax seen. ACT 112: Negative or not required by law. Electronically signed by: Bc Suarez M.D. 07/24/2024 9:31 AM Thoracentesis/Paracentesis US 07/24/24 14:15 ULTRASOUND-GUIDED LEFT THORACENTESIS CLINICAL HISTORY: Left pleural effusion PROCEDURE: Procedure and risks were explained. Informed consent was obtained. A final timeout was completed. The left posterior thorax was prepped and draped in sterile fashion. 1% lidocaine was utilized for skin anesthesia. Utilizing ultrasound guidance, a 5 Turkmen safety centesis catheter was advanced into the left pleural effusion. Ultrasound images were obtained. A total of 875 mL of pleural fluid was removed and sent to the lab. The catheter was removed and Band-Aid applied. The patient tolerated the procedure well. A chest x-ray will be obtained post procedure. Vital signs will be monitored on the floor. IMPRESSION: Ultrasound-guided left thoracentesis as above. Performed, dictated, and signed by Allen Ely PA-C; to be co-signed by Dr. Bc Suarez. Electronically signed by: Bc Suarez M.D. 07/24/2024 4:04 PM Medications Administered Current Inpatient Medications Lipase/Protease/Amylase (Pancreaze (Lipase 10,500u) Cap) 3 cap PO ACHS MARILEE Stop: 08/19/24 11:29 Last Admin: 07/24/24 16:22 Dose: 3 cap Atorvastatin Calcium (Atorvastatin 40 Mg Tab) 80 mg PO HS MARILEE Stop: 08/12/24 20:59 Last Admin: 07/23/24 20:15 Dose: 80 mg Benzonatate (Benzonatate 100 Mg Capsule) 100 mg PO TID PRN PRN Reason: Cough Stop: 08/19/24 20:29 Last Admin: 07/23/24 16:40 Dose: 100 mg Buspirone HCl (Buspirone 5 Mg Tab) 5 mg PO BID PRN PRN Reason: anxiety Stop: 08/12/24 08:25 Calcium/Vitamin D (Calcium 600mg + Vit D 400 Iu Tab) 1 tab PO BID MARILEE Stop: 08/12/24 08:59 Last Admin: 07/24/24 08:13 Dose: 1 tab Dextrose (Dextrose 50% 50 Ml Syringe) 25 - 50 ml IV UD PRN; Protocol PRN Reason: Hypoglycemia Protocol Stop: 08/14/24 06:14 Fludrocortisone Acetate (Fludrocortisone Acetate 0.1 Mg Tab) 0.1 mg PO BID MARILEE Stop: 08/22/24 08:59 Last Admin: 07/23/24 20:18 Dose: 0.1 mg Folic Acid (Folic Acid 1 Mg Tab) 1 mg PO QAM MARILEE Stop: 08/14/24 08:59 Last Admin: 07/24/24 08:13 Dose: 1 mg Glucagon (Glucagon For Inj 1 Mg Vial) 1 mg SQ UD PRN; Protocol PRN Reason: Hypoglycemia Protocol Stop: 08/14/24 06:14 Glucose (Glucose 40% Gel 15 Gm Tube) 15 - 30 gm PO UD PRN; Protocol PRN Reason: Hypoglycemia Protocol Stop: 08/14/24 06:14 Glucose (Glucose 10 Tab/Tube) 4 - 8 tab PO UD PRN; Protocol PRN Reason: Hypoglycemia Protocol Stop: 08/14/24 06:14 Guaifenesin (Guaifenesin Sugar Free 100 Mg/5 Ml Udc) 100 mg PO QID MARILEE Stop: 08/13/24 12:59 Last Admin: 07/24/24 16:25 Dose: 100 mg Heparin Sodium (Porcine) (Heparin Sod 5,000 Unit/0.5 Ml Vial) 5,000 units SQ Q12 MARILEE Stop: 08/11/24 20:59 Last Admin: 07/23/24 08:23 Dose: 5,000 units Potassium Chloride (K Kalin / Wtr) 10 meq in 100 mls @ 100 mls/hr IV Q1H MARILEE Stop: 07/24/24 19:29 Last Admin: 07/24/24 17:57 Dose: 100 mls/hr Magnesium Sulfate/Dextrose (Magnesium Sulfate / D5w) 1 gm in 100 mls @ 50 mls/hr IV Q2H [facility] Stop: 07/24/24 21:44 Last Admin: 07/24/24 17:57 Dose: 50 mls/hr Insulin Aspart (Insulin, Rapid-Acting Pump) 0 each SC ACHS [facility]; Protocol Stop: 08/16/24 08:29 Last Admin: 07/24/24 17:29 Dose: 4.15 each Insulin Aspart (Insulin Aspart 100 Units/Ml Vial) 0 units SC PRN PRN PRN Reason: Insulin (Rapid-Acting) Pump Refill Stop: 08/16/24 08:15 Last Admin: 07/17/24 11:18 Dose: 1,000 units Levothyroxine Sodium (Levothyroxine Sodium 100 Mcg Tablet) 100 mcg PO [id number] [facility] Stop: 08/12/24 08:59 Last Admin: 07/24/24 08:13 Dose: 100 mcg Lorazepam (Lorazepam 1 Mg Tab) 1 mg PO DAILY PRN PRN Reason: panic attack(s) / anxiety Stop: 08/12/24 08:25 Meclizine HCl (Meclizine 12.5 Mg Tab) 12.5 mg PO BID PRN PRN Reason: Vertigo Stop: 08/12/24 13:14 Last Admin: 07/18/24 08:23 Dose: 12.5 mg Midodrine (Midodrine Hcl 2.5 Mg Tab) 2.5 mg PO TID@0800,1200,1700 [facility] Stop: 08/18/24 15:14 Last Admin: 07/24/24 16:22 Dose: 2.5 mg Miscellaneous (Carbohydrates For Hypoglycemia ) 15 - 30 gm PO UD PRN PRN Reason: Hypoglycemia Treatment Stop: 08/14/24 06:14 Last Admin: 07/15/24 00:30 Dose: 15 gm Miscellaneous (Continuous Glucose Monitor) 0 each N/A ACHS [facility] Stop: 08/16/24 08:29 Last Admin: 07/24/24 17:28 Dose: 4.15 each Pantoprazole Sodium (Pantoprazole 40 Mg Tab) 40 mg PO QAM [facility] Stop: 08/13/24 08:59 Last Admin: 07/24/24 08:13 Dose: 40 mg Sertraline HCl (Sertraline Hcl 50 Mg Tablet) 25 mg PO DAILY MARILEE Stop: 08/12/24 08:59 Last Admin: 07/24/24 08:13 Dose: 25 mg Sucralfate (Sucralfate 1 Gm/10 Ml Udc) 1 gm PO QID AMRILEE Stop: 08/12/24 16:59 Last Admin: 07/24/24 16:22 Dose: 1 gm Thiamine HCl (Thiamine Hcl 100 Mg Tab) 100 mg PO DAILY [facility] Stop: 08/23/24 08:59 Last Admin: 07/24/24 08:13 Dose: 100 mg Vitamin D (Cholecalciferol 25 Mcg (1000 Units) Tab) 50 mcg PO QAM [facility] Stop: 08/21/24 08:59 Last Admin: 07/24/24 08:13 Dose: 50 mcg PG Care Time/CCT Total # of Minutes Spent Total Time Spent with Patient: Total time spent is greater than 50% in coordination of care (as documented) at patient's floor/unit and/or counseling patient: Coding Level of Care Code 23580 SUB INP/OBS CARE 2/35MIN Diagnoses DKA (diabetic ketoacidosis) E11.10 Uncontrolled type 1 diabetes mellitus with hyperglycemia E10.65 Lactic acidosis E87.20 Severe sepsis A41.9; R65.20 Fall W19.XXXA Esophagitis K20.90 Hypotension I95.9 Acute metabolic encephalopathy G93.41 Hypothermia T68.XXXA Acute dehydration E86.0 Hypothyroidism E03.9 Hyperlipidemia E78.5 Generalized anxiety disorder with panic attacks F41.1; F41.0 Migraine G43.909 Orthostatic hypotension I95.1 Elevated INR R79.1 Hypocalcemia E83.51 Hypomagnesemia E83.42 Low grade fever R50.9 Hypokalemia E87.6 Time Spent (min) 35
[2024-07-25 06:19] LABS: Hematocrit (blood only) 28.9 % (37.0-47.0); Hemoglobin 9.3 g/dl (12.0-16.0); Mean Corpuscular Hgb Conc 32.2 g/dL (32.0-36.0); Mean Platelet Volume 9.7 fL (9.4-12.4); Platelet Count 404 K/uL (130-400); RDW Coefficient of Variation 14.3 % (11.5-14.5); RDW Standard Deviation 47.1 fL (36.4-46.3); Red Blood Count 3.21 M/uL (4.20-5.40); White Blood Count 7.13 K/ul (4.8-10.8)
[2024-07-25 06:45] LABS: BUN Creatinine Ratio 5.3 (10-20); Calcium 7.6 mg/dl (8.6-10.3); Magnesium 1.5 mg/dl (1.7-2.4); Potassium 3.6 mmol/L (3.5-5.1)
[2024-07-25] MEDS: MAGNESIUM SULFATE / D5W 1 GM/100 ML BAG IV SCH (10:11)
[2024-07-25 10:17] LABS: Total Protein 5.6 gm/dl (6.0-8.3)
[2024-07-25] MEDS ORDERED: SODIUM CHLORIDE 0.65% NA SOLN 45 ML (OCEAN) PRN (11:28)
--- NOTE | 2024-07-25 11:47 | XRay Report ---
XR chest 1V portable CLINICAL HISTORY: b/l effusions, s/p thora on L 07/24 COMPARISON STUDY: 07/24/2024 FINDINGS: There are small bilateral pleural effusions with associated lower lung consolidation, stabl e on the right and mildly increased on the left. No pneumothorax seen. Stable cardiomegaly with mild pulmonary vascular congestion. IMPRESSION: Bilateral pleural effusions. ACT 112: Negative or not required by law. Electronically signed by: Bc Suarez M.D. 07/25/2024 11:46 AM
[2024-07-25] MEDS: FUROSEMIDE INJ 20 MG/2 ML VIAL IV ONE (12:04)
--- NOTE | 2024-07-25 13:10 | XRay Report ---
XR chest 1V not portable CLINICAL HISTORY: s/p right thoracentesis. COMPARISON STUDY: Chest CT July 22, 2024 and chest radiograph July 24, 2024. FINDINGS: There is no pneumothorax following right thoracentesis. The right pleural effusion has sign ificantly decreased in size since prior exam. Small residual right pleural effusion is noted. Pleural opacity within the lateral right hemithorax likely reflects a small amount of residual pleural fluid . A small left pleural effusion is noted. Left basilar opacity is again noted. There is probably vasc ular congestion with suspected mild pulmonary edema. IMPRESSION: No pneumothorax following right thoracentesis. ACT 112: Negative or not required by law. Electronically signed by: Ag Griffiths M.D. 07/25/2024 1:08 PM
--- NOTE | 2024-07-25 13:20 | Ultrasound Report ---
ULTRASOUND-GUIDED RIGHT THORACENTESIS CLINICAL HISTORY: Right pleural effusion PROCEDURE: Procedure and risks were explained. Informed consent was obtained. A final timeout was com pleted. The right posterior thorax was prepped and draped in sterile fashion. 1% lidocaine was utiliz ed for skin anesthesia. Utilizing ultrasound guidance, a 5 Faroese safety centesis catheter was advanced into the right pleura l effusion. Ultrasound images were obtained. A total of 750 mL of pleural fluid was removed and disca rded. The catheter was removed and Band-Aid applied. The patient tolerated the procedure well. A ches t x-ray will be obtained post procedure. Vital signs will be monitored on the floor. IMPRESSION: Ultrasound-guided right thoracentesis as above. Performed, dictated, and signed by Allen Ely PA-C; to be co-signed by Dr. Remy Carrera. Electronically signed by: Remy Carrera M.D. 07/25/2024 1:39 PM
[2024-07-25] MEDS: MUPIROCIN 2% OINT 22 GM TUBE EXT SCH (13:32)
[2024-07-25 14:36] LABS: Glucose Pleural Fluid 203 mg/dl; LDH Pleural Fluid 365 U/L; Total Protein Pleural Fluid < 3.0 gm/dl
[2024-07-25 14:51] LABS: Appearance Pleural Fluid Hazy; Basophils, Fluid 2 %; Color Pleural Fluid Yellow; Lymphocytes, Fluid 41 %; Mono,Macrophage,Mesothelial 35 %; Neutrophils, Fluid 22 %; RBC Pleural Fluid Auto < 2000 /uL; Source Pleural Fluid Right Lung; WBC Pleural Fluid Auto 1767 /uL
--- NOTE | 2024-07-25 14:55 | Pulmonary Consultation ---
Date of Consultation July 25, 2024 Assessment & Plan (1) Bilateral pleural effusion: (2) Hypoxemia: Plan Impression: 74-year-old female admitted with severe DKA and acute renal failure. She is improved but during course of her resuscitation she received a large volume of crystalloid and has resulted in bilateral pleural effusions. She is over 12 L positive. She is undergone thoracentesis both diagnostic and therapeutic on the right and the left. Fluid likely represents low-grade exudate most consistent with fluid resuscitation. Gram stain and culture were negative. These are not consistent with empyema or parapneumonic effusions. Recommendations: 1. Bilateral pleural effusions: Suspect related to the patient's volume resuscitation. Would recommend continued diuresis and sodium restriction as well as fluid restriction to prevent these from reaccumulating. If orthostatic hypotension is an issue, that should be managed independently of her volume status. If they recur and are symptomatic, repeat thoracentesis can be considered by interventional radiology. 2. Hypoxemia: Appears significantly improved. Again I turned the patient down from 10 L to 5 L during the course of our evaluation and her oxygen saturations maintained at or above 99%. Suspect this can continue to be decreased. Recommend she be assessed for supplemental oxygen prior to discharge. No additional pulmonary workup or evaluation is required at this point in time. Pulmonary will sign off. Feel free to contact us with questions or concerns History of Present Illness Attending Physician: Davy Lewis MD History of Present Illness Asked by hospitalist to assist in evaluation management this patient with bilateral pleural effusions. History is obtained from review electronic medical record as well as discussion with the patient. The patient is a 74-year-old female who is known to me from earlier this hospitalization when I performed a critical care consult on her 07/12/24. She was admitted with severe DKA lactic acidosis hyperkalemia and acute renal failure. She improved and was transferred out of the ICU within 24 hours and has been on the floor. She has had a persistent oxygen requirement and chest x- ray revealed large bilateral pleural effusions. She has undergone thoracentesis by interventional radiology yesterday and today. On the the 875 cc was removed from the left. Today, 750 cc was removed from the right. The patient states that she is improved. There was concern about potential infectious etiology of the effusions given the characteristics which prompted a pulmonary consultation. The patient is seen after her thoracentesis. She states she is feeling better. She still on 10 L. During the course of our interview and exam I turned her down to 5 L and she maintained oxygen saturations of 99%. She does not report any significant chest pain or palpitations. She has a minimal cough with some scant sputum production. She is asking about when she can go home. There have been some issues with diuresis due to orthostatic hypotension. Allergies Allergy/AdvReac Type Severity Reaction Status Date / Time Bactrim Allergy Severe "ALMOST Verified 08/06/15 11:18 " sulfamethoxazole Allergy Severe "ALMOST Verified 05/23/24 13:33 " trimethoprim Allergy Severe "ALMOST Verified 05/23/24 13:33 " cefaclor Allergy Mild Rash Verified 05/23/24 13:33 cefuroxime [From Ceftin] Allergy Mild Rash Verified 05/23/24 13:33 cephalexin Allergy Mild Rash Verified 05/23/24 13:33 Cephalosporins Allergy Mild ALLERGY TO Verified 05/23/24 13:33 CEFTIN & CECLOR lisinopril AdvReac Mild Nausea Verified 05/23/24 13:33 Home Medications Medication Instructions Recorded Confirmed Type ibuprofen 200 mg tablet (Motrin IB) 400 mg PO BID PRN Pain 11/24/18 07/12/24 History rizatriptan 10 mg tablet 10 mg PO UD PRN Migraine Headache 11/24/18 07/12/24 History blood sugar diagnostic (FreeStyle #10 ea 09/05/20 05/23/24 History Lite Strips) cholecalciferol (vitamin D3) 25 75 mcg PO DAILY 01/06/23 07/12/24 History mcg (1,000 unit) capsule cbd caps 1 tab PO DAILY PRN Other 02/18/23 07/12/24 History levocetirizine 5 mg tablet (Xyzal) 2.5 mg PO DAILY PRN Other 02/18/23 07/12/24 History insulin pump cartridge,automated #1 ea 05/27/23 05/23/24 Rx dose,BT with controller subcutaneous (Omnipod 5 G6 Intro Kit (Gen 5) subcutaneous cartridge with controller) buspirone 10 mg tablet 5 - 10 mg (0.5 - 1 x 10 mg) PO BID 08/24/23 07/12/24 Rx PRN anxiety #60 tabs pen needle, diabetic 32 gauge x #400 ea 12/19/23 05/23/24 Rx 5/32" (BD Kitty 2nd Gen Pen Needle) acetone (urine) test (Ketostix #25 ea 12/26/23 05/23/24 Rx strips) glucagon (human recombinant) 1 mg 1 mg .Route Q20M PRN hypoglycemia 12/26/23 07/12/24 Rx solution for injection #1 ea blood-glucose sensor (Dexcom G7 #3 ea 04/03/24 05/23/24 Rx Sensor device) denosumab 60 mg/mL subcutaneous 60 mg subcut UD 04/13/24 07/12/24 History syringe (Prolia) levothyroxine 100 mcg tablet 100 mcg PO DAILY 04/30/24 07/12/24 History insulin aspart U-100 100 unit/mL 15 unit (0.15 mL) subcut DAILY #15 05/22/24 07/12/24 Rx (3 mL) subcutaneous pen (Novolog mL FlexPen U-100 Insulin aspart) hydralazine 10 mg tablet 10 mg PO PRN #60 tabs 05/25/24 07/12/24 Rx lorazepam 1 mg tablet 1 mg PO DAILY PRN panic attack(s) 06/28/24 07/12/24 Rx #30 tabs Omnipod 5 G6-G7 Pods (Gen 5) #10 ea 06/29/24 Rx (insulin pump cart,auto,BT,G6/7) atorvastatin 80 mg tablet 80 mg PO UD 07/12/24 07/12/24 History ezetimibe 10 mg tablet 10 mg PO UD 07/12/24 07/12/24 History insulin aspart U-100 100 unit/mL 70 unit continuous subcutaneous 07/12/24 07/12/24 History subcutaneous solution (Novolog infusion UD U-100 Insulin aspart) losartan 25 mg tablet 12.5 mg PO UD 07/12/24 07/12/24 History mupirocin 2 % topical ointment 1 applic topical UD 07/12/24 07/12/24 History sertraline 25 mg tablet 25 mg PO UD 07/12/24 07/12/24 History Lantus Solostar U-100 Insulin 100 14 unit (0.14 mL) subcut DAILY #15 07/19/24 Rx unit/mL (3 mL) subcutaneous pen mL (insulin glargine) Patient History Medical History Uncontrolled type 1 diabetes mellitus with hyperglycemia Orthostatic hypotension Lichen sclerosus et atrophicus of the vulva Osteoporosis Vitamin D deficiency Diabetic retinopathy Hypothyroidism Hyperlipidemia Hypertension Generalized anxiety disorder with panic attacks Seasonal allergies uses symbicort rarely Osteoarthritis Migraine Hypertension Surgical History Hx of right cataract extraction Hx of bilateral cataract extraction History of open reduction and internal fixation (ORIF) procedure right wrist---with a carpal tunnel repair at same time---hardware in place History of open reduction and internal fixation (ORIF) procedure left wrist--hardware in place History of bronchoscopy NELLIE lung infection History of bilateral tubal ligation History of tooth extraction History of wisdom tooth extraction History of tonsillectomy and adenoidectomy Family History Grandfather (Maternal) Family hx of colon cancer Colorectal cancer Grandmother (Maternal) Myocardial infarction, Onset Age: 50 lived until 99 years old. Mother Myocardial infarction Coded during angioplasty, CABG x3. COPD (chronic obstructive pulmonary disease) Other No family history of adverse response to anesthesia Denies family history of Ovarian cancer Prostate cancer Diabetes Breast cancer Lung cancer Stroke Social History Smoking Status: Never smoker Second Hand Exposure: No; Do You Dip or Chew Tobacco: No; Tobacco Cessation Education Requested by Patient: No Hx Alcohol Use: Yes Alcohol type: wine Alcohol type Comment: 1 glass with dinner Alcohol Intake Frequency: 4 or More x per/Week Alcohol Intake Frequency Comment: 1 glass of wine each night Hx Substance Use: No Preferred Language: Georgian Communication Ability: Impaired Visual Impairment: Limited Hearing Ability: Normal Chief Nurse Executive Required: No Beliefs That Will Affect Care: None marital status: / Current Living Situation: Alone current occupational status: retired 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 How many Children do You have: 6 Other Information That Helps Us Care for You: No Feels Safe at Home: Yes Safety Concerns: Feels Safe At This Time Childhood Exposure to Second-Hand Smoke: Yes Diet: DASH, diabetic and low salt caffeine: Yes Dental Care, Regularly: Yes Physical Activity Frequency: 3-4 Times per Week Seatbelt Use: always Sunscreen Use: Yes Assistive Devices: None Review of Systems Review of Systems: Please refer to hospitalist notes. No additions or deletions Physical Exam Constitutional: WD/WN, vitals as above Neck: trachea midline, no thyromegaly Respiratory: normal respiratory effort, lungs clear to auscultation Cardiovascular: RRR, no murmur, no edema Gastrointestinal (Abdomen): normal bowel sounds, soft, nontender, no hepatosplenomegaly Musculoskeletal: Extremities: extremities normal to inspection Skin: no rashes, warm and dry Neurologic: Nonfocal exam Lymphatic: no cervical lymphadenopathy Results & Data Results & Data Vital Signs (Past 12 Hours) Vital Signs Temp Pulse Pulse Pulse Resp BP Pulse Ox 07/25/24 13:07 36.7 C 69 18 116/67 98 07/25/24 11:58 36.9 C 78 20 116/61 97 07/25/24 08:33 37.1 C 76 22 137/72 93 07/25/24 07:44 07/25/24 07:44 74 07/25/24 02:57 36.9 C 84 20 131/71 91 O2 Del Method O2 Flow Rate 07/25/24 13:07 High Flow Nasal Cannula 10 07/25/24 11:58 High Flow Nasal Cannula 10 07/25/24 08:33 High Flow Nasal Cannula 10 07/25/24 07:44 High Flow Nasal Cannula 10 07/25/24 07:44 07/25/24 02:57 Nasal Cannula 10 Laboratory Results Pleural fluid studies from 07/25/2024 on the right: pH 7.5 Total protein less than 3 LDH 365 Glucose 203 Differential pending Cell counts on the left from 07/24/2024 showed pH 7.49 with a total protein of less than 3 and LDH of 639 with a glucose of 129. Many PMNs were identified on the Gram stain but no organisms. Cultures are pending. Critical Care Results & Data Vital Signs (Past 12 Hours) Vital Signs Temp Pulse Pulse Pulse Resp BP Pulse Ox 07/25/24 13:07 36.7 C 69 18 116/67 98 07/25/24 11:58 36.9 C 78 20 116/61 97 07/25/24 08:33 37.1 C 76 22 137/72 93 07/25/24 07:44 07/25/24 07:44 74 07/25/24 02:57 36.9 C 84 20 131/71 91 O2 Del Method O2 Flow Rate 07/25/24 13:07 High Flow Nasal Cannula 10 07/25/24 11:58 High Flow Nasal Cannula 10 07/25/24 08:33 High Flow Nasal Cannula 10 07/25/24 07:44 High Flow Nasal Cannula 10 07/25/24 07:44 07/25/24 02:57 Nasal Cannula 10 Lab & Micro Results (Past 24 Hours) RBC 3.21 M/uL (4.20-5.40) L 07/25/24 WBC 7.13 K/ul (4.8-10.8) 07/25/24 Hgb 9.3 g/dl (12.0-16.0) L 07/25/24 Hct 28.9 % (37.0-47.0) L 07/25/24 MCV 90.0 fL (80.0-100.0) 07/25/24 MCH 29.0 pg (25.0-34.0) 07/25/24 MCHC 32.2 g/dL (32.0-36.0) 07/25/24 RDW Standard Deviation 47.1 fL (36.4-46.3) H 07/25/24 RDW Coefficient of Variation 14.3 % (11.5-14.5) 07/25/24 Plt Count 404 K/uL (130-400) H 07/25/24 MPV 9.7 fL (9.4-12.4) 07/25/24 Na 142 mmol/L (136-145) 07/25/24 K 3.6 mmol/L (3.5-5.1) 07/25/24 Cl 102 mmol/L (98-107) 07/25/24 CO2 36 mmol/L (21-32) H 07/25/24 Anion Gap 4 (3-11) 07/25/24 BUN 4 mg/dl (6-23) L 07/25/24 Creatinine 0.75 mg/dl (0.6-1.2) 07/25/24 BUN/Creatinine Ratio 5.3 (10-20) L 07/25/24 Glu 138 mg/dl (70-99(Fasting)) H 07/25/24 Ca 7.6 mg/dl (8.6-10.3) L 07/25/24 TP 5.6 gm/dl (6.0-8.3) L 07/25/24 Lactate Dehydrogenase 299 U/L (86-244) H 07/25/24 Mg 1.5 mg/dl (1.7-2.4) L 07/25/24 05:33 Calcium Level 7.6 mg/dl (8.6-10.3) L 07/25/24 05:33 Microbiology 07/24/24 Unknown Gram Stain - Final Pleural Fluid,Left Diagnostic Findings (Past 24 Hours) Thoracentesis/Paracentesis US 07/24/24 14:15 ULTRASOUND-GUIDED LEFT THORACENTESIS CLINICAL HISTORY: Left pleural effusion PROCEDURE: Procedure and risks were explained. Informed consent was obtained. A final timeout was completed. The left posterior thorax was prepped and draped in sterile fashion. 1% lidocaine was utilized for skin anesthesia. Utilizing ultrasound guidance, a 5 Wallisian safety centesis catheter was advanced into the left pleural effusion. Ultrasound images were obtained. A total of 875 mL of pleural fluid was removed and sent to the lab. The catheter was removed and Band-Aid applied. The patient tolerated the procedure well. A chest x-ray will be obtained post procedure. Vital signs will be monitored on the floor. IMPRESSION: Ultrasound-guided left thoracentesis as above. Performed, dictated, and signed by Allen Ely PA-C; to be co-signed by Dr. Bc Suarez. Electronically signed by: Bc Suarez M.D. 07/24/2024 4:04 PM Chest X-Ray 07/25/24 11:28 XR chest 1V portable CLINICAL HISTORY: b/l effusions, s/p thora on L 07/24 COMPARISON STUDY: 07/24/2024 FINDINGS: There are small bilateral pleural effusions with associated lower lung consolidation, stable on the right and mildly increased on the left. No pneumothorax seen. Stable cardiomegaly with mild pulmonary vascular congestion. IMPRESSION: Bilateral pleural effusions. ACT 112: Negative or not required by law. Electronically signed by: Bc Suarez M.D. 07/25/2024 11:46 AM Thoracentesis/Paracentesis US 07/25/24 11:54 ULTRASOUND-GUIDED RIGHT THORACENTESIS CLINICAL HISTORY: Right pleural effusion PROCEDURE: Procedure and risks were explained. Informed consent was obtained. A final timeout was completed. The right posterior thorax was prepped and draped in sterile fashion. 1% lidocaine was utilized for skin anesthesia. Utilizing ultrasound guidance, a 5 Wallisian safety centesis catheter was advanced into the right pleural effusion. Ultrasound images were obtained. A total of 750 mL of pleural fluid was removed and discarded. The catheter was removed and Band-Aid applied. The patient tolerated the procedure well. A chest x-ray will be obtained post procedure. Vital signs will be monitored on the floor. IMPRESSION: Ultrasound-guided right thoracentesis as above. Performed, dictated, and signed by Allen Ely PA-C; to be co-signed by Dr. Remy Carrera. Electronically signed by: Remy Carrera M.D. 07/25/2024 1:39 PM Chest X-Ray 07/25/24 12:22 XR chest 1V not portable CLINICAL HISTORY: s/p right thoracentesis. COMPARISON STUDY: Chest CT July 22, 2024 and chest radiograph July 24, 2024. FINDINGS: There is no pneumothorax following right thoracentesis. The right pleural effusion has significantly decreased in size since prior exam. Small residual right pleural effusion is noted. Pleural opacity within the lateral right hemithorax likely reflects a small amount of residual pleural fluid. A small left pleural effusion is noted. Left basilar opacity is again noted. There is probably vascular congestion with suspected mild pulmonary edema. IMPRESSION: No pneumothorax following right thoracentesis. ACT 112: Negative or not required by law. Electronically signed by: Ag Griffiths M.D. 07/25/2024 1:08 PM I & O Totals 24 Hours 07/24/24 07/25/24 07/26/24 06:59 06:59 06:59 Intake Total 320 / 320 793.333 / 793.333 194.167 / 194.167 Output Total 1900 / 1900 1501 / 1501 800 / 800 Balance -1580 / -1580 -707.667 / -707.667 -605.833 / -605.833 Cumulative 07/12/24 09:04 thru 07/25/24 14:10 Intake Total 91484.778 Output Total 8529 Balance 9875.778 RT Ventilator Mngmt (Last Documented) Ventilator Ordered Settings Respiratory Rate 18 07/25/24 13:07 Fraction of Inspired Oxygen 60 07/24/24 04:58 Ventilator - PT Measurements Respiratory Rate 18 PG Care Time/CCT Total # of Minutes Spent Total Time Spent with Patient: Total time spent is greater than 50% in coordination of care (as documented) at patient's floor/unit and/or counseling patient: Coding Level of Care Code 59864 INT INP/OBS CARE 2/55MIN Diagnoses Bilateral pleural effusion J90 Hypoxemia R09.02
--- NOTE | 2024-07-25 18:31 | Hospitalist Progress Note ---
Date of Service July 25, 2024 Assessment & Plan (1) DKA (diabetic ketoacidosis): (2) Uncontrolled type 1 diabetes mellitus with hyperglycemia: (3) Lactic acidosis: (4) Severe sepsis: (5) Fall: (6) Esophagitis: (7) Hypotension: (8) Acute metabolic encephalopathy: (9) Hypothermia: (10) Acute dehydration: (11) Hypothyroidism: (12) Hyperlipidemia: (13) Generalized anxiety disorder with panic attacks: (14) Migraine: (15) Orthostatic hypotension: (16) Elevated INR: (17) Hypocalcemia: (18) Hypomagnesemia: (19) Hypokalemia: (20) Acute diastolic CHF (congestive heart failure): (21) Bilateral pleural effusion: (22) Acute hypoxic respiratory failure: (23) Thiamine deficiency: Plan 74yo female with history of long-standing T1DM, poorly-controlled with most a1c's >10% in the record and followed by [facility] [place] Endo/DM clinic - on insulin pump; hypothyroidism; anxiety; hyperlipidemia; migraines; vertigo - who presents from home after her son found her on the floor in the bathroom. She was unresponsive when he found her. Upon ER presentation she was hypothermic, had evidence of severe DKA, was hypotensive, and was severely altered. Also with suspected severe sepsis at admission. #DKA - * 2nd to noncompliance with insulin therapy (pump ran out of insulin for at least 1-2 days prior to admission, then she switched to SC injections, but unclear how much she was using or how often) * pneumonia likely contributed to DKA * sleep deprivation, other major life stressors probably also played a role * she drinks wine nightly - uncertain how much - but if drinking heavily this would contribute * s/p insulin infusion and copious IV hydration at admission with resolution of DKA; required ICU level of care x 48 hours * insulin drip off 411 AM; transitioned to basal-bolus SC insulin at that time * transitioned back to pump 07/17 * overall glycemic control has been quite satisfactory since resolution of DKA #uncontrolled, long-standing T1DM on insulin pump therapy - * Hba1c 10.6% * nearly all a1c's going back to 2017 have been >10% * follows with [facility] [place] Endo/DM clinic - Nikki Valerie [place] * clinical document improvement educator and pharmacy glycemic consults appreciated * cont insulin pump #acute hypoxic respiratory failure - * 2nd to b/l basilar pneumonia (s/p complete course of IV abx therapy) * 2nd to acute diastolic CHF * 2nd to pleural effusions * improving * pulmonary consult appreciated; they advise ongoing diuresis; effusions, although mildly exudative, are still likely from volume overload; parapneumonic effusions / empyema not suspected #acute diastolic CHF - * grade 2 diastolic dysfunction on echo this admission * acute diastolic CHF 2nd to copious IV fluids in the setting of low albumin and critical illness * s/p L sided thoracentesis 07/24 * s/p R sided thoracentesis 07/25 * lasix 20mg IV daily until euvolemic #severe sepsis - * met severe sepsis criteria with elevated lactate level, JASMINE, altered MS, leukocytosis, hypothermia, etc. * source - pneumonia as detected on cxr 07/13/24 * blood cx's negative * resp BioFire was negative * sepsis resolved #b/l pneumonia - * basilar pneumonia on 07/13/24 cxr * may have precipitated her DKA * either aspiration pneumonia vs CAP * doubt gram negative etiology; MRSA swab neg * resp bioFire neg * s/p full 10 days of IV/PO abx therapy #lactic acidosis - * present on admission * lactic acidosis 2nd to severely volume contacted state and/or severe sepsis - resolved #JASMINE - * 2nd to DKA * 2nd to volume contraction * sepsis-related * resolved * peak Cr 2.2 * no evidence of obstruction on CT a/p * BMP am once again in face of diuresis, etc. #Esophagitis - * as seen on CT * cont daily PPI - will need prescription at discharge * carafate qid for 7-10 days * could have gastroparesis as well leading to the gastric/esophageal abnormalities as detected on the CTs but she denies chronic nausea and/or emesis * would send to GI post-d/c; may need EGD #acute metabolic encephalopathy - resolved * 2nd to DKA, lactic acidosis, sepsis, etc * CT head neg * MRI brain neg for stroke/ICH/tumor/etc * depression could be feeding into this as well * B12 level 470 * B1 level returned low - cont thiamine 200mg BID x 1 month #hypothyroidism - * TSH 4.1 * cont synthroid #elevated INR - * resolved * etiology uncertain but INR went from 1.4 to normal without intervention #fall - * presumed 2nd to severe DKA +/- weakness from metabolic derangements +/- sepsis +/- hypotension / orthostatic hypotension, etc * echo 04/2024 was wnl * PT/OT * head CT neg * MRI brain negative for subacute CVA * fortunately no major injuries from her fall(s) * B1 def - see below; replace * B12 level was wnl #hypothermia - * present on admission * resolved with warming blanket, Rx of DKA, etc. #orthostatic hypotension - * cortisol 16 * midodrine started earlier in the admission * still with dizziness -- increase midodrine to 5mg TID * suspect that her orthostatic hypotension could be autonomic insufficiency from diabetic neuropathy; this can be challenging to treat * avoid florinef for now given her volume overloaded state #hypophosphatemia - * replaced/resolved #DVT proph - * heparin 5000 BID #anxiety - * cont sertraline 25mg daily (it was thought she was on such at home but actually was not --- so this is a new start) * cont buspar prn * cont ativan prn * consulted psych liaison #hypernatremia - * resolved #hypocalcemia - * cont calcium/vit D supplement * levels improving * 25 [place] Vit D level was 49 earlier this month #hypomagnesemia - * ongoing, due to diarrhea, due to diuresis * replace IV again * mag level am #daily etoh use - * uncertain amount, but her son thinks it is likely 1 glass/night * B1 deficient - replace * had no etoh withdrawal while here #B1 def - * thiamine 200mg BID x 30 days #deconditioning - * cont PT/OT * rehab needed post-d/c attempted to call pt's daughter at # listed in chart; rang and rang, unable to leave message sent [place] message to pt's son Juan Manuel 07/25 Admission and Anticipated Discharge Date Admission Date: July 12, 2024 Subjective patient continues with high O2 requirement - 10 liters s/p L sided thoracentesis yesterday by IR - she feels "a little better" breathing-warren since the procedure appetite has improved denies any pleuritic chest pain on left no fevers minimal cough ongoing CISNEROS Review of Systems Review of Systems: gen - no fevers or chills cv - no chest pain GI - diarrhea, about 1x/day Physical Exam Physical Exam: gen - awake/alert, laying in bed comfortably without any respiratory distress; looks better actually than when I last saw her 1 week ago mouth - no thrush, MMM voice - hoarseness resolved neck - mild JVD present heart - RRR, s1 s2 , no murmur lungs - decreased BS R base, about 1/[address] up back; mild rales L base; no wheeze; no increased work of breathing abd - soft, NT, ND, BS+, no HSM ext - pulses 2+ b/l feet, no peripheral edema psych - affect full today; a/o x 3 Results & Data Results & Data Vital Signs (Past 12 Hours) Vital Signs Temp Pulse Pulse Resp BP Pulse Ox O2 Del Method 07/25/24 16:11 98 Nasal Cannula 07/25/24 16:01 36.9 C 70 18 96/58 L 100 Nasal Cannula 07/25/24 15:57 72 07/25/24 13:07 36.7 C 69 18 116/67 98 High Flow Nasal Cannula 07/25/24 11:58 36.9 C 78 20 116/61 97 High Flow Nasal Cannula 07/25/24 08:33 37.1 C 76 22 137/72 93 High Flow Nasal Cannula 07/25/24 07:44 High Flow Nasal Cannula 07/25/24 07:44 74 O2 Flow Rate 07/25/24 16:11 3 07/25/24 16:01 5 07/25/24 15:57 07/25/24 13:07 10 07/25/24 11:58 10 07/25/24 08:33 10 07/25/24 07:44 10 07/25/24 07:44 Laboratory Results Laboratory Results - last 24 hr 07/24/24 07/25/24 07/25/24 Unknown 05:33 08:00 WBC 7.13 RBC 3.21 L Hgb 9.3 L Hct 28.9 L MCV 90.0 MCH 29.0 MCHC 32.2 RDW Std Deviation 47.1 H RDW Coeff of Axvi 14.3 Plt Count 404 H MPV 9.7 Sodium 142 Potassium 3.6 Chloride 102 Carbon Dioxide 36 H Anion Gap 4 BUN 4 L Creatinine 0.75 Est Cr Clr Drug Dosing 60.0 eGFR 83.49 BUN/Creatinine Ratio 5.3 L Glucose 138 H POC Glucose 150 H Calcium 7.6 L Magnesium 1.5 L Lactate Dehydrogenase 299 H Total Protein 5.6 L Fluid Neutrophils % Fluid Lymphocytes % Fluid Basophils % Fluid Meso/Macro/[place] % Fluid Comment Pleural Fluid Source Pleural Color Pleural Appearance Pleural pH Pleural Spec [place] 1.021 Pleural WBC (Auto) Pleural RBC (Auto) Pleural Total Protein Pleural LDH Pleural Glucose 07/25/24 07/25/24 07/25/24 11:24 13:00 16:53 WBC RBC Hgb Hct MCV MCH MCHC RDW Std Deviation RDW Coeff of Xavi Plt Count MPV Sodium Potassium Chloride Carbon Dioxide Anion Gap BUN Creatinine Est Cr Clr Drug Dosing eGFR BUN/Creatinine Ratio Glucose POC Glucose 251 H 107 H Calcium Magnesium Lactate Dehydrogenase Total Protein Fluid Neutrophils % 22 Fluid Lymphocytes % 41 Fluid Basophils % 2 Fluid Meso/Macro/[place] % 35 Fluid Comment Pleural Fluid Source Right Lung Pleural Color Yellow Pleural Appearance Hazy Pleural pH 7.55 H Pleural Spec [place] Pleural WBC (Auto) 1767 Pleural RBC (Auto) < 2000 Pleural Total Protein < 3.0 Pleural LDH 365 Pleural Glucose 203 PG Care Time/CCT Total # of Minutes Spent Total Time Spent with Patient: Total time spent is greater than 50% in coordination of care (as documented) at patient's floor/unit and/or counseling patient: Coding Level of Care Code 62544 SUB INP/OBS CARE 3/50MIN Diagnoses DKA (diabetic ketoacidosis) E11.10 Uncontrolled type 1 diabetes mellitus with hyperglycemia E10.65 Lactic acidosis E87.20 Severe sepsis A41.9; R65.20 Fall W19.XXXA Esophagitis K20.90 Hypotension I95.9 Acute metabolic encephalopathy G93.41 Hypothermia T68.XXXA Acute dehydration E86.0 Hypothyroidism E03.9 Hyperlipidemia E78.5 Generalized anxiety disorder with panic attacks F41.1; F41.0 Migraine G43.909 Orthostatic hypotension I95.1 Elevated INR R79.1 Hypocalcemia E83.51 Hypomagnesemia E83.42 Hypokalemia E87.6 Acute diastolic CHF (congestive heart failure) I50.31 Bilateral pleural effusion J90 Acute hypoxic respiratory failure J96.01 Thiamine deficiency E51.9
[2024-07-25] MEDS: MAGNESIUM SULFATE / D5W 1 GM/100 ML BAG IV ONE (19:12)
[2024-07-26 06:37] LABS: BUN Creatinine Ratio 6.6 (10-20); Calcium 7.5 mg/dl (8.6-10.3); Creatinine Clr Calc Pharmacy 53.7 ml/min; Potassium 3.7 mmol/L (3.5-5.1)
[2024-07-26] MEDS: FUROSEMIDE INJ 20 MG/2 ML VIAL IV ONE (07:44)
[2024-07-26] MEDS: MIDODRINE HCL 2.5 MG TAB PO SCH (07:52)
[2024-07-26] MEDS: THIAMINE HCL 100 MG TAB PO SCH (09:42)
[2024-07-26] MEDS: POTASSIUM CHLORIDE CRTAB 20 MEQ TABCR PO SCH (09:50)
[2024-07-26] MEDS: MAGNESIUM OXIDE 400 MG TAB PO SCH (10:33)
--- NOTE | 2024-07-26 15:45 | Hospitalist Progress Note ---
Date of Service July 26, 2024 Assessment & Plan (1) DKA (diabetic ketoacidosis): (2) Uncontrolled type 1 diabetes mellitus with hyperglycemia: (3) Lactic acidosis: (4) Severe sepsis: (5) Fall: (6) Esophagitis: (7) Hypotension: (8) Acute metabolic encephalopathy: (9) Hypothermia: (10) Acute dehydration: (11) Hypothyroidism: (12) Hyperlipidemia: (13) Generalized anxiety disorder with panic attacks: (14) Migraine: (15) Orthostatic hypotension: (16) Elevated INR: (17) Hypocalcemia: (18) Hypomagnesemia: (19) Hypokalemia: (20) Acute diastolic CHF (congestive heart failure): (21) Bilateral pleural effusion: (22) Acute hypoxic respiratory failure: (23) Thiamine deficiency: Plan 74yo female with history of long-standing T1DM, poorly-controlled with most a1c's >10% in the record and followed by [facility] [place] Endo/DM clinic - on insulin pump; hypothyroidism; anxiety; hyperlipidemia; migraines; vertigo - who presents from home after her son found her on the floor in the bathroom. She was unresponsive when he found her. Upon ER presentation she was hypothermic, had evidence of severe DKA, was hypotensive, and was severely altered. Also with suspected severe sepsis at admission. #DKA - * 2nd to noncompliance with insulin therapy (pump ran out of insulin for at least 1-2 days prior to admission, then she switched to SC injections, but unclear how much she was using or how often) * pneumonia likely contributed to DKA * sleep deprivation, other major life stressors probably also played a role * she drinks wine nightly - uncertain how much - but if drinking heavily this would have contributed as well * s/p insulin infusion and copious IV hydration at admission with resolution of DKA; required ICU level of care x 48 hours * insulin drip off 411 AM; transitioned to basal-bolus SC insulin at that time * transitioned back to pump 07/17 * overall glycemic control has been very good since resolution of DKA #uncontrolled, long-standing T1DM on insulin pump therapy - * Hba1c 10.6% * nearly all a1c's going back to 2017 have been >10% * follows with [facility] Endo/DM clinic - Nikki Valerie [place] * clinical informatics educator and pharmacy glycemic consults appreciated * cont insulin pump * suspect she has diabetic autonomic neuropathy from long-standing uncontrolled DM #acute hypoxic respiratory failure - * 2nd to b/l basilar pneumonia (s/p complete course of IV abx therapy) * 2nd to acute diastolic CHF * 2nd to pleural effusions * improving * O2 requirement significantly down * pulmonary consult appreciated; they advise ongoing diuresis; effusions, although mildly exudative, are still likely from volume overload; parapneumonic effusions / empyema not suspected #acute diastolic CHF - * grade 2 diastolic dysfunction on echo this admission * acute diastolic CHF 2nd to copious IV fluids in the setting of low albumin and critical illness * s/p L sided thoracentesis 07/24 * s/p R sided thoracentesis 07/25 * lasix 20mg IV daily until euvolemic * continues to improve every day #severe sepsis - * met severe sepsis criteria with elevated lactate level, JASMINE, altered MS, leukocytosis, hypothermia, etc. * source - pneumonia as detected on cxr 07/13/24 * blood cx's negative * resp BioFire was negative * sepsis resolved #b/l pneumonia - * basilar pneumonia on 07/13/24 cxr * may have precipitated her DKA * either aspiration pneumonia vs CAP * doubt gram negative etiology; MRSA swab neg * resp bioFire neg * s/p full 10 days of IV/PO abx therapy #lactic acidosis - * present on admission * lactic acidosis 2nd to severely volume contacted state and/or severe sepsis - resolved #JASMINE - * 2nd to DKA * 2nd to volume contraction * sepsis-related * resolved * peak Cr 2.2 * no evidence of obstruction on CT a/p * BMP am once again in face of diuresis, etc. #Esophagitis - * as seen on CT * cont daily PPI - will need prescription at discharge * carafate qid for 7-10 days * could have gastroparesis as well leading to the gastric/esophageal abnormalities as detected on the CTs but she denies chronic nausea and/or emesis * would send to GI post-d/c; may need EGD #acute metabolic encephalopathy - resolved * 2nd to DKA, lactic acidosis, sepsis, etc * CT head neg * MRI brain neg for stroke/ICH/tumor/etc * depression could be feeding into this as well * B12 level 470 * B1 level returned low - cont thiamine 200mg BID x 1 month #hypothyroidism - * TSH 4.1 * cont synthroid #elevated INR - * resolved * etiology uncertain but INR went from 1.4 to normal without intervention #fall - * presumed 2nd to severe DKA +/- weakness from metabolic derangements +/- sepsis + hypotension / orthostatic hypotension * echo 04/2024 was wnl * PT/OT * head CT neg * MRI brain negative for subacute CVA * fortunately no major injuries from her fall(s) * B1 def - see below; replace * B12 level was wnl #hypothermia - * present on admission * resolved with warming blanket, Rx of DKA, etc. #orthostatic hypotension - * cortisol 16 * midodrine started earlier in the admission * still with dizziness and documented orthostatic hypotension -- increase midodrine to 5mg TID; may need 10mg TID and even additional agents * suspect that her orthostatic hypotension is autonomic insufficiency from diabetic neuropathy; this can be challenging to treat * avoid florinef for now given her volume overloaded state #hypophosphatemia - * replaced/resolved #DVT proph - * heparin 5000 BID #anxiety - * cont sertraline 25mg daily * consider increase to 50mg at discharge * cont buspar prn * cont ativan prn * replace low B1 #hypernatremia - * resolved #hypocalcemia - * cont calcium/vit D supplement * levels improving * 25 [place] Vit D level was 49 earlier this month #hypomagnesemia - * ongoing, due to diarrhea, due to diuresis * check mag level am #daily etoh use - * uncertain amount, but her son thinks it is likely 1 glass/night * B1 deficient - replace * had no etoh withdrawal while here #B1 def - * thiamine 200mg BID x 30 days #deconditioning - * cont PT/OT * rehab needed post-d/c * plan is [facility]ah[facility] Mckeon at d/c spoke with Ellie, pt' daughter who is a PA at [employer] in [place] her phone # is [phone] reviewed current issues, current care plan, and potential d/c date for rehab (early next week is my hope) discussed orthostasis in detail questions answered sent [place] message to pt's son Juan Manuel 07/25/24 as well Admission and Anticipated Discharge Date Admission Date: July 12, 2024 Subjective tele wnl overnight feeling overall pretty good dyspnea much improved NC O2 requirement down to 2 Liters copious diuresis today with lasix still with dizziness & orthostasis with standing unfortunately which is limiting her activity eating well she c/o frequent stools - mildly loose/formed; not liquid slight dyspepsia but no nausea or abd pain no vomiting no blood in stool Review of Systems Review of Systems: CV - no chest pain pulm - no dyspnea at rest GI - see subjective portion of note - no LUTS Physical Exam Physical Exam: gen - watching baseball on her phone, NAD, looks good today mouth - no thrush, MMM neck - JVD improved heart - RRR, s1 s2 , no murmur lungs - mild b/l basilar rales; no wheeze; no increased work of breathing abd - soft, NT, ND, BS+, no HSM ext - pulses 2+ b/l feet, no peripheral edema psych - a/o x 3 Results & Data Results & Data Vital Signs (Past 12 Hours) Vital Signs Temp Pulse Pulse Resp BP Pulse Ox O2 Del Method 07/26/24 15:35 81 07/26/24 13:00 Nasal Cannula 07/26/24 08:04 37.1 C 84 18 109/64 98 Nasal Cannula 07/26/24 05:37 74 O2 Flow Rate 07/26/24 15:35 07/26/24 13:00 3 07/26/24 08:04 3 07/26/24 05:37 Laboratory Results Laboratory Results 07/26/24 07/26/24 05:20 07:17 Sodium 141 Potassium 3.7 Chloride 102 Carbon Dioxide 36 H Anion Gap 3 BUN 5 L Creatinine 0.76 Est Cr Clr Drug Dosing 53.7 eGFR 82.17 BUN/Creatinine Ratio 6.6 L Glucose 164 H POC Glucose 164 H Calcium 7.5 L Magnesium 2.0 PG Care Time/CCT Total # of Minutes Spent Total Time Spent with Patient: Total time spent is greater than 50% in coordination of care (as documented) at patient's floor/unit and/or counseling patient: Coding Level of Care Code 05695 SUB INP/OBS CARE 3/50MIN Diagnoses DKA (diabetic ketoacidosis) E11.10 Uncontrolled type 1 diabetes mellitus with hyperglycemia E10.65 Lactic acidosis E87.20 Severe sepsis A41.9; R65.20 Fall W19.XXXA Esophagitis K20.90 Hypotension I95.9 Acute metabolic encephalopathy G93.41 Hypothermia T68.XXXA Acute dehydration E86.0 Hypothyroidism E03.9 Hyperlipidemia E78.5 Generalized anxiety disorder with panic attacks F41.1; F41.0 Migraine G43.909 Orthostatic hypotension I95.1 Elevated INR R79.1 Hypocalcemia E83.51 Hypomagnesemia E83.42 Hypokalemia E87.6 Acute diastolic CHF (congestive heart failure) I50.31 Bilateral pleural effusion J90 Acute hypoxic respiratory failure J96.01 Thiamine deficiency E51.9
--- NOTE | 2024-07-26 18:33 | XRay Report ---
EXAM: XR KUB/Abdomen 1 view CLINICAL HISTORY: abd distension, stomach upset, ileus? TECHNIQUE: X-ray images of the abdomen were obtained in supine and upright positions. COMPARISON: 07/22/2024 CT FINDINGS: Gas Pattern: Bowel loops are seen distended with gases and fecal matter. Opacified large bowel loops likely due to old oral contrast study. Soft Tissues: Soft tissues of the abdomen appear normal without evidence of masses or calcifications. Liver, spleen, and kidneys are of normal size and position. Obliterated both costopherenic recesses with bilateral lower lung zones shadows denoting bilateral pleural effusion. IMPRESSION: 1. Bowel loops are seen distended with gases and fecal matter, no air/fluid level. Clinical correlation is recommended to rule out suspected ileus. 2. No time interval changes compared to last study. Electronically signed by Ned Wu 07-26-2024 6:30 PM
[2024-07-26] MEDS: SENNA 8.6 MG TAB PO SCH (21:44)
[2024-07-27 06:47] LABS: BUN Creatinine Ratio 8.2 (10-20); Calcium 7.3 mg/dl (8.6-10.3); Creatinine Clr Calc Pharmacy 55.9 ml/min; Magnesium 1.7 mg/dl (1.7-2.4); Potassium 3.9 mmol/L (3.5-5.1)
[2024-07-27] MEDS: MAGNESIUM SULFATE / D5W 1 GM/100 ML BAG IV ONE (09:39)
[2024-07-27] MEDS: FUROSEMIDE INJ 20 MG/2 ML VIAL IV ONE (09:39)
[2024-07-27] MEDS: MIDODRINE HCL 10 MG TAB PO SCH (12:03)
--- NOTE | 2024-07-27 20:16 | Hospitalist Progress Note ---
Date of Service July 27, 2024 Assessment & Plan (1) DKA (diabetic ketoacidosis): (2) Uncontrolled type 1 diabetes mellitus with hyperglycemia: (3) Lactic acidosis: (4) Severe sepsis: (5) Fall: (6) Esophagitis: (7) Hypotension: (8) Acute metabolic encephalopathy: (9) Hypothermia: (10) Acute dehydration: (11) Hypothyroidism: (12) Hyperlipidemia: (13) Generalized anxiety disorder with panic attacks: (14) Migraine: (15) Orthostatic hypotension: (16) Elevated INR: (17) Hypocalcemia: (18) Hypomagnesemia: (19) Hypokalemia: (20) Acute diastolic CHF (congestive heart failure): (21) Bilateral pleural effusion: (22) Acute hypoxic respiratory failure: (23) Thiamine deficiency: Plan 74yo female with history of long-standing T1DM, poorly-controlled with most a1c's >10% in the record and followed by [facility] - on insulin pump; hypothyroidism; anxiety; hyperlipidemia; migraines; vertigo - who presents from home after her son found her on the floor in the bathroom. She was unresponsive when he found her. Upon ER presentation she was hypothermic, had evidence of severe DKA, was hypotensive, and was severely altered. Also with suspected severe sepsis at admission. #DKA - * 2nd to noncompliance with insulin therapy (pump ran out of insulin for at least 1-2 days prior to admission, then she switched to SC injections, but unclear how much she was using or how often) * pneumonia likely contributed to DKA * sleep deprivation, other major life stressors probably also played a role * she drinks wine nightly - uncertain how much - but if drinking heavily this would have contributed as well * s/p insulin infusion and copious IV hydration at admission with resolution of DKA; required ICU level of care x 48 hours * insulin drip off 411 AM; transitioned to basal-bolus SC insulin at that time * transitioned back to pump 07/17 * overall glycemic control has been very good since resolution of DKA * patient has CGM in place and is watching sugars on her phone #uncontrolled, long-standing T1DM on insulin pump therapy - * Hba1c 10.6% * nearly all a1c's going back to 2017 have been >10% * follows with [facility] - Nikki Valerie [place] * natural resources extension educator and pharmacy glycemic consults appreciated * cont insulin pump * suspect she has diabetic autonomic neuropathy from long-standing uncontrolled DM #acute hypoxic respiratory failure - * 2nd to b/l basilar pneumonia (s/p complete course of IV abx therapy) * 2nd to acute diastolic CHF * 2nd to pleural effusions * improving; down to 2-3 L NC O2 * pulmonary consult appreciated; they advise ongoing diuresis; effusions, although mildly exudative, are still likely from volume overload; parapneumonic effusions / empyema not suspected #acute diastolic CHF - * grade 2 diastolic dysfunction on echo this admission * acute diastolic CHF 2nd to copious IV fluids in the setting of low albumin and critical illness * s/p L sided thoracentesis 07/24 * s/p R sided thoracentesis 07/25 * lasix 20mg IV daily until euvolemic #severe sepsis - * met severe sepsis criteria with elevated lactate level, JASMINE, altered MS, leukocytosis, hypothermia, etc. * source - pneumonia as detected on cxr 07/13/24 * blood cx's negative * resp BioFire was negative * sepsis resolved #b/l pneumonia - * basilar pneumonia on 07/13/24 cxr * may have precipitated her DKA * either aspiration pneumonia vs CAP * doubt gram negative etiology; MRSA swab neg * resp bioFire neg * s/p full 10 days of IV/PO abx therapy and now off all abx #lactic acidosis - * present on admission, resolved with fluid resuscitation * lactic acidosis 2nd to severely volume contacted state and/or severe sepsis #JASMINE - * 2nd to DKA * 2nd to volume contraction * sepsis-related * resolved * peak Cr 2.2 * Cr remains stable at <1 even with diuresis * no evidence of obstruction on CT a/p * BMP am once again in face of diuresis, etc. #Esophagitis - * as seen on CT * cont daily PPI - will need prescription at discharge * completed 14 days of QID carafate --> will discontinue * could have gastroparesis as well leading to the gastric/esophageal abnormalities as detected on the CTs but she denies chronic nausea and/or emesis * would send to GI post-d/c; may need EGD #acute metabolic encephalopathy - resolved * 2nd to DKA, lactic acidosis, sepsis, etc * CT head neg * MRI brain neg for stroke/ICH/tumor/etc * depression could be feeding into this as well * B12 level 470 * B1 level returned low - cont thiamine 200mg BID x 1 month #hypothyroidism - * TSH 4.1 * cont synthroid #elevated INR - * resolved * etiology uncertain but INR went from 1.4 to normal without intervention #fall - * presumed 2nd to severe DKA +/- weakness from metabolic derangements +/- sepsis + hypotension / orthostatic hypotension * echo 04/2024 was wnl * PT/OT * head CT neg * MRI brain negative for subacute CVA * fortunately no major injuries from her fall(s) * B1 def - see below; replace * B12 level was wnl #hypothermia - * present on admission * resolved with warming blanket, Rx of DKA, etc. #orthostatic hypotension - * cortisol 16 * midodrine started earlier in the admission * still with dizziness and documented orthostatic hypotension -- increased midodrine to 5mg TID, but still with symptomatic orthostasis; increase to 10mg TID today * may need additional agents * suspect that her orthostatic hypotension is autonomic insufficiency from diabetic neuropathy; this can be challenging to treat * avoid florinef for now given her volume overloaded state but consider its use later on (or pyridostigmine) #hypophosphatemia - * replaced/resolved #DVT proph - * heparin 5000 BID #anxiety - * cont sertraline 25mg daily * consider increase to 50mg at discharge * cont buspar prn * cont ativan prn * replace low B1 #hypernatremia - * resolved #hypocalcemia - * cont calcium/vit D supplement * levels improving * 25 OH Vit D level was 49 earlier this month #hypomagnesemia - * intermittent --> due to diarrhea, due to diuresis * check mag level about every other day for stability #daily etoh use - * uncertain amount, but her son thinks it is likely 1 glass/night * B1 deficient - replace * had no etoh withdrawal while here #B1 def - * thiamine 200mg BID x 30 days #deconditioning - * cont PT/OT * rehab needed post-d/c * plan is [facility] at d/c --> patient still agreeable spoke with Ellie, pt' daughter who is a [facility] [employer] - on 07/26/24 her phone # is [phone] reviewed current issues, current care plan, and potential d/c date for rehab (early next week is my hope) discussed orthostasis in detail questions answered sent [place] message to pt's son Juan Manuel 07/25/24 as well as today progressing nicely Admission and Anticipated Discharge Date Admission Date: July 12, 2024 Subjective tele overnight wnl patient continues to report improvement in breathing no dyspnea when working with PT this am PT worked with her about 1030 this am they documented a SIGNIFICANT drop in BP with standing (down to 60 systolic) however those orthostatic BPs were PRIOR to midodrine being increased to 10mg despite the drop she reports the lightheadedness is overall better denies any new complaints stomach feels better today Review of Systems Review of Systems: gen - stronger each day cv - no chest pain, no edema pulm - CISNEROS improved GI - no N/V/pain - no LUTS endo - some BSGs over 200 Physical Exam Physical Exam: gen - sitting in chair, NAD, looks good mouth - no thrush, MMM neck - JVD improved but still present even sitting upright at 90 degrees heart - RRR, s1 s2 , no murmur lungs - mild b/l basilar rales; no wheeze; no increased work of breathing abd - soft, NT, ND, BS+, no HSM ext - pulses 2+ b/l feet, no peripheral edema psych - a/o x 3 Results & Data Results & Data Vital Signs (Past 12 Hours) Vital Signs Temp Pulse Resp BP Pulse Ox O2 Del Method O2 Flow Rate 07/27/24 19:35 37.1 C 67 16 136/66 94 Nasal Cannula 07/27/24 15:38 37.0 C 74 17 100/55 L 93 Nasal Cannula 2.0 07/27/24 12:39 96 Nasal Cannula 2 07/27/24 12:29 36.8 C 72 18 109/71 94 Nasal Cannula 2.0 Laboratory Results Laboratory Results - last 24 hr 07/24/24 07/27/24 07/27/24 Unknown 06:02 07:24 Sodium 143 Potassium 3.9 Chloride 105 Carbon Dioxide 38 H Anion Gap 0 L BUN 6 Creatinine 0.73 Est Cr Clr Drug Dosing 55.9 eGFR 86.24 BUN/Creatinine Ratio 8.2 L Glucose 145 H POC Glucose 153 H Calcium 7.3 L Magnesium 1.7 Pleural Albumin 1.2 Pleural Triglycerides 16 Diagnostic Findings Microbiology 07/25/24 13:00 Pleural Fluid,Right Gram Stain - Final 07/25/24 13:00 Pleural Fluid,Right Aerobic and Anaerobic Culture - Preliminary No growth to date. 07/24/24 Unknown Pleural Fluid,Left Gram Stain - Final 07/24/24 Unknown Pleural Fluid,Left Aerobic and Anaerobic Culture - Preliminary No growth to date. 07/16/24 17:35 Urine,Clean Catch Urine Culture - Final No growth - less than 1,000 colonies/mL. 07/12/24 09:46 Blood Aerobic Blood Culture - Final No growth in Aerobic bottle after 5 days. 07/12/24 09:46 Blood Anaerobic Blood Culture - Final No growth in Anaerobic bottle after 5 days. 07/12/24 09:25 Blood Aerobic Blood Culture - Final No growth in Aerobic bottle after 5 days. 07/12/24 09:25 Blood Anaerobic Blood Culture - Final No growth in Anaerobic bottle after 5 days. PG Care Time/CCT Total # of Minutes Spent Total Time Spent with Patient: Total time spent is greater than 50% in coordination of care (as documented) at patient's floor/unit and/or counseling patient: Coding Level of Care Code 71567 SUB INP/OBS CARE 3/50MIN Diagnoses DKA (diabetic ketoacidosis) E11.10 Uncontrolled type 1 diabetes mellitus with hyperglycemia E10.65 Lactic acidosis E87.20 Severe sepsis A41.9; R65.20 Fall W19.XXXA Esophagitis K20.90 Hypotension I95.9 Acute metabolic encephalopathy G93.41 Hypothermia T68.XXXA Acute dehydration E86.0 Hypothyroidism E03.9 Hyperlipidemia E78.5 Generalized anxiety disorder with panic attacks F41.1; F41.0 Migraine G43.909 Orthostatic hypotension I95.1 Elevated INR R79.1 Hypocalcemia E83.51 Hypomagnesemia E83.42 Hypokalemia E87.6 Acute diastolic CHF (congestive heart failure) I50.31 Bilateral pleural effusion J90 Acute hypoxic respiratory failure J96.01 Thiamine deficiency E51.9
[2024-07-28 06:02] LABS: BUN Creatinine Ratio 10.8 (10-20); Calcium 7.3 mg/dl (8.6-10.3); Creatinine Clr Calc Pharmacy 55.2 ml/min
[2024-07-28] MEDS: FUROSEMIDE INJ 20 MG/2 ML VIAL IV ONE (07:55)
[2024-07-28] MEDS: FLUDROCORTISONE ACETATE 0.1 MG TAB PO SCH (11:50)
--- NOTE | 2024-07-28 19:12 | Hospitalist Progress Note ---
Date of Service July 28, 2024 Assessment & Plan (1) DKA (diabetic ketoacidosis): (2) Uncontrolled type 1 diabetes mellitus with hyperglycemia: (3) Lactic acidosis: (4) Severe sepsis: (5) Fall: (6) Esophagitis: (7) Hypotension: (8) Acute metabolic encephalopathy: (9) Hypothermia: (10) Acute dehydration: (11) Hypothyroidism: (12) Hyperlipidemia: (13) Generalized anxiety disorder with panic attacks: (14) Migraine: (15) Orthostatic hypotension: (16) Elevated INR: (17) Hypocalcemia: (18) Hypomagnesemia: (19) Hypokalemia: (20) Acute diastolic CHF (congestive heart failure): (21) Bilateral pleural effusion: (22) Acute hypoxic respiratory failure: (23) Thiamine deficiency: Plan 74yo female with history of long-standing T1DM, poorly-controlled with most a1c's >10% in the record and followed by [facility] - on insulin pump; hypothyroidism; anxiety; hyperlipidemia; migraines; vertigo - who presents from home after her son found her on the floor in the bathroom. She was unresponsive when he found her. Upon ER presentation she was hypothermic, had evidence of severe DKA, was hypotensive, and was severely altered. Also with suspected severe sepsis at admission. #DKA - * 2nd to noncompliance with insulin therapy (pump ran out of insulin for at least 1-2 days prior to admission, then she switched to SC injections, but unclear how much she was using or how often) * pneumonia likely contributed to DKA * sleep deprivation, other major life stressors probably also played a role * she drinks wine nightly - uncertain how much - but if drinking heavily this would have contributed as well * s/p insulin infusion and copious IV hydration at admission with resolution of DKA; required ICU level of care x 48 hours * insulin drip off 411 AM; transitioned to basal-bolus SC insulin at that time * transitioned back to pump 07/17 * overall glycemic control has been very good since resolution of DKA * patient has CGM in place and is watching sugars on her phone #uncontrolled, long-standing T1DM on insulin pump therapy - * Hba1c 10.6% * nearly all a1c's going back to 2017 have been >10% * follows with [facility] - Nikki Valerie [place] * in service educator and pharmacy glycemic consults appreciated * cont insulin pump * suspect she has diabetic autonomic neuropathy from long-standing uncontrolled DM #acute hypoxic respiratory failure - * 2nd to b/l basilar pneumonia (s/p complete course of IV abx therapy) * 2nd to acute diastolic CHF * 2nd to pleural effusions * improving; down to 1-2 L NC O2 * will repeat a 2-view cxr today given the persistent rales despite aggressive diuresis * pulmonary consult appreciated; they advised ongoing diuresis; effusions, although mildly exudative - likely from volume overload; parapneumonic effusions / empyema not suspected #acute diastolic CHF - * grade 2 diastolic dysfunction on echo this admission * acute diastolic CHF 2nd to copious IV fluids in the setting of low albumin and critical illness * s/p L sided thoracentesis 07/24 * s/p R sided thoracentesis 07/25 * lasix 20mg IV daily until euvolemic; give another dose today #severe sepsis - * met severe sepsis criteria with elevated lactate level, JASMINE, altered MS, leukocytosis, hypothermia, etc. * source - pneumonia as detected on cxr 07/13/24 * blood cx's negative * resp BioFire was negative * sepsis resolved #b/l pneumonia - * resolved clinically and radiographically * basilar pneumonia on 07/13/24 cxr * may have precipitated her DKA * either aspiration pneumonia vs CAP * doubt gram negative etiology; MRSA swab neg * resp bioFire neg * s/p full 10 days of IV/PO abx therapy and now off all abx #lactic acidosis - * present on admission, resolved with fluid resuscitation * lactic acidosis 2nd to severely volume contacted state and/or severe sepsis #JASMINE - * 2nd to DKA * 2nd to volume contraction * sepsis-related * resolved * peak Cr 2.2 * Cr remains stable at <1 even with diuresis * no evidence of obstruction on CT a/p * BMP qam #Esophagitis - * as seen on CT * cont daily PPI - will need prescription at discharge * completed 14 days of QID carafate --> will discontinue * could have gastroparesis as well leading to the gastric/esophageal abnormalities as detected on the CTs but she denies chronic nausea and/or emesis * would send to GI post-d/c; may need EGD #acute metabolic encephalopathy - resolved * 2nd to DKA, lactic acidosis, sepsis, etc * CT head neg * MRI brain neg for stroke/ICH/tumor/etc * depression could be feeding into this as well * B12 level 470 * B1 level returned low - cont thiamine 200mg BID x 1 month #hypothyroidism - * TSH 4.1 * cont synthroid #elevated INR - * resolved * etiology uncertain but INR went from 1.4 to normal without intervention #fall - * presumed 2nd to severe DKA +/- weakness from metabolic derangements +/- sepsis + hypotension / orthostatic hypotension * echo 04/2024 was wnl * cont PT/OT * head CT neg * MRI brain negative for subacute CVA * fortunately no major injuries from her fall(s) * B1 def - see below; replace * B12 level was wnl #hypothermia - * present on admission * resolved with warming blanket, Rx of DKA, etc. #orthostatic hypotension - * cortisol 16 * midodrine started earlier in the admission * still with dizziness and documented orthostatic hypotension -- increased midodrine to 5mg TID, but still with symptomatic orthostasis; increased to 10mg TID * unfortunately her orthostasis persists despite maxed out midodrine -- will add back florinef 0.1mg daily * if no improvement then trial of pyridostigmine * suspect that her orthostatic hypotension is autonomic insufficiency from diabetic neuropathy; this can be challenging to treat #hypophosphatemia - * replaced/resolved #DVT proph - * heparin 5000 BID #anxiety - * cont sertraline 25mg daily * consider increase to 50mg at discharge * cont buspar prn * cont ativan prn * replace low B1 #hypernatremia - * resolved #hypocalcemia - * cont calcium/vit D supplement * levels improving * 25 OH Vit D level was 49 earlier this month #hypomagnesemia - * intermittent --> due to diarrhea, due to diuresis * check mag level about every other day for stability #daily etoh use - * uncertain amount, but her son thinks it is likely 1 glass/night * B1 deficient - replace * had no etoh withdrawal while here #B1 def - * thiamine 200mg BID x 30 days #deconditioning - * cont PT/OT * rehab needed post-d/c * plan is [facility] at d/c --> patient still agreeable spoke with Ellie, pt' daughter who is a PA at [employer] in [place] - on 07/26/24 her phone # is [phone] reviewed current issues, current care plan, and potential d/c date for rehab (early next week is my hope) discussed orthostasis in detail questions answered sent [place] message to pt's son Juan Manuel 07/25/24 as well as 07/27 progressing nicely Admission and Anticipated Discharge Date Admission Date: July 12, 2024 Subjective tele wnl overnight denies any new complaints but states "It just wasn't a good day for me" when asked what specifically was bad she clarified that she felt more dizzy than previous days with standing she otherwise actually feels well eating robustly breathing improved - no dyspnea during the visit I tried to take her NC O2 off -- about 5 minutes after stopping the O2 she dropped to about 88-89% sats in RA placed 1 L back - sats 93-94% mild cough at times no GI complaints today Review of Systems Review of Systems: gen - no fevers, no chills, eating well cv - when she takes a deep breath she has mild chest tightness but no pain pulm - no dyspnea or CISNEROS; minimal cough GI - no N/V/abd pain Physical Exam Physical Exam: gen - sitting in bed, NAD, looks good, finishing her meal mouth - no thrush, MMM neck - JVD resolved; maybe slight +hepatojugular reflex heart - RRR, s1 s2 , no murmur lungs - mildly decreased BS bases; mild b/l rales; no wheeze; no increased work of breathing abd - soft, NT, ND, BS+, no HSM ext - pulses 2+ b/l feet, no peripheral edema psych - a/o x 3, affect has been much better last few days Results & Data Results & Data Vital Signs (Past 12 Hours) Vital Signs Temp Pulse Pulse Resp BP Pulse Ox O2 Del Method 07/28/24 17:08 36.7 C 76 18 173/78 H 91 Nasal Cannula 07/28/24 14:38 69 07/28/24 12:18 37.1 C 76 18 118/75 96 Nasal Cannula 07/28/24 08:07 Nasal Cannula 07/28/24 08:00 75 07/28/24 07:21 37.0 C 78 18 143/71 H 93 Nasal Cannula O2 Flow Rate 07/28/24 17:08 2 07/28/24 14:38 07/28/24 12:18 2 07/28/24 08:07 2 07/28/24 08:00 07/28/24 07:21 3 Laboratory Results Laboratory Results - last 24 hr 07/24/24 07/27/24 07/28/24 Unknown 20:14 04:54 Sodium 137 Potassium 4.0 Chloride 103 Carbon Dioxide 33 H Anion Gap 1 L BUN 8 Creatinine 0.74 Est Cr Clr Drug Dosing 55.2 eGFR 84.85 BUN/Creatinine Ratio 10.8 Glucose 147 H POC Glucose 80 Calcium 7.3 L Pleural Albumin 1.2 Pleural Triglycerides 16 07/28/24 07/28/24 07/28/24 07:15 12:15 17:04 Sodium Potassium Chloride Carbon Dioxide Anion Gap BUN Creatinine Est Cr Clr Drug Dosing eGFR BUN/Creatinine Ratio Glucose POC Glucose 172 H 160 H 78 Calcium Pleural Albumin Pleural Triglycerides PG Care Time/CCT Total # of Minutes Spent Total Time Spent with Patient: Total time spent is greater than 50% in coordination of care (as documented) at patient's floor/unit and/or counseling patient: Coding Level of Care Code 72750 SUB INP/OBS CARE 3/50MIN Diagnoses DKA (diabetic ketoacidosis) E11.10 Uncontrolled type 1 diabetes mellitus with hyperglycemia E10.65 Lactic acidosis E87.20 Severe sepsis A41.9; R65.20 Fall W19.XXXA Esophagitis K20.90 Hypotension I95.9 Acute metabolic encephalopathy G93.41 Hypothermia T68.XXXA Acute dehydration E86.0 Hypothyroidism E03.9 Hyperlipidemia E78.5 Generalized anxiety disorder with panic attacks F41.1; F41.0 Migraine G43.909 Orthostatic hypotension I95.1 Elevated INR R79.1 Hypocalcemia E83.51 Hypomagnesemia E83.42 Hypokalemia E87.6 Acute diastolic CHF (congestive heart failure) I50.31 Bilateral pleural effusion J90 Acute hypoxic respiratory failure J96.01 Thiamine deficiency E51.9
--- NOTE | 2024-07-28 20:47 | XRay Report ---
EXAM: XR chest 2V PA/lateral CLINICAL HISTORY: CHF, interval change TECHNIQUE: X-ray images of the chest were obtained in posteroanterior (PA) and lateral projections. COMPARISON: CR dated 07/25/2024. FINDINGS: Pulmonary Parenchyma: Prominent bilateral bronchovascular markings. Bilateral lower lung zone atelectatic bands. Obliterated both costophrenic angles by mild pleural effusion. Heart and Mediastinum: Heart size and shape are normal. No mediastinal widening or masses. No hilar or mediastinal lymphadenopathy. Bony Thorax: Bony thorax appears intact without fractures or deformities. Soft Tissues: Soft tissues overlying the chest wall are unremarkable. IMPRESSION: 1. Prominent bilateral bronchovascular markings, congestion. (Mild interval regression). 2. Bilateral lower lung zone atelectatic bands. 3. Obliterated both costophrenic angles by mild pleural effusion. (progression on the right side) . Electronically signed by Ned Wu 07-28-2024 8:47 PM
[2024-07-29 07:05] LABS: Hematocrit (blood only) 33.5 % (37.0-47.0); Hemoglobin 10.4 g/dl (12.0-16.0); Mean Corpuscular Hemoglobin 29.1 pg (25.0-34.0); Mean Corpuscular Volume 93.6 fL (80.0-100.0); Mean Platelet Volume 9.2 fL (9.4-12.4); Platelet Count 486 K/uL (130-400); RDW Coefficient of Variation 14.7 % (11.5-14.5); RDW Standard Deviation 50.6 fL (36.4-46.3); Red Blood Count 3.58 M/uL (4.20-5.40); White Blood Count 7.73 K/ul (4.8-10.8)
[2024-07-29 07:20] LABS: Albumin Level 2.7 gm/dl (3.4-5.0); BUN Creatinine Ratio 11.3 (10-20); Calcium 7.8 mg/dl (8.6-10.3); Creatinine Clr Calc Pharmacy 55.3 ml/min; Magnesium 1.6 mg/dl (1.7-2.4); Potassium 4.4 mmol/L (3.5-5.1)
[2024-07-29] MEDS: FUROSEMIDE INJ 20 MG/2 ML VIAL IV ONE (08:53)
[2024-07-29] MEDS: MAGNESIUM SULFATE / D5W 1 GM/100 ML BAG IV SCH (08:55)
--- NOTE | 2024-07-29 10:57 | Hospitalist Progress Note ---
Date of Service July 29, 2024 Assessment & Plan (1) DKA (diabetic ketoacidosis): (2) Uncontrolled type 1 diabetes mellitus with hyperglycemia: (3) Lactic acidosis: (4) Severe sepsis: (5) Fall: (6) Esophagitis: (7) Hypotension: (8) Acute metabolic encephalopathy: (9) Hypothermia: (10) Acute dehydration: (11) Hypothyroidism: (12) Hyperlipidemia: (13) Generalized anxiety disorder with panic attacks: (14) Migraine: (15) Orthostatic hypotension: (16) Elevated INR: (17) Hypocalcemia: (18) Hypomagnesemia: (19) Hypokalemia: (20) Acute diastolic CHF (congestive heart failure): (21) Bilateral pleural effusion: (22) Acute hypoxic respiratory failure: (23) Thiamine deficiency: Plan 74yo female with history of long-standing T1DM, poorly-controlled with most a1c's >10% in the record and [place] [facility] [place] - on insulin pump; hypothyroidism; anxiety; hyperlipidemia; migraines; vertigo - who presents from home after her son found her on the floor in the bathroom. She was unresponsive when he found her. Upon ER presentation she was hypothermic, had evidence of severe DKA, was hypotensive, and was severely altered. Also with suspected severe sepsis at admission. #DKA - * 2nd to noncompliance with insulin therapy (pump ran out of insulin for at least 1-2 days prior to admission, then she switched to SC injections, but unclear how much she was using or how often) * pneumonia likely contributed to DKA * sleep deprivation, other major life stressors probably also played a role * she drinks wine nightly - uncertain how much - but if drinking heavily this would have contributed as well * s/p insulin infusion and copious IV hydration at admission with resolution of DKA; required ICU level of care x 48 hours * insulin drip off 07/13 AM; transitioned to basal-bolus SC insulin at that time * transitioned back to pump 07/17 * overall glycemic control has been very good since resolution of DKA * patient has CGM in place and is watching sugars on her phone * CF is 45; carb ratio is 1:10 * has 3 different basal rates over the course of a 24-hour day #orthostatic hypotension - * remains severe * cortisol 16 on 07/23/24 AM * midodrine started earlier in the admission and ultimately titrated to 10mg TID and florinef 0.1mg daily added * despite the above 2 meds her orthostasis remains severe and she even had near- syncope/syncope last night walking to the bathroom PLAN: * stop florinef * lower midodrine to 2.5mg TID * add pyridostigmine 30mg BID * recheck orthostatic BPs later today * suspect that her orthostatic hypotension is autonomic insufficiency from diabetic neuropathy; this can be incredibly challenging to treat #uncontrolled, long-standing T1DM on insulin pump therapy - * Hba1c 10.6% * nearly all a1c's going back to 2017 have been >10% * [place] [facility] [place] - Nikki Valeire [place] * group program manager and pharmacy glycemic consults appreciated * cont insulin pump * suspect she has severe diabetic autonomic neuropathy from long-standing uncontrolled DM #acute hypoxic respiratory failure - * 2nd to b/l basilar pneumonia (s/p complete course of IV abx therapy) * 2nd to acute diastolic CHF * 2nd to pleural effusions * improved; down to 1-2 L NC O2 * 2-view cxr 07/28 with improved effusions & edema in comparison to 1 week ago; the effusions are very small at this point * pulmonary consult appreciated; they advised ongoing diuresis; effusions, although mildly exudative - likely from volume overload; parapneumonic effusions / empyema not suspected #acute diastolic CHF - * grade 2 diastolic dysfunction on echo this admission * acute diastolic CHF 2nd to copious IV fluids in the setting of low albumin and critical illness * s/p L sided thoracentesis 07/24 * s/p R sided thoracentesis 07/25 * lasix 20mg IV x 1 today then I feel she is about euvolemic * BMP am #severe sepsis - * met severe sepsis criteria with elevated lactate level, JASMINE, altered MS, leukocytosis, hypothermia, etc. * source - pneumonia as detected on cxr 07/13/24 * blood cx's negative * resp BioFire was negative * sepsis resolved #b/l pneumonia - * resolved clinically and radiographically * may have precipitated her DKA * either aspiration pneumonia vs CAP * resp bioFire neg * s/p full 10 days of IV/PO abx therapy and now off all abx #lactic acidosis - * present on admission, resolved with fluid resuscitation * lactic acidosis 2nd to severely volume contacted state and/or severe sepsis #JASMINE - * 2nd to DKA * 2nd to volume contraction * sepsis-related * resolved * peak Cr 2.2 * Cr remains stable at <1 even with diuresis * no evidence of obstruction on CT a/p * BMP qam will getting lasix #Esophagitis - * as seen on CT * cont daily PPI - will need prescription at discharge * completed 14 days of QID carafate --> discontinued * could have gastroparesis as well leading to the gastric/esophageal abnormalities as detected on the CTs but she denies chronic nausea and/or emesis * would send to GI post-d/c; may need EGD #acute metabolic encephalopathy - resolved * 2nd to DKA, lactic acidosis, sepsis, etc * CT head neg * MRI brain neg for stroke/ICH/tumor/etc * depression could be feeding into this as well * B12 level 470 * B1 level returned low - cont thiamine 200mg BID x 1 month #hypothyroidism - * TSH 4.1 * cont synthroid #elevated INR - * resolved * etiology uncertain but INR went from 1.4 to normal without intervention #fall - * presumed 2nd to severe DKA +/- weakness from metabolic derangements +/- sepsis + hypotension / orthostatic hypotension * echo 04/2024 was wnl * cont PT/OT * head CT neg * MRI brain negative for subacute CVA * fortunately no major injuries from her fall(s) * B1 def - see below; replace * B12 level was wnl #hypothermia - * present on admission * resolved with warming blanket, Rx of DKA, etc. #hypophosphatemia - * replaced/resolved #DVT proph - * heparin 5000 BID #anxiety - * cont sertraline 25mg daily * consider increase to 50mg at discharge * cont buspar prn * cont ativan prn * replace low B1 #hypernatremia - * resolved #hypocalcemia - * cont calcium/vit D supplement * levels improving * 25 OH Vit D level was 49 earlier this month #hypomagnesemia - * intermittent --> due to diarrhea, due to diuresis * check mag level about every other day for stability #daily etoh use - * uncertain amount, but her son thinks it is likely 1 glass/night * B1 deficient - replace * had no etoh withdrawal while here #B1 def - * thiamine 200mg BID x 30 days #deconditioning - * cont PT/OT * rehab needed post-d/c * plan is [facility] at d/c --> patient still agreeable spoke with Ellie, pt' daughter who is a PA at [employer] in [place] - on 07/26/24 her phone # is [phone] reviewed current issues, current care plan, and potential d/c date for rehab (early next week is my hope) discussed orthostasis in detail questions answered sent [place] message to pt's son Juan Manuel 07/25/24, 07/27, and today progressing nicely except for the orthostatic hypotension if this remains refractory consider formal cardiology consult Admission and Anticipated Discharge Date Admission Date: July 12, 2024 Subjective unfortunately patient had what sounds like near-syncope or even brief syncope while ambulating to the bathroom last pm multiple nurses assisted her during the event if she did have syncope the loss of consciousness was very brief she had her typical dizziness/lightheadedness before she had the event I checked the tele room - nothing on tele during the event; no pauses, AV block, etc this am her lightheadedness is modestly improved but she has only been out to the commode 1x continues to eat well continues to require about 1 L of NC O2 mild dry cough, but no dyspnea Review of Systems Review of Systems: gen - no fevers or chills cv - no chest pain, no orthopnea, no PND pulm - no dyspnea or CISNEROS GI - no abd pain or N/V Physical Exam Physical Exam: gen - sitting in bed, NAD, looks same as yesterday mouth - no thrush, MMM neck - JVD resolved; negative hepatojugular reflex heart - RRR, s1 s2 , no murmur lungs - mildly decreased BS bases; scant scattered rales; no wheeze; no increased work of breathing abd - soft, NT, ND, BS+, no HSM ext - pulses 2+ b/l feet, no peripheral edema psych - a/o x 3 Results & Data Results & Data Vital Signs (Past 12 Hours) Vital Signs Temp Pulse Pulse Pulse Resp BP BP 07/29/24 09:24 07/29/24 08:30 37.0 C 75 18 113/72 07/29/24 04:51 71 07/29/24 04:02 36.7 C 84 16 137/66 07/29/24 02:15 36.5 C 88 20 164/89 H Pulse Ox O2 Del Method O2 Flow Rate 07/29/24 09:24 Nasal Cannula 2 07/29/24 08:30 97 Nasal Cannula 2 07/29/24 04:51 07/29/24 04:02 91 Nasal Cannula 2 07/29/24 02:15 93 Room Air Laboratory Results Laboratory Results - last 24 hr 07/21/24 07/28/24 07/28/24 Unknown 12:15 17:04 WBC RBC Hgb Hct MCV MCH MCHC RDW Std Deviation RDW Coeff of Xavi Plt Count MPV Sodium Potassium Chloride Carbon Dioxide Anion Gap BUN Creatinine Est Cr Clr Drug Dosing eGFR BUN/Creatinine Ratio Glucose POC Glucose 160 H 78 Calcium Magnesium Albumin Stl Pancreat Elastase 1 621 07/28/24 07/29/24 07/29/24 20:14 06:49 08:01 WBC 7.73 RBC 3.58 L Hgb 10.4 L Hct 33.5 L MCV 93.6 MCH 29.1 MCHC 31.0 L RDW Std Deviation 50.6 H RDW Coeff of Xavi 14.7 H Plt Count 486 H MPV 9.2 L Sodium 140 Potassium 4.4 Chloride 105 Carbon Dioxide 33 H Anion Gap 2 L BUN 8 Creatinine 0.71 Est Cr Clr Drug Dosing 55.3 eGFR 89.17 BUN/Creatinine Ratio 11.3 Glucose 154 H POC Glucose 184 H 137 H Calcium 7.8 L Magnesium 1.6 L Albumin 2.7 L Stl Pancreat Elastase 1 PG Care Time/CCT Total # of Minutes Spent Total Time Spent with Patient: Total time spent is greater than 50% in coordination of care (as documented) at patient's floor/unit and/or counseling patient: Coding Level of Care Code 68024 SUB INP/OBS CARE 3/50MIN Diagnoses DKA (diabetic ketoacidosis) E11.10 Uncontrolled type 1 diabetes mellitus with hyperglycemia E10.65 Lactic acidosis E87.20 Severe sepsis A41.9; R65.20 Fall W19.XXXA Esophagitis K20.90 Hypotension I95.9 Acute metabolic encephalopathy G93.41 Hypothermia T68.XXXA Acute dehydration E86.0 Hypothyroidism E03.9 Hyperlipidemia E78.5 Generalized anxiety disorder with panic attacks F41.1; F41.0 Migraine G43.909 Orthostatic hypotension I95.1 Elevated INR R79.1 Hypocalcemia E83.51 Hypomagnesemia E83.42 Hypokalemia E87.6 Acute diastolic CHF (congestive heart failure) I50.31 Bilateral pleural effusion J90 Acute hypoxic respiratory failure J96.01 Thiamine deficiency E51.9
[2024-07-29] MEDS: pyRIDostigmine bromide 60 MG TAB PO SCH (12:19)
[2024-07-29] MEDS: MIDODRINE HCL 2.5 MG TAB PO SCH (12:20)
[2024-07-30 06:52] LABS: BUN Creatinine Ratio 14.5 (10-20); Calcium 7.8 mg/dl (8.6-10.3); Creatinine Clr Calc Pharmacy 51.7 ml/min; Magnesium 1.9 mg/dl (1.7-2.4); Potassium 4.2 mmol/L (3.5-5.1)
[2024-07-30] MEDS: CEROVITE ADV FORMULA TAB PO SCH (09:23)
--- NOTE | 2024-07-30 10:00 | Hospitalist Progress Note ---
Date of Service July 30, 2024 Assessment & Plan (1) DKA (diabetic ketoacidosis): (2) Uncontrolled type 1 diabetes mellitus with hyperglycemia: (3) Lactic acidosis: (4) Severe sepsis: (5) Fall: (6) Esophagitis: (7) Hypotension: (8) Acute metabolic encephalopathy: (9) Hypothermia: (10) Acute dehydration: (11) Hypothyroidism: (12) Hyperlipidemia: (13) Generalized anxiety disorder with panic attacks: (14) Migraine: (15) Orthostatic hypotension: (16) Elevated INR: (17) Hypocalcemia: (18) Hypomagnesemia: (19) Hypokalemia: (20) Acute diastolic CHF (congestive heart failure): (21) Bilateral pleural effusion: (22) Acute hypoxic respiratory failure: (23) Thiamine deficiency: Plan 74yo female with history of long-standing T1DM, poorly-controlled with most a1c's >10% in the record and followed [place] [facility] [place]DM [place] - on insulin pump; hypothyroidism; anxiety; hyperlipidemia; migraines; vertigo - who presents from home after her son found her on the floor in the bathroom. She was unresponsive when he found her. Upon ER presentation she was hypothermic, had evidence of severe DKA, was hypotensive, and was severely altered. Also with suspected severe sepsis at admission. #DKA - * 2nd to noncompliance with insulin therapy (pump ran out of insulin for at least 1-2 days prior to admission, then she switched to SC injections by report); pneumonia likely contributed to DKA as well * s/p insulin infusion and copious IV hydration at admission with resolution of DKA; required ICU level of care x 48 hours * insulin drip off 07/13 AM; transitioned to basal-bolus SC insulin at that time * transitioned back to pump 07/17 * overall glycemic control has been very good since resolution of DKA * patient has CGM in place and is watching sugars on her phone * CF is 45; carb ratio is 1:10 * has 3 different basal rates over the course of a 24-hour day #orthostatic hypotension - * remains severely symptomatic from such * cortisol 16 on 07/23/24 AM * midodrine started earlier in the admission and ultimately titrated to 10mg TID and florinef 0.1mg daily added * despite the above 2 meds her orthostasis remained severe and she even had near-syncope/syncope walking to the bathroom PM of 07/28 * further, the midodrine was causing significant supine HTN PLAN: * stopped florinef * lowered midodrine to 2.5mg TID * added pyridostigmine 30mg BID * despite these changes remains orthostatic this am and lightheaded * I spoke informally with on-call neurology --> will increase pyridostigmine to 30mg TID * suspect that her orthostatic hypotension is autonomic insufficiency from diabetic neuropathy; this can be incredibly challenging to treat * consider weaning off sertraline; although not common it theoretically can cause orthostasis #uncontrolled, long-standing T1DM on insulin pump therapy - * Hba1c 10.6% * nearly all a1c's going back to 2017 have been >10% * follows with [facility] [place]DM clinic - Nikki Valerie [place] * area representative and pharmacy glycemic consults appreciated * cont insulin pump * suspect she has severe diabetic autonomic neuropathy from long-standing uncontrolled DM #acute hypoxic respiratory failure - * 2nd to b/l basilar pneumonia (s/p complete course of IV abx therapy) * 2nd to acute diastolic CHF * 2nd to pleural effusions with associated b/l lower lobe atelectasis * improved; down to 1-2 L NC O2 * 2-view cxr 07/28 with improved effusions & edema in comparison to 1 week ago; the effusions are very small at this point * pulmonary consult appreciated; they advised ongoing diuresis; effusions, although mildly exudative - likely from volume overload; parapneumonic effusions / empyema not suspected #acute diastolic CHF - * grade 2 diastolic dysfunction on echo this admission * acute diastolic CHF 2nd to copious IV fluids in the setting of low albumin and critical illness * s/p L sided thoracentesis 07/24 * s/p R sided thoracentesis 07/25 * she appears euvolemic today; will defer on additional lasix today * BMP am #severe sepsis - * met severe sepsis criteria with elevated lactate level, JASMINE, altered MS, leukocytosis, hypothermia, etc. * source - pneumonia as detected on cxr 07/13/24 * blood cx's negative * resp BioFire was negative * sepsis resolved #b/l pneumonia - * resolved * may have precipitated her DKA * either aspiration pneumonia vs CAP * resp bioFire neg * s/p full 10 days of IV/PO abx therapy #lactic acidosis - * present on admission, resolved with fluid resuscitation #JASMINE - * 2nd to DKA / volume contraction / severe sepsis --> resolved * peak Cr 2.2 * Cr remains stable at <1 even with diuresis * no evidence of obstruction on CT a/p * BMP qam will getting lasix #Esophagitis - * as seen on CT * completed 14 days of QID carafate --> discontinued * could have gastroparesis as well leading to the gastric/esophageal abnormalities as detected on the CTs but she denies chronic nausea and/or emesis * would send to GI post-d/c; may need EGD * cont daily PPI - will need prescription at discharge #acute metabolic encephalopathy - resolved * 2nd to DKA, lactic acidosis, sepsis, etc * CT head neg * MRI brain neg for stroke/ICH/tumor/etc * depression could be feeding into this as well * B12 level 470 * B1 level returned low - cont thiamine 200mg BID x 1 month #hypothyroidism - * TSH 4.1 * cont synthroid #elevated INR - * resolved * etiology uncertain but INR went from 1.4 to normal without intervention #fall - * presumed 2nd to severe DKA +/- weakness from metabolic derangements +/- sepsis + hypotension / orthostatic hypotension * echo 04/2024 was wnl * cont PT/OT * head CT neg * MRI brain negative for subacute CVA * fortunately no major injuries from her fall(s) * B1 def - see below; replace * B12 level was wnl #hypothermia - * present on admission * resolved with warming blanket, Rx of DKA, etc. #DVT proph - * heparin 5000 BID #anxiety - * cont sertraline 25mg daily; was started early this admission * consider increase to 50mg at discharge * I have noted a significant improvement in her affect during the last 10 days or so * cont buspar prn * cont ativan prn * replace low B1 #hypocalcemia - * cont calcium/vit D supplement * most recent albumin 2.7; calcium today 7.8 * corrected calcium for the low albumin ~8.5 * 25 OH Vit D level was 49 earlier this month #hypomagnesemia - * intermittent --> due to diarrhea, due to diuresis * mag level today wnl at 1.9 #daily etoh use - * uncertain amount, but her son thinks it is likely 1 glass/night * B1 deficient - replace * had no etoh withdrawal while here #B1 def - * thiamine 200mg BID x 30 days * level - 61 (normal >78) #deconditioning - * cont PT/OT * rehab needed post-d/c * plan is [facility] at d/c --> patient still agreeable to such spoke with Ellie, pt' daughter who is a PA at [employer] in [place] - on 07/26/24 her phone # is [phone] reviewed current issues, current care plan, and potential d/c date for rehab (early next week is my hope) discussed orthostasis in detail questions answered sent [place] message to pt's son Juan Manuel 07/25/24, 07/27, 07/28, and 07/29 progressing nicely except for the orthostatic hypotension care d/w on-call neurology informally re: the orthostasis Admission and Anticipated Discharge Date Admission Date: July 12, 2024 Subjective no syncope or pre-syncope overnight was able to get to the commode several times with assistance no dyspnea minimal dry cough no CISNEROS in the room, but does have CISNEROS with climbing steps at her home still on 1-2 L NC O2 no abd pain or N/V still with ongoing dizziness/lightheadedness but not as severe as yesterday she reported that at home she doesn't have dizziness every day, but has it several times/week once or twice a month, however, she doesn't drive or go out of the house because of the severity of the lightheadedness symptoms present for 2 years or more Review of Systems Review of Systems: gen - no fevers or chills cv - no chest pain; sometimes a slight tightness in the chest but otherwise no pain pulm - CISNEROS at home, but none here GI - no abd pain or N/V Physical Exam Physical Exam: gen - sitting in bed, NAD, looks well mouth - no thrush, MMM neck - JVD resolved; negative hepatojugular reflex heart - RRR, s1 s2 , no murmur lungs - mildly decreased BS bases; minimal scattered rales, dry/fine - b/l; no wheeze; no increased work of breathing abd - soft, NT, ND, BS+, no HSM ext - pulses 2+ b/l feet, no peripheral edema psych - a/o x 3 Results & Data Results & Data Vital Signs (Past 12 Hours) Vital Signs Temp Pulse Pulse Resp BP Pulse Ox O2 Del Method 07/30/24 07:57 37.0 C 74 17 103/64 95 Nasal Cannula 07/30/24 07:21 67 07/30/24 04:23 36.7 C 77 16 121/67 95 Nasal Cannula 07/30/24 01:28 36.9 C 69 18 114/60 94 Nasal Cannula 07/30/24 00:29 66 O2 Flow Rate 07/30/24 07:57 2 07/30/24 07:21 07/30/24 04:23 2 07/30/24 01:28 2 07/30/24 00:29 Laboratory Results Laboratory Results - last 24 hr 07/29/24 07/30/24 20:17 05:34 Sodium 140 Potassium 4.2 Chloride 104 Carbon Dioxide 32 Anion Gap 4 BUN 11 Creatinine 0.76 Est Cr Clr Drug Dosing 51.7 eGFR 82.17 BUN/Creatinine Ratio 14.5 Glucose 159 H POC Glucose 201 H Calcium 7.8 L Magnesium 1.9 PG Care Time/CCT Total # of Minutes Spent Total Time Spent with Patient: Total time spent is greater than 50% in coordination of care (as documented) at patient's floor/unit and/or counseling patient: Coding Level of Care Code 25727 SUB INP/OBS CARE 3/50MIN Diagnoses DKA (diabetic ketoacidosis) E11.10 Uncontrolled type 1 diabetes mellitus with hyperglycemia E10.65 Lactic acidosis E87.20 Severe sepsis A41.9; R65.20 Fall W19.XXXA Esophagitis K20.90 Hypotension I95.9 Acute metabolic encephalopathy G93.41 Hypothermia T68.XXXA Acute dehydration E86.0 Hypothyroidism E03.9 Hyperlipidemia E78.5 Generalized anxiety disorder with panic attacks F41.1; F41.0 Migraine G43.909 Orthostatic hypotension I95.1 Elevated INR R79.1 Hypocalcemia E83.51 Hypomagnesemia E83.42 Hypokalemia E87.6 Acute diastolic CHF (congestive heart failure) I50.31 Bilateral pleural effusion J90 Acute hypoxic respiratory failure J96.01 Thiamine deficiency E51.9
[2024-07-30] MEDS: pyRIDostigmine bromide 60 MG TAB PO SCH (13:54)
--- NOTE | 2024-07-31 07:58 | Hospitalist Progress Note ---
Date of Service July 31, 2024 Assessment & Plan (1) DKA (diabetic ketoacidosis): (2) Uncontrolled type 1 diabetes mellitus with hyperglycemia: (3) Lactic acidosis: (4) Severe sepsis: (5) Fall: (6) Esophagitis: (7) Hypotension: (8) Acute metabolic encephalopathy: (9) Hypothermia: (10) Acute dehydration: (11) Hypothyroidism: (12) Hyperlipidemia: (13) Generalized anxiety disorder with panic attacks: (14) Migraine: (15) Orthostatic hypotension: (16) Elevated INR: (17) Hypocalcemia: (18) Hypomagnesemia: (19) Hypokalemia: (20) Acute diastolic CHF (congestive heart failure): (21) Bilateral pleural effusion: (22) Acute hypoxic respiratory failure: (23) Thiamine deficiency: Plan 74yo female with history of long-standing T1DM, poorly-controlled with most a1c's >10% in the record and followed by [facility] Endo/DM clinic - on insulin pump; hypothyroidism; anxiety; hyperlipidemia; migraines; vertigo - who presents from home after her son found her on the floor in the bathroom. She was unresponsive when he found her. Upon ER presentation she was hypothermic, had evidence of severe DKA, was hypotensive, and severe metabolic encephalopathy Also with suspected severe sepsis at admission. #DKA - longstanding type 1 DM, Aic 10.6 on presentation * 2nd to noncompliance with insulin therapy (pump ran out of insulin for at least 1-2 days prior to admission, then she switched to SC injections by report); pneumonia likely contributed to DKA as well * s/p insulin infusion and copious IV hydration at admission with resolution of DKA; required ICU level of care x 48 hours * insulin drip off 07/13 AM; transitioned to basal-bolus SC insulin at that time * transitioned back to pump 07/17 * overall glycemic control has been very good since resolution of DKA * patient has CGM in place and is watching sugars on her phone * CF is 45; carb ratio is 1:10 * has 3 different basal rates over the course of a 24-hour day #orthostatic hypotension - * remains severely symptomatic from such * cortisol 16 on 07/23/24 AM * midodrine started earlier in the admission and ultimately titrated to 10mg TID and florinef 0.1mg daily added * despite the above 2 meds her orthostasis remained severe and she even had near-syncope/syncope walking to the bathroom PM of 07/28 * further, the midodrine was causing significant supine HTN PLAN: * stopped florinef * adding salt tablets bid * lowered midodrine to 2.5mg TID * added pyridostigmine increase dose to 60 mg TID per neurology recommendation * despite these changes remains orthostatic this am and lightheaded * suspect that her orthostatic hypotension is autonomic insufficiency from diabetic neuropathy; this can be incredibly challenging to treat * consider weaning off sertraline; although not common it theoretically can cause orthostasis #acute hypoxic respiratory failure - secondary to pneumonia and HFpEF sepsis criteria on presentation from pneumonia, negative blood cultures, biofire negative * s/p complete course of IV abx therapy) * pulmonary consult appreciated; they advised ongoing diuresis; effusions, although mildly exudative - likely from volume overload; parapneumonic effusions / empyema not suspected * s/p L sided thoracentesis 07/24 * s/p R sided thoracentesis 07/25 * she appears euvolemic defer on additional lasix today #JASMINE - * resolved to CKD3 * #Esophagitis - * as seen on CT * completed 14 days of QID carafate --> discontinued * could have gastroparesis as well leading to the gastric/esophageal abnormalities as detected on the CTs but she denies chronic nausea and/or emesis * would send to GI post-d/c; may need EGD * cont daily PPI - will need prescription at discharge #acute metabolic encephalopathy - resolved * 2nd to DKA, lactic acidosis, sepsis, etc * CT head neg * MRI brain neg for stroke/ICH/tumor/etc * depression could be feeding into this as well * B12 level 470 * B1 level returned low - cont thiamine 200mg BID x 1 month #fall - * presumed 2nd to severe DKA +/- weakness from metabolic derangements +/- sepsis + hypotension / orthostatic hypotension * echo 04/2024 was wnl * cont PT/OT * head CT neg * MRI brain negative for subacute CVA * fortunately no major injuries from her fall(s) * B1 def - see below; replace * B12 level was wnl #DVT proph - * heparin 5000 BID #anxiety - * cont sertraline 25mg daily; was started early this admission * consider increase to 50mg at discharge * I have noted a significant improvement in her affect during the last 10 days or so * cont buspar prn * cont ativan prn * replace low B1 #hypocalcemia - * cont calcium/vit D supplement * most recent albumin 2.7; calcium today 7.8 * corrected calcium for the low albumin ~8.5 * 25 [place] Vit D level was 49 earlier this month #daily etoh use - * uncertain amount, but her son thinks it is likely 1 glass/night * B1 deficient - replace * had no etoh withdrawal while here #B1 def - * thiamine 200mg BID x 30 days * level - 61 (normal >78) #deconditioning - * cont PT/OT * rehab needed post-d/c * plan is [facility] at d/c --> patient still agreeable to such spoke with Ellie, pt' daughter who is a PA at [employer] in [place] - on 07/26/24 her phone # is [phone] reviewed current issues, current care plan, and potential d/c date for rehab (early next week is my hope) discussed orthostasis in detail questions answered sent [place] message to pt's son Juan Manuel 07/25/24, 07/27, 07/28, and 07/29 Admission and Anticipated Discharge Date Admission Date: July 12, 2024 Subjective pt feels well when sitting and did have some PT however did have orthostasis and felt dizzi with standing Physical Exam Physical Exam: pleasant alert, cardiac is regular lungs clear Results & Data Results & Data Vital Signs (Past 12 Hours) Vital Signs Temp Pulse Pulse Pulse Resp BP BP 07/31/24 02:41 98.2 F 72 18 128/62 07/30/24 23:00 67 07/30/24 22:28 98.1 F 64 18 125/62 07/30/24 20:53 Pulse Ox O2 Del Method O2 Flow Rate 07/31/24 02:41 94 Nasal Cannula 07/30/24 23:00 07/30/24 22:28 97 Nasal Cannula 07/30/24 20:53 Nasal Cannula 1 PG Care Time/CCT Total # of Minutes Spent Total Time Spent with Patient: Total time spent is greater than 50% in coordination of care (as documented) at patient's floor/unit and/or counseling patient: Coding Level of Care Code 05720 SUB INP/OBS CARE MIN Diagnoses DKA (diabetic ketoacidosis) E11.10 Uncontrolled type 1 diabetes mellitus with hyperglycemia E10.65 Lactic acidosis E87.20 Severe sepsis A41.9; R65.20 Fall W19.XXXA Esophagitis K20.90 Hypotension I95.9 Acute metabolic encephalopathy G93.41 Hypothermia T68.XXXA Acute dehydration E86.0 Hypothyroidism E03.9 Hyperlipidemia E78.5 Generalized anxiety disorder with panic attacks F41.1; F41.0 Migraine G43.909 Orthostatic hypotension I95.1 Elevated INR R79.1 Hypocalcemia E83.51 Hypomagnesemia E83.42 Hypokalemia E87.6 Acute diastolic CHF (congestive heart failure) I50.31 Bilateral pleural effusion J90 Acute hypoxic respiratory failure J96.01 Thiamine deficiency E51.9
[2024-07-31] MEDS: SODIUM CHLORIDE 1 GM TABLET PO ONE (10:44)
[2024-07-31] MEDS: pyRIDostigmine bromide 60 MG TAB PO SCH (20:48)
[2024-07-31] MEDS: SODIUM CHLORIDE 1 GM TABLET PO SCH (20:52)
[2024-08-01] MEDS: FLUDROCORTISONE ACETATE 0.1 MG TAB PO SCH (10:20)
[2024-08-01 10:31] LABS: BUN Creatinine Ratio 14.3 (10-20); Calcium 8.8 mg/dl (8.6-10.3); Creatinine Clr Calc Pharmacy 40.9 ml/min; Potassium 4.3 mmol/L (3.5-5.1)
--- NOTE | 2024-08-01 15:24 | Hospitalist Progress Note ---
Date of Service August 01, 2024 Assessment & Plan (1) Orthostatic hypotension: (2) DKA (diabetic ketoacidosis): (3) Uncontrolled type 1 diabetes mellitus with hyperglycemia: (4) Severe sepsis: (5) Esophagitis: (6) Acute metabolic encephalopathy: (7) Acute dehydration: (8) Hypothyroidism: (9) Hyperlipidemia: (10) Generalized anxiety disorder with panic attacks: (11) Migraine: (12) Acute diastolic CHF (congestive heart failure): (13) Bilateral pleural effusion: (14) Acute hypoxic respiratory failure: (15) Thiamine deficiency: Plan 74yo female with history of long-standing T1DM, poorly-controlled with most a1c's >10% in the record and followed by [facility] Endo/DM clinic - on insulin pump; hypothyroidism; anxiety; hyperlipidemia; migraines; vertigo - who presents from home after her son found her on the floor in the bathroom. She was unresponsive when he found her. Upon ER presentation she was hypothermic, had evidence of severe DKA, was hypotensive, and severe metabolic encephalopathy Also with suspected severe sepsis at admission. #DKA - longstanding type 1 DM, Aic 10.6 on presentation * 2nd to noncompliance with insulin therapy (pump ran out of insulin for at least 1-2 days prior to admission, then she switched to SC injections by report); pneumonia likely contributed to DKA as well * s/p insulin infusion and copious IV hydration at admission with resolution of DKA; required ICU level of care x 48 hours * insulin drip off 07/13 AM; transitioned to basal-bolus SC insulin at that time * transitioned back to pump 07/17 * overall glycemic control has been very good since resolution of DKA * patient has CGM in place and is watching sugars on her phone * CF is 45; carb ratio is 1:10 * has 3 different basal rates over the course of a 24-hour day #orthostatic hypotension - * remains severely symptomatic from such * cortisol 16 on 07/23/24 AM * despite the above 2 meds (midodrine florinef)her orthostasis remained severe and she even had near-syncope/syncope walking to the bathroom PM of 07/28 * further, the midodrine was causing significant supine HTN and was stopped resume florinef * adding salt tablets bid * added pyridostigmine increase dose to 60 mg TID per neurology recommendation * despite these changes remains orthostatic and significantly symptomatic * reinforced TEDS and abdominal binder * hold sertraline; although not common it theoretically can cause orthostasis #acute hypoxic respiratory failure - secondary to pneumonia and HFpEF sepsis criteria on presentation from pneumonia, negative blood cultures, biofire negative * s/p complete course of IV abx therapy) * pulmonary consult appreciated; they advised ongoing diuresis; effusions, although mildly exudative - likely from volume overload; parapneumonic effusions / empyema not suspected * s/p L sided thoracentesis 07/24 * s/p R sided thoracentesis 07/25 * she appears euvolemic defer on additional lasix #JASMINE - * resolved to CKD3 * #Esophagitis - * as seen on CT * completed 14 days of QID carafate --> discontinued * could have gastroparesis as well leading to the gastric/esophageal abnormalities as detected on the CTs but she denies chronic nausea and/or emesis * would send to GI post-d/c; may need EGD * cont daily PPI - will need prescription at discharge #acute metabolic encephalopathy - resolved * 2nd to DKA, lactic acidosis, sepsis, etc * CT head neg * MRI brain neg for stroke/ICH/tumor/etc * depression could be feeding into this as well * B12 level 470 * B1 level returned low - cont thiamine 200mg BID x 1 month #fall - * presumed 2nd to severe DKA +/- weakness from metabolic derangements +/- sepsis + hypotension / orthostatic hypotension * echo 04/2024 was wnl * cont PT/OT * head CT neg * MRI brain negative for subacute CVA * fortunately no major injuries from her fall(s) * B1 def - see below; replace * B12 level was wnl #DVT proph - * heparin 5000 BID #anxiety - * cont sertraline 25mg daily; was started early this admission * consider increase to 50mg at discharge * I have noted a significant improvement in her affect during the last 10 days or so * cont buspar prn * cont ativan prn * replace low B1 #hypocalcemia - * cont calcium/vit D supplement * most recent albumin 2.7; calcium today 7.8 * corrected calcium for the low albumin ~8.5 * 25 OH Vit D level was 49 earlier this month #daily etoh use - * uncertain amount, but her son thinks it is likely 1 glass/night * B1 deficient - replace * had no etoh withdrawal while here #B1 def - * thiamine 200mg BID x 30 days * level - 61 (normal >78) #deconditioning - * cont PT/OT * rehab needed post-d/c * plan [facility] --> patient still agreeable to such spoke with Ellie, pt' daughter who is a PA at [employer] [facility] in [place] - on 07/26/24 her phone # is [phone] reviewed current issues, current care plan, and potential d/c date for rehab (early next week is my hope) discussed orthostasis in detail questions answered sent [place] message to pt's son Juan Manuel 07/25/24, 07/27, 07/28, and 07/29 Admission and Anticipated Discharge Date Admission Date: July 12, 2024 Subjective pt had very poor reaction to orthostatic blood pressure check in am 08/01 no other issues no c/o to changes of medicines Physical Exam Physical Exam: cardiac is regular, systolic murmur lungs are clear Results & Data Results & Data Vital Signs (Past 12 Hours) Vital Signs Temp Pulse Resp BP Pulse Ox O2 Del Method 08/01/24 11:45 98.4 F 77 107/61 95 Room Air 08/01/24 08:01 98.4 F 77 18 90/52 L 92 Room Air 08/01/24 08:00 Room Air Laboratory Results review chemistry review poc glucose PG Care Time/CCT Total # of Minutes Spent Total Time Spent with Patient: Total time spent is greater than 50% in coordination of care (as documented) at patient's floor/unit and/or counseling patient: Coding Level of Care Code 96647 SUB INP/OBS CARE 3/50MIN Diagnoses Orthostatic hypotension I95.1 DKA (diabetic ketoacidosis) E11.10 Uncontrolled type 1 diabetes mellitus with hyperglycemia E10.65 Severe sepsis A41.9; R65.20 Esophagitis K20.90 Acute metabolic encephalopathy G93.41 Acute dehydration E86.0 Hypothyroidism E03.9 Hyperlipidemia E78.5 Generalized anxiety disorder with panic attacks F41.1; F41.0 Migraine G43.909 Acute diastolic CHF (congestive heart failure) I50.31 Bilateral pleural effusion J90 Acute hypoxic respiratory failure J96.01 Thiamine deficiency E51.9
[2024-08-02] MEDS: MIDODRINE HCL 2.5 MG TAB PO SCH (12:09)
--- NOTE | 2024-08-02 17:35 | Hospitalist Progress Note ---
Date of Service August 02, 2024 Assessment & Plan (1) Orthostatic hypotension: (2) DKA (diabetic ketoacidosis): (3) Uncontrolled type 1 diabetes mellitus with hyperglycemia: (4) Severe sepsis: (5) Esophagitis: (6) Acute metabolic encephalopathy: (7) Acute dehydration: (8) Hypothyroidism: (9) Hyperlipidemia: (10) Generalized anxiety disorder with panic attacks: (11) Migraine: (12) Acute diastolic CHF (congestive heart failure): (13) Bilateral pleural effusion: (14) Acute hypoxic respiratory failure: (15) Thiamine deficiency: Plan 74yo female with history of long-standing T1DM, poorly-controlled with most a1c's >10% in the record and followed by [facility] Endo/DM clinic - on insulin pump; hypothyroidism; anxiety; hyperlipidemia; migraines; vertigo - who presents from home after her son found her on the floor in the bathroom. She was unresponsive when he found her. Upon ER presentation she was hypothermic, had evidence of severe DKA, was hypotensive, and severe metabolic encephalopathy Also with suspected severe sepsis at admission. #DKA - longstanding type 1 DM, Aic 10.6 on presentation * 2nd to noncompliance with insulin therapy (pump ran out of insulin for at least 1-2 days prior to admission, then she switched to SC injections by report); pneumonia likely contributed to DKA as well * s/p insulin infusion and copious IV hydration at admission with resolution of DKA; required ICU level of care x 48 hours * insulin drip off 07/13 AM; transitioned to basal-bolus SC insulin at that time * transitioned back to pump 07/17 * overall glycemic control has been very good since resolution of DKA * patient has CGM in place and is watching sugars on her phone * CF is 45; carb ratio is 1:10 * has 3 different basal rates over the course of a 24-hour day #orthostatic hypotension - * remains severely symptomatic from such * cortisol 16 on 07/23/24 AM * despite the above 2 meds (midodrine florinef)her orthostasis remained severe and she even had near-syncope/syncope walking to the bathroom PM of 07/28 * resumed midodrine. increased on 08/02 to 5 mg PO TID resume florinef * adding salt tablets bid * added pyridostigmine increase dose to 60 mg TID per neurology recommendation * despite these changes remains orthostatic and significantly symptomatic * reinforced TEDS and abdominal binder * hold sertraline; although not common it theoretically can cause orthostasis #acute hypoxic respiratory failure - secondary to pneumonia and HFpEF sepsis criteria on presentation from pneumonia, negative blood cultures, biofire negative * s/p complete course of IV abx therapy) * pulmonary consult appreciated; they advised ongoing diuresis; effusions, although mildly exudative - likely from volume overload; parapneumonic effusions / empyema not suspected * s/p L sided thoracentesis 07/24 * s/p R sided thoracentesis 07/25 * she appears euvolemic defer on additional lasix #JASMINE - * resolved to CKD3 * #Esophagitis - * as seen on CT * completed 14 days of QID carafate --> discontinued * could have gastroparesis as well leading to the gastric/esophageal abnormalities as detected on the CTs but she denies chronic nausea and/or emesis * would send to GI post-d/c; may need EGD * cont daily PPI - will need prescription at discharge #acute metabolic encephalopathy - resolved * 2nd to DKA, lactic acidosis, sepsis, etc * CT head neg * MRI brain neg for stroke/ICH/tumor/etc * depression could be feeding into this as well * B12 level 470 * B1 level returned low - cont thiamine 200mg BID x 1 month #fall - * presumed 2nd to severe DKA +/- weakness from metabolic derangements +/- sepsis + hypotension / orthostatic hypotension * echo 04/2024 was wnl * cont PT/OT * head CT neg * MRI brain negative for subacute CVA * fortunately no major injuries from her fall(s) * B1 def - see below; replace * B12 level was wnl #DVT proph - * heparin 5000 BID #anxiety - * cont sertraline 25mg daily; was started early this admission * consider increase to 50mg at discharge * I have noted a significant improvement in her affect during the last 10 days or so * cont buspar prn * cont ativan prn * replace low B1 #hypocalcemia - * cont calcium/vit D supplement * most recent albumin 2.7; calcium today 7.8 * corrected calcium for the low albumin ~8.5 * 25 [place] Vit D level was 49 earlier this month #daily etoh use - * uncertain amount, but her son thinks it is likely 1 glass/night * B1 deficient - replace * had no etoh withdrawal while here #B1 def - * thiamine 200mg BID x 30 days * level - 61 (normal >78) #deconditioning - * cont PT/OT * rehab needed post-d/c * [facility] patient still agreeable to such spoke with Ellie, pt' daughter who is a PA at [employer] - on 07/26/24 her phone # is [phone] reviewed current issues, current care plan, and potential d/c date for rehab (early next week is my hope) discussed orthostasis in detail questions answered sent [place] message to pt's son Juan Manuel 07/25/24, 07/27, 07/28, and 07/29 Admission and Anticipated Discharge Date Admission Date: July 12, 2024 Subjective Patient reports feeling frustrated with her blood pressure not being controlled. She still feels dizy when she stands up and ambulates. Physical Exam Constitutional: WD/WN, vitals as above Neck: trachea midline, no thyromegaly Respiratory: normal respiratory effort; no respiratory distress and does not use accessory muscles Results & Data Results & Data Vital Signs (Past 12 Hours) Vital Signs Temp Pulse Pulse Resp BP Pulse Ox O2 Del Method 08/02/24 16:06 37.2 C 80 17 106/63 95 Room Air 08/02/24 14:59 71 08/02/24 11:25 37.3 C 21 94 Room Air 08/02/24 07:30 36.7 C 80 19 98/58 L 90 Room Air PG Care Time/CCT Total # of Minutes Spent Total Time Spent with Patient: Total time spent is greater than 50% in coordination of care (as documented) at patient's floor/unit and/or counseling patient: Coding Level of Care Code 95010 SUB INP/OBS CARE 3/50MIN Diagnoses Orthostatic hypotension I95.1 DKA (diabetic ketoacidosis) E11.10 Uncontrolled type 1 diabetes mellitus with hyperglycemia E10.65 Severe sepsis A41.9; R65.20 Esophagitis K20.90 Acute metabolic encephalopathy G93.41 Acute dehydration E86.0 Hypothyroidism E03.9 Hyperlipidemia E78.5 Generalized anxiety disorder with panic attacks F41.1; F41.0 Migraine G43.909 Acute diastolic CHF (congestive heart failure) I50.31 Bilateral pleural effusion J90 Acute hypoxic respiratory failure J96.01 Thiamine deficiency E51.9
[2024-08-03 06:09] LABS: Hematocrit (blood only) 32.1 % (37.0-47.0); Hemoglobin 10.1 g/dl (12.0-16.0); Mean Corpuscular Hemoglobin 28.9 pg (25.0-34.0); Mean Corpuscular Hgb Conc 31.5 g/dL (32.0-36.0); Mean Corpuscular Volume 91.7 fL (80.0-100.0); Mean Platelet Volume 9.5 fL (9.4-12.4); Platelet Count 427 K/uL (130-400); RDW Coefficient of Variation 15.6 % (11.5-14.5); RDW Standard Deviation 52.1 fL (36.4-46.3)
[2024-08-03 06:26] LABS: Anion Gap 4 (3-11); BUN Creatinine Ratio 20.7 (10-20); Blood Urea Nitrogen 18 mg/dl (6-23); C Reactive Protein < 0.50 mg/dl (0-0.5); Calcium 8.8 mg/dl (8.6-10.3); Carbon Dioxide 31 mmol/L (21-32); Chloride 103 mmol/L (98-107); Creatinine Clr Calc Pharmacy 42.9 ml/min; Glucose 149 mg/dl (70-99(Fasting)); Potassium 4.2 mmol/L (3.5-5.1); Sodium 138 mmol/L (136-145)
--- NOTE | 2024-08-03 23:09 | Hospitalist Progress Note ---
Date of Service August 03, 2024 Assessment & Plan (1) Orthostatic hypotension: (2) DKA (diabetic ketoacidosis): (3) Uncontrolled type 1 diabetes mellitus with hyperglycemia: (4) Severe sepsis: (5) Esophagitis: (6) Acute metabolic encephalopathy: (7) Acute dehydration: (8) Hypothyroidism: (9) Hyperlipidemia: (10) Generalized anxiety disorder with panic attacks: (11) Migraine: (12) Acute diastolic CHF (congestive heart failure): (13) Bilateral pleural effusion: (14) Acute hypoxic respiratory failure: (15) Thiamine deficiency: Plan 74yo female with history of long-standing T1DM, poorly-controlled with most a1c's >10% in the record and followed by [facility] Endo/DM clinic - on insulin pump; hypothyroidism; anxiety; hyperlipidemia; migraines; vertigo - who presents from home after her son found her on the floor in the bathroom. She was unresponsive when he found her. Upon ER presentation she was hypothermic, had evidence of severe DKA, was hypotensive, and severe metabolic encephalopathy Also with suspected severe sepsis at admission. #DKA - longstanding type 1 DM, Aic 10.6 on presentation * 2nd to noncompliance with insulin therapy (pump ran out of insulin for at least 1-2 days prior to admission, then she switched to SC injections by report); pneumonia likely contributed to DKA as well * s/p insulin infusion and copious IV hydration at admission with resolution of DKA; required ICU level of care x 48 hours * insulin drip off 07/13 AM; transitioned to basal-bolus SC insulin at that time * transitioned back to pump 07/17 * overall glycemic control has been very good since resolution of DKA * patient has CGM in place and is watching sugars on her phone * CF is 45; carb ratio is 1:10 * has 3 different basal rates over the course of a 24-hour day #orthostatic hypotension - * remains severely symptomatic from such * cortisol 16 on 07/23/24 AM * despite the above 2 meds (midodrine florinef)her orthostasis remained severe and she even had near-syncope/syncope walking to the bathroom PM of 07/28 * resumed midodrine. increased on 08/02 to 5 mg PO TID resume florinef * adding salt tablets bid * added pyridostigmine increase dose to 60 mg TID per neurology recommendation * despite these changes remains orthostatic and significantly symptomatic * reinforced TEDS and abdominal binder * hold sertraline; although not common it theoretically can cause orthostasis * Though still orthostatic on 08/03 her symptoms have improved. will continue current medication increase. #acute hypoxic respiratory failure - secondary to pneumonia and HFpEF sepsis criteria on presentation from pneumonia, negative blood cultures, biofire negative * s/p complete course of IV abx therapy) * pulmonary consult appreciated; they advised ongoing diuresis; effusions, although mildly exudative - likely from volume overload; parapneumonic effusions / empyema not suspected * s/p L sided thoracentesis 07/24 * s/p R sided thoracentesis 07/25 * she appears euvolemic defer on additional lasix #JASMINE - * resolved to CKD3 * #Esophagitis - * as seen on CT * completed 14 days of QID carafate --> discontinued * could have gastroparesis as well leading to the gastric/esophageal abnormalities as detected on the CTs but she denies chronic nausea and/or emesis * would send to GI post-d/c; may need EGD * cont daily PPI - will need prescription at discharge #acute metabolic encephalopathy - resolved * 2nd to DKA, lactic acidosis, sepsis, etc * CT head neg * MRI brain neg for stroke/ICH/tumor/etc * depression could be feeding into this as well * B12 level 470 * B1 level returned low - cont thiamine 200mg BID x 1 month #fall - * presumed 2nd to severe DKA +/- weakness from metabolic derangements +/- sepsis + hypotension / orthostatic hypotension * echo 04/2024 was wnl * cont PT/OT * head CT neg * MRI brain negative for subacute CVA * fortunately no major injuries from her fall(s) * B1 def - see below; replace * B12 level was wnl #DVT proph - * heparin 5000 BID #anxiety - * cont sertraline 25mg daily; was started early this admission * consider increase to 50mg at discharge * I have noted a significant improvement in her affect during the last 10 days or so * cont buspar prn * cont ativan prn * replace low B1 #hypocalcemia - * cont calcium/vit D supplement * most recent albumin 2.7; calcium today 7.8 * corrected calcium for the low albumin ~8.5 * 25 [place] Vit D level was 49 earlier this month #daily etoh use - * uncertain amount, but her son thinks it is likely 1 glass/night * B1 deficient - replace * had no etoh withdrawal while here #B1 def - * thiamine 200mg BID x 30 days * level - 61 (normal >78) #deconditioning - * cont PT/OT * rehab needed post-d/c * plan is [facility] at d/c --> patient still agreeable to such spoke with Ellie, pt' daughter who is a PA at [employer] in [place] - on 07/26/24 her phone # is [phone] reviewed current issues, current care plan, and potential d/c date for rehab (early next week is my hope) discussed orthostasis in detail questions answered sent [place] message to pt's son Juan Manuel 07/25/24, 07/27, 07/28, and 07/29 Admission and Anticipated Discharge Date Admission Date: July 12, 2024 Subjective Patient reports no new symptoms. Her symptoms have improved. Physical Exam Constitutional: WD/WN, vitals as above Neck: trachea midline, no thyromegaly Respiratory: normal respiratory effort; no respiratory distress and does not use accessory muscles Results & Data Results & Data Vital Signs (Past 12 Hours) Vital Signs Temp Pulse Pulse Pulse Resp BP BP 08/03/24 22:24 68 08/03/24 19:48 37.0 C 67 18 109/66 08/03/24 19:47 08/03/24 15:56 36.9 C 68 18 113/66 08/03/24 14:54 65 08/03/24 11:57 36.8 C 67 18 93/59 L Pulse Ox O2 Del Method 08/03/24 22:24 08/03/24 19:48 95 Room Air 08/03/24 19:47 Room Air 08/03/24 15:56 94 Room Air 08/03/24 14:54 08/03/24 11:57 94 Room Air PG Care Time/CCT Total # of Minutes Spent Total Time Spent with Patient: Total time spent is greater than 50% in coordination of care (as documented) at patient's floor/unit and/or counseling patient: Coding Level of Care Code 18611 SUB INP/OBS CARE 3/50MIN Diagnoses Orthostatic hypotension I95.1 DKA (diabetic ketoacidosis) E11.10 Uncontrolled type 1 diabetes mellitus with hyperglycemia E10.65 Severe sepsis A41.9; R65.20 Esophagitis K20.90 Acute metabolic encephalopathy G93.41 Acute dehydration E86.0 Hypothyroidism E03.9 Hyperlipidemia E78.5 Generalized anxiety disorder with panic attacks F41.1; F41.0 Migraine G43.909 Acute diastolic CHF (congestive heart failure) I50.31 Bilateral pleural effusion J90 Acute hypoxic respiratory failure J96.01 Thiamine deficiency E51.9
--- NOTE | 2024-08-04 19:04 | Hospitalist Progress Note ---
Date of Service August 04, 2024 Assessment & Plan (1) Orthostatic hypotension: (2) DKA (diabetic ketoacidosis): (3) Uncontrolled type 1 diabetes mellitus with hyperglycemia: (4) Severe sepsis: (5) Esophagitis: (6) Acute metabolic encephalopathy: (7) Acute dehydration: (8) Hypothyroidism: (9) Hyperlipidemia: (10) Generalized anxiety disorder with panic attacks: (11) Migraine: (12) Acute diastolic CHF (congestive heart failure): (13) Bilateral pleural effusion: (14) Acute hypoxic respiratory failure: (15) Thiamine deficiency: Plan 74yo female with history of long-standing T1DM, poorly-controlled with most a1c's >10% in the record and followed by [facility] Endo/DM clinic - on insulin pump; hypothyroidism; anxiety; hyperlipidemia; migraines; vertigo - who presents from home after her son found her on the floor in the bathroom. She was unresponsive when he found her. Upon ER presentation she was hypothermic, had evidence of severe DKA, was hypotensive, and severe metabolic encephalopathy Also with suspected severe sepsis at admission. #DKA - longstanding type 1 DM, Aic 10.6 on presentation * 2nd to noncompliance with insulin therapy (pump ran out of insulin for at least 1-2 days prior to admission, then she switched to SC injections by report); pneumonia likely contributed to DKA as well * s/p insulin infusion and copious IV hydration at admission with resolution of DKA; required ICU level of care x 48 hours * insulin drip off 07/13 AM; transitioned to basal-bolus SC insulin at that time * transitioned back to pump 07/17 * overall glycemic control has been very good since resolution of DKA * patient has CGM in place and is watching sugars on her phone * CF is 45; carb ratio is 1:10 #orthostatic hypotension - * remains severely symptomatic from such * cortisol 16 on 07/23/24 AM * despite the above 2 meds (midodrine florinef)her orthostasis remained severe and she even had near-syncope/syncope walking to the bathroom PM of 07/28 * resumed midodrine. increased on 08/02 to 5 mg PO TID resume florinef * adding salt tablets bid * added pyridostigmine increase dose to 60 mg TID per neurology recommendation * despite these changes remains orthostatic and significantly symptomatic * reinforced TEDS and abdominal binder * hold sertraline; although not common it theoretically can cause orthostasis * No longer symptomatically orthostatic on 08/04, will apply for auth on 08/06 #acute hypoxic respiratory failure - secondary to pneumonia and HFpEF sepsis criteria on presentation from pneumonia, negative blood cultures, biofire negative * s/p complete course of IV abx therapy) * pulmonary consult appreciated; they advised ongoing diuresis; effusions, although mildly exudative - likely from volume overload; parapneumonic effusions / empyema not suspected * s/p L sided thoracentesis 07/24 * s/p R sided thoracentesis 07/25 * she appears euvolemic defer on additional lasix #JASMINE - * resolved to CKD3 #Esophagitis - * as seen on CT * completed 14 days of QID carafate --> discontinued * could have gastroparesis as well leading to the gastric/esophageal abnormalities as detected on the CTs but she denies chronic nausea and/or emesis * would send to GI post-d/c; may need EGD * cont daily PPI - will need prescription at discharge #acute metabolic encephalopathy - resolved * 2nd to DKA, lactic acidosis, sepsis, etc * CT head neg * MRI brain neg for stroke/ICH/tumor/etc * depression could be feeding into this as well * B12 level 470 * B1 level returned low - cont thiamine 200mg BID x 1 month #fall - * presumed 2nd to severe DKA +/- weakness from metabolic derangements +/- sepsis + hypotension / orthostatic hypotension * echo 04/2024 was wnl * cont PT/OT * head CT neg * MRI brain negative for subacute CVA * fortunately no major injuries from her fall(s) * B1 def - see below; replace * B12 level was wnl #DVT proph - * heparin 5000 BID #anxiety - * cont sertraline 25mg daily; was started early this admission * consider increase to 50mg at discharge * I have noted a significant improvement in her affect during the last 10 days or so * cont buspar prn * cont ativan prn * replace low B1 #hypocalcemia - * cont calcium/vit D supplement * most recent albumin 2.7; calcium today 7.8 * corrected calcium for the low albumin ~8.5 * 25 OH Vit D level was 49 earlier this month #daily etoh use - * uncertain amount, but her son thinks it is likely 1 glass/night * B1 deficient - replace * had no etoh withdrawal while here #B1 def - * thiamine 200mg BID x 30 days * level - 61 (normal >78) #deconditioning - * cont PT/OT * rehab needed post-d/c * plan is [facility] at d/c --> patient still agreeable to such spoke with Ellie, pt' daughter who is a PA at [employer] in [place] - on 07/26/24 her phone # is [phone] reviewed current issues, current care plan, and potential d/c date for rehab (early next week is my hope) discussed orthostasis in detail questions answered sent [place] message to pt's son Juan Manuel 07/25/24, 07/27, 07/28, and 07/29 Admission and Anticipated Discharge Date Admission Date: July 12, 2024 Subjective 74 yo female reports no new symptoms. No longer complaining of orthostasis. Physical Exam Constitutional: WD/WN, vitals as above Neck: trachea midline, no thyromegaly Respiratory: normal respiratory effort; no respiratory distress and does not use accessory muscles Results & Data Results & Data Vital Signs (Past 12 Hours) Vital Signs Temp Pulse Pulse Pulse Resp BP Pulse Ox 08/04/24 15:39 36.8 C 75 20 132/75 96 08/04/24 15:14 75 08/04/24 12:43 70 104/67 97 08/04/24 11:49 36.8 C 72 17 100/63 95 08/04/24 07:52 08/04/24 07:44 36.8 C 81 17 134/76 94 08/04/24 07:30 82 O2 Del Method 08/04/24 15:39 Room Air 08/04/24 15:14 08/04/24 12:43 Room Air 08/04/24 11:49 Room Air 08/04/24 07:52 Room Air 08/04/24 07:44 Room Air 08/04/24 07:30 PG Care Time/CCT Total # of Minutes Spent Total Time Spent with Patient: Total time spent is greater than 50% in coordination of care (as documented) at patient's floor/unit and/or counseling patient: Coding Level of Care Code 03073 SUB INP/OBS CARE 3/50MIN Diagnoses Orthostatic hypotension I95.1 DKA (diabetic ketoacidosis) E11.10 Uncontrolled type 1 diabetes mellitus with hyperglycemia E10.65 Severe sepsis A41.9; R65.20 Esophagitis K20.90 Acute metabolic encephalopathy G93.41 Acute dehydration E86.0 Hypothyroidism E03.9 Hyperlipidemia E78.5 Generalized anxiety disorder with panic attacks F41.1; F41.0 Migraine G43.909 Acute diastolic CHF (congestive heart failure) I50.31 Bilateral pleural effusion J90 Acute hypoxic respiratory failure J96.01 Thiamine deficiency E51.9
--- NOTE | 2024-08-05 10:22 | Hospitalist Progress Note ---
Date of Service August 05, 2024 Assessment & Plan (1) Orthostatic hypotension: Plan: resumed midodrine. increased on 08/02 to 5 mg PO TID resume florinef * adding salt tablets bid * added pyridostigmine increase dose to 60 mg TID per neurology recommendation * despite these changes remains orthostatic and significantly symptomatic * reinforced TEDS and abdominal binder * hold sertraline; although not common it theoretically can cause orthostasis * No longer symptomatically orthostatic on 08/04, will apply for auth on 08/06 (2) DKA (diabetic ketoacidosis): Plan: transitioned back to pump 07/17 * overall glycemic control has been very good since resolution of DKA * patient has CGM in place and is watching sugars on her phone * CF is 45; carb ratio is 1:10 (3) Uncontrolled type 1 diabetes mellitus with hyperglycemia: (4) Severe sepsis: (5) Esophagitis: Plan: would send to GI post-d/c; may need EGD * cont daily PPI - will need prescription at discharge (6) Acute metabolic encephalopathy: Plan: 2nd to DKA, lactic acidosis, sepsis, etc * CT head neg * MRI brain neg for stroke/ICH/tumor/etc * depression could be feeding into this as well * B12 level 470 * B1 level returned low - cont thiamine 200mg BID x 1 tristin (7) Acute dehydration: (8) Hypothyroidism: (9) Hyperlipidemia: (10) Generalized anxiety disorder with panic attacks: (11) Migraine: (12) Acute diastolic CHF (congestive heart failure): (13) Bilateral pleural effusion: (14) Acute hypoxic respiratory failure: Plan: sepsis criteria on presentation from pneumonia, negative blood cultures, biofire negative * s/p complete course of IV abx therapy) * pulmonary consult appreciated; they advised ongoing diuresis; effusions, although mildly exudative - likely from volume overload; parapneumonic effusions / empyema not suspected * s/p L sided thoracentesis 07/24 * s/p R sided thoracentesis 07/25 * Resolved (15) Thiamine deficiency: Plan: thiamine 200mg BID x 30 days Plan 74yo female with history of long-standing T1DM, poorly-controlled with most a1c's >10% in the record and followed [place] [facility] [place] - on insulin pump; hypothyroidism; anxiety; hyperlipidemia; migraines; vertigo - who presents from home after her son found her on the floor in the bathroom. She was unresponsive when he found her. Upon ER presentation she was hypothermic, had evidence of severe DKA, was hypotensive, and severe metabolic encephalopathy Also with suspected severe sepsis at admission. spoke with Ellie, pt' daughter who is a PA at [employer] in [place] - on 07/26/24 her phone # is [phone] reviewed current issues, current care plan, and potential Pt no longer orthostatic, pt ready for rehab auth and placement. Case management to follow 08/06 Admission and Anticipated Discharge Date Admission Date: July 12, 2024 Subjective No events overnight. Pt resting comfortably in bed. Review of Systems Review of Systems: CONST: Negative for fever, body aches and chills. HENT: Negative for neck pain/stiffness, headache, congestion, sore throat, swelling. EYES: Negative for discharge/pain or vision changes. RESP: Negative for cough/hemoptysis and shortness of breath. CV: Negative chest pain, difficulty breathing, palpitations. ABD: Negative pain, nausea, vomiting. : Negative increase frequency, dysuria, blood in urine or stool. MUSC: Negative for muscle aches, edema. SKIN: Negative rash, lesions/sores. NEURO: Negative headache, dizziness, weakness. Physical Exam Physical Exam: GENERAL APPEARANCE NAD, activity normal for age, well developed/ well nourished, no cyanosis, pallor, or diaphoresis. EYES lids/conjunctiva normal. EARS/NOSE/THROAT Mucous membranes moist, nares normal, lips/teeth normal uvula midline without oral pharyngeal erythema, exudate or swelling TMs normal bilaterally. No lymphangitis/lymphedema. HEAD/NECK normocephalic atraumatic, no facial trauma, neck is supple. RESPIRATORY respiratory effort normal, speaks in full sentences, no tripod position, no accessory muscle use. Lungs clear to auscultation without rhonchi, wheezes, rales CARDIAC Regular rate and rhythm, no edema. ABDOMINAL Soft, ND/NT. No evidence of fluid wave. No pulsatile masses on exam, rebound tenderness, Rondon sign or pain over Mcburney's point. MUSCLES/EXTREMITIES No abnormal range of motion, no swelling. SKIN Warm, pink and dry. No rashes, dermatoses, petechiae or lesions. NEUROLOGICAL Speech is clear and appropriate. Normal level of consciousness. Gait and coordination are normal. 5/5 strength in all extremities. PSYCH Normal mood and affect. Judgement/competence is appropriate Results & Data Results & Data Vital Signs (Past 12 Hours) Vital Signs Temp Pulse Pulse Pulse Resp BP BP 08/05/24 07:32 08/05/24 07:27 36.7 C 84 20 95/59 L 08/05/24 04:07 36.6 C 88 18 104/65 08/05/24 00:00 71 08/04/24 22:47 36.7 C 75 14 131/69 Pulse Ox O2 Del Method 08/05/24 07:32 Room Air 08/05/24 07:27 93 Room Air 08/05/24 04:07 92 Room Air 08/05/24 00:00 08/04/24 22:47 95 Room Air PG Care Time/CCT Total # of Minutes Spent Total Time Spent with Patient: Total time spent is greater than 50% in coordination of care (as documented) at patient's floor/unit and/or counseling patient: Coding Level of Care Code 79004 SUB INP/OBS CARE 2/35MIN Diagnoses Orthostatic hypotension I95.1 DKA (diabetic ketoacidosis) E11.10 Uncontrolled type 1 diabetes mellitus with hyperglycemia E10.65 Severe sepsis A41.9; R65.20 Esophagitis K20.90 Acute metabolic encephalopathy G93.41 Acute dehydration E86.0 Hypothyroidism E03.9 Hyperlipidemia E78.5 Generalized anxiety disorder with panic attacks F41.1; F41.0 Migraine G43.909 Acute diastolic CHF (congestive heart failure) I50.31 Bilateral pleural effusion J90 Acute hypoxic respiratory failure J96.01 Thiamine deficiency E51.9
--- NOTE | 2024-08-06 18:46 | Hospitalist Progress Note ---
Date of Service August 06, 2024 Assessment & Plan (1) Orthostatic hypotension: Plan: resumed midodrine. increased on 08/02 to 5 mg PO TID resume florinef * adding salt tablets bid * added pyridostigmine increase dose to 60 mg TID per neurology recommendation * reinforced TEDS and abdominal binder * hold sertraline; although not common it theoretically can cause orthostasis * No longer symptomatically orthostatic on 08/06, will apply for auth on 08/06 (2) DKA (diabetic ketoacidosis): Plan: transitioned back to pump 07/17 * overall glycemic control has been very good since resolution of DKA * patient has CGM in place and is watching sugars on her phone * CF is 45; carb ratio is 1:10 (3) Uncontrolled type 1 diabetes mellitus with hyperglycemia: (4) Severe sepsis: (5) Esophagitis: Plan: would send to GI post-d/c; may need EGD * cont daily PPI - will need prescription at discharge (6) Acute metabolic encephalopathy: Plan: 2nd to DKA, lactic acidosis, sepsis, etc * CT head neg * MRI brain neg for stroke/ICH/tumor/etc * depression could be feeding into this as well * B12 level 470 * B1 level returned low - cont thiamine 200mg BID x 1 tristin (7) Acute dehydration: (8) Hypothyroidism: (9) Hyperlipidemia: (10) Generalized anxiety disorder with panic attacks: (11) Migraine: (12) Acute diastolic CHF (congestive heart failure): (13) Bilateral pleural effusion: (14) Acute hypoxic respiratory failure: Plan: sepsis criteria on presentation from pneumonia, negative blood cultures, biofire negative * s/p complete course of IV abx therapy) * pulmonary consult appreciated; they advised ongoing diuresis; effusions, although mildly exudative - likely from volume overload; parapneumonic effusions / empyema not suspected * s/p L sided thoracentesis 07/24 * s/p R sided thoracentesis 07/25 * Resolved (15) Thiamine deficiency: Plan: thiamine 200mg BID x 30 days Plan 74yo female with history of long-standing T1DM, poorly-controlled with most a1c's >10% in the record and followed by [facility] Endo/DM clinic - on insulin pump; hypothyroidism; anxiety; hyperlipidemia; migraines; vertigo - who presents from home after her son found her on the floor in the bathroom. She was unresponsive when he found her. Upon ER presentation she was hypothermic, had evidence of severe DKA, was hypotensive, and severe metabolic encephalopathy Also with suspected severe sepsis at admission. spoke with Ellie, pt' daughter who is a PA at [facility] [facility] in [place] - on 07/26/24 her phone # is [phone] reviewed current issues, current care plan, and potential Pt no longer orthostatic, pt ready for rehab auth and placement. Case management to follow 08/06 Admission and Anticipated Discharge Date Admission Date: July 12, 2024 Subjective Patient reports feeling well. She has no new complaints. Physical Exam Constitutional: WD/WN, vitals as above Neck: trachea midline, no thyromegaly Respiratory: normal respiratory effort; no respiratory distress and does not use accessory muscles Results & Data Results & Data Vital Signs (Past 12 Hours) Vital Signs Temp Pulse Pulse Resp BP Pulse Ox O2 Del Method 08/06/24 16:00 84 08/06/24 15:00 36.9 C 76 18 111/61 95 Room Air 08/06/24 11:20 36.9 C 73 18 102/57 L 96 Room Air 08/06/24 09:00 Room Air 08/06/24 08:00 73 08/06/24 07:23 36.9 C 80 18 151/78 H 93 Room Air PG Care Time/CCT Total # of Minutes Spent Total Time Spent with Patient: Total time spent is greater than 50% in coordination of care (as documented) at patient's floor/unit and/or counseling patient: Coding Level of Care Code 52760 SUB INP/OBS CARE 2/35MIN Diagnoses Orthostatic hypotension I95.1 DKA (diabetic ketoacidosis) E11.10 Uncontrolled type 1 diabetes mellitus with hyperglycemia E10.65 Severe sepsis A41.9; R65.20 Esophagitis K20.90 Acute metabolic encephalopathy G93.41 Acute dehydration E86.0 Hypothyroidism E03.9 Hyperlipidemia E78.5 Generalized anxiety disorder with panic attacks F41.1; F41.0 Migraine G43.909 Acute diastolic CHF (congestive heart failure) I50.31 Bilateral pleural effusion J90 Acute hypoxic respiratory failure J96.01 Thiamine deficiency E51.9
[2024-08-07 15:26] VITALS: PULSE 82; RESP 18; TEMP 97.9; O2SAT 96
[2024-08-07 15:28] VITALS: BP 96/58
== END 2024-08-07 17:18 | disposition home health service (06) | DRG 871 ==
LOC: ED 09:13 → SUATTDRO 12:02 → 1E 12:02 → 4W 07-14 18:16 → 2E 08-05 16:02